=== PATIENT | male | born 1960 | race Caucasian/White ===

== ENCOUNTER 2022-06-29 10:06 | Emergency (ER) | payer MEDICAID, SELFPAY ==
[2022-06-29 10:29] VITALS: BP 132/82; PULSE 92; RESP 16; TEMP 37.2; O2SAT 100; BMI 29.5
--- NOTE | 2022-06-29 11:33 | ED_ITS ---
HPI - General Adult General Chief complaint: Extremity Pain/Injury, Lower Stated complaint: Pain in the right leg and groin Time Seen by Provider: 06/29/22 11:19 History of Present Illness HPI narrative: This 62-year-old male comes in reporting severe low back pain radiating all the way down his right leg. This has been present for the past couple weeks. He did go in to see a provider and had an x-ray and ultrasound done. These were negative for fracture and blood clots. The patient does not describe any injury event. He is ambulatory but has constant pain as described. He states that he has difficulty sleeping at night also to her to the pain. Related Data Home Medications Medication Instructions Recorded Confirmed amlodipine 10 mg tablet 10 mg PO DAILY 06/29/22 06/29/22 budesonide-formoterol HFA 160 1 inh inhalation DAILY 06/29/22 06/29/22 mcg-4.5 mcg/actuation aerosol inhaler (Symbicort) escitalopram oxalate 10 mg tablet 10 mg PO DAILY 06/29/22 06/29/22 ipratropium 0.5 mg-albuterol 3 mg 3 ml inhalation Q6H PRN 06/29/22 06/29/22 (2.5 mg base)/3 mL nebulization soln lorazepam 1 mg tablet 1 mg PO DAILY 06/29/22 06/29/22 meloxicam 15 mg tablet 15 mg PO DAILY 06/29/22 06/29/22 metformin 1,000 mg tablet 1,000 mg PO BID 06/29/22 06/29/22 omeprazole 40 mg capsule,delayed 20 mg PO DAILY 06/29/22 06/29/22 release tiotropium bromide 18 mcg capsule 1 cap inhalation DAILY 06/29/22 06/29/22 with inhalation device (Spiriva with HandiHaler) Previous Rx's Medication Instructions Recorded cyclobenzaprine 10 mg tablet 10 mg PO TID #15 tabs 06/29/22 hydrocodone 5 mg-acetaminophen 325 1 tab PO Q4-6H PRN pain #20 tabs 06/29/22 mg tablet ketorolac 10 mg tablet 10 mg PO Q8H 5 days #15 tabs 06/29/22 methylprednisolone 4 mg tablets in See Rx Instructions PO .COMPLEX 06/29/22 a dose pack (Medrol (Nando)) #21 ea Allergies Allergy/AdvReac Type Severity Reaction Status Date / Time No Known Drug Allergies Allergy Verified 06/29/22 10:24 Review of Systems Status of ROS: Reports: 10 or more systems reviewed and unremarkable except as noted in History and below Narrative: Constitutional: No fevers, no weight gain or loss. Eyes: No discharge. No vision changes. HENT: No congestion, no sore throat, no ear pain. Cardiovascular: No chest pain, no palpitations. Respiratory: No shortness of breath, no wheezes, no cough. Gastrointestinal: No abdominal pain, no vomiting, no diarrhea. No altered bowel function. Genitourinary: No dysuria, no hematuria. He has some pre-existing increased frequency and decreased flow of urine. Musculoskeletal: Normal range of motion. Low back pain radiating down the right leg as described above. Skin: No rashes, no pruritis. Neurological: No dizziness, weakness, speech change. No saddle anesthesia. Endo/Heme/Allergies: No bruising or bleeding. No polydipsia. Pysch: no suicidality, no anxiety, no insomnia. All other systems reviewed and are negative. PFSH PFS Social History Smoking Status: Current every day smoker What tobacco products do you use: cigarettes Smoking packs per day: 1 Smoking cigarettes per day: 20.0 Do you use any of these nicotine containing products: None Second hand tobacco smoke exposure: Yes How often do you have a drink containing alcohol: never How often do you have six or more drinks on one occasion: Never AUDIT-C Alcohol total score: 0 Non-prescribed substance use: denies use service: No Exam Narrative: Exam Narrative: This 62-year-old male comes in with low back pain radiating down his right leg. This is strongly suggestive of a lumbar radiculopathy. He does not have any injury event. He does have some pain when raising his right leg passively. No imaging studies are necessary at this time however he may need a and MRI if not improving. He received a 10 mg morphine intramuscular injection. I provided prescriptions for Medrol Dosepak, Flexeril, Toradol, and [place]. He understands that the narcotics will not be repeated. He also understands that the steroid will cause hyperglycemia. I advised him to follow-up with the spine clinic locally or with a training and documentation specialist in the [facility]. Const: Vital Signs, click to edit/add: Vital Signs - 24 hr 06/29/22 10:29 Temperature 98.9 F Pulse Rate [Pulse Oximeter] 92 Respiratory Rate 16 Blood Pressure [Ri ght Upper Arm] 132/82 Pulse Oximetry 100 Oxygen Delivery Me thod Room Air Course Vital Signs Vital signs: Initial Vital Signs Temperature 98.9 F 06/29/22 10:29 Temperature Source Temporal Artery Scan 06/29/22 10:29 Pulse Rate 92 06/29/22 10:29 Pulse Rhythm 06/29/22 10:29 Pulse Strength 3+ Normal 06/29/22 10:29 Respiratory Rate 16 06/29/22 10:29 Blood Pressure 132/82 06/29/22 10:29 Blood Pressure Mean 98 06/29/22 10:29 Blood Pressure Position Sitting 06/29/22 10:29 Pulse Oximetry 100 06/29/22 10:29 Oxygen Delivery Method 06/29/22 10:29 Vital Signs Temperature 98.9 F 06/29/22 10:29 Pulse Rate 92 06/29/22 10:29 Respiratory Rate 16 06/29/22 10:29 Blood Pressure 132/82 06/29/22 10:29 Pulse Oximetry 100 06/29/22 10:29 Oxygen Delivery Method 06/29/22 10:29 Temperature 98.9 F 06/29/22 10:29 Pulse Rate 92 06/29/22 10:29 Respiratory Rate 16 06/29/22 10:29 Blood Pressure 132/82 06/29/22 10:29 Pulse Oximetry 100 06/29/22 10:29 Oxygen Delivery Method 06/29/22 10:29 Discharge Plan Discharge Clinical Impression: Acute lumbar radiculopathy Patient Disposition: Home, Self-Care Condition: Unchanged Additional Instructions: Take medication as needed and prescribed. Follow up with Spine Clinic locally by calling [phone]. It is also recommended to make an appointment with an orthopedic Spine Clinic in the [facility]. Prescriptions: New cyclobenzaprine 10 mg tablet 10 mg PO TID Qty: 15 0RF hydrocodone-acetaminophen 5-325 mg tablet 1 tab PO Q4-6H PRN (Reason: pain) Qty: 20 0RF ketorolac 10 mg tablet 10 mg PO Q8H 5 Days Qty: 15 0RF methylprednisolone [Medrol (Nando)] 4 mg tablets,dose pack See Rx Instructions .ROUTE .COMPLEX Qty: 21 0RF Rx Instructions: orally per package directions No Action amlodipine 10 mg tablet 10 mg PO DAILY Label Comments: TAKE ONE TABLET BY MOUTH EVERY EVENING escitalopram oxalate 10 mg tablet 10 mg PO DAILY Label Comments: TAKE ONE TABLET BY MOUTH ONCE DAILY meloxicam 15 mg tablet 15 mg PO DAILY Label Comments: TAKE ONE TABLET BY MOUTH EVERY DAY lorazepam 1 mg tablet 1 mg PO DAILY Label Comments: TAKE 1 TABLET BY MOUTH ONCE DAILY IF NEEDED FOR ANXIETY. metformin 1,000 mg tablet 1,000 mg PO BID Label Comments: TAKE 1 TABLET BY MOUTH 2 TIMES DAILY WITH MEALS. omeprazole 40 mg capsule,delayed release(DR/EC) 20 mg PO DAILY Label Comments: TAKE 1 CAPSULE BY MOUTH ONCE DAILY BEFORE A MEAL. Spiriva with HandiHaler 18 mcg capsule, w/inhalation device 1 cap INHALATION DAILY Label Comments: INHALE CONTENTS OF 1 CAPSULE WITH HANDIHALER DEVICE ONCE DAILY ipratropium-albuterol 0.5 mg-3 mg(2.5 mg base)/3 mL solution for nebulization 3 ml INHALATION Q6H PRN Label Comments: INHALE ONE VIAL VIA A NEBULIZER 4 TIMES DAILY NEEDED budesonide-formoterol [Symbicort] 160-4.5 mcg/actuation HFA aerosol inhaler 1 inh INHALATION DAILY Label Comments: INHALE 2 PUFFS BY MOUTH 2 TIMES DAILY. Stand Alone Forms: [employer] Info Instructions
[2022-06-29] MEDS: MORPHINE 10 MG/ML inj IM (11:41)
== END 2022-06-29 12:16 | disposition home or self-care (01) ==
LOC: ED 12:12
PROVIDERS: Emergency Provider Emergency Medicine Emergency Medical Services; PCP Family Medicine
DX: M54.16 Radiculopathy, lumbar region (principal)
CPT/HCPCS: 96372; 99284; J2270

== ENCOUNTER 2022-07-26 08:51 | Emergency (ER) | payer MEDICAID, SELFPAY ==
[2022-07-26 09:18] VITALS: BP 102/70; PULSE 91; RESP 22; TEMP 36.6; O2SAT 98; BMI 28.1
--- NOTE | 2022-07-26 09:48 | ED.NURSE ---
local done on the patient by Dr. Holt.
[2022-07-26] MEDS: LIDOCAINE 1 % PF 30 ML INJECTION (09:49)
--- NOTE | 2022-07-26 10:20 | ED_ITS ---
HPI - Dental/Oral General Date Seen: 07/26/22 Chief complaint: Dental/Oral/Mouth Injury/Pain Stated complaint: Possible infected tooth Time Seen by Provider: 07/26/22 09:16 Source: patient Mode of arrival: ambulatory Limitations: no limitations History of Present Illness HPI Narrative: Patient is a 62 years gentleman who presents here with left upper tooth pain, that he has had for 3-4 days, gradually worsening, he notices some swelling on the left side of his face, he has had no fevers or chills, denies any discharge out of his mouth, but thinks he may have an infected tooth. He is currently on pain medications for a radiculopathy, and has a MRI slated on Wednesday. No problems swallowing, or eating, denies any visual changes, any history of diabetes immunosuppressive diseases. MD Complaint: tooth pain Teeth map: 1. Onset (ago): day(s) (3-4) Duration: constant Severity: moderate Relieving factors: NSAIDs and prescription analgesics Exacerbating factors: chewing and cold Context: history of dental caries and poor dental care Associated symptoms: gum swelling Treatment prior to arrival: oral analgesic Related Data Home Medications Medication Instructions Recorded Confirmed amlodipine 10 mg tablet 10 mg PO DAILY 06/29/22 07/26/22 budesonide-formoterol HFA 160 1 inh inhalation DAILY 06/29/22 07/26/22 mcg-4.5 mcg/actuation aerosol inhaler (Symbicort) escitalopram oxalate 10 mg tablet 10 mg PO DAILY 06/29/22 07/26/22 ipratropium 0.5 mg-albuterol 3 mg 3 ml inhalation Q6H PRN 06/29/22 07/26/22 (2.5 mg base)/3 mL nebulization soln lorazepam 1 mg tablet 1 mg PO DAILY 06/29/22 07/26/22 metformin 1,000 mg tablet 1,000 mg PO BID 06/29/22 07/26/22 omeprazole 40 mg capsule,delayed 20 mg PO DAILY 06/29/22 07/26/22 release tiotropium bromide 18 mcg capsule 1 cap inhalation DAILY 06/29/22 07/26/22 with inhalation device (Spiriva with HandiHaler) atorvastatin 20 mg tablet 20 mg PO HS 07/20/22 07/26/22 Previous Rx's Medication Instructions Recorded cyclobenzaprine 10 mg tablet 10 mg PO TID #15 tabs 06/29/22 hydrocodone 5 mg-acetaminophen 325 1 tab PO Q4-6H PRN pain #20 tabs 06/29/22 mg tablet ketorolac 10 mg tablet 10 mg PO Q8H 5 days #15 tabs 06/29/22 hydrocodone 5 mg-acetaminophen 325 1 tab PO Q8H #30 tabs 07/20/22 mg tablet Allergies Allergy/AdvReac Type Severity Reaction Status Date / Time No Known Drug Allergies Allergy Verified 07/26/22 09:23 Review of Systems 2 Status of ROS: Reports: 10 or more systems reviewed and unremarkable except as noted in History and below [facility] Medical History Adenomatous polyp of colon Alcoholic fatty liver Fay's esophagus with esophagitis Depression with anxiety Diabetic acidosis, type II Erectile dysfunction Essential hypertension GERD (gastroesophageal reflux disease) History of alcohol abuse Internal derangement of right knee Surgical History H/O vasectomy History of appendectomy History of meniscectomy of right knee (~2015) History of partial colectomy (~1999) Hx laparoscopic cholecystectomy (10/15/17) Social History Smoking Status: Current every day smoker What tobacco products do you use: cigarettes Smoking packs per day: 1 Smoking cigarettes per day: 20.0 Years smoked: 1 Smoking pack-years: 1.00 Do you use any of these nicotine containing products: None Second hand tobacco smoke exposure: Yes How often do you have a drink containing alcohol: never How often do you have six or more drinks on one occasion: Never AUDIT-C Alcohol total score: 0 Non-prescribed substance use: denies use service: No Exam Narrative: Exam Narrative: Patient is seen in room 1 in no apparent distress, there is some slight swelling on his left maxillary area in comparison to the right, his mouth opening is normal, there is full swelling notable on the left upper incisor consistent with an abscess, this is rate around a tooth with the post. Very tender to touch, no buccaal swelling is noted , mouth is otherwise normal with normal tonsils normal floor of his mouth, his neck extension flexion is normal, there is no lymphadenopathy anterior posterior chains his TMs are normal. No meningismus I discussed with the patient that I could do it least the incision partial drainage using syringe. 1% lidocaine without epinephrine was used x2 mL in the area, I was then able with a 16 gauge needle make a couple different aspirations, was able to get out approximately 3 mL of purulent pus-like solution. He felt a little bit better after this, rinsing his mouth out with cold water. Estimated blood loss less than 1 mL, there were no complications. Const: Vital Signs, click to edit/add: Vital Signs - 24 hr 07/26/22 09:18 Temperature 97.9 F Pulse Rate [Right Pulse Oximeter] 91 Respiratory Rate 22 Blood Pressure [Ri ght Upper Arm] 102/70 Pulse Oximetry 98 Oxygen Delivery Me thod Room Air Documenting provider has reviewed patient's vital signs: yes Common normals: no apparent distress Course Course Hospital Course: I discussed with him that he has a tooth abscess and he is to follow up with a dentist. He was comfortable this plan, we will put him on some Augmentin, to give him excellent coverage of this kind of organism, he can use a little bit more Vicodin as he is only down to 3 tablets for his radiculopathy as he has been using that for his tooth also. He has concurrent benzodiazepines also, and I warned him about this interaction, he is already on nonsteroidal anti- inflammatory drugs so can not really use any more of these for discomfort. I have requested that he does not use his benzodiazepines they are p.r.n. anyway and explained to him the interaction with this. Review of his CMP shows the use of the narcotics recently, but really not a chronic use pattern. Vital Signs Vital signs: Initial Vital Signs Temperature 97.9 F 07/26/22 09:18 Temperature Source Temporal Artery Scan 07/26/22 09:18 Pulse Rate 91 07/26/22 09:18 Respiratory Rate 22 07/26/22 09:18 Blood Pressure 102/70 07/26/22 09:18 Blood Pressure Mean 80 07/26/22 09:18 Blood Pressure Position Sitting 07/26/22 09:18 Pulse Oximetry 98 07/26/22 09:18 Oxygen Delivery Method 07/26/22 09:18 Vital Signs Temperature 97.9 F 07/26/22 09:18 Pulse Rate 91 07/26/22 09:18 Respiratory Rate 22 07/26/22 09:18 Blood Pressure 102/70 07/26/22 09:18 Pulse Oximetry 98 07/26/22 09:18 Oxygen Delivery Method 07/26/22 09:18 Temperature 97.9 F 07/26/22 09:18 Pulse Rate 91 07/26/22 09:18 Respiratory Rate 22 07/26/22 09:18 Blood Pressure 102/70 07/26/22 09:18 Pulse Oximetry 98 07/26/22 09:18 Oxygen Delivery Method 07/26/22 09:18 Discharge Plan Discharge Clinical Impression: Toothache, Tooth abscess Patient Disposition: Home, Self-Care Condition: Improved Instructions: Dental Abscess (ED), Abscess Incision and Drainage (DC) Additional Instructions: Home rest pain medications as directed, antibiotics, follow-up with dental provider within the next couple days, lots of water swish and spits, we want a promote the drainage of this if we can. Return as needed Prescriptions: No Action atorvastatin 20 mg tablet 20 mg PO HS hydrocodone-acetaminophen 5-325 mg tablet 1 tab PO Q8H Qty: 30 0RF amlodipine 10 mg tablet 10 mg PO DAILY Label Comments: TAKE ONE TABLET BY MOUTH EVERY EVENING escitalopram oxalate 10 mg tablet 10 mg PO DAILY Label Comments: TAKE ONE TABLET BY MOUTH ONCE DAILY lorazepam 1 mg tablet 1 mg PO DAILY Label Comments: TAKE 1 TABLET BY MOUTH ONCE DAILY IF NEEDED FOR ANXIETY. metformin 1,000 mg tablet 1,000 mg PO BID Label Comments: TAKE 1 TABLET BY MOUTH 2 TIMES DAILY WITH MEALS. omeprazole 40 mg capsule,delayed release(DR/EC) 20 mg PO DAILY Label Comments: TAKE 1 CAPSULE BY MOUTH ONCE DAILY BEFORE A MEAL. Spiriva with HandiHaler 18 mcg capsule, w/inhalation device 1 cap INHALATION DAILY Label Comments: INHALE CONTENTS OF 1 CAPSULE WITH HANDIHALER DEVICE ONCE DAILY ipratropium-albuterol 0.5 mg-3 mg(2.5 mg base)/3 mL solution for nebulization 3 ml INHALATION Q6H PRN Label Comments: INHALE ONE VIAL VIA A NEBULIZER 4 TIMES DAILY NEEDED budesonide-formoterol [Symbicort] 160-4.5 mcg/actuation HFA aerosol inhaler 1 inh INHALATION DAILY Label Comments: INHALE 2 PUFFS BY MOUTH 2 TIMES DAILY. cyclobenzaprine 10 mg tablet 10 mg PO TID Qty: 15 0RF hydrocodone-acetaminophen 5-325 mg tablet 1 tab PO Q4-6H PRN (Reason: pain) Qty: 20 0RF ketorolac 10 mg tablet 10 mg PO Q8H 5 Days Qty: 15 0RF Follow Up/Referrals: Italia Pugh MD [Primary Care Provider] - Stand Alone Forms: [employer] Info Instructions
== END 2022-07-26 10:34 | disposition home or self-care (01) ==
PROVIDERS: Emergency Provider Family Medicine; PCP Family Medicine
DX: K04.7 Periapical abscess without sinus (principal)
CPT/HCPCS: 41800; 99283; 99284; J2001

== ENCOUNTER 2022-07-28 09:50 | Outpatient (CLI) | payer MEDICAID, SELFPAY ==
--- NOTE | 2022-07-28 10:15 | MR_ITS ---
[facility] [address] [facility] [address] [address] Phone:?[phone] Fax:?[phone] Referring Physician Information: Jamie Bernard M.D. [address] [facility] [address] Phone:?[phone] Fax:?[phone] Patient:Chhaya Valenzuela D.O.B:?1960 Sex:?Male Phone:?[phone] [facility] MRN:?[id number] Exam Date:?07/28/2022 ? EXAM: MR LUMBAR SPINE WITHOUT CONTRAST CLINICAL INFORMATION: Bilateral low back pain. COMPARISON: None. TECHNICAL INFORMATION: Sagittal T1, T2, STIR, axial T1/T2 weighted imaging through the lumbar spine. Contrast:?None. Sedation:?None. INTERPRETATION: Osseous structures/Alignment: Normal lumbar lordotic alignment. Chronic appearing complete bilateral L5 spondylolysis. No vertebral fracture. Facet/SI joints: No significant facet joint degeneration with no active inflammation. Upper SI joints are unremarkable. No insufficiency fracture. Cord/conus: Normal signal intensity distal cord/conus medullaris. Extra-spinal findings: No abnormalities identified. L5-S1: 1 to 2 mm spondylitic spondylolisthesis with mild disc degeneration, dorsal lateral annular fissure and bulge with no stenosis or neural impingement. L4-5: Moderate disc generation with 4 mm AP by 9 mm SI right posterior lateral and caudally extruded disc herniation with right L5 nerve displacement/impingement. No central stenosis. Mild right foraminal stenosis. L3-4: Mild disc degeneration with asymmetric 4 to 5 mm right dorsolateral and caudal foraminal herniation underlying the L3 ganglion without displacement or compression. No central stenosis. Patent left nerve root canal. L2-3: Normal disc height. No disc herniation, stenosis or focal neural impingement. L1-2: Normal disc height. No disc herniation, stenosis or focal neural impingement. Sections through the lower thoracic spine are unremarkable. CONCLUSION: 1. L4-5 right posterior lateral and caudally extending disc herniation with right L5 nerve displacement/impingement. 2. Right L3-4 dorsal lateral/caudal foraminal herniation underlying the ganglion without compression. 3. Dorsal annular fissure/bulge at L5-S1 with no neural impingement. 4. Chronic L5 spondylolysis with minimal spondylolisthesis on supine imaging. Electronically signed on 07/29/2022 9:03:00 AM by Fred Zepeda M.D.
== END 2022-07-28 09:51 | disposition home or self-care (01) ==
LOC: MRI 09:51
PROVIDERS: PCP Family Medicine; Visit Provider Family Medicine
DX: M54.50 Low back pain, unspecified (principal); M51.26 Other intervertebral disc displacement, lumbar region; M43.06 Spondylolysis, lumbar region
CPT/HCPCS: 72148

== ENCOUNTER 2022-09-01 09:59 | Outpatient (CLI) | payer MEDICAID, SELFPAY | END 2022-09-01 10:00 | disposition home or self-care (01) | PROVIDERS: PCP Family Medicine; Visit Provider Family Medicine | DX: M54.16 Radiculopathy, lumbar region (principal) | CPT/HCPCS: 64483; 64484; J1100; Q9966 ==

== ENCOUNTER 2022-10-03 09:27 | Inpatient (IN) | payer MEDICAID, SELFPAY ==
[2022-10-03] VITALS (33 sets, daily range): BP systolic 111–147; BP diastolic 66–98; PULSE 92–120; RESP 18–36; TEMP 36.4–37; O2SAT 91–97; BMI 29.5; BMI 28.3
--- NOTE | 2022-10-03 10:20 | CRLHL7_ITS ---
For Patients: As a result of the Cures Act, medical imaging exams and procedure reports are released immediately into your electronic medical record. You may view this report before your referring provider. If you have questions, please contact your health care provider. INDICATION: Shortness of breath TECHNIQUE: Chest 1 view. COMPARISON: Chest x-ray 05/06/2020 FINDINGS: The heart is normal in size. The pulmonary vasculature is within normal limits. The lungs are clear. IMPRESSION: No acute process. Dictated by Lizy Smart MD @ 10/03/2022 12:07:13 PM Dictated by: Lizy Smart MD @ 10/03/2022 12:07:21 (Electronically Signed)
--- NOTE | 2022-10-03 10:23 | ED_ITS ---
HPI - General Adult General Time Seen by Provider: : Date Seen: 10/03/22 Chief complaint: Shortness of Breath/Dyspnea Stated complaint: covid Time Seen by Provider: 10/03/22 09:31 Source: patient Mode of arrival: ambulatory Limitations: physical limitation History of Present Illness HPI narrative: Patient is a 62-year-old male with diabetes and COPD, who reports he is disabled. He reports the last several days he has had body aches chills ?burning lungs?. He has felt short of breath. He is on home oxygen for his COPD. He reports he has had a productive cough of a darkening sputum, not his typical white color that is. He has had no significant rigors but he does feel feverish, does not have a temperature today O2 sat is 93% on room air. No leg swelling edema no history of congestive heart failure by chart review he per. He presents to the ED for evaluation Related Data Home Medications Medication Instructions Recorded Confirmed amlodipine 10 mg tablet 10 mg PO DAILY 06/29/22 10/03/22 budesonide-formoterol HFA 160 2 puff inhalation Q12H 06/29/22 10/03/22 mcg-4.5 mcg/actuation aerosol inhaler (Symbicort) escitalopram oxalate 10 mg tablet 10 mg PO DAILY 06/29/22 10/03/22 ipratropium 0.5 mg-albuterol 3 mg 3 ml inhalation Q6H PRN 06/29/22 10/03/22 (2.5 mg base)/3 mL nebulization soln lorazepam 1 mg tablet 1 mg PO DAILY 06/29/22 10/03/22 metformin 1,000 mg tablet 1,000 mg PO BID 06/29/22 10/03/22 omeprazole 40 mg capsule,delayed 40 mg PO DAILY 06/29/22 10/03/22 release tiotropium bromide 18 mcg capsule 1 cap inhalation DAILY 06/29/22 10/03/22 with inhalation device (Spiriva with HandiHaler) atorvastatin 20 mg tablet 20 mg PO HS 07/20/22 10/03/22 albuterol sulfate 90 mcg/actuation 2 puff inhalation Q4H PRN 10/03/22 10/03/22 aerosol inhaler (Ventolin HFA) meloxicam 15 mg tablet 15 mg PO DAILY 10/03/22 10/03/22 Allergies Allergy/AdvReac Type Severity Reaction Status Date / Time No Known Drug Allergies Allergy Verified 10/03/22 15:42 Review of Systems Status of ROS: Reports: 10 or more systems reviewed and unremarkable except as noted in History and below [facility] Medical History Adenomatous polyp of colon Alcoholic fatty liver Fay's esophagus with esophagitis Depression with anxiety Diabetic acidosis, type II Erectile dysfunction Essential hypertension GERD (gastroesophageal reflux disease) History of alcohol abuse Internal derangement of right knee Surgical History H/O vasectomy History of appendectomy History of meniscectomy of right knee (~2015) History of partial colectomy (~1999) Hx laparoscopic cholecystectomy (10/15/17) Social History Highest level of school completed/degree received: GED or equivalent Smoking Status: Current every day smoker What tobacco products do you use: cigarettes Smoking packs per day: 1 Smoking cigarettes per day: 20.0 Years smoked: 1 Smoking pack-years: 1.00 Do you use any of these nicotine containing products: None Second hand tobacco smoke exposure: Yes How often do you have a drink containing alcohol: never How often do you have six or more drinks on one occasion: Never AUDIT-C Alcohol total score: 0 Non-prescribed substance use: denies use Caffeine: Yes (2 cups coffee in the morning) service: No Exam Narrative: Exam Narrative: Objective: In general patient is in mild distress and discomfort frequent cough noted Vital signs largely unremarkable Noncyanotic Neck is supple Chest diminished air exchange bilaterally no obvious rales or wheezing Abdomen benign soft Extremities are no edema Neurologic nonfocal upper extremities Periphery is warm and dry Const: Vital Signs, click to edit/add: Vital Signs - 24 hr 10/03/22 09:44 10/03/22 10:39 10/03/22 10:10 Temperature 98.6 F Pulse Rate Respiratory Rate 36 H 28 H Blood Pressure Blood Pressure [Ri ght Upper Arm] 126/66 Pulse Oximetry 93 95 95 Oxygen Delivery Me thod Room Air Nasal Cannula Oxygen Flow Rate 2 10/03/22 10:10 10/03/22 10:14 10/03/22 10:15 Temperature Pulse Rate 120 H 116 H Respiratory Rate Blood Pressure Blood Pressure [Ri ght Upper Arm] Pulse Oximetry 2 L 96 94 Oxygen Delivery Me thod Nasal Cannula Oxygen Flow Rate 2 10/03/22 10:30 10/03/22 10:31 10/03/22 10:32 Temperature Pulse Rate 112 H 113 H 113 H Respiratory Rate Blood Pressure 121/73 Blood Pressure [Ri ght Upper Arm] Pulse Oximetry 96 95 95 Oxygen Delivery Me thod Oxygen Flow Rate 10/03/22 10:45 10/03/22 11:00 10/03/22 11:01 Temperature Pulse Rate 107 H 109 H 106 H Respiratory Rate Blood Pressure 138/82 Blood Pressure [Ri ght Upper Arm] Pulse Oximetry 95 95 95 Oxygen Delivery Me thod Nasal Cannula Nasal Cannula Nasal Cannula Oxygen Flow Rate 2 2 2 10/03/22 11:15 10/03/22 11:30 10/03/22 11:32 Temperature Pulse Rate 107 H 104 H 102 H Respiratory Rate Blood Pressure 123/77 Blood Pressure [Ri ght Upper Arm] Pulse Oximetry 94 94 95 Oxygen Delivery Me thod Nasal Cannula Nasal Cannula Oxygen Flow Rate 2 2 10/03/22 11:45 10/03/22 12:00 10/03/22 12:02 Temperature Pulse Rate 105 H 104 H 102 H Respiratory Rate Blood Pressure 111/71 Blood Pressure [Ri ght Upper Arm] Pulse Oximetry 94 95 93 Oxygen Delivery Me thod Oxygen Flow Rate 10/03/22 12:03 10/03/22 12:15 10/03/22 12:33 Temperature Pulse Rate 103 H 102 H Respiratory Rate Blood Pressure 140/74 H Blood Pressure [Ri ght Upper Arm] Pulse Oximetry 93 94 Oxygen Delivery Me thod Oxygen Flow Rate 10/03/22 12:38 10/03/22 12:45 10/03/22 13:00 Temperature Pulse Rate 101 H 101 H 95 Respiratory Rate Blood Pressure Blood Pressure [Ri ght Upper Arm] Pulse Oximetry 95 96 96 Oxygen Delivery Me thod Oxygen Flow Rate 10/03/22 13:02 10/03/22 13:15 10/03/22 13:30 Temperature Pulse Rate 96 98 93 Respiratory Rate Blood Pressure 122/74 Blood Pressure [Ri ght Upper Arm] Pulse Oximetry 97 96 97 Oxygen Delivery Me thod Oxygen Flow Rate 10/03/22 13:31 10/03/22 14:02 Temperature Pulse Rate 92 Respiratory Rate Blood Pressure 133/75 134/85 Blood Pressure [Ri ght Upper Arm] Pulse Oximetry 96 Oxygen Delivery Me thod Oxygen Flow Rate Course Vital Signs Vital signs: Initial Vital Signs Temperature 98.6 F 10/03/22 09:44 Temperature Source Temporal Artery Scan 10/03/22 09:44 Respiratory Rate 36 H 10/03/22 09:44 Blood Pressure 126/66 10/03/22 09:44 Blood Pressure Mean 86 10/03/22 09:44 Blood Pressure Position Supine 10/03/22 09:44 Pulse Oximetry 93 10/03/22 09:44 Oxygen Delivery Method 10/03/22 09:44 Vital Signs Temperature 98.6 F 10/03/22 09:44 Respiratory Rate 36 H 10/03/22 09:44 Blood Pressure 126/66 10/03/22 09:44 Pulse Oximetry 93 10/03/22 09:44 Oxygen Delivery Method 10/03/22 09:44 Temperature 97.6 F 10/03/22 14:31 Pulse Rate 96 10/03/22 14:31 Respiratory Rate 28 H 10/03/22 14:31 Blood Pressure 147/98 H 10/03/22 14:31 Pulse Oximetry 95 10/03/22 14:31 Oxygen Delivery Method 10/03/22 14:31 Oxygen Flow Rate 2 10/03/22 14:31 Medical Decision Making MDM Narrative Medical decision making narrative: Patient is a significant history of significant COPD, now with some type of infectious process. Rule out pneumonia rule out COVID/RSV/influenza. Patient will get the above-mentioned studies disposition pending findings above DuoNeb, pain control, IV fluids, lab review Addendum: The patient is positive for COVID, his heart rate is elevated, he is on home oxygen, he feels better after a neb, given his oxygen dependence at home and COPD history I would view him as a high likelihood of deterioration, and I would like to keep in the hospital for the next 24-48 hours to initiate treatment protocol for COVID in a patient with significant COPD. Discussed with Dr. Huizar who recommended I call of [facility] given her degree of work load today. Patient was comfortable with this plan Addendum: [facility] will follow the patient in hospital, discussed Mr. Valenzuela situation with them. They agree with the admission plan. EKG shows sinus rhythm with some nonspecific ST changes, troponin is negative. Addendum: Will start remdesivir, the patient will be admitted, have [facility] accepted, but unfortunately have no bed space available but maybe will later in the day. Lab Data Labs: Lab Results 10/03/22 10/03/22 10/03/22 Range/Units 09:58 10:10 10:10 WBC 5.42 (4.50-11.00) K/uL RBC 5.36 (4.30-5.90) m/uL Hgb 15.3 (13.5-17.5) gm/dL Hct 44.1 (37.0-53.0) % MCV 82 (80-100) fL MCH 29 (26-34) pg MCHC 35 (32-36) gm/dL RDW Coeff of Jeovanny 13.3 (11.5-15.5) % Plt Count 154 (140-440) K/uL Neut % (Auto) 71.3 (42.0-72.0) % Lymph % (Auto) 15.7 L (20-44) % [place] % (Auto) 8.9 (0.0-11.0) % Eos % (Auto) 3.7 (0.0-7.0) % Baso % (Auto) 0.2 (0.0-3.0) % Neut # (Auto) 3.87 (1.7-7.0) K/uL Lymph # (Auto) 0.90 (0.90-2.90) K/uL [place] # (Auto) 0.50 (0.00-0.90) K/UL Eos # (Auto) 0.20 (0.00-0.50) K/uL Baso # (Auto) 0.01 (0.00-0.30) K/uL VBG pH (7.32-7.43) VBG pCO2 (40-50) mmHG VBG pO2 (25-47) mmHG VBG HCO3 (21-28) mmol/L Sodium 135 (135-149) mmol/L Potassium 5.0 (3.6-5.1) mmol/L Chloride 103 (96-114) mmol/L Carbon Dioxide 22 (20-32) mmol/L BUN 10 (7-30) mg/dL Creatinine 0.7 (0.5-1.5) mg/dL Estimated Creat Clear 112.22 Estimated GFR 105 ml/min Glucose 194 H (60-115) mg/dL Calcium 8.7 (8.4-10.6) mg/dL Total Bilirubin (0.1-1.5) mg/dL Direct Bilirubin (0.0-0.5) mg/dL AST (12-35) U/L ALT (4-50) U/L Alkaline Phosphatase (40-150) U/L Troponin I (0.01-0.04) ng/mL C-Reactive Protein 0.9 (0.5-1.0) mg/dL NT-Pro-B Natriuret Pep pg/mL Total Protein (6.0-8.3) g/dL Albumin (3.3-5.0) g/dL SARS-CoV-2 (PCR) POSITIVE SARS-CoV-2 A (Negative) Influenza Type A (PCR) Negative PCR FLU A (Negative) Influenza Type B (PCR) Negative PCR FLU B (Negative) RSV (PCR) Negative PCR RSV (Negative) 10/03/22 10/03/22 Range/Units 10:10 10:10 WBC (4.50-11.00) K/uL RBC (4.30-5.90) m/uL Hgb (13.5-17.5) gm/dL Hct (37.0-53.0) % MCV (80-100) fL MCH (26-34) pg MCHC (32-36) gm/dL RDW Coeff of Jeovanny (11.5-15.5) % Plt Count (140-440) K/uL Neut % (Auto) (42.0-72.0) % Lymph % (Auto) (20-44) % [place] % (Auto) (0.0-11.0) % Eos % (Auto) (0.0-7.0) % Baso % (Auto) (0.0-3.0) % Neut # (Auto) (1.7-7.0) K/uL Lymph # (Auto) (0.90-2.90) K/uL [place] # (Auto) (0.00-0.90) K/UL Eos # (Auto) (0.00-0.50) K/uL Baso # (Auto) (0.00-0.30) K/uL VBG pH 7.398 (7.32-7.43) VBG pCO2 38 L (40-50) mmHG VBG pO2 51.7 H (25-47) mmHG VBG HCO3 23 (21-28) mmol/L Sodium (135-149) mmol/L Potassium (3.6-5.1) mmol/L Chloride (96-114) mmol/L Carbon Dioxide (20-32) mmol/L BUN (7-30) mg/dL Creatinine (0.5-1.5) mg/dL Estimated Creat Clear Estimated GFR ml/min Glucose (60-115) mg/dL Calcium (8.4-10.6) mg/dL Total Bilirubin 0.6 (0.1-1.5) mg/dL Direct Bilirubin 0.4 (0.0-0.5) mg/dL AST 49 H (12-35) U/L ALT 54 H (4-50) U/L Alkaline Phosphatase 72 (40-150) U/L Troponin I < 0.01 L (0.01-0.04) ng/mL C-Reactive Protein (0.5-1.0) mg/dL NT-Pro-B Natriuret Pep 25 pg/mL Total Protein 7.2 (6.0-8.3) g/dL Albumin 4.3 (3.3-5.0) g/dL SARS-CoV-2 (PCR) (Negative) Influenza Type A (PCR) (Negative) Influenza Type B (PCR) (Negative) RSV (PCR) (Negative) Discharge Plan Discharge Clinical Impression: COPD (chronic obstructive pulmonary disease) Prescriptions: No Action atorvastatin 20 mg tablet 20 mg PO HS amlodipine 10 mg tablet 10 mg PO DAILY Label Comments: TAKE ONE TABLET BY MOUTH EVERY EVENING escitalopram oxalate 10 mg tablet 10 mg PO DAILY Label Comments: TAKE ONE TABLET BY MOUTH ONCE DAILY lorazepam 1 mg tablet 1 mg PO DAILY Label Comments: TAKE 1 TABLET BY MOUTH ONCE DAILY IF NEEDED FOR ANXIETY. metformin 1,000 mg tablet 1,000 mg PO BID Label Comments: TAKE 1 TABLET BY MOUTH 2 TIMES DAILY WITH MEALS. omeprazole 40 mg capsule,delayed release(DR/EC) 40 mg PO DAILY Label Comments: TAKE 1 CAPSULE BY MOUTH ONCE DAILY BEFORE A MEAL. Spiriva with HandiHaler 18 mcg capsule, w/inhalation device 1 cap INHALATION DAILY Label Comments: INHALE CONTENTS OF 1 CAPSULE WITH HANDIHALER DEVICE ONCE DAILY ipratropium-albuterol 0.5 mg-3 mg(2.5 mg base)/3 mL solution for nebulization 3 ml INHALATION Q6H PRN Label Comments: INHALE ONE VIAL VIA A NEBULIZER 4 TIMES DAILY NEEDED budesonide-formoterol [Symbicort] 160-4.5 mcg/actuation HFA aerosol inhaler 2 puff INHALATION Q12H Label Comments: INHALE 2 PUFFS BY MOUTH 2 TIMES DAILY. albuterol sulfate [Ventolin HFA] 90 mcg/actuation HFA aerosol inhaler 2 puff INHALATION Q4H PRN meloxicam 15 mg tablet 15 mg PO DAILY Label Comments: TAKE ONE TABLET BY MOUTH EVERY DAY Follow Up/Referrals: Italia Pugh MD [Primary Care Provider] -
[2022-10-03] MEDS: IPRAT-ALBUT 0.5-2.5 MG/3 ML NEB 1 NEB IH (10:28)
[2022-10-03 10:31] LABS: HCO3 VBG 23 mmol/L (21-28); PCO2 VBG 38 mmHG (40-50); PO2 VBG 51.7 mmHG (25-47); pH VBG 7.398 (7.32-7.43)
[2022-10-03 10:32] LABS: Basophils Absolute Auto 0.01 K/uL (0.00-0.30); Basophils Percent Auto 0.2 % (0.0-3.0); Eosinophils Percent Auto 3.7 % (0.0-7.0); Hematocrit 44.1 % (37.0-53.0); Hemoglobin* 15.3 gm/dL (13.5-17.5); Immature Granulocytes Abs Auto 0.01 K/uL (0.00-0.30); Immature Granulocytes Pct Auto 0.2 %; Lymphocytes Percent Auto 15.7 % (20-44); Mean Corpuscular HGB Conc 35 gm/dL (32-36); Mean Corpuscular Hemoglobin 29 pg (26-34); Mean Corpuscular Volume 82 fL (80-100); Monocytes Percent Auto 8.9 % (0.0-11.0); Neutrophils Absolute Auto 3.87 K/uL (1.7-7.0); Neutrophils Percent Auto 71.3 % (42.0-72.0); Platelet Count* 154 K/uL (140-440); RDW Coefficient of Variation % 13.3 % (11.5-15.5); Red Blood Count 5.36 m/uL (4.30-5.90); White Blood Count* 5.42 K/uL (4.50-11.00)
[2022-10-03 10:35] LABS: Slide Review Reflex No
[2022-10-03 10:38] LABS: PCR FLU A Negative PCR FLU A (Negative); PCR FLU B Negative PCR FLU B (Negative); PCR RSV Negative PCR RSV (Negative)
[2022-10-03] MEDS: METHYLPREDNISOLONE SOD SUCC 62.5 MG/ML (125) 125 MG IVP (10:38)
[2022-10-03] MEDS: 0.9 % SODIUM CHLORIDE 500 ML 500 ML IV (10:38)
[2022-10-03] MEDS: MORPHINE 4 MG/ML INJ IVP (10:39)
--- NOTE | 2022-10-03 10:41 | RESP.RT ---
Patient breathing hard using accessory muscles, retracting, rate 28/minute, harsh forceful moist cough, able to clear secretions when present. Patient reports secretions at times, dark creme colored. SaO2 92-95%, patient has home oxygen he uses at night and when active, or SOB. Placed on Nasal Cannula @ 2 Lpm, SaO2 increased to 97%. DuoNeb given with small volume nebulizer, mouth piece, and Oxygen flow meter at 8 Lpm, patient tolerated well, able to take larger breath post treatment. Retractions, and using accessory muscles lessened. Patient states using Oxygen feels better. Patient has home Respiratory medications of DuoNeb, Spiriva, Symbicort.
[2022-10-03 10:52] LABS: SARS PCR* POSITIVE SARS-CoV-2 (Negative)
[2022-10-03 10:52] LABS: Albumin* 4.3 g/dL (3.3-5.0)
[2022-10-03 10:53] LABS: Chloride* 103 mmol/L (96-114); Sodium* 135 mmol/L (135-149)
[2022-10-03 10:55] LABS: Aspartate Amino Transferase* 49 U/L (12-35); Bilirubin Direct* 0.4 mg/dL (0.0-0.5); Bilirubin Total* 0.6 mg/dL (0.1-1.5); Total Protein* 7.2 g/dL (6.0-8.3)
[2022-10-03 10:56] LABS: Alanine Aminotransferase* 54 U/L (4-50); Alkaline Phosphatase* 72 U/L (40-150); Creatinine* 0.7 mg/dL (0.5-1.5); Est. Creatinine Clearance* 112.22; Estimated Glomerular Filt Rate 105 ml/min
[2022-10-03 10:57] LABS: Blood Urea Nitrogen* 10 mg/dL (7-30); Calcium* 8.7 mg/dL (8.4-10.6); Carbon Dioxide* 22 mmol/L (20-32); Glucose* 194 mg/dL (60-115)
[2022-10-03 11:00] LABS: C Reactive Protein* 0.9 mg/dL (0.5-1.0)
[2022-10-03 11:10] LABS: NT Pro B Type NatriureticPept* 25 pg/mL; Troponin I* < 0.01 ng/mL (0.01-0.04)
--- NOTE | 2022-10-03 11:17 | ED.NURSE ---
tamara sheehan rn. aware of possible admission.
[2022-10-03] MEDS: MORPHINE 4 MG/ML INJ 2 MG IVP (11:57)
[2022-10-03] MEDS: MORPHINE 2 MG/ML inj IVP (13:30)
[2022-10-03] MEDS: NICOTINE 14 mg PATCH 1 PATCH TRANSDERMA (14:11)
--- NOTE | 2022-10-03 14:33 | ED.NURSE ---
report was given to timbo hernandez. will go to 276. states that he is feeling better. was given a nicotine patch per his request per order of dr nolan. rr has been 28-40. 02 ay 2 l.
--- NOTE | 2022-10-03 15:17 | CRLHL7_ITS ---
For Patients: As a result of the Century Cures Act, medical imaging exams and procedure reports are released immediately into your electronic medical record. You may view this report before your referring provider. If you have questions, please contact your health care provider. INDICATION: Chest pain and tachycardia TECHNIQUE: CT chest PE was acquired with 95 cc Isovue 370 IV contrast. COMPARISON: 01/22/[address] FINDINGS: Heart and vasculature: Contrast opacification of the pulmonary arterial tree is adequate. No sign of pulmonary embolism. Heart size is normal. Thoracic aorta and pulmonary artery are normal in caliber.Three vessel coronary artery calcifications. Lungs and pleural: Diffuse emphysema. Left lung base atelectasis. Ill-defined opacity in the inferior and posterior right lower lobe was present previously and is stable to slightly progressed. Mild diffuse bronchial wall thickening. No pleural effusions, pleural thickening, or pneumothorax. Lymph nodes/mediastinum: New mild right hilar adenopathy 3 margins lymph node measures 1.2 cm in short axis dimension on image 121 of series 4 thyroid gland is normal. Chest wall: No masses. Upper abdomen: Mild splenomegaly. Spleen measures 15 cm in length, larger than previous. Cholecystectomy. Bones: Unremarkable for age. IMPRESSION: 1. No pulmonary embolus. 2. Persistent ill-defined opacity in the right lower lobe. New mild right hilar adenopathy. Recurrent infection or low-grade malignancy are all possibilities. 3. Emphysema and bronchial wall thickening. 4. Mild splenomegaly. Dictated by Shin Chairez MD @ 10/03/2022 4:32:39 PM Please note that all CT scans at this facility use dose modulation, iterative reconstruction, and/or weight-based dosing when appropriate to reduce radiation dose to as low as reasonably achievable. Dictated by: Shin Chairez MD @ 10/03/2022 16:32:43 (Electronically Signed)
[2022-10-03] MEDS: MORPHINE 4 MG/ML INJ 5 MG IVP (15:33)
--- NOTE | 2022-10-03 17:48 | P.IMHP_ITS ---
Hospitalist- H&P: HPI History of Present Illness Date Seen: 10/03/22 Chief complaint: covid Narrative: Garrett Valenzuela is a 62 year old male who presented to the emergency room today with illness. He notes that earlier this week he had a fever that persisted for 3-4 days. He has also been coughing (more than baseline, history of chronic cough secondary to COPD), no hemoptysis. He has been feeling weak and tachypneic. He is fully vaccinated against COVID. Garrett has been wearing his home oxygen (typically wears at night or with activity) and using home medications without relief. Today he felt worse, and presented to ED. ER Course and Findings: - no acute findings on CXR - +COVID - tachypnea and mild hypoxia, felt better with supplemental oxygen administration - elevated AST/ALT - Given loading dose of Remdesivir and IV Solu-Medrol - given morphine for chest pain (patient notes this is chronic, seems worse than usual given current coughing paroxysms), reassuring EKG and troponin Given patient's comorbidities and tachypnea, he is admitted to the hospital. Upon arrival to the floor, he was tachycardic with persistent chest pain. CT angiogram of obtained with results below. COMPARISON: 01/22/[address] FINDINGS: Heart and vasculature: Contrast opacification of the pulmonary arterial tree is adequate. No sign of pulmonary embolism. Heart size is normal. Thoracic aorta and pulmonary artery are normal in caliber.Three vessel coronary artery calcifications. Lungs and pleural: Diffuse emphysema. Left lung base atelectasis. Ill-defined opacity in the inferior and posterior right lower lobe was present previously and is stable to slightly progressed. Mild diffuse bronchial wall thickening. No pleural effusions, pleural thickening, or pneumothorax. Lymph nodes/mediastinum: New mild right hilar adenopathy 3 margins lymph node measures 1.2 cm in short axis dimension on image 121 of series 4 thyroid gland is normal. Chest wall: No masses. Upper abdomen: Mild splenomegaly. Spleen measures 15 cm in length, larger than previous. Cholecystectomy. Bones: Unremarkable for age. IMPRESSION: 1. No pulmonary embolus. 2. Persistent ill-defined opacity in the right lower lobe. New mild right hilar adenopathy. Recurrent infection or low-grade malignancy are all possibilities. 3. Emphysema and bronchial wall thickening. 4. Mild splenomegaly. Patient is a [id number] diabetic, most recent A1c 7.7 in the outpatient setting. He is also a chronic COPD patient who wears home oxygen with activity and at night. He does not see pulmonology regularly. His PCP is Dr. Pugh at [facility]. The rest of his history is updated expanse tabs below. Patient lives with partner Queenie, she would share medical decision making with daughter Savi if needed. Patient requests full code status, has no desire to be on a ventilator long- term. Review of Systems Status of ROS: Reports: 10 or more systems reviewed and unremarkable except as noted in History and below Narrative: Notes a history of chest pain, chronic. Seems worse with coughing, unaffected by exertion. Believes that weight has been stable. No GI or concerns. No skin concerns. PFSH [facility] Medical History (Updated 10/03/22 @ 18:16 by Valorie Hope MD) Adenomatous polyp of colon Alcoholic fatty liver Fay's esophagus with esophagitis Depression with anxiety Diabetic acidosis, type II Erectile dysfunction Essential hypertension GERD (gastroesophageal reflux disease) History of alcohol abuse Internal derangement of right knee Osteoarthritis of left knee Osteoarthritis of right knee Radiculitis Surgical History H/O vasectomy History of appendectomy History of meniscectomy of right knee (~2015) History of partial colectomy (~1999) Hx laparoscopic cholecystectomy (10/15/17) Family History (Updated 10/03/22 @ 18:03 by Valorie Hope MD) Father Lung cancer Social History (Updated 10/03/22 @ 18:03 by Valorie Hope MD) Narrative: Lives with partner Queenie. Three adult children from previous relationship. Queenie or daughter Savi would be medical decision maker if needed. Patient requests full code status. 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 Smokes 1 pack per day, > 20 pack-year history. No alcohol use. Highest level of school completed/degree received: GED or equivalent Smoking Status: Current every day smoker What tobacco products do you use: cigarettes Smoking packs per day: 1 Smoking cigarettes per day: 20.0 Years smoked: 1 Smoking pack-years: 1.00 Do you use any of these nicotine containing products: None Second hand tobacco smoke exposure: Yes How often do you have a drink containing alcohol: never How often do you have six or more drinks on one occasion: Never AUDIT-C Alcohol total score: 0 Non-prescribed substance use: denies use Caffeine: Yes (2 cups coffee in the morning) service: No Meds Home Medications and Allergies Home Medications Medication Instructions Recorded Confirmed Type amlodipine 10 mg tablet 10 mg PO DAILY 06/29/22 10/03/22 History budesonide-formoterol HFA 160 2 puff inhalation Q12H 06/29/22 10/03/22 History mcg-4.5 mcg/actuation aerosol inhaler (Symbicort) escitalopram oxalate 10 mg tablet 10 mg PO DAILY 06/29/22 10/03/22 History ipratropium 0.5 mg-albuterol 3 mg 3 ml inhalation Q6H PRN 06/29/22 10/03/22 History (2.5 mg base)/3 mL nebulization soln lorazepam 1 mg tablet 1 mg PO DAILY 06/29/22 10/03/22 History metformin 1,000 mg tablet 1,000 mg PO BID 06/29/22 10/03/22 History omeprazole 40 mg capsule,delayed 40 mg PO DAILY 06/29/22 10/03/22 History release tiotropium bromide 18 mcg capsule 1 cap inhalation DAILY 06/29/22 10/03/22 History with inhalation device (Spiriva with HandiHaler) atorvastatin 20 mg tablet 20 mg PO HS 07/20/22 10/03/22 History albuterol sulfate 90 mcg/actuation 2 puff inhalation Q4H PRN 10/03/22 10/03/22 History aerosol inhaler (Ventolin HFA) meloxicam 15 mg tablet 15 mg PO DAILY 10/03/22 10/03/22 History Allergies Allergy/AdvReac Type Severity Reaction Status Date / Time No Known Drug Allergies Allergy Verified 10/03/22 15:42 Exam Narrative: Exam Narrative: GEN: Alert and oriented, answering questions appropriately. Nontoxic in appearance HEENT: Normal external ears, EOMIs bilaterally, no scleral icterus CV: Sinus tachycardia with heart rate in the low 100 range during my exam, No concerning murmurs, rubs, or gallops R: Coughing paroxysms during exam, expiratory wheezing bilateral apices Ext: wwp, no concerning edema Skin: No concerning skin lesions or rashes on exposed skin Neuro: Nonfocal Psych: Appropriate Const: Vital Signs, click to edit/add: Vital Signs - 24 hr 10/03/22 09:44 10/03/22 10:39 10/03/22 10:10 Temperature 98.6 F Pulse Rate Pulse Rate [Right Pulse Oximeter] Respiratory Rate 36 H 28 H Blood Pressure Blood Pressure [Ri ght Arm] Blood Pressure [Ri ght Upper Arm] 126/66 Pulse Oximetry 93 95 95 Oxygen Delivery Me thod Room Air Nasal Cannula Oxygen Flow Rate 2 10/03/22 10:10 10/03/22 10:14 10/03/22 10:15 Temperature Pulse Rate 120 H 116 H Pulse Rate [Right Pulse Oximeter] Respiratory Rate Blood Pressure Blood Pressure [Ri ght Arm] Blood Pressure [Ri ght Upper Arm] Pulse Oximetry 2 L 96 94 Oxygen Delivery Me thod Nasal Cannula Oxygen Flow Rate 2 10/03/22 10:30 10/03/22 10:31 10/03/22 10:32 Temperature Pulse Rate 112 H 113 H 113 H Pulse Rate [Right Pulse Oximeter] Respiratory Rate Blood Pressure 121/73 Blood Pressure [Ri ght Arm] Blood Pressure [Ri ght Upper Arm] Pulse Oximetry 96 95 95 Oxygen Delivery Me thod Oxygen Flow Rate 10/03/22 10:45 10/03/22 11:00 10/03/22 11:01 Temperature Pulse Rate 107 H 109 H 106 H Pulse Rate [Right Pulse Oximeter] Respiratory Rate Blood Pressure 138/82 Blood Pressure [Ri ght Arm] Blood Pressure [Ri ght Upper Arm] Pulse Oximetry 95 95 95 Oxygen Delivery Me thod Nasal Cannula Nasal Cannula Nasal Cannula Oxygen Flow Rate 2 2 2 10/03/22 11:15 10/03/22 11:30 10/03/22 11:32 Temperature Pulse Rate 107 H 104 H 102 H Pulse Rate [Right Pulse Oximeter] Respiratory Rate Blood Pressure 123/77 Blood Pressure [Ri ght Arm] Blood Pressure [Ri ght Upper Arm] Pulse Oximetry 94 94 95 Oxygen Delivery Me thod Nasal Cannula Nasal Cannula Oxygen Flow Rate 2 2 10/03/22 11:45 10/03/22 12:00 10/03/22 12:02 Temperature Pulse Rate 105 H 104 H 102 H Pulse Rate [Right Pulse Oximeter] Respiratory Rate Blood Pressure 111/71 Blood Pressure [Ri ght Arm] Blood Pressure [Ri ght Upper Arm] Pulse Oximetry 94 95 93 Oxygen Delivery Me thod Oxygen Flow Rate 10/03/22 12:03 10/03/22 12:15 10/03/22 12:33 Temperature Pulse Rate 103 H 102 H Pulse Rate [Right Pulse Oximeter] Respiratory Rate Blood Pressure 140/74 H Blood Pressure [Ri ght Arm] Blood Pressure [Ri ght Upper Arm] Pulse Oximetry 93 94 Oxygen Delivery Me thod Oxygen Flow Rate 10/03/22 12:38 10/03/22 12:45 10/03/22 13:00 Temperature Pulse Rate 101 H 101 H 95 Pulse Rate [Right Pulse Oximeter] Respiratory Rate Blood Pressure Blood Pressure [Ri ght Arm] Blood Pressure [Ri ght Upper Arm] Pulse Oximetry 95 96 96 Oxygen Delivery Me thod Oxygen Flow Rate 10/03/22 13:02 10/03/22 13:15 10/03/22 13:30 Temperature Pulse Rate 96 98 93 Pulse Rate [Right Pulse Oximeter] Respiratory Rate Blood Pressure 122/74 Blood Pressure [Ri ght Arm] Blood Pressure [Ri ght Upper Arm] Pulse Oximetry 97 96 97 Oxygen Delivery Me thod Oxygen Flow Rate 10/03/22 13:31 10/03/22 14:02 10/03/22 14:31 Temperature 97.6 F Pulse Rate 92 Pulse Rate [Right Pulse Oximeter] 96 Respiratory Rate 28 H Blood Pressure 133/75 134/85 Blood Pressure [Ri ght Arm] 147/98 H Blood Pressure [Ri ght Upper Arm] Pulse Oximetry 96 95 Oxygen Delivery Me thod Room Air Oxygen Flow Rate 2 10/03/22 14:15 Temperature Pulse Rate Pulse Rate [Right Pulse Oximeter] Respiratory Rate 28 H Blood Pressure Blood Pressure [Ri ght Arm] Blood Pressure [Ri ght Upper Arm] Pulse Oximetry 93 Oxygen Delivery Me thod Nasal Cannula Oxygen Flow Rate 2 Hospitalist - H&P: Result Labs Labs: Short CBC 10/03/22 Range/Units 10:10 WBC 5.42 (4.50-11.00) K/uL Hgb 15.3 (13.5-17.5) gm/dL Hct 44.1 (37.0-53.0) % Plt Count 154 (140-440) K/uL BMP 10/03/22 10:10 Sodium 135 Potassium 5.0 Chloride 103 Carbon Dioxide 22 BUN 10 Creatinine 0.7 Glucose 194 H Calcium 8.7 Cardiac Enzymes 10/03/22 Range/Units 10:10 Troponin I < 0.01 L (0.01-0.04) ng/mL Liver Function 10/03/22 Range/Units 10:10 Total Bilirubin 0.6 (0.1-1.5) mg/dL Direct Bilirubin 0.4 (0.0-0.5) mg/dL AST 49 H (12-35) U/L ALT 54 H (4-50) U/L Alkaline Phosphatase 72 (40-150) U/L Albumin 4.3 (3.3-5.0) g/dL Assessment and Plan Assessment and plan (1) COVID-19: Problem comment: - given comorbidities and chronic lung disease, high risk for complications - amenable to course of Remdesivir, initiated in ED - with weakness as associated symptom, PT and OT assessments requested Status: Acute (2) Type 2 diabetes mellitus: Problem comment: - A1c 7.7 in June 2022 - sliding scale insulin and Accu-Cheks Status: Acute (3) COPD (chronic obstructive pulmonary disease): Problem comment: - uses supplemental oxygen with activity and overnight - appears to have exacerbation during hospital stay. Given steroids in the ER, will continue these + home medications and nebs - RT referral placed Status: Acute (4) Nicotine dependence: Problem comment: - amenable to nicotine patch during hospitalization Status: Acute (5) Acute and chronic respiratory failure with hypoxia: Status: Acute (6) Right lower lobe lung mass: Problem comment: - Noted on 10/03/22 CT, also present on imaging in 2019 - patient aware, knows that this will require continued follow-up with PCP Status: Acute (7) Depression with anxiety: Problem comment: - on Lexapro and prn Ativan as outpatient Status: Acute (8) Alcoholic fatty liver: Problem comment: - noted, elevated AST/ALT on admission Status: Acute (9) Essential hypertension: Problem comment: - continue home meds Status: Acute
[2022-10-03] MEDS: METFORMIN 1,000 MG TABLET 1000 MG PO (20:50)
[2022-10-03] MEDS: ENOXAPARIN 40 MG/0.4 ML INJ SUBCUT (20:50)
[2022-10-03] MEDS: ATORVASTATIN 10 MG TABLET 20 MG PO (20:50)
[2022-10-03] MEDS: SODIUM CHLORIDE 0.9 % (FLUSH) 10 ML SYRINGE 5 ML IVF (20:51)
--- NOTE | 2022-10-03 21:27 | PC.NURSE ---
Admitted to med surg room 276 at 1415. Chest pain noted, 04/05, ongoing from ED. MD updated; orders for morphine and CT scan received. Med administered prior to having scan, w/relief. Pt. on 2L to maintain sats >90%. Uses O2 at night generally. COPD history. Brought rescue inhaler, pharmacy informed. Up independently. BG 278 at dinner time, updated MD and received Novolog order. Unable to provide d/t awaiting pharmacy verification. Pt. understanding. Notes fevers at home, but afebrile here. Nicotine patch to R abdomen (placed in ED).
[2022-10-04] VITALS (11 sets, daily range): BP systolic 132–138; BP diastolic 79–101; PULSE 72–120; RESP 18–24; TEMP 36.4–36.8; O2SAT 90–94
--- NOTE | 2022-10-04 05:51 | PC.NURSE ---
VSS on RA. Patient is alert and oriented x4, able to communicate needs to staff using call light. Patient denies chest pain, SOB and headache this shift. Patient is continent of bowel and bladder, SBA with transfers. Patient tolerated scheduled meds without further concerns. Patient is stable in his room, call light within reach.
[2022-10-04 07:07] LABS: HCO3 VBG 26 mmol/L (21-28); PCO2 VBG 45 mmHG (40-50); PO2 VBG 33.7 mmHG (25-47); pH VBG 7.373 (7.32-7.43)
[2022-10-04 07:29] LABS: Chloride* 103 mmol/L (96-114); Potassium* 4.9 mmol/L (3.6-5.1); Sodium* 136 mmol/L (135-149)
[2022-10-04 07:32] LABS: Blood Urea Nitrogen* 17 mg/dL (7-30); Calcium* 9.1 mg/dL (8.4-10.6); Carbon Dioxide* 24 mmol/L (20-32); Creatinine* 0.7 mg/dL (0.5-1.5); Est. Creatinine Clearance* 112.22; Estimated Glomerular Filt Rate 105 ml/min; Glucose* 191 mg/dL (60-115)
[2022-10-04] MEDS: AMLODIPINE 10 MG TABLET PO (07:45)
[2022-10-04] MEDS: ESCITALOPRAM 10 MG TABLET PO (07:46)
[2022-10-04] MEDS: predniSONE 20 MG TABLET 60 MG PO (07:46)
[2022-10-04] MEDS: OMEPRAZOLE 20 MG CAPSULE DR 40 MG PO (07:46)
[2022-10-04 07:49] LABS: Troponin I* < 0.01 ng/mL (0.01-0.04)
[2022-10-04] MEDS: SODIUM CHLORIDE 0.9 % (FLUSH) 10 ML SYRINGE 5 ML IVF ×3 (08:08→21:11)
[2022-10-04] MEDS: MORPHINE 4 MG/ML INJ 5 MG IVP (08:09)
[2022-10-04] MEDS: METFORMIN 1,000 MG TABLET 1000 MG PO ×2 (08:13→21:10)
--- NOTE | 2022-10-04 09:35 | REH.PT ---
DuoNeb given inline with Aerobika with On Demand small volume nebulizer, with Medical Air flow meter at 8 Lpm. Patient tolerated well, able to take larger breathe post treatment.
--- NOTE | 2022-10-04 09:40 | RESP.RT ---
PEP therapy: Patient has non-productive cough, diminished breath sounds, shallow breathing. PEP with Aerobika, patient made fair expiratory effort, with fair chest shake. Had patient feel chest shake during exhalation to help understand use of Aerobika. Patient feel shake and understands use and verbally states so. Explained to patient lung recruitment with use of Aerobika and secretion mobilization. Encourage patient post hospital stay to continue using Aerobika to help maintain Lung dynamics.
[2022-10-04] MEDS: IPRAT-ALBUT 0.5-2.5 MG/3 ML NEB 1 NEB IH ×3 (11:53→21:10)
[2022-10-04] MEDS: BUDESONIDE 0.5 MG/2ML NEB NEB ×2 (11:53→21:09)
[2022-10-04] MEDS: MORPHINE 4 MG/ML INJ IVP ×2 (12:04→16:15)
--- NOTE | 2022-10-04 15:26 | REH.PT ---
Patient c/o pain and declines PT evaluation, will attempt again tomorrow.
[2022-10-04] MEDS: NICOTINE 14 mg PATCH 1 PATCH TRANSDERMA (16:15)
[2022-10-04] MEDS: OXYCODONE 5 MG TABLET PO ×2 (16:44→21:11)
--- NOTE | 2022-10-04 16:46 | PM.IMPN1 ---
Progress Note: A&P Assessment and plan (1) Acute and chronic respiratory failure with hypoxia: Problem details: secondary to covid and copd exacerbation Status: Acute (2) COVID-19: Problem details: - given comorbidities and chronic lung disease, high risk for complications - amenable to course of Remdesivir, initiated in ED, requiring oxygen, needs are stable, also on steroid daily - with weakness as associated symptom, PT and OT assessments requested - I recommended proning and explained this to patient. Status: Acute (3) COPD (chronic obstructive pulmonary disease): Problem details: - uses supplemental oxygen with activity and overnight at home - appears to have exacerbation during hospital stay. Given steroids in the ER, will continue these + home medications and nebs - RT consult Status: Acute (4) Depression with anxiety: Problem details: - on Lexapro and prn Ativan as outpatient, continue these Status: Acute (5) Essential hypertension: Problem details: - continue home meds Status: Acute (6) Alcoholic fatty liver: Problem details: - noted, elevated AST/ALT on admission, not currently drinking alcohol Status: Acute (7) Right lower lobe lung mass: Problem details: - Noted on 10/03/22 CT, also present on imaging in 2019 - patient aware, knows that this will require continued follow-up with PCP Status: Acute (8) Chronic low back pain with sciatica: Status: Acute (9) Type 2 diabetes mellitus: Problem details: - A1c 7.7 in June 2022 - sliding scale insulin and Accu-Cheks, glucoses less than 200, continue current regimen Status: Acute (10) Nicotine dependence: Problem details: - amenable to nicotine patch during hospitalization Status: Acute (11) Chest pain: Problem details: acute on chronic. Serial EKGs and troponins are unremarkable. Has been getting morphine. Transition to oral oxycodone. Status: Acute Subjective Time Seen by Provider: 09:20 Date Seen: 10/04/22 Interval history: Cresencio complains of chronic constant substernal chest pain that gets worse any time he gets sick. Normally his pain is tolerable at home without any intervention, although I do note that he takes meloxicam daily. He has had this pain for years and it gets worse every time he gets sick and then gets better again. His substernal chest pain remains constant, but now he is rating it at a 7 to 8/10 since coming down with COVID symptoms. He also notes that breathing feels like he is a bubble about to burst and it is getting harder to take big breaths. He normally wears oxygen at home at night or with activity, but has been needing it at rest here as well. He is getting COVID specific medication. He has had several EKGs which are unchanged and serial troponins are also unchanged. Exam Narrative: Exam Narrative: General: No acute distress. Awake, alert, oriented. No pallor. No jaundice. Oropharynx: Clear. Mucous membranes moist. Cardiovascular: Regular rate and rhythm. No murmurs, gallops, or rubs. Respiratory: Coarse bilaterally with no crackles or wheezes.. Abdomen: Bowel sounds present. Soft, nondistended, nontender. Extremities: No pedal edema. Const: Vital Signs, click to edit/add: Vital Signs - 24 hr 10/03/22 19:00 10/03/22 23:00 10/03/22 23:00 Temperature 97.9 F Pulse Rate Pulse Rate [Right Pulse Oximeter] 95 95 Respiratory Rate 18 18 18 Blood Pressure [Ri ght Arm] 119/72 Pulse Oximetry 91 91 Oxygen Delivery Me thod Room Air Room Air Oxygen Flow Rate 2 10/03/22 23:00 10/04/22 03:00 10/04/22 06:18 Temperature 97.7 F 97.7 F Pulse Rate 83 Pulse Rate [Right Pulse Oximeter] 93 72 Respiratory Rate 18 18 Blood Pressure [Ri ght Arm] 144/81 H 132/80 Pulse Oximetry 92 92 Oxygen Delivery Me thod Room Air Oxygen Flow Rate 2 10/04/22 07:53 10/04/22 09:29 10/04/22 09:29 Temperature 97.9 F Pulse Rate Pulse Rate [Right Pulse Oximeter] 110 H Respiratory Rate 24 18 18 Blood Pressure [Ri ght Arm] 132/101 H Pulse Oximetry 90 90 90 Oxygen Delivery Me thod Room Air Nasal Cannula Nasal Cannula Oxygen Flow Rate 2 2 10/04/22 12:05 Temperature 98.2 F Pulse Rate Pulse Rate [Right Pulse Oximeter] 90 Respiratory Rate 20 Blood Pressure [Ri ght Arm] 138/82 Pulse Oximetry 94 Oxygen Delivery Me thod Nasal Cannula Oxygen Flow Rate 2 Documenting provider has reviewed patient's vital signs: yes Labs Labs: Laboratory Results - last 24 hr 10/04/22 10/04/22 06:58 06:58 VBG pH 7.373 VBG pCO2 45 VBG pO2 33.7 VBG HCO3 26 Sodium 136 Potassium 4.9 Chloride 103 Carbon Dioxide 24 BUN 17 Creatinine 0.7 Estimated Creat Clear 112.22 Estimated GFR 105 Glucose 191 H Calcium 9.1 Troponin I < 0.01 L
[2022-10-04 17:09] LABS: Troponin I* < 0.01 ng/mL (0.01-0.04)
--- NOTE | 2022-10-04 20:25 | PC.NURSE ---
shift note: pt c/o 7-05/06 c.p throughout the day. pt received morphine 4-5 mg IV with minimal relief. Dr. Huizar notified. Orders to do Tropi. EKG done with c.p. Dr. Huizar notified pt still having c.pain and expressing frusteration that he has no relief. Pt stated he would like to discharge to home. Orders for PRn oxycodone. Talked with pt about poc and encouraged pt to stay to talk with Dr. Huizar in the a.m. Pt agreed. LS with groans this a.m and wheezes throughout this afternoon. pt on cont sats and 2L pnc O2. Pt becomes sob with ambulating to bathroom. Pt states he's producing small amounts of swain, thick phlegm. Pt has frequent cough. Dr. Dyer notified and deepali euceda ordered.
[2022-10-04] MEDS: ATORVASTATIN 10 MG TABLET 20 MG PO (21:10)
[2022-10-04] MEDS: BENZONATATE 100 MG CAPSULE 200 MG PO (21:10)
[2022-10-04] MEDS: ENOXAPARIN 40 MG/0.4 ML INJ SUBCUT (21:11)
[2022-10-04] MEDS: KETOROLAC 30 MG/ML inj IVP (23:52)
[2022-10-05] VITALS (8 sets, daily range): BP systolic 122–139; BP diastolic 73–94; PULSE 79–96; RESP 18–22; TEMP 36.4–36.6; O2SAT 91–95
[2022-10-05] MEDS: KETOROLAC 30 MG/ML inj IVP ×3 (06:29→18:50)
[2022-10-05] MEDS: OMEPRAZOLE 20 MG CAPSULE DR 40 MG PO (06:31)
--- NOTE | 2022-10-05 06:48 | PC.NURSE ---
VSS on 2L of O2 via NC. Patient is alert and oriented x4, able to communicate needs to staff. Pt c/o of chest pain, PRN Oxycodone 5 mg with scheduled Toradol given with good effect. Tolerated all scheduled meds without swallowing concern. Patient denies SOD, continue to cough. He's independent in room, continent of bowel and bladder. patient is stable, call light within reach.
[2022-10-05] MEDS: predniSONE 20 MG TABLET 60 MG PO (07:52)
[2022-10-05] MEDS: OXYCODONE 5 MG TABLET PO ×3 (07:53→18:50)
[2022-10-05] MEDS: ESCITALOPRAM 10 MG TABLET PO (07:54)
[2022-10-05] MEDS: AMLODIPINE 10 MG TABLET PO (07:54)
[2022-10-05] MEDS: BENZONATATE 100 MG CAPSULE 200 MG PO ×3 (07:54→20:29)
[2022-10-05] MEDS: hydrOXYzine pamoate 25 MG CAPSULE PO ×3 (07:55→18:51)
[2022-10-05] MEDS: BUDESONIDE 0.5 MG/2ML NEB NEB ×2 (09:35→20:29)
[2022-10-05] MEDS: IPRAT-ALBUT 0.5-2.5 MG/3 ML NEB 1 NEB IH ×4 (09:35→20:30)
[2022-10-05] MEDS: METFORMIN 1,000 MG TABLET 1000 MG PO ×2 (09:36→20:30)
--- NOTE | 2022-10-05 11:10 | PM.IMPN1 ---
Progress Note: A&P Assessment and plan (1) Acute and chronic respiratory failure with hypoxia: Problem details: - secondary to covid + COPD exacerbation Status: Acute (2) COVID-19: Problem details: - given comorbidities and chronic lung disease, high risk for complications - Remdesivir initiated in ED, also on Prednisone and nebs - continue supplemental oxygen (wears at home with activity and sleep, currently requiring at rest as well), goal O2 sat 88-90% to prevent hypercarbia - with weakness as associated symptom, PT and OT assessments requested - Proning recommended on 10/04; patient refused at that time, but contemplating today (10/05) Status: Acute (3) COPD (chronic obstructive pulmonary disease): Problem details: - uses supplemental oxygen with activity and overnight at home - appears to have exacerbation during hospital stay, started on Prednisone 60mg 10/03, will continue this and taper on discharge - RT consult Status: Acute (4) Depression with anxiety: Problem details: - on Lexapro and prn Ativan as outpatient, continue these Status: Acute (5) Essential hypertension: Problem details: - continue home meds Status: Acute (6) Alcoholic fatty liver: Problem details: - noted, elevated AST/ALT on admission, not currently drinking alcohol Status: Acute (7) Right lower lobe lung mass: Problem details: - Noted on 10/03/22 CT, also present on imaging in 2019 - patient aware, knows that this will require continued follow-up with PCP Status: Acute (8) Chronic low back pain with sciatica: Status: Acute (9) Type 2 diabetes mellitus: Problem details: - A1c 7.7 in June 2022 - sliding scale insulin and Accu-Cheks Status: Acute (10) Nicotine dependence: Problem details: - tolerating nicotine patch Status: Acute (11) Chest pain: Problem details: - acute on chronic, per pt report. Serial EKGs, troponins unremarkable throughout stay, transitioned from IV morphine to oral Oxycodone (on [place] as an outpt) + Toradol - history of reassuring TTE in 2018 - will repeat TTE 10/05 to evaluate for myocarditis, other potential source of pain Status: Acute Plan - TTE today - continue oxycodone and Toradol for chest pain, wean narcotics as tolerated - Lovenox for prophylaxis - discharge home with partner when medically stable, likely 1-2 more days pending clinical course and symptoms Subjective Date Seen: 10/05/22 Interval history: No acute events overnight. Patient continues to have chest pain, acute on chronic. Oxycodone has been helpful, in addition to Toradol (getting this IV in place of his daily meloxicam). EKGs and troponins unremarkable, reassuring outpatient TTE in 2019. Amenable to repeating TTE today given symptomatic viral illness. Cresencio also notes continued coughing paroxysms, noted with deep breaths and activity. He feels that prednisone has been helpful. Exam Narrative: Exam Narrative: GEN: Alert, nontoxic, sitting comfortably in bed and speaking in full sentences HEENT: Normal external ears, EOMIs bilaterally, no scleral icterus CV: RRR, No concerning murmurs but heart sounds distant during exam today R: + coughing paroxysms with deep breath, mild rhonchi bilateral bases, decreased air movement throughout Ext: wwp, no concerning edema Skin: No concerning skin lesions or rashes on exposed skin Neuro: Nonfocal Psych: Appropriate Const: Vital Signs, click to edit/add: Vital Signs - 24 hr 10/04/22 12:05 10/04/22 17:24 10/04/22 15:00 Temperature 98.2 F 97.8 F Pulse Rate Pulse Rate [Right Pulse Oximeter] 90 120 H 120 H Respiratory Rate 20 22 22 Blood Pressure [Ri t Arm] 138/82 132/101 H Pulse Oximetry 94 92 Oxygen Delivery Me thod Nasal Cannula Nasal Cannula Oxygen Flow Rate 2 2 10/04/22 15:00 10/04/22 16:04 10/04/22 21:00 Temperature 97.6 F Pulse Rate 99 Pulse Rate [Right Pulse Oximeter] 92 Respiratory Rate 22 18 Blood Pressure [Ri t Arm] 135/79 Pulse Oximetry 92 91 Oxygen Delivery Me thod Nasal Cannula Nasal Cannula Oxygen Flow Rate 2 2 10/04/22 23:00 10/04/22 23:00 10/05/22 01:00 Temperature 97.7 F Pulse Rate Pulse Rate [Right Pulse Oximeter] 92 96 Respiratory Rate 18 18 18 Blood Pressure [Ri t Arm] 126/74 Pulse Oximetry 91 92 Oxygen Delivery Me thod Nasal Cannula Nasal Cannula Oxygen Flow Rate 2 2 10/05/22 05:00 10/05/22 06:05 10/05/22 07:00 Temperature 97.5 F L Pulse Rate 79 Pulse Rate [Right Pulse Oximeter] 92 Respiratory Rate 18 18 Blood Pressure [Ri ght Arm] 139/79 Pulse Oximetry 91 94 Oxygen Delivery Me thod Nasal Cannula Nasal Cannula Oxygen Flow Rate 2 2 10/05/22 07:00 10/05/22 07:20 Temperature Pulse Rate 84 Pulse Rate [Right Pulse Oximeter] 89 Respiratory Rate 18 Blood Pressure [Ri ght Arm] 135/91 H Pulse Oximetry 94 Oxygen Delivery Me thod Nasal Cannula Oxygen Flow Rate 2 Labs Labs: Laboratory Results - last 24 hr 10/04/22 16:27 Troponin I < 0.01 L
[2022-10-05] MEDS: SODIUM CHLORIDE 0.9 % (FLUSH) 10 ML SYRINGE 5 ML IVF ×3 (12:15→20:33)
[2022-10-05] MEDS: ACETAMINOPHEN 325 MG TABLET 975 MG PO (12:16)
[2022-10-05] MEDS: NICOTINE 14 mg PATCH 1 PATCH TRANSDERMA (13:23)
[2022-10-05] MEDS: ALBUTEROL INHALER 2 PUFF IH (18:57)
--- NOTE | 2022-10-05 19:51 | PC.NURSE ---
End of shift-- Pt has been pleasant and cooperative, alert and oriented. VSS and pt is afebrile. SPO2 maintained >90% on 1.5L per n.c. He c/o some pain in his ribs today that he rated as high as 6 out of 10 that appears well managed with Oxycodone, Vistaril and scheduled Toradol. Telemetry shows NSR. Expiratory wheezing noted in lung palomo this morning, but CTA this afternoon. Pt continues to have a non-productive cough. He denied nausea and ate 100% of 3 meals today without difficulty. BS 170, 252, and 289 and pt was given insulin per sliding scale. He was up in room independently and tolerated it well. He also proned for a bit this afternoon. This evening pt appeared increasingly SOB and RR was noted to be 30bpm and pt was given Albuterol inhaler with stated relief. Report to REINA Melchor.
[2022-10-05] MEDS: ATORVASTATIN 10 MG TABLET 20 MG PO (20:28)
[2022-10-05] MEDS: ENOXAPARIN 40 MG/0.4 ML INJ SUBCUT (20:29)
[2022-10-06] VITALS (7 sets, daily range): BP systolic 126–143; BP diastolic 77–88; PULSE 80–93; RESP 18–22; TEMP 36.4–36.6; O2SAT 91–93
[2022-10-06] MEDS: KETOROLAC 30 MG/ML inj IVP ×3 (00:09→12:41)
--- NOTE | 2022-10-06 05:21 | PC.NURSE ---
[id number]: patient appears to have slept between cares. denies pain, sats remain above 90% on 1.5L, afebrile, cough present. shift uneventful.
[2022-10-06] MEDS: OMEPRAZOLE 20 MG CAPSULE DR 40 MG PO (06:31)
[2022-10-06] MEDS: OXYCODONE 5 MG TABLET PO ×2 (06:35→12:41)
[2022-10-06 06:41] LABS: Basophils Absolute Auto 0.01 K/uL (0.00-0.30); Basophils Percent Auto 0.1 % (0.0-3.0); Eosinophils Absolute Auto 0.01 K/uL (0.00-0.50); Eosinophils Percent Auto 0.1 % (0.0-7.0); Hematocrit 39.8 % (37.0-53.0); Hemoglobin* 13.3 gm/dL (13.5-17.5); Immature Granulocytes Abs Auto 0.02 K/uL (0.00-0.30); Immature Granulocytes Pct Auto 0.3 %; Lymphocytes Percent Auto 14.5 % (20-44); Mean Corpuscular HGB Conc 33 gm/dL (32-36); Mean Corpuscular Hemoglobin 28 pg (26-34); Mean Corpuscular Volume 84 fL (80-100); Monocytes Percent Auto 7.4 % (0.0-11.0); Neutrophils Percent Auto 77.6 % (42.0-72.0); Platelet Count* 158 K/uL (140-440); RDW Coefficient of Variation % 13.5 % (11.5-15.5); Red Blood Count 4.72 m/uL (4.30-5.90); White Blood Count* 7.29 K/uL (4.50-11.00)
[2022-10-06 06:47] LABS: Slide Review Reflex No
[2022-10-06 06:58] LABS: Chloride* 105 mmol/L (96-114)
[2022-10-06 06:59] LABS: Potassium* 4.2 mmol/L (3.6-5.1); Sodium* 138 mmol/L (135-149)
[2022-10-06 07:01] LABS: Creatinine* 0.8 mg/dL (0.5-1.5); Est. Creatinine Clearance* 98.19; Estimated Glomerular Filt Rate 101 ml/min
[2022-10-06 07:02] LABS: Blood Urea Nitrogen* 25 mg/dL (7-30); Calcium* 9.3 mg/dL (8.4-10.6); Carbon Dioxide* 26 mmol/L (20-32); Glucose* 143 mg/dL (60-115)
[2022-10-06] MEDS: ESCITALOPRAM 10 MG TABLET PO (08:53)
[2022-10-06] MEDS: AMLODIPINE 10 MG TABLET PO (08:53)
[2022-10-06] MEDS: BENZONATATE 100 MG CAPSULE 200 MG PO ×2 (08:53→14:41)
[2022-10-06] MEDS: METFORMIN 1,000 MG TABLET 1000 MG PO (08:53)
[2022-10-06] MEDS: predniSONE 20 MG TABLET 60 MG PO (08:53)
[2022-10-06] MEDS: SODIUM CHLORIDE 0.9 % (FLUSH) 10 ML SYRINGE 5 ML IVF ×2 (08:53→12:42)
[2022-10-06] MEDS: IPRAT-ALBUT 0.5-2.5 MG/3 ML NEB 1 NEB IH ×2 (11:07→14:40)
[2022-10-06] MEDS: BUDESONIDE 0.5 MG/2ML NEB NEB (11:07)
--- NOTE | 2022-10-06 11:50 | PC.SOCIAL ---
Received a phone call from a [facility] [place], Lis, at [phone]. Lis was checking on pt's status. Informed Lis that pt will discharge home today with home oxygen. Lis will make a note and follow up as needed.
--- NOTE | 2022-10-06 12:54 | RESP.RT ---
Patient up and walking around room on room air, SaO2 92%, respiratory rate 18/minute, breathing regular/easy, BBS clear, good air movement. DuoNeb given with mouthpiece, small volume nebulizer, and Medical Air Flow meter at 8 Lpm. Patient used well. Patient demonstrated use of Aerobika x4 with excellent effort and good chest shake.
--- NOTE | 2022-10-06 14:22 | PM.DS1 ---
DS: Providers Provider Time Seen by Provider: 10:45 Date Seen: 10/06/22 Date of admission: 10/03/22 17:40 Primary care physician: Italia Pugh MD Admitting Clinician: Valorie Hope MD Consults: 10/03/22 17:39 Consult to Respiratory Therapy [CONS] Routine Comment: Reason(s) for RT Consult:: Consult 10/03/22 17:45 Consult to Occupational Therapy [CONS] Routine Comment: Reason(s) for OT Consult:: Evaluate and Treat Any Restrictions?:: No Restrictions Comment: weakness Consult to Physical Therapy [CONS] Routine Comment: Reason(s) for PT Consult:: Evaluate and Treat Any Restrictions?:: No Restrictions Comment: weakness Attending Physician on discharge: Jenniffer Huizar MD Date of Discharge: 10/06/22 DS: Diagnosis Discharge Diagnosis (1) Chest pain: Status: Acute Problem details: - acute on chronic, per pt report. Serial EKGs, troponins unremarkable throughout stay, transitioned from IV morphine to oral Oxycodone (on [place] as an outpt) + Toradol - history of reassuring TTE in 2019 - TTE unremarkable 10/06/22 (2) Depression with anxiety: Status: Acute Problem details: - on Lexapro and prn Ativan as outpatient, continue these (3) Essential hypertension: Status: Acute Problem details: - continue home meds (4) Alcoholic fatty liver: Status: Acute Problem details: - noted, elevated AST/ALT on admission, not currently drinking alcohol (5) Right lower lobe lung mass: Status: Acute Problem details: - Noted on 10/03/22 CT, also present on imaging in 2019 - patient aware, knows that this will require continued follow-up with PCP (6) COVID-19: Status: Acute Problem details: - given comorbidities and chronic lung disease, high risk for complications - Remdesivir initiated in ED, also on Prednisone and nebs - continue supplemental oxygen (wears at home with activity and sleep, currently requiring at rest as well), goal O2 sat 88-90% to prevent hypercarbia - with weakness as associated symptom, PT and OT assessments requested - Proning recommended on 10/04; patient refused at that time, but contemplating today (10/05) (7) Acute and chronic respiratory failure with hypoxia: Status: Acute Problem details: - secondary to covid + COPD exacerbation (8) Chronic low back pain with sciatica: Status: Acute (9) Type 2 diabetes mellitus: Status: Acute Problem details: - A1c 7.7 in June 2022 - sliding scale insulin and Accu-Cheks (10) Nicotine dependence: Status: Acute Problem details: - tolerating nicotine patch (11) COPD (chronic obstructive pulmonary disease): Status: Acute Problem details: - uses supplemental oxygen with activity and overnight at home - appears to have exacerbation during hospital stay, started on Prednisone 60mg 10/03, will continue this and taper on discharge - RT consult DS: Summary Hospital Course Hospital Course: This is a 62-year-old male who uses oxygen at home with night or activity and had 3-4 days of fever and coughing. He had also been feeling weak and tachypneic. He is fully vaccinated against COVID, but tested positive for COVID in the emergency department. He was also noted to be hypoxic. He was admitted to the hospital and started on Remdesivir and IV Solu-Medrol. He has chronic constant chest pain at home which he says usually gets worse with upper respiratory illnesses. He did note worse but persistent and constant chest pain for which he had serial EKGs and troponin. These were reassuring. An echocardiogram was also obtained which was unremarkable. He has been getting daily Remdesivir and oral prednisone for treatment of COVID and COPD exacerbation. Initially had been needing oxygen even at rest, but was able to be on room air even with some activity today without any hypoxia. He is therefore discharged home today in stable and improved condition. Note to PCP: Please review CT chest below. There was a persistent right lower lobe opacity. Follow-up imaging could be obtained as an outpatient to show if it has cleared. Also, he has h/o EtOH liver disease and persistently elevated LFTs despite abstaining from EtOH. Please follow. Time Spent with Patient Time attestation: Total time spent providing and/or coordinating discharge services: Exam Const: Vital Signs, click to edit/add: Vital Signs - 24 hr 10/05/22 15:00 10/05/22 15:00 10/05/22 15:00 Temperature 97.9 F Pulse Rate 94 Pulse Rate [Right Pulse Oximeter] 91 Respiratory Rate 20 20 Blood Pressure [Ri ght Arm] 122/73 Pulse Oximetry 92 92 Oxygen Delivery Me thod Nasal Cannula Nasal Cannula Oxygen Flow Rate 1.5 1.5 10/05/22 15:00 10/05/22 20:17 10/06/22 00:13 Temperature 97.8 F 97.7 F Pulse Rate Pulse Rate [Right Pulse Oximeter] 91 91 91 Respiratory Rate 20 22 20 Blood Pressure [Ri ght Arm] 122/74 143/88 H Pulse Oximetry 91 91 Oxygen Delivery Me thod Nasal Cannula Nasal Cannula Oxygen Flow Rate 1.5 1.5 10/06/22 00:17 10/06/22 00:17 10/06/22 03:52 Temperature Pulse Rate Pulse Rate [Right Pulse Oximeter] 91 80 Respiratory Rate 20 20 18 Blood Pressure [Ri ght Arm] Pulse Oximetry 91 93 Oxygen Delivery Me thod Nasal Cannula Nasal Cannula Oxygen Flow Rate 1.5 1.5 10/06/22 08:46 10/06/22 08:46 10/06/22 12:35 Temperature 97.9 F 97.6 F Pulse Rate Pulse Rate [Right Pulse Oximeter] 93 91 Respiratory Rate 22 20 Blood Pressure [Ri ght Arm] 126/77 130/79 Pulse Oximetry 91 91 93 Oxygen Delivery Me thod Nasal Cannula Nasal Cannula Room Air Oxygen Flow Rate 1.5 1.5 10/06/22 09:45 Temperature Pulse Rate Pulse Rate [Right Pulse Oximeter] Respiratory Rate 18 Blood Pressure [Ri ght Arm] Pulse Oximetry 93 Oxygen Delivery Me thod Room Air Oxygen Flow Rate DS: Data Data Completed and Pending Completed studies during hospitalization: Ordering Physician: Jamie Bernard M.D. Date of Service: 10/03/22 Procedure(s): XR chest 1V portable Accession Number(s): [id number] cc: Italia Pugh M.D.; Jamie Bernard M.D.~ For Patients: As a result of the Cures Act, medical imaging exams and procedure reports are released immediately into your electronic medical record. You may view this report before your referring provider. If you have questions, please contact your health care provider. INDICATION: Shortness of breath TECHNIQUE: Chest 1 view. COMPARISON: Chest x-ray 05/06/2020 FINDINGS: The heart is normal in size. The pulmonary vasculature is within normal limits. The lungs are clear. IMPRESSION: No acute process. Dictated by Lizy Smart MD @ 10/03/2022 12:07:13 PM Dictated by: Lizy Smart MD @ 10/03/2022 12:07:21 (Electronically Signed) Ordering Physician: Valorie Hope M.D. Date of Service: 10/03/22 Procedure(s): CT angio chest PE protocol Accession Number(s): [id number] cc: Valorie Hope M.D.; Italia Pugh M.D.~ For Patients: As a result of the Century Cures Act, medical imaging exams and procedure reports are released immediately into your electronic medical record. You may view this report before your referring provider. If you have questions, please contact your health care provider. INDICATION: Chest pain and tachycardia TECHNIQUE: CT chest PE was acquired with 95 cc Isovue 370 IV contrast. COMPARISON: 01/22/[address] FINDINGS: Heart and vasculature: Contrast opacification of the pulmonary arterial tree is adequate. No sign of pulmonary embolism. Heart size is normal. Thoracic aorta and pulmonary artery are normal in caliber.Three vessel coronary artery calcifications. Lungs and pleural: Diffuse emphysema. Left lung base atelectasis. Ill-defined opacity in the inferior and posterior right lower lobe was present previously and is stable to slightly progressed. Mild diffuse bronchial wall thickening. No pleural effusions, pleural thickening, or pneumothorax. Lymph nodes/mediastinum: New mild right hilar adenopathy 3 margins lymph node measures 1.2 cm in short axis dimension on image 121 of series 4 thyroid gland is normal. Chest wall: No masses. Upper abdomen: Mild splenomegaly. Spleen measures 15 cm in length, larger than previous. Cholecystectomy. Bones: Unremarkable for age. IMPRESSION: 1. No pulmonary embolus. 2. Persistent ill-defined opacity in the right lower lobe. New mild right hilar adenopathy. Recurrent infection or low-grade malignancy are all possibilities. 3. Emphysema and bronchial wall thickening. 4. Mild splenomegaly. Dictated by Shin Chairez MD @ 10/03/2022 4:32:39 PM Please note that all CT scans at this facility use dose modulation, iterative reconstruction, and/or weight-based dosing when appropriate to reduce radiation dose to as low as reasonably achievable. Dictated by: Shin Chairez MD @ 10/03/2022 16:32:43 (Electronically Signed) 10/03/2022 EKG: Sinus tachycardia heart rate 114 beats per minute. Nonspecific ST abnormality. 10/04/2022 8:17 a.m. EKG: Normal sinus rhythm heart rate 97 beats per minute. Nonspecific ST abnormality. 10/05/2022 echocardiogram: Technically limited exam. Normal LV size, mildly increased wall thickness, estimated EF of 60-65%. Normal RV size and systolic function. No significant valve disease detected. Labs on day of discharge: Labs from last 24 hours 10/06/22 10/06/22 06:12 06:12 WBC 7.29 RBC 4.72 Hgb 13.3 L Hct 39.8 MCV 84 MCH 28 MCHC 33 RDW Coeff of Jeovanny 13.5 Plt Count 158 Neut % (Auto) 77.6 H Lymph % (Auto) 14.5 L [place] % (Auto) 7.4 Eos % (Auto) 0.1 Baso % (Auto) 0.1 Neut # (Auto) 5.70 Lymph # (Auto) 1.10 [place] # (Auto) 0.50 Eos # (Auto) 0.01 Baso # (Auto) 0.01 Sodium 138 Potassium 4.2 Chloride 105 Carbon Dioxide 26 BUN 25 Creatinine 0.8 Estimated Creat Clear 98.19 Estimated GFR 101 Glucose 143 H Calcium 9.3 Discharge Plan Discharge Disposition: Home, Self-Care Date of Admission: 10/03/22 17:40 Attending Provider on Discharge: Jenniffer Huizar Primary Care Provider: Italia Pugh Condition: Improved Anticipated Discharge Date/Time: 10/06/22 14:33 Discharge Medications: New prednisone 20 mg Tablet 40 mg PO DAILYWM 1 Days Qty: 2 0RF benzonatate 100 mg Capsule 200 mg PO TID Qty: 20 0RF Continued atorvastatin 20 mg tablet 20 mg PO HS amlodipine 10 mg tablet 10 mg PO DAILY Label Comments: TAKE ONE TABLET BY MOUTH EVERY EVENING escitalopram oxalate 10 mg tablet 10 mg PO DAILY Label Comments: TAKE ONE TABLET BY MOUTH ONCE DAILY lorazepam 1 mg tablet 1 mg PO DAILY Label Comments: TAKE 1 TABLET BY MOUTH ONCE DAILY IF NEEDED FOR ANXIETY. metformin 1,000 mg tablet 1,000 mg PO BID Label Comments: TAKE 1 TABLET BY MOUTH 2 TIMES DAILY WITH MEALS. omeprazole 40 mg capsule,delayed release(DR/EC) 40 mg PO DAILY Label Comments: TAKE 1 CAPSULE BY MOUTH ONCE DAILY BEFORE A MEAL. Spiriva with HandiHaler 18 mcg capsule, w/inhalation device 1 cap INHALATION DAILY Label Comments: INHALE CONTENTS OF 1 CAPSULE WITH HANDIHALER DEVICE ONCE DAILY ipratropium-albuterol 0.5 mg-3 mg(2.5 mg base)/3 mL solution for nebulization 3 ml INHALATION Q6H PRN Label Comments: INHALE ONE VIAL VIA A NEBULIZER 4 TIMES DAILY NEEDED budesonide-formoterol [Symbicort] 160-4.5 mcg/actuation HFA aerosol inhaler 2 puff INHALATION Q12H Label Comments: INHALE 2 PUFFS BY MOUTH 2 TIMES DAILY. albuterol sulfate [Ventolin HFA] 90 mcg/actuation HFA aerosol inhaler 2 puff INHALATION Q4H PRN meloxicam 15 mg tablet 15 mg PO DAILY Label Comments: TAKE ONE TABLET BY MOUTH EVERY DAY Discharge Orders: Discharge Order (Routine); Ordered 10/06/22 Ordered By: Jenniffer Huizar Patient Education: COPD (Chronic Obstructive Pulmonary Disease) (DC), COVID-19 (Coronavirus Disease 2019) (DC) Activity Level: Activity as Tolerated Discharge Diet: Diabetic Follow Up Appointments: Italia Pugh MD [Primary Care Provider] - Forms: [employer] Info Instructions
[2022-10-06] MEDS: NICOTINE 14 mg PATCH 1 PATCH TRANSDERMA (14:41)
--- NOTE | 2022-10-06 16:01 | ED.NURSE ---
patient iv removed, tip intact. pt dc info gone over, pt verbalizes understanding. pt dc out with home inhaler and electronic rx sent. pt had ride from family.
== END 2022-10-06 15:51 | disposition home or self-care (01) | DRG 177 ==
LOC: ED 10:16 → MEDSURG 14:27
PROVIDERS: Family Medicine; Admitting Provider Family Medicine; Emergency Provider Family Medicine; PCP Family Medicine; Visit Provider Family Medicine
DX: U07.1 COVID-19 (principal); J96.21 Acute and chronic respiratory failure with hypoxia; J44.1 Chronic obstructive pulmonary disease with (acute) exacerbation; K70.0 Alcoholic fatty liver; R07.9 Chest pain, unspecified; F41.8 Other specified anxiety disorders; I10 Essential (primary) hypertension; R91.8 Other nonspecific abnormal finding of lung field; R53.1 Weakness; M54.40 Lumbago with sciatica, unspecified side; G89.29 Other chronic pain; E11.9 Type 2 diabetes mellitus without complications; F17.200 Nicotine dependence, unspecified, uncomplicated; Z99.81 Dependence on supplemental oxygen; R74.01 Elevation of levels of liver transaminase levels; R00.0 Tachycardia, unspecified; J44.9 Chronic obstructive pulmonary disease, unspecified; R16.1 Splenomegaly, not elsewhere classified; Z79.84 Long term (current) use of oral hypoglycemic drugs; Z79.01 Long term (current) use of anticoagulants; K21.9 Gastro-esophageal reflux disease without esophagitis; R05.8 Other specified cough; Z87.898 Personal history of other specified conditions; Z90.89 Acquired absence of other organs; Z98.52 Vasectomy status; Z98.890 Other specified postprocedural states; Z90.49 Acquired absence of other specified parts of digestive tract
CPT/HCPCS: 36415; 71045; 71260; 80048; 80076; 82803; 82962; 83880; 84484; 85025; 86140; 87502; 87634; 87635; 93005; 93306; 94640; 94664; 94761; 97110; 97161; 97166; 97535; 99284; 99285; A9270; J1650; J1885; J2270; J2930; J7050; J7120; J7512; J7626; Q9967; S4990

== ENCOUNTER 2022-11-02 08:23 | Outpatient (CLI) | payer MEDICAID, SELFPAY ==
--- NOTE | 2022-11-02 08:45 | CRLHL7_ITS ---
For Patients: As a result of the Cures Act, medical imaging exams and procedure reports are released immediately into your electronic medical record. You may view this report before your referring provider. If you have questions, please contact your health care provider. CLINICAL HISTORY: ELEVATED LIVER ENZYMES AND ENLARGED AORTA COMPARISON: CT 01/22/2020 TECHNIQUE: Real time hunter scale imaging and color Doppler analysis was performed of the abdomen. FINDINGS: Sonographic imaging demonstrates normal size and diffusely increased echotexture of the liver. The spleen is of normal size. The pancreas appears normal. Normal IVC. Atherosclerotic disease in the aorta. The distal aorta measures up to 2.9 cm. There is no evidence of ascites. The gallbladder is absent. The common bile duct measures 9 mm in size within the kassandra hepatis. The kidneys appear symmetric. Similar persistent lobation of the left kidney, incidental. The right kidney measures 12.5 cm in length and the left kidney measures 12.2 cm. There is no evidence of a renal calculus or hydronephrosis. IMPRESSION: Fatty liver. Status post cholecystectomy. Atherosclerotic disease in the aorta. Distal aorta is ectatic measuring 2.9 cm. Dictated by Larry Dutton MD @ 11/02/2022 9:39:45 AM (Electronically Signed)
== END 2022-11-02 08:24 | disposition home or self-care (01) ==
LOC: US 08:25
PROVIDERS: PCP Family Medicine; Visit Provider Family Medicine
DX: R16.1 Splenomegaly, not elsewhere classified; R74.8 Abnormal levels of other serum enzymes
CPT/HCPCS: 76700

== ENCOUNTER 2023-04-26 11:38 | Emergency (ER) | payer MEDICAID, SELFPAY ==
[2023-04-26 11:50] VITALS: BP 143/93; PULSE 114; RESP 34; TEMP 36.4; O2SAT 99; BMI 26.6
--- NOTE | 2023-04-26 12:04 | CRLHL7_ITS ---
For Patients: As a result of the Century Cures Act, medical imaging exams and procedure reports are released immediately into your electronic medical record. You may view this report before your referring provider. If you have questions, please contact your health care provider. INDICATION: SOB TECHNIQUE: Chest 2 views. COMPARISON: 10/03/22 FINDINGS: Cardiovascular and mediastinum: Heart size and vasculature are normal in caliber and appearance. Mediastinum is within normal limits. Lungs and pleural spaces: Lungs are clear. No sign of infiltrate or mass. No sign of pleural effusion. No pneumothorax. Bones and soft tissues: No significant findings. IMPRESSION: Unremarkable chest. Dictated by: Larry Rowe MD @ 04/26/2023 12:49:01 (Electronically Signed)
--- NOTE | 2023-04-26 12:04 | CRLHL7_ITS ---
For Patients: As a result of the Century Cures Act, medical imaging exams and procedure reports are released immediately into your electronic medical record. You may view this report before your referring provider. If you have questions, please contact your health care provider. INDICATION: Right-sided abdominal pain TECHNIQUE: Axial images were obtained from the diaphragm to the pubic symphysis. Reformats were obtained in the coronal and sagittal plane. IV Contrast: 89 cc Isovue 370 Oral Contrast: None COMPARISON: Abdomen and pelvis CT 01/22/2020 FINDINGS: Lower chest: Centrilobular emphysema. Mild increased ground-glass density within the lower lungs, greater on the right. Process is also present within the right middle lobe and lingula. Severe coronary atherosclerosis. Liver: Normal in contour with mild decreased density within the liver. Lipoma in versus mild invagination of fat within a cleft near the dome of the liver measuring 5 millimeters. Gallbladder and bile ducts: Status post cholecystectomy. Spleen: Unremarkable. Normal in size without mass. Pancreas: Unremarkable. No mass or inflammation. Adrenal glands: Unremarkable. No nodules. Kidneys: Unremarkable. No masses, stones, or hydronephrosis. Vasculature: Atherosclerosis without abdominal aortic aneurysm. GI tract: The stomach is unremarkable. No dilated loops of large or small intestine. Mild colonic diverticulosis. Pelvis: Unremarkable. Bones: Bilateral spondylolysis L5. IMPRESSION: 1. Colonic diverticulosis without CT evidence of diverticulitis. 2. Underlying centrilobular emphysema with ground-glass density within the lung bases, greater on the right. This is present on the prior exam although appears mildly increased. This most likely represents progressive alveolitis/fibrosis although the differential diagnosis would include a pneumonitis or viral pneumonia. 3. Mild hepatic steatosis. Please note that all CT scans at this facility use dose modulation, iterative reconstruction, and/or weight-based dosing when appropriate to reduce radiation dose to as low as reasonably achievable. Dictated by Darvin Burnham MD @ 04/26/2023 2:48:54 PM (Electronically Signed)
[2023-04-26 12:33] LABS: Lactate* 2.4 mmol/L (0.5-1.9)
[2023-04-26 12:37] LABS: Basophils Absolute Auto 0.02 K/uL (0.00-0.30); Basophils Percent Auto 0.2 % (0.0-3.0); Eosinophils Absolute Auto 0.25 K/uL (0.00-0.50); Eosinophils Percent Auto 2.6 % (0.0-7.0); Hematocrit 45.4 % (37.0-53.0); Hemoglobin* 15.3 gm/dL (13.5-17.5); Immature Granulocytes Abs Auto 0.02 K/uL (0.00-0.30); Immature Granulocytes Pct Auto 0.2 %; Lymphocytes Percent Auto 17.9 % (20-44); Mean Corpuscular HGB Conc 34 gm/dL (32-36); Mean Corpuscular Hemoglobin 27 pg (26-34); Mean Corpuscular Volume 80 fL (80-100); Monocytes Percent Auto 6.2 % (0.0-11.0); Neutrophils Percent Auto 72.9 % (42.0-72.0); Platelet Count* 224 K/uL (140-440); RDW Coefficient of Variation % 14.2 % (11.5-15.5); Red Blood Count 5.67 m/uL (4.30-5.90); White Blood Count* 9.46 K/uL (4.50-11.00)
[2023-04-26 12:40] LABS: Slide Review Reflex No
[2023-04-26] MEDS: 0.9 % SODIUM CHLORIDE 1000 ml 1,000 ML IV (12:41)
[2023-04-26 12:42] LABS: Troponin, Point-of-Care* 0.02 ng/ml (0.01-0.04)
[2023-04-26] MEDS: MORPHINE 2 MG/ML inj IVP (12:42)
[2023-04-26 12:51] VITALS: O2SAT 92
--- NOTE | 2023-04-26 12:53 | ED.GENADULT ---
HPI - General Adult General Chief complaint: Shortness of Breath/Dyspnea Stated complaint: chest pains, hernia R side, short of breath Time Seen by Provider: 04/26/23 11:41 Source: patient Mode of arrival: ambulatory Limitations: no limitations History of Present Illness HPI narrative: 63-year-old male with a very complicated medical history presenting today with abdominal pain. States that the pain is located in the right upper/epigastric region. Pain started this morning when he felt a bulge there and he had to massage it back in and he got that bulge to go back in. He states that he has done this multiple times in the past but it was exceedingly painful today and the pain continues. He denies any nausea or vomiting. No fevers or chills. Last bowel movement was this morning and was normal. He is passing gas without difficulty. He states he has had multiple abdominal surgeries in the past including a cholecystectomy, multiple hernia repairs. The pain takes his breath away. Related Data Home Medications Medication Instructions Recorded Confirmed amlodipine 10 mg tablet 10 mg PO DAILY 06/29/22 10/03/22 budesonide-formoterol HFA 160 2 puff inhalation Q12H 06/29/22 10/03/22 mcg-4.5 mcg/actuation aerosol inhaler (Symbicort) escitalopram oxalate 10 mg tablet 10 mg PO DAILY 06/29/22 10/03/22 ipratropium 0.5 mg-albuterol 3 mg 3 ml inhalation Q6H PRN 06/29/22 10/03/22 (2.5 mg base)/3 mL nebulization soln lorazepam 1 mg tablet 1 mg PO DAILY 06/29/22 10/03/22 metformin 1,000 mg tablet 1,000 mg PO BID 06/29/22 10/03/22 omeprazole 40 mg capsule,delayed 40 mg PO DAILY 06/29/22 10/03/22 release tiotropium bromide 18 mcg capsule 1 cap inhalation DAILY 06/29/22 10/03/22 with inhalation device (Spiriva with HandiHaler) atorvastatin 20 mg tablet 20 mg PO HS 07/20/22 10/03/22 albuterol sulfate 90 mcg/actuation 2 puff inhalation Q4H PRN 10/03/22 10/03/22 aerosol inhaler (Ventolin HFA) meloxicam 15 mg tablet 15 mg PO DAILY 10/03/22 10/03/22 Previous Rx's Medication Instructions Recorded benzonatate 100 mg capsule 200 mg (2 x 100 mg) PO TID #20 caps 10/06/22 prednisone 20 mg tablet 40 mg (2 x 20 mg) PO DAILYWM 1 day 10/06/22 #2 tabs Allergies Allergy/AdvReac Type Severity Reaction Status Date / Time No Known Drug Allergies Allergy Verified 04/26/23 14:30 Review of Systems Status of ROS: Reports: 10 or more systems reviewed and unremarkable except as noted in History and below [facility] Medical History Chest pain ?R07.9 - Chest pain, unspecified (ICD-10) Right lower lobe lung mass ?R91.8 - Other nonspecific abnormal finding of lung field (ICD-10) Chronic low back pain with sciatica ?M54.40 - Lumbago with sciatica, unspecified side (ICD-10) ?G89.29 - Other chronic pain (ICD-10) Diabetic acidosis, type II ?E11.10 - Type 2 diabetes mellitus with ketoacidosis without coma (ICD-10) Radiculitis ?M54.10 - Radiculopathy, site unspecified (ICD-10) Internal derangement of right knee ?M23.91 - Unspecified internal derangement of right knee (ICD-10) Essential hypertension ?I10 - Essential (primary) hypertension (ICD-10) Erectile dysfunction ?N52.9 - Male erectile dysfunction, unspecified (ICD-10) Adenomatous polyp of colon ?D12.6 - Benign neoplasm of colon, unspecified (ICD-10) COPD (chronic obstructive pulmonary disease) ?J44.9 - Chronic obstructive pulmonary disease, unspecified (ICD-10) Fay's esophagus with esophagitis ?K22.70 - Fay's esophagus without dysplasia (ICD-10) ?K20.90 - Esophagitis, unspecified without bleeding (ICD-10) Alcoholic fatty liver ?K70.0 - Alcoholic fatty liver (ICD-10) History of alcohol abuse ?F10.11 - Alcohol abuse, in remission (ICD-10) GERD (gastroesophageal reflux disease) ?K21.9 - Gastro-esophageal reflux disease without esophagitis (ICD-10) Depression with anxiety ?F41.8 - Other specified anxiety disorders (ICD-10) Nicotine dependence ?F17.200 - Nicotine dependence, unspecified, uncomplicated (ICD-10) Type 2 diabetes mellitus ?E11.9 - Type 2 diabetes mellitus without complications (ICD-10) Osteoarthritis of right knee ?M17.11 - Unilateral primary osteoarthritis, right knee (ICD-10) Osteoarthritis of left knee ?M17.12 - Unilateral primary osteoarthritis, left knee (ICD-10) Surgical History History of meniscectomy of right knee (~2015) ?Z98.890 - Other specified postprocedural states (ICD-10) H/O vasectomy ?Z98.52 - Vasectomy status (ICD-10) History of partial colectomy (~1999) ?Z90.49 - Acquired absence of other specified parts of digestive tract (ICD-10) History of appendectomy ?Z90.49 - Acquired absence of other specified parts of digestive tract (ICD-10) Hx laparoscopic cholecystectomy (10/15/17) ?Z90.49 - Acquired absence of other specified parts of digestive tract (ICD-10) Family History Father Lung cancer Social History Narrative: Lives with partner Queenie. Three adult children from previous relationship. Queenie or daughter Savi would be medical decision maker if needed. Patient requests full code status. 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 Smokes 1 pack per day, > 20 pack-year history. No alcohol use. Highest level of school completed/degree received: GED or equivalent Smoking Status: Current every day smoker What tobacco products do you use: cigarettes Smoking packs per day: 0.5 Smoking cigarettes per day: 10.0 Years smoked: 40 Smoking pack-years: 20.00 Do you use any of these nicotine containing products: None Second hand tobacco smoke exposure: Yes How often do you have a drink containing alcohol: never How often do you have six or more drinks on one occasion: Never AUDIT-C Alcohol total score: 0 Non-prescribed substance use: denies use Caffeine: Yes (2 cups coffee in the morning) Exam Narrative: Exam Narrative: Well-nourished well-developed patient in no acute distress. Alert and oriented. Answers questions appropriately. Mood and affect are appropriate. Thoughts are goal oriented and rational. No tangential or magical thinking noted. Patient speaks in full sentences without needing to catch their breath. HEENT: Normocephalic atraumatic. Pupils are equally round reactive to light. Extraocular muscles are intact. Conjunctivae are moist without any icterus noted. Moist mucous membranes. Posterior pharynx is normal. Neck is soft without any lymphadenopathy or thyromegaly. No masses are appreciated. Cardiovascular: Heart is regular rate and rhythm S1 and S2 are present without any murmurs. Lungs: Decreased breath sounds bilaterally right more so than the left. Prolonged expiratory phase. Abdomen: Soft. It is protuberant and slightly firm. He has mild tenderness in the right epigastric/right upper quadrant area. Remainder of abdomen is without discomfort. He has hypoactive bowel sounds. Extremities: Bilateral lower extremities are without edema. Normal DP and PT pulses. Skin: Well perfused without any obvious rashes. Const: Vital Signs, click to edit/add: Vital Signs - 24 hr 04/26/23 11:50 04/26/23 12:51 04/26/23 13:59 Temperature 97.6 F Pulse Rate 86 Pulse Rate [Pulse Oximeter] 114 H Respiratory Rate 34 H Blood Pressure Blood Pressure [Le ft Upper Arm] 143/93 H Pulse Oximetry 99 92 92 Oxygen Delivery Ak thod Room Air 04/26/23 14:00 04/26/23 14:01 04/26/23 14:05 Temperature 98.7 F Pulse Rate 85 83 Pulse Rate [Pulse Oximeter] Respiratory Rate 22 Blood Pressure 142/77 H Blood Pressure [Le ft Upper Arm] Pulse Oximetry 91 91 Oxygen Delivery Ak thod Course Course Hospital Course: IV was established and patient received a L of normal saline and 2 mg of IV morphine for his discomfort. Lab work showed a normal CBC, is slightly low sodium at 1:33 a.m., remainder of electrolytes within normal limits. Lactate slightly elevated at 2.4. Repeated after fluids was back to normal at 1.1. EKG, read by me, showed sinus tachycardia with a pulse of 114. After fluids, patient's pulse came down to 83. Chest x-ray was unremarkable. Abdominal CT scan was unremarkable for any cause of abdominal discomfort. Did show some ground-glass opacities of the bilateral lower lungs which have been present in the past. This likely represents fibrosis at there is no evidence of infection noted on exam or lab work today. Do think that the elevated lactate and pulse will likely due to dehydration as both resolved after fluids. Vital Signs Vital signs: Initial Vital Signs Respiratory Effort Short of Breath, Accessory Muscle Use, Tachypnea 04/26/23 11:47 Respiratory Depth Shallow 04/26/23 11:47 Respiratory Pattern Tachypnea, Short of Breath 04/26/23 11:47 Vital Signs Temperature 97.6 F 04/26/23 11:50 Pulse Rate 114 H 04/26/23 11:50 Respiratory Rate 34 H 04/26/23 11:50 Blood Pressure 143/93 H 04/26/23 11:50 Pulse Oximetry 99 04/26/23 11:50 Oxygen Delivery Method Room Air 04/26/23 11:50 Temperature 98.7 F 04/26/23 14:05 Pulse Rate 83 04/26/23 14:01 Respiratory Rate 22 04/26/23 14:05 Blood Pressure 142/77 H 04/26/23 14:01 Pulse Oximetry 91 04/26/23 14:01 Oxygen Delivery Method Room Air 04/26/23 11:50 Medical Decision Making MDM Narrative Medical decision making narrative: 63-year-old male with right upper quadrant and epigastric discomfort of unclear etiology. We discussed gastritis peptic ulcer disease. Also he is complaining of that there was something that was protruding in the area that he could push back in, certainly could have hernia in the area. I recommend he follow up with General surgery to discuss his symptoms and further management. Also recommend he follow up with primary care physician for next steps as he is already on 40 mg daily of omeprazole. Dehydration-resolved. Recommend increase oral fluid intake. Medical Records Medical records reviewed: Yes I reviewed the patient's medical records Lab Data Lab results reviewed: Yes I reviewed the patient's lab results Labs: Lab Results 04/26/23 04/26/23 04/26/23 Range/Units 12:05 12:25 15:00 WBC 9.46 (4.50-11.00) K/uL RBC 5.67 (4.30-5.90) m/uL Hgb 15.3 (13.5-17.5) gm/dL Hct 45.4 (37.0-53.0) % MCV 80 (80-100) fL MCH 27 (26-34) pg MCHC 34 (32-36) gm/dL RDW Coeff of Jeovanny 14.2 (11.5-15.5) % Plt Count 224 (140-440) K/uL Neut % (Auto) 72.9 H (42.0-72.0) % Lymph % (Auto) 17.9 L (20-44) % Gillespie % (Auto) 6.2 (0.0-11.0) % Eos % (Auto) 2.6 (0.0-7.0) % Baso % (Auto) 0.2 (0.0-3.0) % Neut # (Auto) 6.90 (1.7-7.0) K/uL Lymph # (Auto) 1.70 (0.90-2.90) K/uL Gillespie # (Auto) 0.60 (0.00-0.90) K/UL Eos # (Auto) 0.25 (0.00-0.50) K/uL Baso # (Auto) 0.02 (0.00-0.30) K/uL Abs Immat Gran (auto) 0.02 (0.00-0.30) K/uL Imm/Tot Granulo (auto) 0.2 % Sodium 133 L (135-149) mmol/L Potassium 4.5 (3.6-5.1) mmol/L Chloride 100 (96-114) mmol/L Carbon Dioxide 22 (20-32) mmol/L BUN 14 (7-30) mg/dL Creatinine 0.9 (0.5-1.5) mg/dL Estimated Creat Clear 77.57 Estimated GFR 97 ml/min Glucose 99 (60-115) mg/dL Lactate 2.4 H 1.1 (0.5-1.9) mmol/L Calcium 9.8 (8.4-10.6) mg/dL Total Bilirubin 0.8 (0.1-1.5) mg/dL Direct Bilirubin 0.3 (0.0-0.5) mg/dL AST 29 (12-35) U/L ALT 26 (4-50) U/L Alkaline Phosphatase 74 (40-150) U/L Troponin I < 0.01 L (0.01-0.04) ng/mL C-Reactive Protein < 0.5 L (0.5-1.0) mg/dL Total Protein 8.0 (6.0-8.3) g/dL Albumin 4.6 (3.3-5.0) g/dL Lipase 262 (23-300) U/L POC Troponin I 0.02 (0.01-0.04) ng/ml Imaging Data Chest x-ray: Attestation: I have reviewed the pertinent imaging results. Radiologist's impression: Chest 2 views. COMPARISON: 10/03/22 FINDINGS: Cardiovascular and mediastinum: Heart size and vasculature are normal in caliber and appearance. Mediastinum is within normal limits. Lungs and pleural spaces: Lungs are clear. No sign of infiltrate or mass. No sign of pleural effusion. No pneumothorax. Bones and soft tissues: No significant findings. IMPRESSION: Unremarkable chest. CT scan - abdomen: Attestation: I have reviewed the pertinent imaging results. Radiologist's impression: COMPARISON: Abdomen and pelvis CT 01/22/2020 FINDINGS: Lower chest: Centrilobular emphysema. Mild increased ground-glass density within the lower lungs, greater on the right. Process is also present within the right middle lobe and lingula. Severe coronary atherosclerosis. Liver: Normal in contour with mild decreased density within the liver. Lipoma in versus mild invagination of fat within a cleft near the dome of the liver measuring 5 millimeters. Gallbladder and bile ducts: Status post cholecystectomy. Spleen: Unremarkable. Normal in size without mass. Pancreas: Unremarkable. No mass or inflammation. Adrenal glands: Unremarkable. No nodules. Kidneys: Unremarkable. No masses, stones, or hydronephrosis. Vasculature: Atherosclerosis without abdominal aortic aneurysm. GI tract: The stomach is unremarkable. No dilated loops of large or small intestine. Mild colonic diverticulosis. Pelvis: Unremarkable. Bones: Bilateral spondylolysis L5. IMPRESSION: 1. Colonic diverticulosis without CT evidence of diverticulitis. 2. Underlying centrilobular emphysema with ground-glass density within the lung bases, greater on the right. This is present on the prior exam although appears mildly increased. This most likely represents progressive alveolitis/fibrosis although the differential diagnosis would include a pneumonitis or viral pneumonia. 3. Mild hepatic steatosis. ECG Data Attestation: I personally reviewed and interpreted this ECG as follows: Discharge Plan Discharge Clinical Impression: Abdominal pain, Dehydration Patient Disposition: Home, Self-Care Condition: Stable Additional Instructions: Nothing was found in your workup today that was worrisome for any life-threatening causes of abdominal discomfort. Recommend you follow-up with a general surgeon to discuss the potential of hernia in the area. During your workup today, it was also found that you were quite dehydrated. Recommend you increase your daily water intake. Prescriptions: No Action atorvastatin 20 mg tablet 20 mg PO HS amlodipine 10 mg tablet 10 mg PO DAILY Patient Comments: TAKE ONE TABLET BY MOUTH EVERY EVENING escitalopram oxalate 10 mg tablet 10 mg PO DAILY Patient Comments: TAKE ONE TABLET BY MOUTH ONCE DAILY lorazepam 1 mg tablet 1 mg PO DAILY Patient Comments: TAKE 1 TABLET BY MOUTH ONCE DAILY IF NEEDED FOR ANXIETY. metformin 1,000 mg tablet 1,000 mg PO BID Patient Comments: TAKE 1 TABLET BY MOUTH 2 TIMES DAILY WITH MEALS. omeprazole 40 mg capsule,delayed release(DR/EC) 40 mg PO DAILY Patient Comments: TAKE 1 CAPSULE BY MOUTH ONCE DAILY BEFORE A MEAL. Spiriva with HandiHaler 18 mcg capsule, w/inhalation device 1 cap INHALATION DAILY Patient Comments: INHALE CONTENTS OF 1 CAPSULE WITH HANDIHALER DEVICE ONCE DAILY ipratropium-albuterol 0.5 mg-3 mg(2.5 mg base)/3 mL solution for nebulization 3 ml INHALATION Q6H PRN Patient Comments: INHALE ONE VIAL VIA A NEBULIZER 4 TIMES DAILY NEEDED budesonide-formoterol [Symbicort] 160-4.5 mcg/actuation HFA aerosol inhaler 2 puff INHALATION Q12H Patient Comments: INHALE 2 PUFFS BY MOUTH 2 TIMES DAILY. albuterol sulfate [Ventolin HFA] 90 mcg/actuation HFA aerosol inhaler 2 puff INHALATION Q4H PRN meloxicam 15 mg tablet 15 mg PO DAILY Patient Comments: TAKE ONE TABLET BY MOUTH EVERY DAY prednisone 20 mg Tablet 40 mg PO DAILYWM 1 Days Qty: 2 0RF benzonatate 100 mg Capsule 200 mg PO TID Qty: 20 0RF Follow Up/Referrals: Italia Pugh MD [Primary Care Provider] - Stand Alone Forms: [employer] Info Instructions
[2023-04-26 12:54] LABS: Albumin* 4.6 g/dL (3.3-5.0)
[2023-04-26 12:55] LABS: Chloride* 100 mmol/L (96-114); Sodium* 133 mmol/L (135-149)
[2023-04-26 12:56] LABS: Potassium* 4.5 mmol/L (3.6-5.1)
[2023-04-26 12:57] LABS: Bilirubin Direct* 0.3 mg/dL (0.0-0.5); Bilirubin Total* 0.8 mg/dL (0.1-1.5)
[2023-04-26 12:58] LABS: Alanine Aminotransferase* 26 U/L (4-50); Alkaline Phosphatase* 74 U/L (40-150); Aspartate Amino Transferase* 29 U/L (12-35); Creatinine* 0.9 mg/dL (0.5-1.5); Est. Creatinine Clearance* 77.57; Estimated Glomerular Filt Rate 97 ml/min; Lipase* 262 U/L (23-300)
[2023-04-26 12:59] LABS: Blood Urea Nitrogen* 14 mg/dL (7-30); Calcium* 9.8 mg/dL (8.4-10.6); Carbon Dioxide* 22 mmol/L (20-32); Glucose* 99 mg/dL (60-115)
[2023-04-26 13:02] LABS: C Reactive Protein* < 0.5 mg/dL (0.5-1.0)
[2023-04-26 13:15] LABS: Troponin I* < 0.01 ng/mL (0.01-0.04)
[2023-04-26 13:59] VITALS: PULSE 86; O2SAT 92
[2023-04-26 14:00] VITALS: PULSE 85; O2SAT 91
[2023-04-26 14:01] VITALS: BP 142/77; PULSE 83; O2SAT 91
[2023-04-26 14:05] VITALS: RESP 22; TEMP 37.1
[2023-04-26 15:04] LABS: Lactate* 1.1 mmol/L (0.5-1.9)
== END 2023-04-26 15:28 | disposition home or self-care (01) ==
PROVIDERS: Emergency Provider Family Medicine; PCP Family Medicine
DX: R10.11 Right upper quadrant pain (principal); E86.0 Dehydration
CPT/HCPCS: 36415; 71046; 74177; 80048; 80076; 83605; 83690; 84484; 85025; 86140; 93005; 94761; 96374; 99284; 99285; J2270; J7030; Q9967

== ENCOUNTER 2023-07-06 11:37 | Emergency (ER) | payer MEDICAID, SELFPAY ==
[2023-07-06 11:43] VITALS: BP 130/76; PULSE 72; RESP 14; TEMP 36.8; O2SAT 98; BMI 25.1
--- NOTE | 2023-07-06 15:36 | ED.GENADULT ---
HPI - General Adult General Date Seen: 07/06/23 Chief complaint: Skin/Abscess/Foreign Body Stated complaint: Cyst on back Time Seen by Provider: 07/06/23 12:59 Source: patient Mode of arrival: ambulatory Limitations: no limitations History of Present Illness HPI narrative: Patient is a 63-year-old man who says for a very long time he has had a little dimple on the back near the right scapula. He has never noticed a lump there and has not had swelling redness or pain until the past couple of days. He has not had any fevers or systemic complaints. Denies previous skin infections. He has an abdominal surgery scheduled for July 28 and so he is worried about this providing him from having the surgery. No history of MRSA that he is aware of. Related Data Home Medications Medication Instructions Recorded Confirmed amlodipine 10 mg tablet 10 mg PO DAILY 06/29/22 10/03/22 budesonide-formoterol HFA 160 2 puff inhalation Q12H 06/29/22 10/03/22 mcg-4.5 mcg/actuation aerosol inhaler (Symbicort) escitalopram oxalate 10 mg tablet 10 mg PO DAILY 06/29/22 10/03/22 ipratropium 0.5 mg-albuterol 3 mg 3 ml inhalation Q6H PRN 06/29/22 10/03/22 (2.5 mg base)/3 mL nebulization soln lorazepam 1 mg tablet 1 mg PO DAILY 06/29/22 10/03/22 metformin 1,000 mg tablet 1,000 mg PO BID 06/29/22 10/03/22 omeprazole 40 mg capsule,delayed 40 mg PO DAILY 06/29/22 10/03/22 release tiotropium bromide 18 mcg capsule 1 cap inhalation DAILY 06/29/22 10/03/22 with inhalation device (Spiriva with HandiHaler) atorvastatin 20 mg tablet 20 mg PO HS 07/20/22 10/03/22 albuterol sulfate 90 mcg/actuation 2 puff inhalation Q4H PRN 10/03/22 10/03/22 aerosol inhaler (Ventolin HFA) meloxicam 15 mg tablet 15 mg PO DAILY 10/03/22 10/03/22 Previous Rx's Medication Instructions Recorded benzonatate 100 mg capsule 200 mg (2 x 100 mg) PO TID #20 caps 10/06/22 prednisone 20 mg tablet 40 mg (2 x 20 mg) PO DAILYWM 1 day 10/06/22 #2 tabs Allergies Allergy/AdvReac Type Severity Reaction Status Date / Time No Known Drug Allergies Allergy Verified 04/26/23 14:30 [facility] Medical History Chest pain ?R07.9 - Chest pain, unspecified (ICD-10) Right lower lobe lung mass ?R91.8 - Other nonspecific abnormal finding of lung field (ICD-10) Chronic low back pain with sciatica ?M54.40 - Lumbago with sciatica, unspecified side (ICD-10) ?G89.29 - Other chronic pain (ICD-10) Diabetic acidosis, type II ?E11.10 - Type 2 diabetes mellitus with ketoacidosis without coma (ICD-10) Radiculitis ?M54.10 - Radiculopathy, site unspecified (ICD-10) Internal derangement of right knee ?M23.91 - Unspecified internal derangement of right knee (ICD-10) Essential hypertension ?I10 - Essential (primary) hypertension (ICD-10) Erectile dysfunction ?N52.9 - Male erectile dysfunction, unspecified (ICD-10) Adenomatous polyp of colon ?D12.6 - Benign neoplasm of colon, unspecified (ICD-10) COPD (chronic obstructive pulmonary disease) ?J44.9 - Chronic obstructive pulmonary disease, unspecified (ICD-10) Fay's esophagus with esophagitis ?K22.70 - Fay's esophagus without dysplasia (ICD-10) ?K20.90 - Esophagitis, unspecified without bleeding (ICD-10) Alcoholic fatty liver ?K70.0 - Alcoholic fatty liver (ICD-10) History of alcohol abuse ?F10.11 - Alcohol abuse, in remission (ICD-10) GERD (gastroesophageal reflux disease) ?K21.9 - Gastro-esophageal reflux disease without esophagitis (ICD-10) Depression with anxiety ?F41.8 - Other specified anxiety disorders (ICD-10) Nicotine dependence ?F17.200 - Nicotine dependence, unspecified, uncomplicated (ICD-10) Type 2 diabetes mellitus ?E11.9 - Type 2 diabetes mellitus without complications (ICD-10) Osteoarthritis of right knee ?M17.11 - Unilateral primary osteoarthritis, right knee (ICD-10) Osteoarthritis of left knee ?M17.12 - Unilateral primary osteoarthritis, left knee (ICD-10) Surgical History History of meniscectomy of right knee (~2015) ?Z98.890 - Other specified postprocedural states (ICD-10) H/O vasectomy ?Z98.52 - Vasectomy status (ICD-10) History of partial colectomy (~1999) ?Z90.49 - Acquired absence of other specified parts of digestive tract (ICD-10) History of appendectomy ?Z90.49 - Acquired absence of other specified parts of digestive tract (ICD-10) Hx laparoscopic cholecystectomy (10/15/17) ?Z90.49 - Acquired absence of other specified parts of digestive tract (ICD-10) Family History Father Lung cancer Social History Narrative: Lives with partner Queenie. Three adult children from previous relationship. Queenie or daughter Savi would be medical decision maker if needed. Patient requests full code status. 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 Smokes 1 pack per day, > 20 pack-year history. No alcohol use. Highest level of school completed/degree received: GED or equivalent Smoking Status: Current every day smoker What tobacco products do you use: cigarettes Smoking packs per day: 0.5 Smoking cigarettes per day: 10.0 Years smoked: 40 Smoking pack-years: 20.00 Do you use any of these nicotine containing products: None Second hand tobacco smoke exposure: Yes How often do you have a drink containing alcohol: never How often do you have six or more drinks on one occasion: Never AUDIT-C Alcohol total score: 0 Non-prescribed substance use: denies use Caffeine: Yes (2 cups coffee in the morning) Exam Narrative: Exam Narrative: Vital signs reviewed In general, alert, well-appearing man. Skin: On his right upper back he has an area of induration and fluctuance approximately 2 cm in size. There is no significant surrounding erythema but he does have erythema overlying that area and it is tender to palpation. Const: Vital Signs, click to edit/add: Vital Signs - 24 hr 10/10/23 11:43 Temperature 98.3 F Pulse Rate [Pulse Oximeter] 72 Respiratory Rate 14 Blood Pressure [Ri ght Upper Arm] 130/76 Pulse Oximetry 98 Oxygen Delivery Me thod Room Air Documenting provider has reviewed patient's vital signs: yes Course Course ED Course: I recommended incision and drainage to which he agreed. Procedure note: The skin overlying this area was anesthetized using lidocaine with epinephrine. I then used a 10. Blade to make an incision across this area. A large amount of pus as well as sebum was extruded. Following this, the area is flat without any further mass or induration or fluctuance. A dressing was applied by the nurse, he tolerated this well without immediate complication. This appears to be an abscess without associated cellulitis and I discussed with him that typically antibiotics are not needed. I did send a wound culture and if he grows out MRSA particularly with his upcoming surgery treatment for that may be indicated. I have asked him to do shower or bath couple times a day to wash this area out, change the dressing couple of times a day as well. For worsening redness, pain, swelling or new symptoms such as fever, return to the emergency department. Otherwise, clinic follow-up at the end of the week for recheck. Vital Signs Vital signs: Initial Vital Signs Temperature 98.3 F 07/06/23 11:43 Temperature Source Temporal Artery Scan 07/06/23 11:43 Pulse Rate 72 07/06/23 11:43 Pulse Rhythm Regular 07/06/23 11:43 Respiratory Rate 14 07/06/23 11:43 Blood Pressure 130/76 07/06/23 11:43 Blood Pressure Mean 94 07/06/23 11:43 Blood Pressure Position Sitting 07/06/23 11:43 Pulse Oximetry 98 07/06/23 11:43 Oxygen Delivery Method Room Air 07/06/23 11:43 Vital Signs Temperature 98.3 F 07/06/23 11:43 Pulse Rate 72 07/06/23 11:43 Respiratory Rate 14 07/06/23 11:43 Blood Pressure 130/76 07/06/23 11:43 Pulse Oximetry 98 07/06/23 11:43 Oxygen Delivery Method Room Air 07/06/23 11:43 Temperature 98.3 F 07/06/23 11:43 Pulse Rate 72 07/06/23 11:43 Respiratory Rate 14 07/06/23 11:43 Blood Pressure 130/76 07/06/23 11:43 Pulse Oximetry 98 07/06/23 11:43 Oxygen Delivery Method Room Air 07/06/23 11:43 Discharge Plan Discharge Clinical Impression: Infected sebaceous cyst Patient Disposition: Home, Self-Care Condition: Improved Instructions: Epidermal Inclusion Cysts (ED) Additional Instructions: Draining this area today will most likely take care of the infection. At this time, I do not think he needs antibiotics. If you have worsening redness, pain, new symptoms such as fever, return to the emergency department. Otherwise, change the dressing a couple of times a day. If possible, I would recommend taking a bath or shower couple of times a day and gently washing this area out. Follow-up in clinic later this week for recheck. Wound culture is pending, we will call you if there is anything that needs to be treated. Prescriptions: No Action atorvastatin 20 mg tablet 20 mg PO HS amlodipine 10 mg tablet 10 mg PO DAILY Patient Comments: TAKE ONE TABLET BY MOUTH EVERY EVENING escitalopram oxalate 10 mg tablet 10 mg PO DAILY Patient Comments: TAKE ONE TABLET BY MOUTH ONCE DAILY lorazepam 1 mg tablet 1 mg PO DAILY Patient Comments: TAKE 1 TABLET BY MOUTH ONCE DAILY IF NEEDED FOR ANXIETY. metformin 1,000 mg tablet 1,000 mg PO BID Patient Comments: TAKE 1 TABLET BY MOUTH 2 TIMES DAILY WITH MEALS. omeprazole 40 mg capsule,delayed release(DR/EC) 40 mg PO DAILY Patient Comments: TAKE 1 CAPSULE BY MOUTH ONCE DAILY BEFORE A MEAL. Spiriva with HandiHaler 18 mcg capsule, w/inhalation device 1 cap INHALATION DAILY Patient Comments: INHALE CONTENTS OF 1 CAPSULE WITH HANDIHALER DEVICE ONCE DAILY ipratropium-albuterol 0.5 mg-3 mg(2.5 mg base)/3 mL solution for nebulization 3 ml INHALATION Q6H PRN Patient Comments: INHALE ONE VIAL VIA A NEBULIZER 4 TIMES DAILY NEEDED budesonide-formoterol [Symbicort] 160-4.5 mcg/actuation HFA aerosol inhaler 2 puff INHALATION Q12H Patient Comments: INHALE 2 PUFFS BY MOUTH 2 TIMES DAILY. albuterol sulfate [Ventolin HFA] 90 mcg/actuation HFA aerosol inhaler 2 puff INHALATION Q4H PRN meloxicam 15 mg tablet 15 mg PO DAILY Patient Comments: TAKE ONE TABLET BY MOUTH EVERY DAY prednisone 20 mg Tablet 40 mg PO DAILYWM 1 Days Qty: 2 0RF benzonatate 100 mg Capsule 200 mg PO TID Qty: 20 0RF Follow Up/Referrals: Italia Pugh MD [Primary Care Provider] - Stand Alone Forms: [employer] Info Instructions
== END 2023-07-06 14:33 | disposition home or self-care (01) ==
PROVIDERS: Emergency Provider Emergency Medicine; PCP Family Medicine
DX: L72.3 Sebaceous cyst (principal)
CPT/HCPCS: 10060; 87070; 99283; 99284

== ENCOUNTER 2024-04-04 17:48 | Emergency (ER) | payer MEDICAID, SELFPAY ==
[2024-04-04 18:06] VITALS: BP 148/79; PULSE 79; RESP 28; TEMP 37.1; O2SAT 96; BMI 27.4
[2024-04-04 18:57] LABS: PCR FLU A Negative PCR FLU A (Negative); PCR FLU B Negative PCR FLU B (Negative); PCR RSV Negative PCR RSV (Negative); SARS PCR* Negative SARS-CoV-2 (Negative)
--- NOTE | 2024-04-04 19:07 | ED.SOB ---
HPI - SOB/Dyspnea General Time Seen by Provider: 19:07 Date Seen: 04/04/24 Chief Complaint: Shortness of Breath/Dyspnea Stated Complaint: chest pain, body aches, recent oral surgery, copd Time Seen by Provider: 04/04/24 19:05 Source: patient, RN notes reviewed and old records reviewed Mode of arrival: ambulatory Limitations: no limitations History of Present Illness HPI Narrative: 64-year-old male who comes in with nasal congestion and brown mucus from the right nostril. Reports he had recent dental work and had a fistula from the tooth socket into the sinus, this was subsequently repaired. No fevers, chills, no syncope mood COVID diarrhea. He does have a cough which he says is usual for him. Denies increased shortness of breath. Related Data Home Medications ?Medication ?Instructions ?Recorded ?Confirmed amlodipine 10 mg tablet 10 mg PO DAILY 06/29/22 04/04/24 budesonide-formoterol HFA 160 2 puff inhalation Q12H 06/29/22 04/04/24 mcg-4.5 mcg/actuation aerosol inhaler (Symbicort) escitalopram oxalate 10 mg tablet 10 mg PO DAILY 06/29/22 04/04/24 ipratropium 0.5 mg-albuterol 3 mg 3 ml inhalation Q6H PRN 06/29/22 04/04/24 (2.5 mg base)/3 mL nebulization soln lorazepam 1 mg tablet 1 mg PO DAILY 06/29/22 04/04/24 metformin 1,000 mg tablet 1,000 mg PO BID 06/29/22 04/04/24 omeprazole 40 mg capsule,delayed 40 mg PO DAILY 06/29/22 04/04/24 release tiotropium bromide 18 mcg capsule 1 cap inhalation DAILY 06/29/22 04/04/24 with inhalation device (Spiriva with HandiHaler) atorvastatin 20 mg tablet 20 mg PO HS 07/20/22 04/04/24 albuterol sulfate 90 mcg/actuation 2 puff inhalation Q4H PRN 10/03/22 04/04/24 aerosol inhaler (Ventolin HFA) meloxicam 15 mg tablet 15 mg PO DAILY 10/03/22 04/04/24 Previous Rx's ?Medication ?Instructions ?Recorded benzonatate 100 mg capsule 200 mg (2 x 100 mg) PO TID #20 caps 10/06/22 Allergies Allergy/AdvReac Type Severity Reaction Status Date / Time No Known Drug Allergies Allergy Verified 04/04/24 18:12 [facility] Medical History Chest pain ?R07.9 - Chest pain, unspecified (ICD-10) Right lower lobe lung mass ?R91.8 - Other nonspecific abnormal finding of lung field (ICD-10) Chronic low back pain with sciatica ?M54.40 - Lumbago with sciatica, unspecified side (ICD-10) ?G89.29 - Other chronic pain (ICD-10) Diabetic acidosis, type II ?E11.10 - Type 2 diabetes mellitus with ketoacidosis without coma (ICD-10) Radiculitis ?M54.10 - Radiculopathy, site unspecified (ICD-10) Internal derangement of right knee ?M23.91 - Unspecified internal derangement of right knee (ICD-10) Essential hypertension ?I10 - Essential (primary) hypertension (ICD-10) Erectile dysfunction ?N52.9 - Male erectile dysfunction, unspecified (ICD-10) Adenomatous polyp of colon ?D12.6 - Benign neoplasm of colon, unspecified (ICD-10) COPD (chronic obstructive pulmonary disease) ?J44.9 - Chronic obstructive pulmonary disease, unspecified (ICD-10) Fay's esophagus with esophagitis ?K22.70 - Fay's esophagus without dysplasia (ICD-10) ?K20.90 - Esophagitis, unspecified without bleeding (ICD-10) Alcoholic fatty liver ?K70.0 - Alcoholic fatty liver (ICD-10) History of alcohol abuse ?F10.11 - Alcohol abuse, in remission (ICD-10) GERD (gastroesophageal reflux disease) ?K21.9 - Gastro-esophageal reflux disease without esophagitis (ICD-10) Depression with anxiety ?F41.8 - Other specified anxiety disorders (ICD-10) Nicotine dependence ?F17.200 - Nicotine dependence, unspecified, uncomplicated (ICD-10) Type 2 diabetes mellitus ?E11.9 - Type 2 diabetes mellitus without complications (ICD-10) Osteoarthritis of right knee ?M17.11 - Unilateral primary osteoarthritis, right knee (ICD-10) Osteoarthritis of left knee ?M17.12 - Unilateral primary osteoarthritis, left knee (ICD-10) Surgical History History of meniscectomy of right knee (~2015) ?Z98.890 - Other specified postprocedural states (ICD-10) H/O vasectomy ?Z98.52 - Vasectomy status (ICD-10) History of partial colectomy (~1999) ?Z90.49 - Acquired absence of other specified parts of digestive tract (ICD-10) History of appendectomy ?Z90.49 - Acquired absence of other specified parts of digestive tract (ICD-10) Hx laparoscopic cholecystectomy (10/15/17) ?Z90.49 - Acquired absence of other specified parts of digestive tract (ICD-10) Family History Father Lung cancer Social History Narrative: Lives with partner Queenie. Three adult children from previous relationship. Queenie or daughter Savi would be medical decision maker if needed. Patient requests full code status. 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 Smokes 1 pack per day, > 20 pack-year history. No alcohol use. Highest level of school completed/degree received: GED or equivalent Smoking Status: Current every day smoker What tobacco products do you use: cigarettes Smoking packs per day: 0.5 Smoking cigarettes per day: 10.0 Years smoked: 40 Smoking pack-years: 20.00 Do you use any of these nicotine containing products: None Second hand tobacco smoke exposure: Yes How often do you have a drink containing alcohol: never How often do you have six or more drinks on one occasion: Never AUDIT-C Alcohol total score: 0 Non-prescribed substance use: denies use Caffeine: Yes (2 cups coffee in the morning) Exam Narrative: Exam Narrative: General: Well-developed and well-nourished, no acute distress Head: Atraumatic and normocephalic Eyes: Pupils are equal reactive, extraocular motions intact, conjunctiva clear ENT: External nose and ears are normal, posterior pharynx without erythema or exudate. No blood or trauma to the nares. Patient has dark brown mucus from the right nostril, right maxillary sinus tenderness. Neck: No midline cervical tenderness, full spontaneous range of motion the neck, trachea midline, no adenopathy Heart: Regular rate and rhythm no murmurs or thrills Lungs: Clear to auscultation bilaterally without wheezes or crackles Abdomen: Soft, nontender, nondistended with active bowel sounds Musculoskeletal: No tenderness, deformity, or edema Neurologic: Awake, alert, and oriented x3, no gross focal neurologic deficits, cranial nerves intact as tested Psych: Mood and affect are appropriate Skin: No rashes Const: Vital Signs, click to edit/add: Vital Signs - 24 hr 04/04/24 18:06 Temperature 98.7 F Pulse Rate [Pulse Oximeter] 79 Respiratory Rate 28 H Blood Pressure [Ri ght Upper Arm] 148/79 H Pulse Oximetry 96 Oxygen Delivery Me thod Room Air Course Course ED Course: Patient seen and examined, presents with nasal congestion, right-sided facial pain, and dark brown nasal discharge. On exam here, vital is stable, lungs with poor air movement bilaterally but no wheezes or crackles. Frequent sniffling and when he blows his nose, dark brown mucus. We discussed that this represents dried blood, however with his recent sinus surgery as well as facial pain and production of mucus only from the right side, started on steroids as well as antibiotic. Patient smokes cigarettes, history of COPD. Poor access to affordable medical care Vital Signs Vital signs: Initial Vital Signs Temperature 98.7 F 04/04/24 18:06 Temperature Source Temporal Artery Scan 04/04/24 18:06 Pulse Rate 79 04/04/24 18:06 Pulse Rhythm Regular 04/04/24 18:06 Pulse Strength 3+ Normal 04/04/24 18:06 Respiratory Rate 28 H 04/04/24 18:06 Blood Pressure 148/79 H 04/04/24 18:06 Blood Pressure Mean 102 04/04/24 18:06 Pulse Oximetry 96 04/04/24 18:06 Oxygen Delivery Method Room Air 04/04/24 18:06 Vital Signs Temperature 98.7 F 04/04/24 18:06 Pulse Rate 79 04/04/24 18:06 Respiratory Rate 28 H 04/04/24 18:06 Blood Pressure 148/79 H 04/04/24 18:06 Pulse Oximetry 96 04/04/24 18:06 Oxygen Delivery Method Room Air 04/04/24 18:06 Temperature 98.7 F 04/04/24 18:06 Pulse Rate 79 04/04/24 18:06 Respiratory Rate 28 H 04/04/24 18:06 Blood Pressure 148/79 H 04/04/24 18:06 Pulse Oximetry 96 04/04/24 18:06 Oxygen Delivery Method Room Air 04/04/24 18:06 MDM - SOB/Dyspnea Lab Data Labs: Lab Results 04/04/24 Range/Units 18:15 SARS-CoV-2 (PCR) Negative SARS-CoV-2 (Negative) Influenza Type A (PCR) Negative PCR FLU A (Negative) Influenza Type B (PCR) Negative PCR FLU B (Negative) RSV (PCR) Negative PCR RSV (Negative) Discharge Plan Discharge Clinical Impression: Sinusitis Prescriptions: No Action atorvastatin 20 mg tablet 20 mg PO HS amlodipine 10 mg tablet 10 mg PO DAILY Patient Comments: TAKE ONE TABLET BY MOUTH EVERY EVENING escitalopram oxalate 10 mg tablet 10 mg PO DAILY Patient Comments: TAKE ONE TABLET BY MOUTH ONCE DAILY lorazepam 1 mg tablet 1 mg PO DAILY Patient Comments: TAKE 1 TABLET BY MOUTH ONCE DAILY IF NEEDED FOR ANXIETY. metformin 1,000 mg tablet 1,000 mg PO BID Patient Comments: TAKE 1 TABLET BY MOUTH 2 TIMES DAILY WITH MEALS. omeprazole 40 mg capsule,delayed release(DR/EC) 40 mg PO DAILY Patient Comments: TAKE 1 CAPSULE BY MOUTH ONCE DAILY BEFORE A MEAL. tiotropium bromide [Spiriva with HandiHaler] 18 mcg capsule, w/inhalation device 1 cap INHALATION DAILY Patient Comments: INHALE CONTENTS OF 1 CAPSULE WITH HANDIHALER DEVICE ONCE DAILY ipratropium-albuterol 0.5 mg-3 mg(2.5 mg base)/3 mL solution for nebulization 3 ml INHALATION Q6H PRN Patient Comments: INHALE ONE VIAL VIA A NEBULIZER 4 TIMES DAILY NEEDED budesonide-formoterol [Symbicort] 160-4.5 mcg/actuation HFA aerosol inhaler 2 puff INHALATION Q12H Patient Comments: INHALE 2 PUFFS BY MOUTH 2 TIMES DAILY. albuterol sulfate [Ventolin HFA] 90 mcg/actuation HFA aerosol inhaler 2 puff INHALATION Q4H PRN meloxicam 15 mg tablet 15 mg PO DAILY Patient Comments: TAKE ONE TABLET BY MOUTH EVERY DAY benzonatate 100 mg Capsule 200 mg PO TID Qty: 20 0RF Follow Up/Referrals: Italia Pugh MD [Primary Care Provider] -
[2024-04-04] MEDS: IPRAT-ALBUT 0.5-2.5 MG/3 ML NEB 1 NEB IH (19:26)
--- OUTSIDE RECORDS SUMMARY | 2024-04-04 19:35 | XMS_ITS | Clinical Summary ---
Author Organization [facility] Address [address] [place] [address]. [place] [address] Care Team Providers Care Revenue Manager Name Role Phone Italia Pugh MD Primary Care Provider + Allergies Active Allergy Reactions Criticality Noted Date Comments Metoprolol Headache Low 10/04/2017 Medications Medication Sig Dispensed Refills Start Date End Date Status omeprazole (PRILOSEC) [address] capsule Take 40 mg by mouth daily Active metFORMIN (GLUCOPHAGE) 1000 MG tablet Take 1,000 mg by mouth 2 times daily (with meals) Active budesonide-formoter ol (SYMBICORT) 160-4.5 MCG/ACT Inhaler Inhale 2 puffs into the lungs 2 times daily Active meloxicam (MOBIC) 15 MG tablet Take 15 mg by mouth daily Active LORazepam (ATIVAN) 1 MG tablet Take 1 mg by mouth 2 times daily as needed for anxiety Active albuterol (PROVENTIL HFA) 108 (90 Base) MCG/ACT inhaler Inhale 1-2 puffs into the lungs every 4 hours as needed 10/01/2017 Active amLODIPine (NORVASC) 10 MG tabletIndications:H ypertension Take 10 mg by mouth every evening Active lisinopril (PRINIVIL/ZESTRIL) 20 MG tablet Take 20 mg by mouth daily Active loperamide (IMODIUM A-D) 2 MG tablet Take 4 mg by mouth 4 times daily as needed for diarrhea Active atorvastatin (LIPITOR) 20 MG tablet Take 20 mg by mouth daily Active escitalopram (LEXAPRO) 10 MG tablet Take 10 mg by mouth daily Active tiotropium (SPIRIVA) 18 MCG inhaled capsule Inhale 18 mcg into the lungs daily Active benzonatate (TESSALON) 100 MG capsuleIndications: COPD exacerbation (H) Take 1 capsule (100 mg) by mouth 3 times daily as needed for cough 20 capsule 04/07/2021 Active guaiFENesin (MUCINEX) 600 MG 12 hr tabletIndications:C OPD exacerbation (H) Take 1 tablet (600 mg) by mouth 2 times daily 10/01/2021 Active ipratropium - albuterol 0.5 mg/2.5 mg/3 mL (DUONEB) 0.5-2.5 (3) MG/3ML neb solution Take 1 vial (3 mLs) by nebulization 4 times daily 90 mL 10/01/2021 Active predniSONE (DELTASONE) 20 MG tablet 3 tabs daily for 3 days, then 2 tabs daily for 3 days, then 1 tabs daily for 3 days, then stop 10/01/2021 Active predniSONE (DELTASONE) 20 MG tablet Take two tablets (= 40mg) each day for 5 (five) days 10 tablet 04/11/2022 Active Active Problems Problem Noted Date Diagnosed Date Community acquired pneumonia 04/05/2021 Chest pain 03/26/2019 COPD exacerbation 10/23/2018 Cholelithiasis 09/27/2017 Cervicalgia 10/29/2004 Lipoma of other skin and subcutaneous tissue 10/2004 Social History Tobacco Use Types Packs/Day Years Used Date Smoking Tobacco: Every Day Cigarettes Smokeless Tobacco: Never Alcohol Use Standard Drinks/Week Comments No 0 (1 standard drink = 0.6 oz pur e alcohol) Adolescent Education Answer Date Record ed Getting School Help Needed Not on file 06/22 Sex and Gender Information Value Date Recorded Sex Assigned at Not on file Gender Identity Not on file Sexual Orientation Not on file Last Filed Vital Signs Vital Sign Reading Time Taken Comments Blood Pressure 151/89 06/16/2022 4:15 PM CDT Pulse 100 06/16/2022 4:15 PM CDT Temperature 36.8 ??C (98.2 ??F) 06/16/2022 2:13 PM CD T Respiratory Rate 19 06/16/2022 2:13 PM CDT Oxygen Saturation 95% 06/16/2022 4:15 PM CDT Inhaled Oxygen Concentration - - Weight 88.8 kg (195 lb 12.3 oz) 04/11/2022 2:10 PM CDT Height 175.3 cm (5' 9) 09/30/2021 8:31 AM FIRE INSPECTOR Body Mass Index 28.91 09/30/2021 8:31 AM FIRE INSPECTOR Plan of Treatment Health Maintenance Due Date Last Done Comments ADVANCE CARE PLANNING 1962 ANNUAL REVIEW OF HM ORDERS 1962 COPD ACTION PLAN 1962 CT COLONOGRAPHY 1962 FIT 1962 FLEX SIG 1962 LIPID 1962 SPIROMETRY 1962 sDNA (Cologuard) 1962 COLONOSCOPY 02/13/1972 COLORECTAL CANCER SCREENING 02/13/1972 HIV SCREENING 1977 HEPATITIS C SCREENING 02/13/1980 LUNG CANCER SCREENING 02/13/2012 ZOSTER IMMUNIZATION (1 of 2) 02/13/2012 YEARLY PREVENTIVE VISIT 07/31/2021 07/31/2020 RSV VACCINE ( & 60+) (1 - 1-dose 60+ series) 2022 Pneumococcal Vaccine: Pediatrics (0 to 5 Years) and At-Risk Patients (6 to 64 Years) (2 of 2 - PCV) 07/17/2022 07/17/2021 DTAP/TDAP/TD IMMUNIZATION (2 - Td or Tdap) 09/26/2022 09/26/2012 COVID-19 Vaccine ( - 2022- season) 2023 07/17/2021, 01/14/2021, 12/17/2020 PHQ-2 (once per calendar year) 2023 INFLUENZA VACCINE (#1) 2024 , 07/31/2020, 09/26/2012 GLUCOSE 06/16/2025 06/16/2022, 03/27, 04/11/2022, Additional history exists HPV IMMUNIZATION Aged Out No longer e ligible based on patient's age to complete this topic IPV IMMUNIZATION Aged Out No longer e ligible based on patient's age to complete this topic MENINGITIS IMMUNIZATION Aged Out No l onger eligible based on patient's age to complete this topic RSV MONOCLONAL ANTIBODY Aged Out No l onger eligible based on patient's age to complete this topic Procedures Procedure Name Priority Date/Time Associated Diagnosis Comments BASIC METABOLIC PANEL STAT 06/16/2022 4:34 PM CDT from Last 3 Months or Most Recently Relevant to Health Maintenance Results * (ABNORMAL) Basic metabolic panel (06/16/2022 4:34 PM CDT) Sodium 131(L) 136 - 145 mmol/L 06/16/2022 5:10 PM CDT LABORATORY Potassium 4.3 3.4 - 5.3 mmol/L 06/16/2022 5:10 PM CDT LABORATORY Chloride 96(L) 98 - 107 mmol/L 06/16/2022 5:10 PM CDT LABORATORY Carbon Dioxide (CO2) 25 22 - 29 mmol/L 06/16/2022 5:10 PM CDT LABORATORY Anion Gap 10 7 - 15 mmol/L 06/16/2022 5:10 PM CDT LABORATORY Urea Nitrogen 9.4 8.0 - 23.0 mg/dL 06/16/2022 5:10 PM CDT LABORATORY Creatinine 0.90 0.67 - 1.17 mg/dL 06/16/2022 5:10 PM CDT LABORATORY Calcium 9.6 8.8 - 10.2 mg/dL 06/16/2022 5:10 PM CDT LABORATORY Glucose 134(H) 70 - 99 mg/dL 06/16/2022 5:10 PM CDT LABORATORY GFR Estimate >90 >60 mL/min/1.7 3m2 06/16/2022 5:10 PM CDT LABORATORY Comment:Effective August 282020 eGFRcr in adults is calculated using the 2020 CKD-EPI creatinine equation which includes age and gender (Antony et al., NEJM, DOI: 10.1056/BYUUnx8865467) Blood STRUCTURE OF LEFT UPPER LIMB / Unknown Venipuncture / Unknown 06/16/2022 4:34 PM CDT 06/16/2022 4:37 PM CDT Joe Jade MD LAB - BLOOD NADER Walker Organization Address City/State/ZIP Co de Phone Number LABORATORY [facility] [address] [facility] (1st floor, no room number) [place] [address]RUST [phone] from Last 3 Months or Most Recently Relevant to Health Maintenance Advance Directives For more information, please contact: [phone] * Full Code (Latest Code Status on File) Date Activated Date Inactivated Comments 09/29/2021 11:26 PM 10/01/2021 1:13 PM All basic and advanced life-sustaining interventions are performed as appropriate Question Answer Comments Code status determined by: Discussion with patie nt/ legal decision maker * Full Code Date Activated Date Inactivated Comments 04/05/2021 4:42 PM 04/07/2021 2:11 PM All basic an d advanced life-sustaining interventions are performed as appropriate Question Answer Comments Code status determined by: Discussion with patie nt/ legal decision maker * Full Code Date Activated Date Inactivated Comments 03/27/2019 1:13 PM 05/12/2019 1:21 PM Question Answer Comments Code status determined by: Discussion with patie nt/legal decision maker * Full Code Date Activated Date Inactivated Comments 03/26/2019 3:55 PM 03/27/2019 1:13 PM Question Answer Comments Code status determined by: Discussion with patie nt/legal decision maker * Full Code Date Activated Date Inactivated Comments 10/26/2018 11:47 AM 03/26/2019 11:28 AM Question Answer Comments Code status determined by: Discussion with patie nt/legal decision maker Care Teams Revenue Manager Relationship Specialty Start Date End Date Italia Pugh MD [facility] [address] [place] [address] PCP - General Family Practice 03/26/19
--- OUTSIDE RECORDS SUMMARY | 2024-04-04 19:35 | XMS_ITS | Encounter Summary ---
Author Organization [facility] Address [facility] [place] [address] Care Team Providers Care Skidder Runner Name Role Phone Jono Espinal MD Primary Care Provider [phone] [facility] Primary Care Provide r Italia Pugh MD Primary Care Provider + Josue Ventura MD Primary Care Provider Italia Pugh MD Primary Care Provider + Encounter Details Date Type Department Care Team (Late st Contact Info) Description 02/25/[address] [address] Haroldo Nielsen MD [address] [place] [id number] [facility] Social History Tobacco Use Types Packs/Day Years Used Date Smoking Tobacco: Every Day Cigarettes Smokeless Tobacco: Never Alcohol Use Standard Drinks/Week Comments No 0 (1 standard drink = 0.6 oz pur e alcohol) Sex and Gender Information Value Date Recorded Sex Assigned at Not on file Gender Identity Not on file Sexual Orientation Not on file documented as of this encounter Plan of Treatment Not on file documented as of this encounter Visit Diagnoses Not on filedocumented in this encounter Additional Health Concerns Infection Onset Date Last Indicated Resolved Time Rule Out COVID-19 10/06/2020 10/06/2020 10/06/2020 1:58 PM INSTANT POTATO PROCESSING 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 Rule Out COVID-19 09/29/2021 09/29/2021 09/29/2021 5:59 PM INSTANT POTATO PROCESSING SUPERVISOR documented as of this encounter Care Teams Skidder Runner Relationship Specialty Start Date End Date Jono Espinal MD [address] [place] [address] PCP - General 10/29/04 07/25/11 [facility] [address] [place] [address] PCP - General 07/26/11 05/21/13 Italia Pugh MD [address] [address] PCP - General Family Practice 05/22/13 10/21/18 Josue Ventura MD [facility] [address] [place] [address] PCP - General Emergency Medicine 10/22/18 03/25/19 Italia Pugh MD [facility] [address] [place] [id number] PCP - General Family Practice 03/26/19 documented as of this encounter
--- OUTSIDE RECORDS SUMMARY | 2024-04-04 19:35 | XMS_ITS | Continuity of Care Document ---
Author Organization [facility] Address [address] [address] [place] [address] Phone Care Team Providers Care Guide Winder Name Role Phone Kaushik Bustamante MD Unavailable Unavailable Procedures Procedure Date Init Inpt Cons New/est Mod-hi 8 Ugi Endo; W/bx 1/mx Advance Directives Directive Yes / No Effective Date File Name No Information Encounters Encounter Description Practice Location Reason(s) For Visit Diagnoses Date Provider Providers Copied on Encounter [facility], [address] [address], [place], [place], [id number], [place] tel:[phone] [facility] No Information 8 Robby Faulkner. [address] [facility] [address], [place], [place], [id number], [place]. tel:[phone] Init Inpt Cons New/est Mod-hi [facility], [address] [address], [place], [place], [id number], [place] tel:[phone] [facility] No Information 8 No Information Referring Provider: Italia Pugh MD R, [address] [place], [address]. tel:[phone] Family History Family Member Type Diagnosis Age At Onset No Information Payers Payer name Insurance type Covered green party ID Authoriza tion(s) No Information Social History [...]
--- OUTSIDE RECORDS SUMMARY | 2024-04-04 19:35 | XMS_ITS | Referral Summary ---
Author Organization [facility] Address [address] [place] [address]. [place] [address] Care Team Providers Care Professor Of Political Science Name Role Phone Italia Pugh MD Primary [...] 175.3 cm (5' 9) 09/30/2021 8:31 AM PROGRAMMING MANAGER Body Mass Index 28.91 09/30/2021 8:31 AM PROGRAMMING MANAGER Plan of Treatment Not on file Procedures Procedure Name Priority Date/Time Associated Diagnosis [...] - 15 mmol/L 06/16/2022 5:10 PM CDT [facility] Urea Nitrogen 9.4 8.0 - 23.0 [...] and gender (Antony et al., NEJM, DOI: 10.1056/[id number]) Blood STRUCTURE OF LEFT UPPER LIMB / Unknown Venipuncture / Unknown 06/16/2022 4:34 PM CDT 06/16/2022 4:37 PM CDT Joe Jade MD LAB - BLOOD NADER MCCABE [facility] [address] (1st floor, no room number) [place] [address], [facility] [phone] from Last 3 Months or Most Recently Relevant to Health Maintenance Advance Directives For more information, please contact: [phone] * Full Code (Latest Code Status on [...] with patie nt/legal decision maker Care Teams Professor Of Political Science Relationship Specialty Start Date End Date Italia Pugh MD [facility] [address] [place] [address] PCP - General Family Practice 03/26/19
--- OUTSIDE RECORDS SUMMARY | 2024-04-04 19:35 | XMS_ITS | Clinical Summary ---
Author Organization [facility] Address [place], [place] [address] Care Team Providers Care Trommel Tender Name Role Phone Italia Pugh MD Primary Care Provider + Allergies Active Allergy Reactions Criticality Noted Date Comments Metoprolol Headache Low 10/04/2017 Quetiapine Other - Describe In Comment Field twitching Terazosin Dizziness Low 10/30/2022 Medications Medication Sig Dispensed Refills Start Date End Date Status TRUE METRIX GLUCOSE TEST STRIP strip 3 times daily. 0 09/14/20 17 Active TRUEPLUS LANCETS 33 gauge misc 3 times daily. 0 09/14/20 17 Active TRUE METRIX GLUCOSE METER 3 times daily. 0 09/14/20 17 Active albuterol (PROVENTIL) 0.083 % neb solutionIndication s:COPD mixed type (HC) Inhale 3 mL via a nebulizer every 4 hours if needed. 1 box 3 04/13/20 19 Active oxygen-air delivery systems (HOME OXYGEN)Indications :COPD mixed type (HC),Nocturnal hypoxia Oxygen for home use. Liters per minute: 1 per nasal cannula. Frequency of use: Nocturnal;. Length of need: 99 Months. 1 Device 05/31/20 19 Active polyethylene glycoL (MIRALAX) 17 gram/scoop powderIndications: Abdominal pain, epigastric Mix 1 scoop (17 g) in liquid then take by mouth once daily if needed for Constipation. 116 g 1 04/30/20 23 Active Symbicort 160-4.5 mcg/actuation (160-4.5 mcg each actuation) inhalerIndications :SOB (shortness of breath) INHALE 2 PUFFS BY MOUTH 2 TIMES DAILY. 10.2 g 11 06/11/20 23 Active tamsulosin (FLOMAX) 0.4 mg capsuleIndications :BPH without urinary obstruction TAKE TWO CAPSULES(0.8MG) BY MOUTH ONCE DAILY AFTER A MEAL 180 Capsule 2 07/10/20 23 Active atorvastatin (LIPITOR) 20 mg tabletIndications: Hypertriglyceridem ia,Hyperlipidemia, unspecified hyperlipidemia type TAKE 1 TABLET (20 MG) BY MOUTH AT BEDTIME. 90 Tablet 2 07/10/20 23 Active omeprazole (PRILOSEC) 40 mg Delayed-Release capsuleIndications :Gastroesophageal reflux disease without esophagitis 1 capsule twice a day 180 Capsule 3 07/15/20 23 Active amLODIPine (NORVASC) 10 mg tabletIndications: HTN (hypertension) TAKE ONE TABLET BY MOUTH EVERY EVENING 90 Tablet 2 08/11/20 23 Active albuterol-ipratrop ium (DUONEB) (2.5-0.5 mg) in 3 mL NEBULIZATION solutionIndication s:COPD mixed type (HC) Inhale 3 mL via a nebulizer every 6 hours if needed for Shortness Of Breath. 180 mL 5 09/28/19 24 Active meloxicam 15 mg tabletIndications: Chronic pain of both knees TAKE ONE TABLET BY MOUTH EVERY DAY 90 Tablet 1 11/09/19 24 Active nicotine 21 mg/24 hr (NICODERM; HABITROL) 21 mg/24 hr patchIndications:T obacco use disorder Apply 1 Patch on dry, clean, hairless skin once daily. 14 Patch 3 12/24/19 24 Active metFORMIN (GLUCOPHAGE) 1,000 mg tabletIndications: Type 2 diabetes mellitus without complication, without long-term current use of insulin (HC) TAKE 1 TABLET BY MOUTH 2 TIMES DAILY WITH MEALS. 180 Tablet 02/06/20 24 Active spiriva 18 mcg inhalation capsuleIndications :COPD mixed type (HC) INHALE CONTENTS OF 1 CAPSULE WITH HANDIHALER DEVICE ONCE DAILY 90 Capsule 02/06/20 24 Active LORazepam (ATIVAN) 1 mg tabletIndications: Anxiety state Take 1 Tablet (1 mg) by mouth 2 times daily if needed for Anxiety. 60 Tablet 2 02/23/20 24 Active escitalopram oxalate (LEXAPRO) 10 mg tabletIndications: Anxiety and depression TAKE ONE TABLET BY MOUTH ONCE DAILY 90 Tablet 03/08/20 24 Active chlorhexidine (PERIDEX) 0.12 % solutionIndication s:Chronic maxillary sinusitis,Oroantra l fistula Swish and spit 15 mL by mouth two times daily. 420 mL 03/08/20 24 Active oxyCODONE (ROXICODONE) 5 mg immediate release tabletIndications: Nasal trauma, subsequent encounter,OAF (michelle-antral fistula) Take 1 Tablet (5 mg) by mouth every 8 hours if needed for Pain. 30 Tablet 03/10/20 24 Active ibuprofen (ADVIL; MOTRIN) 600 mg tabletIndications: OAF (michelle-antral fistula) Take 1 Tablet (600 mg) by mouth three times daily with meals. Maximum of 3200 mg in 24 hours. 60 Tablet 1 03/10/20 24 Active Ventolin HFA 90 mcg/actuation inhalerIndications :COPD mixed type (HC),SOB (shortness of breath) INHALE 1 TO 2 PUFFS BY MOUTH INTO THE LUNGS EVERY 4 HOURS NEEDED 18 g 11 03/29/20 24 Active escitalopram oxalate (LEXAPRO) 10 mg tabletIndications: Anxiety and depression TAKE ONE TABLET BY MOUTH ONCE DAILY 90 Tablet 1 09/11/20 23 024 Discontinued Ventolin HFA 90 mcg/actuation inhalerIndications :COPD mixed type (HC),SOB (shortness of breath) INHALE 1 TO 2 PUFFS BY MOUTH INTO THE LUNGS EVERY 4 HOURS NEEDED 18 g 11 10/25/19 24 024 Discontinued oxyCODONE (ROXICODONE) 5 mg immediate release tabletIndications: Nasal trauma, subsequent encounter Take 1 Tablet (5 mg) by mouth every 4 hours if needed for Pain. 42 Tablet 02/23/20 24 024 Discontinued(Du plicate therapy (E-cancel not sent)) oxyCODONE (ROXICODONE) 5 mg immediate release tabletIndications: Nasal trauma, subsequent encounter,OAF (michelle-antral fistula) Take 1 Tablet (5 mg) by mouth every 4 hours if needed for Pain. 60 Tablet 03/02/20 24 024 Discontinued(Re order (E-cancel not sent)) amoxicillin-clavul anate 875-125 mg tablet (AUGMENTIN)Indicat ions:Chronic maxillary sinusitis Take 1 Tablet by mouth two times daily with meals for 10 days. Please take with food. Please take an zmtb-yzo-lvhlars probiotic while on the antibiotic to help avoid upset stomach or other complications related to antibiotic use. 20 Tablet 02/25/20 24 024 chlorhexidine (PERIDEX) 0.12 % solutionIndication s:Chronic maxillary sinusitis,Oroantra l fistula Swish and spit 15 mL by mouth two times daily for 14 days. 420 mL 02/25/20 24 024 Discontinued(Re order (E-cancel not sent)) Active Problems Patient Care Coordination No te Formatting of this note migh t be different from the original. HF/Structural Research Eligibility Review Date: 07/19/19 Upcoming Visit Location: [facility] Age: 59 y.o. Insurance: [employer] Etiology: ? NYHA: ? Last HF Admit: Last RHC: BNP: EF: 60 01/18/19 LVID: Valve/Imaging: no mod-sev disease Cardiac Devices: Comments: HF: FID: No dt EF, recent hosp/BNP Guide-HF: no recent hosp/BNP Reduce LAP: no recent hosp/BNP Accucinch 5017: No LVID measurement Vivio: No recent/upcoming echo Structural: no dt insurance Prevention: Prominent: No PCI/cardiac event KPL/Rhapsody: No recurrent pericarditis Problem Noted Date Diagnosed Date Abdominal pain 07/28/2023 Fay's esophagus without dysplasia 07/17/2023 Epigastric pain 06/22/2023 Primary osteoarthritis of right knee 2023 Acute and chronic respiratory failure with hypox ia 10/31/2022 Supraventricular tachycardia 01/29/2021 Hypertriglyceridemia 07/30/2020 COPD mixed type 04/13/2019 Hypertension 11/23/2018 Type 2 diabetes mellitus wit hout complication, without long-term current use of insulin 09/14/2017 Overview: nuc med stress test 04/2020 negative for inducible ischemia Chronic constipation 09/14/2017 Overview: Severe diverticulosis on colonoscopy Alcohol abuse, in remission 09/26/2012 Overview: Completed treatment. Last drink 2007 GERD (gastroesophageal reflux disease) 9 Anxiety state, unspecified 06/07/2008 Overview: zoloft--to flat. prozac 10 mg not strong enough; 20 mg flat. ADD meds seem to really help. He has been on abilify. Tobacco use disorder 05/16/2008 Borderline intellectual functioning 05/16/2008 Major Depressive Disorder, Recurrent Episode, Un specified 02/09/2007 Overview: Multiple hospitalizations. Has had 2 sets at ECT treatment. Last one in 1999 at [facility] Fatty liver, alcoholic Overview: No alcohol since treatment in 2007 Polyp of colon, repeat in 05/2028 Overview: 05/2023 Two 4 to 5 mm polyps in the cecum 2017 4 mm polyp in the ascending colon - sessile serrated adenoma 4 mm polyp in the rectum - tubular adenoma Resolved Problems Problem Noted Date Diagnosed Date Resolved Date Bilateral inguinal hernia wi thout obstruction or gangrene 12/06/2018 12/31/2018 Ventral hernia without obstr uction or gangrene 12/06/2018 12/31/2018 HTN (hypertension) 09/14/2017 8 Gallstones 09/14/2017 11/19/2018 Overview: Noted on CT in August 2017 Cough 04/04/2009 11/17/2013 HTN (hypertension) 04/04/2009 2 Overview: Updated by system to replace inactive record Alcohol withdrawal 05/16/2008 8 Opioid type dependence, continuous 05/16/2008 11/17/2013 Overview: For neck pain and was in conjunction with his drinking. He completed treatment. Inhalant Nondependent Drug A buse, in Remission 05/16/2008 11/17/2013 Overview: Patient states he never used inhalant drugs and does not know why this is in his problem list Nondependent amphetamine or related acting sympathomimetic abuse, in remission 05/16/200810/29 Overview: The patient states he never used any type of stimulant while his drinking in 2007 he does not know why this is in his problem list. History of meth use per prior notes Adjustment disorder with anxiety 11/15/2007 05/16/2008 Other and Unspecified Alcoho l Dependence, Continuous Drinking Behavior 11/15/2007 11/17/2013 Overview: During his divorce and prior bouts of alcohol abuse with treatments Migraine, unspecified, witho ut mention of intractable migraine without mention of status migrainosus 09/28/2007 05/16/2008 FOREIGN BODY, CORNEA-L 01/06/200505/16 Encounters Date Type Department Care Team Description 03/27/[address] [id number] Italia Pugh MD Refill Request (Ventolin Hfa) 03/17/[address] [address] Italia Pugh MD Refill Request (Oxycodone) 03/10/[address] [phone] Italia Pugh MD Refill Request (oxyCODONE (ROXICODONE) ) 03/08/2024 1:00 PM CDT Office Visit [facility] [place] [place] [address] [facility] [place] [address] Robin Lew MD Consult (Hyperkeratotic oral lesion ) 03/08/2024 Travel 03/07/[address] [address] Italia Pugh MD Refill Request (Escitalopram Oxalate) 03/06/[address] [address] Italia Pugh MD Blood Pressure 02/29/2024 Telephone [facility] [address] [facility] [address] [place] [address] Robin Lew MD Questions (Surgery) 02/25/2024 Telephone [facility] [address] [facility] [address] [place] [address] Robin Lew MD New Med Request (SUSPECT INFECTION IN MOUTH FROM SINUSES ) 02/24/2024 Telephone [facility] [id number] [place] [id number] Italia Pugh MD Appointment (regarding future appointment ) 02/24/2024 Telephone [facility] [place] [place] [address] [facility] [place] [address] Robin Lew MD Appointment 02/23/2024 10:00 AM CDT Office Visit [facility] [address] [facility] [address] [facility] [address] [place] [address] Lori Waddell MD Consult (Oral lesions) 02/23/[address] [phone] Italia Pugh MD Refill Request (Lorazepam 1mg and Oxycodone 5mg ) 02/22/2024 2:30 PM CDT Ancillary Procedure [facility] [address] [place] [address] 02/22/2024 Travel 02/18/2024 12:45 PM CDT Office Visit [address] [address] Italia Pugh MD Sinus Infection (Hole in sinus from dental procedure) 02/18/[address] [address] Italia Pugh MD Refill Request (Oxycodone) 02/18/2024 Telephone [facility] [address] [facility] [address] [place] [address] Robin Lew MD Appointment 02/18/2024 Travel 02/10/[address] [address] Italia Pugh MD Diabetes (Diabetic eye exam) 02/08/[address] [address] Italia Pugh MD Appointment (ECHO 02/10/24) 02/04/[address] [address] Italia Pugh MD Refill Request (Metformin, Spiriva) 01/25/[address] [address] Italia Pugh MD Refill Request (oxyCODONE (ROXICODONE) 5 mg immediate release tablet) 01/19/[address] [address] Italia Pugh MD Refill Request (oxyCODONE ) 01/12/[address] [address] Italia Pugh MD Refill Request (Oxycodone) 01/07/[address] [address] Italia Pugh MD Refill Request ( Oxycodone) from Last 3 Months Immunizations Name Administration Dates Next Due COVID-19 Vaccine Spikevax (M oderna 50mcg/0.5mL) 12YO+ [id number] Formula PF 07/14/2023 COVID-19 vaccine (Moderna 10 0mcg/0.5mL) PF, MDV 07/17/2021,01/14/2021,12/17/2020 Hepatitis B (Adult) 03/01/2009 Influenza, IIV3 (Age >=3 years) 09/26/2012 Influenza, IIV4 07/14/2023,07/17/2021,07/31/2020 Pneumococcal Poly,23-Valent (Pneumovax) 07/17/20 21 Td (Age >=7 Years) 07/14/2023 Tdap 09/26/2012 Family History Medical History Relation Name Comments Good Health Brother Cancer Father Good Health Mother Cancer Paternal Grandfather Cancer Paternal Grandmother Anxiety disorder Sister Good Health Sister Relation Name Status Comments Brother Alive Father Mother Alive Paternal Grandfather Paternal Grandmother Sister Alive Son Andrez Alive Social History Tobacco Use Types Packs/Day Years Used Date Smoking Tobacco: Every Day Cigarettes 1 47.5 Started: 1974 Smokeless Tobacco: Never Comments:Noted today 05/01/19- Pt is smoking about 10 cigs a day Alcohol Use Standard Drinks/Week Comments No 0 (1 standard drink = 0.6 oz pur e alcohol) last drink was in 2008 PHQ-2 Answer Date Recorded PHQ-2 TOTAL SCORE 0 08/11/2023 Social Connections Answer Date Recorded Frequency of Communication with Friends and Fami ly Not on file 01/25/2024 Financial Resource Strain Answer Date R ecorded Difficulty of Paying Living Expenses 3 01/21/2023 Difficulty of Paying Living Expenses Not on file 01/21/2023 Food Insecurity Answer Date Recorded Worried About Running Out of Food in the Last Ye ar 1 01/21/2023 Transportation Needs Answer Date Record ed Lack of Transportation (Medical) 1 01/21/2023 Housing Stability Answer Date Recorded Unable to Pay for Housing in the Last Year 1 01/21/2023 Sex and Gender Information Value Date Recorded Sex Assigned at Not on file Gender Identity Not on file Sexual Orientation Not on file Obstetrics History Last Filed Vital Signs Vital Sign Reading Time Taken Comments Blood Pressure 138/80 02/18/2024 12:54 PM CDT Pulse 100 02/18/2024 12:54 PM CDT Temperature 36.6 ??C (97.8 ??F) 02/18/2024 12:54 PM C DT Respiratory Rate 20 11/22/2023 1:40 PM PAINT SPRAYER SANDBLASTER Oxygen Saturation 91% 11/22/2023 4:30 PM PAINT SPRAYER SANDBLASTER Inhaled Oxygen Concentration - - Weight 84.5 kg (186 lb 3.2 oz) 02/18/2024 12:54 PM CDT Height 172.1 cm (5' 7.75) 02/18/2024 12:54 PM C DT Body Mass Index 28.52 02/18/2024 12:54 PM CDT Plan of Treatment Health Maintenance Due Date Last Done Comments HIV for age 15-65 1977 Zoster (shingles) series for age 50+ (1 of 2) 02/13/2012 Pneumococcal series for age 6-64 (2 of 2 - PCV) 07/17/2022 07/17/[address] (for lung CA) ag e 50-80 12/15/2023 12/14/2022, 08/05/2020 Influenza for age 50-64 05/28/2024 07/14/20 23, 07/17/2021, 07/31/2020, Additional history exists Depression screening for age 12+ 08/11/2024 08/11/2023, 07/08/2022, 07/06/2022, Additional history exists BMI (ht and wt on same day) for age 18+ 02/17/2025 02/18/2024, 12/24/2023, 06/03/2023, Additional history exists Colonoscopy through age 75 06/22/202806/22, 10/04/2017, 11/26/1999 Lipids for age 45-75 07/14/2028 07/14/2023, 07/06/2022, 01/21/2021, Additional history exists Tetanus booster 07/14/2033 07/14/2023, 09/26/2012 Tdap Completed 09/26/2012 Hepatitis C screening for ag e 18-79 Completed 11/17/2013 Fecal testing non-DNA (FIT,FOBT,iFOBT) for age 45-75 Discontinued 12/06/2018, 10/20/2012 COVID-19 vaccine series Completed 07/14/20, 03/09/2023, 07/17/2021, Additional history exists Medical Devices Implanted Type Area Toy Painter Device Identifier Shelf Expiration Date Model / Serial / Lot Mesh Ventral [id number] Progrip Lapsc Slf Fixating - [id number] Implanted:Qty: 1 on 12/07/2018 by Cindy Munoz DO at [facility] Left: Inguinal [employer] 01/25/2020 [id number] / / [id number] Mesh Ventral 6x8in Ventralightst W/Echo Ps - [id number] Implanted:Qty: 1 on 12/07/2018 by Cindy Munoz DO at [facility] N/A: Abdomen [employer] 07/24/2019 [id number] / / [id number] Explanted Type Area Toy Painter Device Identifier Shelf Expiration Date Model / Serial / Lot Mesh Inguinal Lt 3x5in 3-D Max - [id number] Implanted:Qty: 1 Explanted:Qty: 1 on 12/07/2018 at [facility] Left: Inguinal [employer] 01/22/2023 [id number] / / [id number] Procedures Procedure Name Priority Date/Time Associated Diagnosis Comments CT HEAD SINUS LANDMARX WO Routine 02/22/2024 2:23 PM CDT Nasal trauma, subsequent encounter LIPID PANEL W REFLEX MEASURED LDL Routine 07/14/2023 11:55 AM CDT Type 2 diabetes mellitus without complication, without long-term current use of insulin (HC) COLONOSCOPY 06/22/2023 12:[address] CHEST W Routine 12/14/2022 11:59 AM CDT COPD mixed type (HC) Tobacco use disorder Abnormal chest CT Abnormality of abdominal aorta OCCULT BLOOD IFOBT STOOL Routine 12/06/2018 10:58 AM CDT Screening for colon cancer ANTI HCV Routine 11/17/2013 12:29 PM PAINT SPRAYER SANDBLASTER Screening for viral disease from Last 3 Months or Most Recently Relevant to Health Maintenance Results * CT HEAD SINUS LANDMARX WO (02/22/2024 2:23 PM CDT) Anatomical Region Laterality Modality SINUS Computed Tomogra phy 02/23/2024 9:13 AM CDT Impressions 02/23/2024 9:13 AM CDT 1. A large osseous defect within the right maxillary alveolus, which could be posttraumatic given the history although dehiscence from tooth extractions is also a consideration. There is high-grade mucosal thickening and frothy secretions within the right maxillary sinus antrum. 2. No posttraumatic findings elsewhere within the visualized facial/sinus regions. 3. Paranasal sinuses elsewhere are well aerated. 4. Advanced leftward nasal septal deviation and large septal spur. Please note that all CT scans at this facility use dose modulation, iterative reconstruction, and/or weight-based dosing when appropriate to reduce radiation dose to as low as reasonably achievable. Dictated by Godfrey Albrecht MD @ 02/23/2024 9:13:41 AM (Electronically Signed) Narrative 02/23/2024 9:13 AM CDT For Patients: ??As a result of the Century Cures Act, medical imaging exams and procedure reports are released immediately into your electronic medical record. ??You may view this report before your referring provider. ??If you have questions, please contact your health care provider. CLINICAL HISTORY: Facial trauma. Sinus perforation through right upper gum. TECHNIQUE: CT of the paranasal sinuses without contrast. COMPARISON: None. FINDINGS: Anterior sinus group (frontal sinuses and anterior ethmoid air cells/frontoethmoidal recesses: The frontal sinuses and anterior ethmoid air cells are well aerated. The frontoethmoidal drainage pathways are not obstructed. Posterior sinus group (posterior ethmoid air cells and sphenoid sinuses)/sphenoethmoidal recesses: The posterior ethmoid air cells and sphenoid sinuses are well aerated. The sphenoethmoidal recesses are not obstructed. Maxillary sinuses and ostiomeatal complexes: Near complete opacification of the right maxillary sinus with mucosal thickening and central frothy secretions. There is a defect within the right maxillary sinus alveolar cortex which measures 22 millimeters in AP dimension and 14 millimeters in TR dimension. Turbinates: Within normal limits. Nasal septum: Advanced leftward nasal septal deviation and large 6 millimeter septal spur. Nasal cavity: No other obstructive lesions. Skullbase, maxilla, TMJ: Keros type 2 on the left. Keros type 2 on the right. No lytic or blastic osseous lesions. No periapical tooth lucencies. Mastoid air cells are clear. Orbital contents: Within normal limits. Imaged intracranial contents: Within normal limits. Imaged soft tissues structures: Within normal limits. Procedure Note Godfrey Albrecht MD - 02/23/2024 For Patients: As a result of the Century Cures Act, medical imagingexams and procedure reports are released immediately into your electronicmedical record. You may view this report before your referring provider.If you have questions, please contact your health care provider. CLINICAL HISTORY: Facial trauma. Sinus perforation through right upper gum. TECHNIQUE: CT of the paranasal sinuses without contrast. COMPARISON: None. FINDINGS: Anterior sinus group (frontal sinuses and anterior ethmoid aircells/frontoethmoidal recesses: The frontal sinuses and anterior ethmoidair cells are well aerated. The frontoethmoidal drainage pathways are notobstructed. Posterior sinus group (posterior ethmoid air cells and sphenoidsinuses)/sphenoethmoidal recesses: The posterior ethmoid air cells andsphenoid sinuses are well aerated. The sphenoethmoidal recesses are notobstructed. Maxillary sinuses and ostiomeatal complexes: Near complete opacificationof the right maxillary sinus with mucosal thickening and central frothysecretions. There is a defect within the right maxillary sinus alveolarcortex which measures 22 millimeters in AP dimension and 14 millimeters inTR dimension. Turbinates: Within normal limits. Nasal septum: Advanced leftward nasal septal deviation and large 6millimeter septal spur. Nasal cavity: No other obstructive lesions. Skullbase, maxilla, TMJ: Keros type 2 on the left. Keros type 2 on theright. No lytic or blastic osseous lesions. No periapical tooth lucencies.Mastoid air cells are clear. Orbital contents: Within normal limits. Imaged intracranial contents: Within normal limits. Imaged soft tissues structures: Within normal limits. IMPRESSION: 1. A large osseous defect within the right maxillary alveolus, which couldbe posttraumatic given the history although dehiscence from toothextractions is also a consideration. There is high-grade mucosalthickening and frothy secretions within the right maxillary sinus antrum. 2. No posttraumatic findings elsewhere within the visualized facial/sinusregions. 3. Paranasal sinuses elsewhere are well aerated. 4. Advanced leftward nasal septal deviation and large septal spur. Please note that all CT scans at this facility use dose modulation,iterative reconstruction, and/or weight-based dosing when appropriate toreduce radiation dose to as low as reasonably achievable. Dictated by Godfrey Albrecht MD @ 02/23/2024 9:13:41 AM (Electronically Signed) Italia Pugh MD CT * (ABNORMAL) LIPID PANEL W REFLEX MEASURED LDL (07/14/2023 11:55 AM CDT) CHOLESTEROL,TOTAL 101 100 - 199 mg/dL 07/14/2023 9:23 PM CDT [facility] Comment: Cholesterol, Total Reference Ranges Desirable <200 mg/dL Borderline 200-239 mg/dL High >=240 mg/dL TRIGLYCERIDES 62 <150 mg/dL 07/14/2023 9:23 PM CDT [facility] HDL CHOLESTEROL 36(L) >40 mg/dL 9:23 PM CDT [facility] NON-HDL CHOLESTEROL 65 <145 mg/dl 07/14/2023 9:23 PM CDT [facility] CHOL/HDL RATIO 2.81 <4.50 07/14/2023 9:23 PM CDT [facility] LDL CHOLESTEROL 53 <=130 mg/dL 07/14/2023 9:23 PM CDT [facility] VLDL CHOLESTEROL 12 <=30 mg/dL 07/14/2023 9:23 PM CDT [facility] PROVIDER ORDERED STATUS RANDOM 07/14/2023 9:23 PM CDT [facility] Blood BLOOD SPECIMEN / Unknown Venipuncture / Unknown 07/14/2023 11:55 AM CDT 07/14/2023 12:06 PM CDT Italia Pugh MD [facility] [address] [place] [address], * COLONOSCOPY (06/22/2023 12:20 PM CDT) 06/22/2023 12:2 0 PM CDT Narrative Transcriptions Adams Byrd MD - 06/22/2023 12:42 PM CDT Endoscopy Patient Name: Garrett Valenzuela Procedure Date: 06/22/2023 Gender: Male Date of : 1960 Admit Type: Outpatient Procedure: Colonoscopy Proceduralist: Adams Byrd MD Indications/Pre-Op Diagnosis: Personal history of colonic polyps,Screening for malignant neoplasm in the colon Medications: Monitored Anesthesia Care Procedure Description: The patient had risks, benefits and alternatives explained to andgave informed consent. The patient had a stable cardiopulmonary status and judged an adequate candidate for conscious sedation. The endoscope [id number] was passed through the and advancedto. The colonoscopy was performed without difficulty. The patienttolerated the procedure well. The quality of the bowel preparation was good.The ileocecal valve, appendiceal orifice, and rectum were photographed. Complications: No immediate complications. Estimated Blood Loss & Specimen: Estimated blood loss was minimal. Specimen collected: Yes and sent to Laboratory Findings: Multiple diverticula were found in the sigmoid colon. The perianal and digital rectal examinations were normal. Two sessile polyps were found in the cecum. The polyps were 4 to 5 mmin size. These polyps were removed with a hot snare. Resection and retrieval were complete. Impressions/Post-Op Diagnosis: - Diverticulosis in the sigmoid colon. - Two 4 to 5 mm polyps in the cecum, removed with a hot snare.Resected and retrieved. Recommendation: - Follow up colonoscopy recommendations will depend on the pathologyof the polyps. - A letter will be sent to the patient with pathology results andfuture screening colonoscopy recommendations. - High fiber diet. - Use citrus or orange sugared Metamucil one tablespoon PO daily indefinitely. Adams Byrd MD 06/22/2023 12:41:55 PM This report has been signed electronically. Note Initiated On: 06/22/2023 12:20 PM Total Procedure Duration Time 0 hours 14 minutes 34 seconds Scope Withdrawal Time 0 hours 11 minutes 37 seconds Adams Byrd MD PROCEDURE ORD * CT CHEST W (12/14/2022 11:59 AM CDT) Anatomical Region Laterality Modality CHEST, THORAX, HEART Computed To mography 12/14/2022 12:5 7 PM CDT Narrative 12/14/2022 12:57 PM CDT For Patients: ??As a result of the Century Cures Act, medical imaging exams and procedure reports are released immediately into your electronic medical record. ??You may view this report before your referring provider. ??If you have questions, please contact your health care provider. Indication: Follow-up density Technique: Post contrast CT chest. 100 cc Omnipaque 350 intravenous contrast. Please note that all CT scans at this facility use dose modulation, iterative reconstruction, and/or weight-based dosing when appropriate to reduce radiation dose to as low as reasonably achievable. Comparison: [facility] CT chest 10/03/2022. Findings: Fibrotic changes within the right lower lobe are present superimposed upon chronic COPD/emphysema. Less prominent fibrotic changes are present elsewhere including the left lower lobe at the periphery and the right upper lobe at the posterior aspect adjacent to the fissure. Mildly prominent mediastinal and hilar lymph nodes are similar to prior study dated August 05, 2020. The visualized thyroid is normal. Bilateral gynecomastia. Normal axillary lymph nodes. Gallbladder absent. Spleen mildly prominent. Hepatic steatosis. Upper limits of normal retroperitoneal lymph nodes. No fracture. Impression: Chronic COPD/emphysema along with pulmonary fibrosis, most prominent within the right lower lobe. Overall, the appearance is similar to a prior exam dated August 05, 2020. Stable mildly prominent mediastinal, hilar and upper retroperitoneal lymph nodes. Please note that all CT scans at this facility use dose modulation, iterative reconstruction, and/or weight-based dosing when appropriate to reduce radiation dose to as low as reasonably achievable. Dictated by Larry Dutton MD @ Dec 14 2022 12:57PM (Electronically Signed) ?? Procedure Note Larry Dutton MD - 12/14/2022 For Patients: As a result of the Cures Act, medical imagingexams and procedure reports are released immediately into your electronicmedical record. You may view this report before your referring provider.If you have questions, please contact your health care provider. Indication: Follow-up density Technique: Post contrast CT chest. 100 cc Omnipaque 350 intravenous contrast. Please note that all CT scans at this facility use dose modulation,iterative reconstruction, and/or weight-based dosing when appropriate toreduce radiation dose to as low as reasonably achievable. Comparison: [facility] CT chest 10/03/2022. Findings: Fibrotic changes within the right lower lobe are present superimposed uponchronic COPD/emphysema. Less prominent fibrotic changes are presentelsewhere including the left lower lobe at the periphery and the rightupper lobe at the posterior aspect adjacent to the fissure. Mildlyprominent mediastinal and hilar lymph nodes are similar to prior studydated August 05, 2020. The visualized thyroid is normal. Bilateralgynecomastia. Normal axillary lymph nodes. Gallbladder absent. Spleenmildly prominent. Hepatic steatosis. Upper limits of normalretroperitoneal lymph nodes. No fracture. Impression: Chronic COPD/emphysema along with pulmonary fibrosis, most prominentwithin the right lower lobe. Overall, the appearance is similar to a priorexam dated August 05, 2020. Stable mildly prominent mediastinal, hilar and upper retroperitoneal lymphnodes. Please note that all CT scans at this facility use dose modulation,iterative reconstruction, and/or weight-based dosing when appropriate toreduce radiation dose to as low as reasonably achievable. Dictated by Larry Dutton MD @ Dec 14 2022 12:57PM (Electronically Signed) Italia Pugh MD CT * OCCULT BLOOD IFOBT STOOL (12/06/2018 10:58 AM CDT) STOOL BLOOD ,IFOBT Negative Negative 12/06/2018 2:40 PM CDT [facility] Stool STOOL SPECIMEN / Unknown Non-Blood / Unknown 12/06/2018 10:58 AM CDT 12/06/2018 2:15 PM CDT Italia Pugh MD LABORATORY [facility] [address] [place] [address], * ANTI HCV (11/17/2013 12:29 PM PAINT SPRAYER SANDBLASTER) Pathologist [facility] [place] ANTI HCV Non-reacti ve [facility] Blood specimen (specimen) BLOOD SPECIMEN / Unknown 11/17/2013 12:29 PM PAINT SPRAYER SANDBLASTER 11/17/2013 12:24 PM PAINT SPRAYER SANDBLASTER Italia Pugh MD SEND OUTS [facility] LABORATORY INTERNAL ZIP [address] [address] [place] [address] from Last 3 Months or Most Recently Relevant to Health Maintenance Advance Directives * Full Code (Latest Code Status on File) Date Activated Date Inactivated Comments 07/28/2023 9:00 AM 07/28/2023 5:00 PM Question Answer Comments Code Status Discussion: Reviewed Preferences * Full Code Date Activated Date Inactivated Comments 06/22/2023 10:25 AM 06/22/2023 3:21 PM Question Answer Comments Code Status Discussion: Reviewed Preferences * Full Code Date Activated Date Inactivated Comments 12/07/2018 7:28 AM 12/08/2018 3:02 AM Question Answer Comments Code Status Discussion: Discussed * Full Code Date Activated Date Inactivated Comments 10/04/2017 10:09 AM 10/04/2017 2:53 PM * Full Code Date Activated Date Inactivated Comments 04/03/2009 10:25 PM 04/10/2009 1:55 PM Care Teams Trommel Tender Relationship Specialty [place] [address] [place] [address] PCP - General Family Practice 09/23/17 [facility] [address] [place] [address] Ophthalmology Restaurant Manager 06/16/21
--- OUTSIDE RECORDS SUMMARY | 2024-04-04 19:35 | XMS_ITS | Data Portability ---
Author Organization [place] [facility] [place] [facility], [facility] Address [address] [place] [address] Care Team Providers Care Stereo Map Plotter Operator Name Role Phone RASHIDA BERRY Primary Care Provider Assessment No assessment recorded. Plan of Treatment Reminders Order Date Submit Date Provider Last Modified By Organization Details Last Modified Time Details Appointments None recorded. Lab urinalysis, dipstick 2022 023 [email or web address] 9 [facility], [facility] [facility], [address] [facility], [place], [address], 3 11:08:34 urinalysis, dipstick 2022 023 [facility], [facility]5 [facility], [address], [place], [address], 3 11:25:35 Referral None recorded. Procedures bladder scan (PROC) 2022 023 [facility], [address] [facility], [address], [place], [address], 3 09:42:33 bladder scan (PROC) 2022 023 [facility], [facility]5 [facility], [address], [place], [address], 3 11:25:35 Surgeries None recorded. Imaging None recorded. Medication Orders oxybutynin chloride ER 10 mg tablet,exte nded release 24 hr [address], [address], 15:33:41 Patient TargetsNo targets recorded. Patient Instructions Encounter Date Encounter Id Patient Instructions Last Modified By Organization Details Last Modified Time 12/17/2022 [id number] will check PSA and try starting oxybutynin ER 10mg call with PSA result and follow up timing. [email or web address] Not available 12/17/2022 11:10:02 01/28/2023 [id number] continue on oxybutynin until refills gone and rtc mid-April for recheck off med for a few weeks. [email or web address] Not available 01/28/2023 11:34:43 Reason for Referral None Reported. Results Created Date Observation Date Name Description Value Unit Range Abnormal Flag LastModifiedBy Organization Detail LastModifiedTime 12/18/1912/17/2022 urina lysis , dipst ick Glucose-Stat us 250 Not Available [address] [place], [place], [address], 12/17/2022 10:54:46 12/18/19 23 12/17/2022 urina lysis , dipst ick pH-Status 6.5 Not Available [address] [place], [place], [address], 12/17/2022 10:54:46 12/18/1912/17/2022 bladd er scan (PROC ) Volume (in mL) 24ml Not Available [address], [place], [address], 12/17/2022 11:08:30 01/29/2001/28/2023 urina lysis , dipst ick Bilirubin-St atus Small Not Available [place] [address] [facility] [address], [place], [address], 01/26/2023 16:56:57 01/29/2001/28/2023 urina lysis , dipst ick pH-Status 6.0 Not Available [address], [place], [address], 01/26/2023 16:56:57 01/29/2001/28/2023 bladd er scan (PROC ) Volume (in mL) 41ml Not Available [place] [address] [facility] [address], [place], [address], 01/26/2023 16:57:05 Result Notes None recorded. Procedures Surgical History Date Name Laterality Status Provider Name and Address Organization Details Recorded Time 01/29/20 Bladder Scan completed Shannon Blunt [facility] 01/28/2023 11:25:39 12/18/19 Bladder Scan completed Srinivasa Morales MD [address] [place] [address],[address] [place] [address], [address], [facility] 12/17/2022 10:49:17 Cataract Surgery completed Srinivasa Morales MD [address] [place] [address],[address], [address], [facility] 12/17/2022 10:52:41 Colonoscopy completed Srinivasa Morales MD [address] [place] [address],[address], [address], [facility] 12/17/2022 10:52:49 Hernia Repair completed Srinivasa Morales MD [address] [place] [address],[address], [address], [facility] 12/17/2022 10:52:56 Vasectomy completed Srinivasa Morales MD [address] [place] [address],[address], [address], [facility] 12/17/2022 10:53:03 cholecystectomy completed Srinivasa Morales MD [address] [place] [address],[address] [place] [address], [address], [facility] 12/17/2022 10:53:08 arthroplasty of knee completed Srinivasa Morales MD [address] [place] [address],[address], [address], [facility] 12/17/2022 10:53:27 excision of colon completed Srinivasa Morales MD [address] [place] [address],[address], [address], [facility] 12/17/2022 10:53:42 Imaging Results None recorded. Procedure Notes None recorded. Medical Equipment None Reported. Allergies No known drug allergies Medications Name Sig Start Date Stop Date Status Note LastModified by Organization Details LastModified Time celecoxib 200 mg capsule TAKE 1 CAPSULE (200 MG) BY MOUTH TWO TIMES DAILY WITH MEALS. 12/17 completed Not Available Not Available Not Available cyclobenzap rine 10 mg tablet TAKE 1 TABLET (10 MG) BY MOUTH THREE TIMES DAILY. 12/17 completed Not Available Not Available Not Available terazosin 5 mg capsule TAKE 1 CAPSULE (5 MG) BY MOUTH EVERY MORNING. 12/17 completed Not Available Not Available Not Available doxycycline hyclate 100 mg capsule 12/17 completed Not Available Not Available Not Available atorvastati n 20 mg tablet TAKE 1 TABLET (20 MG) BY MOUTH AT BEDTIME. active Not Available Not Available No t Available nicotine 14 mg/24 hr daily transdermal patch APPLY 1 PATCH ON DRY, CLEAN, HAIRLESS SKIN ONCE DAILY. 12/17 completed Not Available Not Available Not Available ipratropium 0.5 mg-albutero l 3 mg (2.5 mg base)/3 mL nebulizatio n soln NEBULIZE CONTENTS OF 1 VIAL FOUR TIMES A DAY NEEDED active Not Available Not Available No t Available oxybutynin chloride ER 10 mg tablet,exte nded release 24 hr TAKE 1 TABLET EVERY DAY BY MOUTH IN THE EVENING 2022 active Not Available Not Available Not Avai lable hydrocodone 5 mg-acetamin ophen 325 mg tablet TAKE ONE TABLET BY MOUTH EVERY 8 HOURS NEEDED FOR PAIN 12/17 completed Not Available Not Available Not Available meloxicam 15 mg tablet TAKE ONE TABLET BY MOUTH EVERY DAY active Not Available Not Available No t Available prednisone 20 mg tablet TAKE TWO TABLETS (40MG) BY MOUTH WITH FOOD 12/17 completed Not Available Not Available Not Available omeprazole 40 mg capsule,del ayed release TAKE 1 CAPSULE BY MOUTH ONCE DAILY BEFORE A MEAL. active Not Available Not Available No t Available tramadol 50 mg tablet TAKE 1 TO 2 TABLETS BY MOUTH EVERY SIX HOURS NEEDED FOR PAIN 12/17 completed Not Available Not Available Not Available ketorolac 10 mg tablet TAKE ONE TABLET BY MOUTH EVERY EIGHT HOURS FOR 5 DAYS 12/17 completed Not Available Not Available Not Available oxycodone-a cetaminophe n 5 mg-325 mg tablet TAKE 1 TABLET BY MOUTH EVERY 8 HOURS NEEDED FOR PAIN . DO NOT EXCEED 4000 MG OF ACETAMINO PHEN PER 24 HOURS 12/17 completed Not Available Not Available Not Available methocarbam ol 750 mg tablet TAKE 1 TABLET BY MOUTH 4 TIMES DAILY 12/17 completed Not Available Not Available Not Available tamsulosin 0.4 mg capsule TAKE TWO CAPSULES( 0.8MG) BY MOUTH ONCE DAILY AFTER A MEAL active Not Available Not Available No t Available amlodipine 10 mg tablet TAKE ONE TABLET BY MOUTH EVERY EVENING active Not Available Not Available No t Available benzonatate 100 mg capsule TAKE 2 CAPSULES (200MG) BY MOUTH THREE TIMES DAILY 12/17 completed Not Available Not Available Not Available metformin 1,000 mg tablet TAKE 1 TABLET BY MOUTH 2 TIMES DAILY WITH MEALS. active Not Available Not Available No t Available lorazepam 1 mg tablet TAKE ONE TABLET BY MOUTH ONCE DAILY IF NEEDED FOR ANXIETY. active Not Available Not Available No t Available methylpredn isolone 4 mg tablets in a dose pack TAKE DIRECTED ON PACKAGE 12/17 completed Not Available Not Available Not Available amoxicillin 875 mg-potassiu m clavulanate 125 mg tablet 12/17 completed Not Available Not Available Not Available Ventolin HFA 90 mcg/actuati on aerosol inhaler INHALE 1 TO 2 PUFFS BY MOUTH INTO THE LUNGS EVERY 4 HOURS NEEDED active Not Available Not Available No t Available oxycodone 5 mg tablet TAKE 1 TABLET (5 MG) BY MOUTH EVERY 6 HOURS IF NEEDED FOR PAIN. active Not Available Not Available No t Available escitalopra m 10 mg tablet TAKE ONE TABLET BY MOUTH ONCE DAILY active Not Available Not Available No t Available Spiriva with HandiHaler 18 mcg and inhalation capsules INHALE CONTENTS OF 1 CAPSULE WITH HANDIHALE R DEVICE ONCE DAILY active Not Available Not Available No t Available Symbicort 160 mcg-4.5 mcg/actuati on HFA aerosol inhaler INHALE 2 PUFFS BY MOUTH 2 TIMES DAILY. active Not Available Not Available No t Available Vitals Date Recorded Body height Body mass index (BMI) Body weight Provider Name and Address Organization Details Last Updated DateTime 12/17/2022 175.26 cm 26.6 kg/m2 49156.63 g Srinivasa Morales MD [address] [place] [address],[address] [address] 12/17/2022 10:48:41 Date Recorded Body height Body mass index (BMI) Body weight Provider Name and Address Organization Details Last Updated DateTime 01/28/2023 175.26 cm 26.6 kg/m2 00808.63 g Ivanna Magy [facility] 01/28/2023 11:14:04 Social History Question Answer Notes LastModified by Organizat ion Details LastModified Time Tobacco Smoking Status Current Every Day Smoker Srinivasa Morales MD [address] [place] [address], [address] 12/17/2022 10:52:07 What Is Your Level Of Alcohol Consumption? Moderate [email or web address] Information not available 12/17/2022 How Many Times Per Week Do You Consume Alcohol? 3-4 Times Per Week [email or web address] Information not available 01/28/2023 What Is Your Level Of Caffeine Consumption? Moderate [email or web address] Information not available 12/17/2022 What Was The Date Of Your Most Recent Tobacco Screening? 01/28/2023 [email or web address] Information not available 01/28/2023 How Much Tobacco Do You Smoke? 1 PPD [email or web address] Information not available 12/17/2022 Do You Use Any Illicit Or Recreational Drugs? No [email or web address] Information not available 01/28/2023 Has Tobacco Cessation Counseling Been Provided? No [email or web address] Information not available 01/28/2023 Do You Or Have You Ever Used Any Other Forms Of Tobacco Or Nicotine? No [email or web address] Information not available 01/28/2023 Sex: Unknown Functional Status None recorded. Mental Status None recorded. Family History Nothing Reported. Medical History Condition Response Other N High Blood Pressure Y Kidney Stones N Lung Disease Y Depression N GERD/Acid Reflux Y Sexually Transmitted Infection N Cancer N High Cholesterol Y Diabetes Y Bleeding Disorder N Heart Disease N Immunizations Vaccine Type Date Status Provider Name and Address Organization Details Recorded Time pneumococcal polysaccharide PPV23 07/17/2021 completed Ivanna dsouza [facility] 01/28/2023 11:13:57 Past Encounters Encounter ID Performer Location Encounter Start Date Encounter Closed Date Diagnosis/Indication Diagnosis SNOMED-CT Code [id number] Srinivasa Morales MD [facility] [address] [facility],[address] [place] [address] 12/17/2022 10:26:14 12/22/2022 12:03:08 Lower urinary tract symptoms due to benign prostatic hypertrophy [id number] Increased frequency of urination 230046942 Nocturia [id number] [facility] [address] [facility] [address] [place] [address] 01/28/2023 11:07:32 02/03/2023 11:24:01 Nocturia [id number] Health Concerns Section Related Observation LastModified by Organization Detai ls LastModified Time None Recorded Concern Status LastModified by Organization Details LastModified Time None Recorded Advance Directives Directive None Recorded Payers Encounter Date Sequence Insurance Name Policy Number Policy Starr Covered Member ID Starr Member ID Guarantor Name 12/17/2022 1 [employer] - DOS PRIOR TO 2023 (MEDICAID REPLACEMENT - HMO) [id number] Garrett Valenzuela [id number] Garrett Valenzuela 01/28/2023 1 [employer] - DOS PRIOR TO 2023 (MEDICAID REPLACEMENT - HMO) [id number] Garrett Valenzuela [id number] Garrett Valenzuela Notes Date Note Type Note Provider Name and Address Organization Details Recorded Time 12/17/2022 text/html HPI Notes: amberly huber for BPH with frequency and nocturia x4, tried tamsulosin one and then two caps/day and has not had any improvement. UA clear and PVR 24ml today. last PSA 8 years ago 0.32. Srinivasa Morales MD [address] [facility],[address], [place], [address], [facility] 12/17/2022 11:11:15 01/28/2023 text/html HPI Notes: oxybutynin 10mg ER given last visit helping with nocturia, was hourly now only 2x. UA clear and PVR 41ml today. no dry mouth from med. PSA after last visit was 0.4 Srinivasa Morales MD [address] [facility],[address], [place], [address], [facility] 01/28/2023 11:35:06
[2024-04-04 19:44] VITALS: BP 135/74; PULSE 78; RESP 24; TEMP 37.1; O2SAT 96
[2024-04-04 19:45] VITALS: BP 135/74; PULSE 78; RESP 24; TEMP 37.1
== END 2024-04-04 19:45 | disposition home or self-care (01) ==
LOC: ED 19:32
PROVIDERS: Emergency Provider Family Medicine; PCP Family Medicine
DX: J32.0 Chronic maxillary sinusitis (principal)
CPT/HCPCS: 87631; 94640; 99283

== ENCOUNTER 2024-05-08 09:42 | Emergency (ER) | payer MEDICAID, SELFPAY ==
[2024-05-08 09:47] VITALS: BP 122/77; PULSE 95; RESP 20; TEMP 36.7; O2SAT 96; BMI 29.1
--- NOTE | 2024-05-08 10:50 | ED.BACK ---
HPI - Back Pain/Injury General Date Seen: 05/08/24 Chief Complaint: Back Injury/Pain Stated Complaint: lower back pain Time Seen by Provider: 05/08/24 10:02 Source: patient Mode of arrival: ambulatory Limitations: no limitations History of Present Illness HPI Narrative: Patient is a 64-year-old male presenting to the emergency department for low back pain. He has a history of herniated disc in 2 years ago had a cortisone injection in his back they states helped quite a bit. Starting a week ago he started having the pain come back and slowly getting worse. He has an appointment his primary care provider this upcoming Wednesday but considering the pain today he called the triage line an asked what to do. He initially want to urgent care but was told to come to the emergency department instead by the triage line. Denies any injuries to the back in the past week. Denies saddle anesthesia, urinary retention, incontinence, fevers, chills. She states previously the pain radiate down his right leg but currently just sits in his low back around L4 region. No other concerns noted has been taking Tylenol and ibuprofen without improvement. Related Data Home Medications ?Medication ?Instructions ?Recorded ?Confirmed amlodipine 10 mg tablet 10 mg PO DAILY 06/29/22 05/08/24 budesonide-formoterol HFA 160 2 puff inhalation Q12H 06/29/22 05/08/24 mcg-4.5 mcg/actuation aerosol inhaler (Symbicort) escitalopram oxalate 10 mg tablet 10 mg PO DAILY 06/29/22 05/08/24 ipratropium 0.5 mg-albuterol 3 mg 3 ml inhalation Q6H PRN 06/29/22 05/08/24 (2.5 mg base)/3 mL nebulization soln lorazepam 1 mg tablet 1 mg PO DAILY 06/29/22 05/08/24 metformin 1,000 mg tablet 1,000 mg PO BID 06/29/22 05/08/24 omeprazole 40 mg capsule,delayed 40 mg PO DAILY 06/29/22 05/08/24 release tiotropium bromide 18 mcg capsule 1 cap inhalation DAILY 06/29/22 05/08/24 with inhalation device (Spiriva with HandiHaler) atorvastatin 20 mg tablet 20 mg PO HS 07/20/22 05/08/24 albuterol sulfate 90 mcg/actuation 2 puff inhalation Q4H PRN 10/03/22 05/08/24 aerosol inhaler (Ventolin HFA) meloxicam 15 mg tablet 15 mg PO DAILY 10/03/22 05/08/24 Previous Rx's ?Medication ?Instructions ?Recorded benzonatate 100 mg capsule 200 mg (2 x 100 mg) PO TID #20 caps 10/06/22 cyclobenzaprine 10 mg tablet 10 mg PO TID PRN muscle spasm #15 05/08/24 tabs ketorolac 10 mg tablet 10 mg PO Q6H PRN pain #20 tabs 05/08/24 Allergies Allergy/AdvReac Type Severity Reaction Status Date / Time No Known Drug Allergies Allergy Verified 05/08/24 09:53 Review of Systems Narrative: Pertinent systems reviewed and were negative unless stated in HPI [facility] Medical History Chest pain ?R07.9 - Chest pain, unspecified (ICD-10) Right lower lobe lung mass ?R91.8 - Other nonspecific abnormal finding of lung field (ICD-10) Chronic low back pain with sciatica ?M54.40 - Lumbago with sciatica, unspecified side (ICD-10) ?G89.29 - Other chronic pain (ICD-10) Diabetic acidosis, type II ?E11.10 - Type 2 diabetes mellitus with ketoacidosis without coma (ICD-10) Radiculitis ?M54.10 - Radiculopathy, site unspecified (ICD-10) Internal derangement of right knee ?M23.91 - Unspecified internal derangement of right knee (ICD-10) Essential hypertension ?I10 - Essential (primary) hypertension (ICD-10) Erectile dysfunction ?N52.9 - Male erectile dysfunction, unspecified (ICD-10) Adenomatous polyp of colon ?D12.6 - Benign neoplasm of colon, unspecified (ICD-10) COPD (chronic obstructive pulmonary disease) ?J44.9 - Chronic obstructive pulmonary disease, unspecified (ICD-10) Fay's esophagus with esophagitis ?K22.70 - Fay's esophagus without dysplasia (ICD-10) ?K20.90 - Esophagitis, unspecified without bleeding (ICD-10) Alcoholic fatty liver ?K70.0 - Alcoholic fatty liver (ICD-10) History of alcohol abuse ?F10.11 - Alcohol abuse, in remission (ICD-10) GERD (gastroesophageal reflux disease) ?K21.9 - Gastro-esophageal reflux disease without esophagitis (ICD-10) Depression with anxiety ?F41.8 - Other specified anxiety disorders (ICD-10) Nicotine dependence ?F17.200 - Nicotine dependence, unspecified, uncomplicated (ICD-10) Type 2 diabetes mellitus ?E11.9 - Type 2 diabetes mellitus without complications (ICD-10) Osteoarthritis of right knee ?M17.11 - Unilateral primary osteoarthritis, right knee (ICD-10) Osteoarthritis of left knee ?M17.12 - Unilateral primary osteoarthritis, left knee (ICD-10) Surgical History History of meniscectomy of right knee (~2015) ?Z98.890 - Other specified postprocedural states (ICD-10) H/O vasectomy ?Z98.52 - Vasectomy status (ICD-10) History of partial colectomy (~1999) ?Z90.49 - Acquired absence of other specified parts of digestive tract (ICD-10) History of appendectomy ?Z90.49 - Acquired absence of other specified parts of digestive tract (ICD-10) Hx laparoscopic cholecystectomy (10/15/17) ?Z90.49 - Acquired absence of other specified parts of digestive tract (ICD-10) Family History Father Lung cancer Social History Narrative: Lives with partner Queenie. Three adult children from previous relationship. Queenie or daughter Savi would be medical decision maker if needed. Patient requests full code status. 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 Smokes 1 pack per day, > 20 pack-year history. No alcohol use. Highest level of school completed/degree received: GED or equivalent Smoking Status: Current every day smoker What tobacco products do you use: cigarettes Smoking packs per day: 0.5 Smoking cigarettes per day: 10.0 Years smoked: 40 Smoking pack-years: 20.00 Do you use any of these nicotine containing products: None Second hand tobacco smoke exposure: Yes How often do you have a drink containing alcohol: never How often do you have six or more drinks on one occasion: Never AUDIT-C Alcohol total score: 0 Non-prescribed substance use: denies use Caffeine: Yes (2 cups coffee in the morning) Exam Narrative: Exam Narrative: Const: Well-nourished, Well-developed, in mild distress Eyes: PERRL, no conjunctival injection, and symmetrical lids HENT: Atraumatic external nose and ears. Moist mucous membranes. MSK:Extremities w/o deformity, Normal Active ROM no tenderness noted to back Skin: Warm, Dry. No rashes or lesions. Neuro: Normal Muscle tone, No focal neurological deficits. Psych: Awake, Alert, & Oriented x3. Appropriate mood and affect. Const: Vital Signs, click to edit/add: Vital Signs - 24 hr 05/08/24 09:47 Temperature 98.1 F Pulse Rate [Pulse Oximeter] 95 Respiratory Rate 20 Blood Pressure [Ri ght Upper Arm] 122/77 Pulse Oximetry 96 Oxygen Delivery Me thod Room Air Course Vital Signs Vital signs: Initial Vital Signs Temperature 98.1 F 05/08/24 09:47 Temperature Source Temporal Artery Scan 05/08/24 09:47 Pulse Rate 95 05/08/24 09:47 Respiratory Rate 20 05/08/24 09:47 Blood Pressure 122/77 05/08/24 09:47 Blood Pressure Mean 92 05/08/24 09:47 Blood Pressure Position Sitting 05/08/24 09:47 Pulse Oximetry 96 05/08/24 09:47 Oxygen Delivery Method Room Air 05/08/24 09:47 Vital Signs Temperature 98.1 F 05/08/24 09:47 Pulse Rate 95 05/08/24 09:47 Respiratory Rate 20 05/08/24 09:47 Blood Pressure 122/77 05/08/24 09:47 Pulse Oximetry 96 05/08/24 09:47 Oxygen Delivery Method Room Air 05/08/24 09:47 Temperature 98.1 F 05/08/24 09:47 Pulse Rate 95 05/08/24 09:47 Respiratory Rate 20 05/08/24 09:47 Blood Pressure 122/77 05/08/24 09:47 Pulse Oximetry 96 05/08/24 09:47 Oxygen Delivery Method Room Air 05/08/24 09:47 MDM - Back Pain/Injury MDM Narrative Medical decision making narrative: Patient is a 64-year-old male presenting to emergency department for low back pain. Pain is around the L4-L5 region. No midline tenderness noted. He is having no red flag symptoms for cauda equina. Considering there was no acute injury I do not believe imaging will help us at this time. He states he was told to come the emergency department his we can give him medications he will be able to get in the urgent care such as a muscle relaxer. I am comfortable discharging him home with a muscle relaxer and Toradol. He is agreeable to this plan. Discharge Plan Discharge Clinical Impression: Herniated disc Patient Disposition: Home, Self-Care Condition: Stable Instructions: Back Pain (ED) Additional Instructions: Tried to do exercise stress so she low back when possible. Take the Flexeril and Toradol as needed for pain. Considering how long even having this pain it might be reasonable to just schedule the meds instead of waiting for the pain to get worse. When your taking Toradol do not take other NSAIDs such as ibuprofen or naproxen. Follow-up with the primary care provider. Prescriptions: New cyclobenzaprine 10 mg tablet 10 mg PO TID PRN (Reason: muscle spasm) Qty: 15 0RF ketorolac 10 mg tablet 10 mg PO Q6H PRN (Reason: pain) Qty: 20 0RF Rx Instructions: maximum total duration of 5 days from all oral, intranasal, or parenteral formulations No Action atorvastatin 20 mg tablet 20 mg PO HS amlodipine 10 mg tablet 10 mg PO DAILY Patient Comments: TAKE ONE TABLET BY MOUTH EVERY EVENING escitalopram oxalate 10 mg tablet 10 mg PO DAILY Patient Comments: TAKE ONE TABLET BY MOUTH ONCE DAILY lorazepam 1 mg tablet 1 mg PO DAILY Patient Comments: TAKE 1 TABLET BY MOUTH ONCE DAILY IF NEEDED FOR ANXIETY. metformin 1,000 mg tablet 1,000 mg PO BID Patient Comments: TAKE 1 TABLET BY MOUTH 2 TIMES DAILY WITH MEALS. omeprazole 40 mg capsule,delayed release(DR/EC) 40 mg PO DAILY Patient Comments: TAKE 1 CAPSULE BY MOUTH ONCE DAILY BEFORE A MEAL. tiotropium bromide [Spiriva with HandiHaler] 18 mcg capsule, w/inhalation device 1 cap INHALATION DAILY Patient Comments: INHALE CONTENTS OF 1 CAPSULE WITH HANDIHALER DEVICE ONCE DAILY ipratropium-albuterol 0.5 mg-3 mg(2.5 mg base)/3 mL solution for nebulization 3 ml INHALATION Q6H PRN Patient Comments: INHALE ONE VIAL VIA A NEBULIZER 4 TIMES DAILY NEEDED budesonide-formoterol [Symbicort] 160-4.5 mcg/actuation HFA aerosol inhaler 2 puff INHALATION Q12H Patient Comments: INHALE 2 PUFFS BY MOUTH 2 TIMES DAILY. albuterol sulfate [Ventolin HFA] 90 mcg/actuation HFA aerosol inhaler 2 puff INHALATION Q4H PRN meloxicam 15 mg tablet 15 mg PO DAILY Patient Comments: TAKE ONE TABLET BY MOUTH EVERY DAY benzonatate 100 mg Capsule 200 mg PO TID Qty: 20 0RF Follow Up/Referrals: Italia Pugh MD [Primary Care Provider] - Stand Alone Forms: [employer] Info Instructions
== END 2024-05-08 11:05 | disposition home or self-care (01) ==
LOC: ED 10:59
PROVIDERS: Emergency Provider Student in an Organized Health Care Education/Training Program; PCP Family Medicine
DX: M51.26 Other intervertebral disc displacement, lumbar region (principal)
CPT/HCPCS: 99282; 99283

== ENCOUNTER 2024-06-06 09:47 | Outpatient (CLI) | payer MEDICAID, SELFPAY | END 2024-06-06 09:48 | disposition home or self-care (01) | LOC: INJ CL 09:48 | PROVIDERS: PCP Family Medicine; Visit Provider Family Medicine | DX: M54.16 Radiculopathy, lumbar region (principal); M51.36 Other intervertebral disc degeneration, lumbar region | CPT/HCPCS: 62323; J0702; Q9966 ==

== ENCOUNTER 2024-08-23 09:03 | Emergency (ER) | payer MEDICAID, SELFPAY ==
[2024-08-23 09:09] VITALS: BP 147/87; PULSE 100; RESP 24; TEMP 36.8; O2SAT 93; BMI 27.3
--- NOTE | 2024-08-23 09:36 | ED.ABDPAIN ---
HPI - Abdominal Pain General Time Seen by Provider: 09:36 Date Seen: 08/23/24 Chief Complaint: Abdominal Pain Stated Complaint: Possible ruptured hernia Time Seen by Provider: 08/23/24 09:07 Source: patient and RN notes reviewed Mode of arrival: ambulatory Limitations: no limitations History of Present Illness HPI narrative: This 64-year-old male is coming in with concern of an abdominal wall hernia in his right mid to lateral abdominal wall. He notes with coughing or sneezing he will get a painful bulge in that area, has to lay down and put pressure on it before it will resolve back in. He has had multiple abdominal surgeries. He states his gallbladder is gone, appendix is gone. He states he had 8 abdominal hernia repairs in bilateral inguinal hernia repairs done before, believes there is mesh, had this done in [place] it at some point. He has also had a part of his colon removed for what sounds to be recurrent diverticulitis. He has had no nausea vomiting, can not eat, no fevers or chills. He is passing flatus, having normal bowels. No urinary changes. With the abdomen in that area has baseline soreness, is not feeling the bald right now. What concerned him is that he usually was able to reduce his other hernias easily, he feels this takes a while to push back down. Patient also remembers that he had a surgery to remove scar tissue in his abdomen, he remembers the surgeon telling him that he did not have time to remove all of it, he states there is reportedly a lot more scar tissue in his abdomen. Related Data Home Medications ?Medication ?Instructions ?Recorded ?Confirmed amlodipine 10 mg tablet 10 mg PO DAILY 06/29/22 05/08/24 budesonide-formoterol HFA 160 2 puff inhalation Q12H 06/29/22 05/08/24 mcg-4.5 mcg/actuation aerosol inhaler (Symbicort) escitalopram oxalate 10 mg tablet 10 mg PO DAILY 06/29/22 05/08/24 ipratropium 0.5 mg-albuterol 3 mg 3 ml inhalation Q6H PRN 06/29/22 05/08/24 (2.5 mg base)/3 mL nebulization soln lorazepam 1 mg tablet 1 mg PO DAILY 06/29/22 05/08/24 metformin 1,000 mg tablet 1,000 mg PO BID 10/03/22 08/12/24 omeprazole 40 mg capsule,delayed 40 mg PO DAILY 06/29/22 05/08/24 release tiotropium bromide 18 mcg capsule 1 cap inhalation DAILY 06/29/22 05/08/24 with inhalation device (Spiriva with HandiHaler) atorvastatin 20 mg tablet 20 mg PO HS 07/20/22 05/08/24 albuterol sulfate 90 mcg/actuation 2 puff inhalation Q4H PRN 10/03/22 05/08/24 aerosol inhaler (Ventolin HFA) meloxicam 15 mg tablet 15 mg PO DAILY 10/03/22 05/08/24 Previous Rx's ?Medication ?Instructions ?Recorded benzonatate 100 mg capsule 200 mg (2 x 100 mg) PO TID #20 caps 10/06/22 cyclobenzaprine 10 mg tablet 10 mg PO TID PRN muscle spasm #15 05/08/24 tabs ketorolac 10 mg tablet 10 mg PO Q6H PRN pain #20 tabs 05/08/24 Allergies Allergy/AdvReac Type Severity Reaction Status Date / Time No Known Drug Allergies Allergy Verified 08/23/24 10:39 Review of Systems Status of ROS Reports: 6 or more systems reviewed and unremarkable except as noted in History and below [facility] Medical History Chest pain ?R07.9 - Chest pain, unspecified (ICD-10) Right lower lobe lung mass ?R91.8 - Other nonspecific abnormal finding of lung field (ICD-10) Chronic low back pain with sciatica ?M54.40 - Lumbago with sciatica, unspecified side (ICD-10) ?G89.29 - Other chronic pain (ICD-10) Diabetic acidosis, type II ?E11.10 - Type 2 diabetes mellitus with ketoacidosis without coma (ICD-10) Radiculitis ?M54.10 - Radiculopathy, site unspecified (ICD-10) Internal derangement of right knee ?M23.91 - Unspecified internal derangement of right knee (ICD-10) Essential hypertension ?I10 - Essential (primary) hypertension (ICD-10) Erectile dysfunction ?N52.9 - Male erectile dysfunction, unspecified (ICD-10) Adenomatous polyp of colon ?D12.6 - Benign neoplasm of colon, unspecified (ICD-10) COPD (chronic obstructive pulmonary disease) ?J44.9 - Chronic obstructive pulmonary disease, unspecified (ICD-10) Fay's esophagus with esophagitis ?K22.70 - Fay's esophagus without dysplasia (ICD-10) ?K20.90 - Esophagitis, unspecified without bleeding (ICD-10) Alcoholic fatty liver ?K70.0 - Alcoholic fatty liver (ICD-10) History of alcohol abuse ?F10.11 - Alcohol abuse, in remission (ICD-10) GERD (gastroesophageal reflux disease) ?K21.9 - Gastro-esophageal reflux disease without esophagitis (ICD-10) Depression with anxiety ?F41.8 - Other specified anxiety disorders (ICD-10) Nicotine dependence ?F17.200 - Nicotine dependence, unspecified, uncomplicated (ICD-10) Type 2 diabetes mellitus ?E11.9 - Type 2 diabetes mellitus without complications (ICD-10) Osteoarthritis of right knee ?M17.11 - Unilateral primary osteoarthritis, right knee (ICD-10) Osteoarthritis of left knee ?M17.12 - Unilateral primary osteoarthritis, left knee (ICD-10) Surgical History History of meniscectomy of right knee (~2015) ?Z98.890 - Other specified postprocedural states (ICD-10) H/O vasectomy ?Z98.52 - Vasectomy status (ICD-10) History of partial colectomy (~1999) ?Z90.49 - Acquired absence of other specified parts of digestive tract (ICD-10) History of appendectomy ?Z90.49 - Acquired absence of other specified parts of digestive tract (ICD-10) Hx laparoscopic cholecystectomy (10/15/17) ?Z90.49 - Acquired absence of other specified parts of digestive tract (ICD-10) Family History Father Lung cancer Social History Narrative: Lives with partner Queenie. Three adult children from previous relationship. Queenie or daughter Savi would be medical decision maker if needed. Patient requests full code status. 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 Smokes 1 pack per day, > 20 pack-year history. No alcohol use. Highest level of school completed/degree received: GED or equivalent Smoking Status: Current every day smoker What tobacco products do you use: cigarettes Smoking packs per day: 0.5 Smoking cigarettes per day: 10.0 Years smoked: 40 Smoking pack-years: 20.00 Do you use any of these nicotine containing products: None Second hand tobacco smoke exposure: Yes How often do you have a drink containing alcohol: never How often do you have six or more drinks on one occasion: Never AUDIT-C Alcohol total score: 0 Non-prescribed substance use: denies use Caffeine: Yes (2 cups coffee in the morning) service: Yes Exam Const: Vital Signs, click to edit/add: Vital Signs - 24 hr 08/23/24 09:09 Temperature 98.2 F Pulse Rate [Pulse Oximeter] 100 Respiratory Rate 24 Blood Pressure [Le ft Upper Arm] 147/87 H Pulse Oximetry 93 Oxygen Delivery Me thod Room Air This 64-year-old male is alert, interactive, no apparent distress. Sclera clear, face atraumatic, able speak in complete sentences. Lungs clear, no wheeze or crackles or tachypnea. CV regular rate and rhythm, no murmur, normal S1-S2. Abdomen is nondistended, appears normal, note no bulging. He has multiple scars over his abdominal wall, all well healed. Bowel sounds are present, sound normal. No rebound or guarding, no organomegaly noted, do not feel any abdominal wall masses. The area of pain is in his right upper quadrant, bit lower than the gallbladder area, do not feel an abdominal wall hernia or a defect in the abdominal wall but he is tender in this area. Documenting provider has reviewed patient's vital signs: yes Course Course ED Course: I do not feel any hernia at this time but patient is given a history that certainly does sound convincing for an abdominal wall hernia. He is noting protrusion and bulging in this area that he has to clinically reduce. Will proceed with basic labs and obtain CT imaging of his abdomen and pelvis with IV contrast. Does not seem to have a surgical abdomen at this time but will ensure this with imaging, may need to follow up with surgery. Patient is tender in his abdominal wall, would like something for pain, he does tolerate morphine. I do not feel there is evidence for strangulated hernia at this time but if there is an abdominal wall defect, he certainly could be tender and having pain. Will give him small dose IV morphine at this time. Reevaluation(s) Time of Reevaluation #1: 12:07 Reevaluation #1: Have reviewed that the CT shows diastasis rectus and explained this to the patient. There is not a true hernia. Awaiting to talk to the general surgeon and get input into this, follow up recommendations. Time of Reevaluation #2: 12:28 Reevaluation #2: Reviewed my discussion with surgeon Dr. Putnam with the patient. It is recommended he attend PT for abdominal wall strengthening. There is no evidence for hernia at this time. Patient did ask for more pain medication but I did kindly decline stating that we were not seeing anything that required the level of narcotic pain management. Provided a copy of his CT to bring to his primary provider. Did review that his potassium was mildly up but he has no kidney issues (creatinine is excellent), reviewed his medications as well and see nothing that should be causing this. Vital Signs Vital signs: Initial Vital Signs Temperature 98.2 F 08/23/24 09:09 Temperature Source Temporal Artery Scan 08/23/24 09:09 Pulse Rate 100 08/23/24 09:09 Pulse Rhythm Regular 08/23/24 09:09 Respiratory Rate 24 08/23/24 09:09 Blood Pressure 147/87 H 08/23/24 09:09 Blood Pressure Mean 107 H 08/23/24 09:09 Blood Pressure Position Supine 08/23/24 09:09 Pulse Oximetry 93 08/23/24 09:09 Oxygen Delivery Method Room Air 08/23/24 09:09 Vital Signs Temperature 98.2 F 08/23/24 09:09 Pulse Rate 100 08/23/24 09:09 Respiratory Rate 24 08/23/24 09:09 Blood Pressure 147/87 H 08/23/24 09:09 Pulse Oximetry 93 08/23/24 09:09 Oxygen Delivery Method Room Air 08/23/24 09:09 Temperature 98.2 F 08/23/24 09:09 Pulse Rate 100 08/23/24 09:09 Respiratory Rate 24 08/23/24 09:09 Blood Pressure 147/87 H 08/23/24 09:09 Pulse Oximetry 93 08/23/24 09:09 Oxygen Delivery Method Room Air 08/23/24 09:09 Medications Administered Medications: Discontinued Medications Generic Name Dose Route Start Last Admin Trade Name Yessi PRN Reason Stop Dose Admin Morphine Sulfate 4 mg 08/23/24 09:54 08/23/24 10:01 Morphine 4 Mg/Ml Inj IVP 08/23/24 09:55 4 mg ONCE ONE Administration Ondansetron HCl 4 mg 08/23/24 09:54 08/23/24 10:01 Ondansetron 2 Mg/Ml Inj IVP 08/23/24 09:55 4 mg ONCE ONE Administration MDM - Abdominal Pain Lab Data Attestation: I reviewed the patient's lab results. Labs: Lab Results 08/23/24 Range/Units 09:50 WBC 7.39 (4.50-11.00) K/uL RBC 5.47 (4.30-5.90) m/uL Hgb 14.9 (13.5-17.5) gm/dL Hct 45.0 (37.0-53.0) % MCV 82 (80-100) fL MCH 27 (26-34) pg MCHC 33 (32-36) gm/dL RDW Coeff of Jeovanny 13.3 (11.5-15.5) % Plt Count 183 (140-440) K/uL Neut % (Auto) 80.1 H (42.0-72.0) % Lymph % (Auto) 12.3 L (20-44) % [place] % (Auto) 6.0 (0.0-11.0) % Eos % (Auto) 1.2 (0.0-7.0) % Baso % (Auto) 0.3 (0.0-3.0) % Neut # (Auto) 5.90 (1.7-7.0) K/uL Lymph # (Auto) 0.90 (0.90-2.90) K/uL [place] # (Auto) 0.40 (0.00-0.90) K/UL Eos # (Auto) 0.09 (0.00-0.50) K/uL Baso # (Auto) 0.02 (0.00-0.30) K/uL Abs Immat Gran (auto) 0.01 (0.00-0.30) K/uL Imm/Tot Granulo (auto) 0.1 % Sodium 132 L (135-149) mmol/L Potassium 5.6 H (3.6-5.1) mmol/L Chloride 99 (96-114) mmol/L Carbon Dioxide 23 (20-32) mmol/L Anion Gap 10 (7-15) mEq/L BUN 13 (7-30) mg/dL Creatinine 0.8 (0.5-1.5) mg/dL Estimated Creat Clear 76.59 Estimated GFR 100 ml/min Glucose 122 H (60-115) mg/dL Lactate 2.5 H (0.5-1.9) mmol/L Calcium 9.8 (8.4-10.6) mg/dL Total Bilirubin 0.6 (0.1-1.5) mg/dL AST 23 (12-35) U/L ALT 21 (4-50) U/L Alkaline Phosphatase 82 (40-150) U/L C-Reactive Protein < 0.5 L (0.5-1.0) mg/dL Total Protein 7.8 (6.0-8.3) g/dL Albumin 4.6 (3.3-5.0) g/dL Imaging Data CT scan - abdomen: Attestation: I have reviewed the pertinent imaging results. Radiologist's impression: Patient: SUBHASH MONTENEGRO Facility:?[facility] Patient ID:?[id number] Site Patient ID:?[id number]. Site :?[id number] Study:?CT-Abdomen/Pelvis 91CC ISOVUE 370-08/23/2024 10:37:24 AM Ordering Physician:David Evans Final Report: INDICATION: Right upper quadrant abdominal pain, possible hernia TECHNIQUE: CT abdomen and pelvis acquired with 91 cc Isovue 370 IV contrast. COMPARISON: None. FINDINGS: Lower chest: Centrilobular emphysema. Bibasilar atelectasis. Trivessel coronary artery calcification. Liver: Subcentimeter hypodense lesion in segment 8 at the hepatic dome, likely cyst. Gallbladder and bile ducts: Cholecystectomy. Mild prominence of the common bile duct measuring 1 centimeter, likely related to reservoir effect. Pancreas: Unremarkable. Spleen: Unremarkable. Adrenal glands: Unremarkable. Kidneys: Subcentimeter hypodense lesion in the left kidney, likely cyst. GI tract: No obstruction. Diverticulosis without diverticulitis. Fecalization of distal small bowel loop contents, which can be seen with slow transit. Appendectomy. Vasculature: Abdominal aorta is normal in caliber. Moderate aortoiliac atherosclerosis. Mesenteric arteries are patent. Lymph nodes: No lymphadenopathy. Peritoneum/Abdominal Wall: Rectus diastasis measuring 4.2 centimeters with resulting bulging of intra-abdominal fat and small bowel loops, but no definite herniation. Left inguinal hernia repair. No free air or significant free fluid. Pelvis: Unremarkable. Bones: No acute or suspicious osseous lesions. Minimal degenerative disease of the spine. IMPRESSION: No acute intra-abdominal or pelvic pathology to explain symptoms. Please note that all CT scans at this facility use dose modulation, iterative reconstruction, and/or weight-based dosing when appropriate to reduce radiation dose to as low as reasonably achievable. Dictated by Neha Draper MD @ 08/23/2024 10:48:48 AM (Electronic Signature) Discharge Plan Discharge Clinical Impression: Diastasis of rectus abdominis Additional Instructions: The general surgeon recommends that you schedule a follow up with your primary provider and get a referral to physical therapy. Physical therapy can help with abdominal wall strengthening exercises that can be beneficial in improving this condition. There is no hernia seen. You can use the abdominal binder if you feel it helps you but it does not do anything to improve this situation like physical therapy can. Have potassium rechecked in clinic when you follow-up, was mildly elevated here but you have normal kidney function. This could be a side effect of drawing blood but just should be rechecked in the near future. Activity Level: Activity as Tolerated Prescriptions: No Action atorvastatin 20 mg tablet 20 mg PO HS amlodipine 10 mg tablet 10 mg PO DAILY Patient Comments: TAKE ONE TABLET BY MOUTH EVERY EVENING escitalopram oxalate 10 mg tablet 10 mg PO DAILY Patient Comments: TAKE ONE TABLET BY MOUTH ONCE DAILY lorazepam 1 mg tablet 1 mg PO DAILY Patient Comments: TAKE 1 TABLET BY MOUTH ONCE DAILY IF NEEDED FOR ANXIETY. metformin 1,000 mg tablet 1,000 mg PO BID Patient Comments: TAKE 1 TABLET BY MOUTH 2 TIMES DAILY WITH MEALS. omeprazole 40 mg capsule,delayed release(DR/EC) 40 mg PO DAILY Patient Comments: TAKE 1 CAPSULE BY MOUTH ONCE DAILY BEFORE A MEAL. tiotropium bromide [Spiriva with HandiHaler] 18 mcg capsule, w/inhalation device 1 cap INHALATION DAILY Patient Comments: INHALE CONTENTS OF 1 CAPSULE WITH HANDIHALER DEVICE ONCE DAILY ipratropium-albuterol 0.5 mg-3 mg(2.5 mg base)/3 mL solution for nebulization 3 ml INHALATION Q6H PRN Patient Comments: INHALE ONE VIAL VIA A NEBULIZER 4 TIMES DAILY NEEDED budesonide-formoterol [Symbicort] 160-4.5 mcg/actuation HFA aerosol inhaler 2 puff INHALATION Q12H Patient Comments: INHALE 2 PUFFS BY MOUTH 2 TIMES DAILY. albuterol sulfate [Ventolin HFA] 90 mcg/actuation HFA aerosol inhaler 2 puff INHALATION Q4H PRN meloxicam 15 mg tablet 15 mg PO DAILY Patient Comments: TAKE ONE TABLET BY MOUTH EVERY DAY benzonatate 100 mg Capsule 200 mg PO TID Qty: 20 0RF cyclobenzaprine 10 mg tablet 10 mg PO TID PRN (Reason: muscle spasm) Qty: 15 0RF ketorolac 10 mg tablet 10 mg PO Q6H PRN (Reason: pain) Qty: 20 0RF Rx Instructions: maximum total duration of 5 days from all oral, intranasal, or parenteral formulations Follow Up/Referrals: Italia Pugh MD [Primary Care Provider] - Stand Alone Forms: Code Blue Info Instructions
--- NOTE | 2024-08-23 09:40 | CRLHL7_ITS ---
For Patients: As a result of the Century Cures Act, medical imaging exams and procedure reports are released immediately into your electronic medical record. You may view this report before your referring provider. If you have questions, please contact your health care provider. INDICATION: Right upper quadrant abdominal pain, possible hernia TECHNIQUE: CT abdomen and pelvis acquired with 91 cc Isovue 370 IV contrast. COMPARISON: None. FINDINGS: Lower chest: Centrilobular emphysema. Bibasilar atelectasis. Trivessel coronary artery calcification. Liver: Subcentimeter hypodense lesion in segment 8 at the hepatic dome, likely cyst. Gallbladder and bile ducts: Cholecystectomy. Mild prominence of the common bile duct measuring 1 centimeter, likely related to reservoir effect. Pancreas: Unremarkable. Spleen: Unremarkable. Adrenal glands: Unremarkable. Kidneys: Subcentimeter hypodense lesion in the left kidney, likely cyst. GI tract: No obstruction. Diverticulosis without diverticulitis. Fecalization of distal small bowel loop contents, which can be seen with slow transit. Appendectomy. Vasculature: Abdominal aorta is normal in caliber. Moderate aortoiliac atherosclerosis. Mesenteric arteries are patent. Lymph nodes: No lymphadenopathy. Peritoneum/Abdominal Wall: Rectus diastasis measuring 4.2 centimeters with resulting bulging of intra-abdominal fat and small bowel loops, but no definite herniation. Left inguinal hernia repair. No free air or significant free fluid. Pelvis: Unremarkable. Bones: No acute or suspicious osseous lesions. Minimal degenerative disease of the spine. IMPRESSION: No acute intra-abdominal or pelvic pathology to explain symptoms. Please note that all CT scans at this facility use dose modulation, iterative reconstruction, and/or weight-based dosing when appropriate to reduce radiation dose to as low as reasonably achievable. Dictated by Neha Draper MD @ 08/23/2024 10:48:48 AM (Electronically Signed)
[2024-08-23 09:56] LABS: Lactate* 2.5 mmol/L (0.5-1.9)
[2024-08-23 09:58] LABS: Basophils Absolute Auto 0.02 K/uL (0.00-0.30); Basophils Percent Auto 0.3 % (0.0-3.0); Eosinophils Absolute Auto 0.09 K/uL (0.00-0.50); Eosinophils Percent Auto 1.2 % (0.0-7.0); Hemoglobin* 14.9 gm/dL (13.5-17.5); Immature Granulocytes Abs Auto 0.01 K/uL (0.00-0.30); Immature Granulocytes Pct Auto 0.1 %; Lymphocytes Percent Auto 12.3 % (20-44); Mean Corpuscular HGB Conc 33 gm/dL (32-36); Mean Corpuscular Hemoglobin 27 pg (26-34); Mean Corpuscular Volume 82 fL (80-100); Neutrophils Percent Auto 80.1 % (42.0-72.0); Platelet Count* 183 K/uL (140-440); RDW Coefficient of Variation % 13.3 % (11.5-15.5); Red Blood Count 5.47 m/uL (4.30-5.90); White Blood Count* 7.39 K/uL (4.50-11.00)
[2024-08-23] MEDS: MORPHINE 4 MG/ML INJ IVP (10:01)
[2024-08-23] MEDS: ONDANSETRON 2 MG/ML inj 4 MG IVP (10:01)
[2024-08-23 10:03] LABS: Slide Review Reflex No
[2024-08-23 10:13] LABS: Albumin* 4.6 g/dL (3.3-5.0); Chloride* 99 mmol/L (96-114); Sodium* 132 mmol/L (135-149)
[2024-08-23 10:14] LABS: Potassium* 5.6 mmol/L (3.6-5.1)
[2024-08-23 10:17] LABS: Alanine Aminotransferase* 21 U/L (4-50); Alkaline Phosphatase* 82 U/L (40-150); Anion Gap 10 mEq/L (7-15); Aspartate Amino Transferase* 23 U/L (12-35); Bilirubin Total* 0.6 mg/dL (0.1-1.5); Blood Urea Nitrogen* 13 mg/dL (7-30); Calcium* 9.8 mg/dL (8.4-10.6); Carbon Dioxide* 23 mmol/L (20-32); Creatinine* 0.8 mg/dL (0.5-1.5); Est. Creatinine Clearance* 76.59; Estimated Glomerular Filt Rate 100 ml/min; Glucose* 122 mg/dL (60-115); Total Protein* 7.8 g/dL (6.0-8.3)
[2024-08-23 10:33] LABS: C Reactive Protein* < 0.5 mg/dL (0.5-1.0)
== END 2024-08-23 12:45 | disposition home or self-care (01) ==
PROVIDERS: Emergency Provider Family Medicine; PCP Family Medicine
DX: M62.08 Separation of muscle (nontraumatic), other site (principal)
CPT/HCPCS: 36415; 74177; 80053; 83605; 85025; 86140; 94761; 96374; 96375; 99284; 99285; J2270; J2405; Q9967

== ENCOUNTER 2024-12-18 10:25 | Emergency (ER) | payer MEDICAID, SELFPAY ==
--- OUTSIDE RECORDS SUMMARY | 2024-12-18 10:27 | XMS_ITS | Clinical Summary ---
Author Organization [facility] Address [address] [place] [id number] Care Team Providers Care Hospice Consultant Name Role Phone Italia Pugh MD Primary Care Provider + Allergies Active Allergy Reactions Criticality Noted Date Comments Metoprolol Headache Low 10/04/2017 Quetiapine Other - Describe In Comment Field twitching Terazosin Dizziness Low 10/30/2022 Medications * This document contains information received from the source organization and may not represent a complete record from that organization. TRUE METRIX GLUCOSE TEST STRIP strip 3 times daily. 0 017 Active TRUEPLUS LANCETS 33 gauge misc 3 times daily. 0 017 Active TRUE METRIX GLUCOSE METER 3 times daily. 0 017 Active albuterol (PROVENTIL) 0.083 % neb solutionIndicatio ns:COPD mixed type (HC) Inhale 3 mL via a nebulizer every 4 hours if needed. 1 box 3 019 Active oxygen-air delivery systems (HOME OXYGEN)Indication s:COPD mixed type (HC),Nocturnal hypoxia Oxygen for home use. Liters per minute: 1 per nasal cannula. Frequency of use: Nocturnal;. Length of need: 99 Months. 1 Device 019 Active Ventolin HFA 90 mcg/actuation inhalerIndication s:COPD mixed type (HC),SOB (shortness of breath) INHALE 1 TO 2 PUFFS BY MOUTH INTO THE LUNGS EVERY 4 HOURS NEEDED 18 g 11 024 Active escitalopram oxalate (LEXAPRO) 20 mg tabletIndications :Anxiety state,Mild episode of recurrent major depressive disorder Take 1 Tablet (20 mg) by mouth once daily. 90 Tablet 3 024 Active Symbicort 160-4.5 mcg/actuation (160-4.5 mcg each actuation) inhalerIndication s:SOB (shortness of breath) INHALE 2 PUFFS BY MOUTH 2 TIMES DAILY. 10.2 g 11 024 Active omeprazole (PRILOSEC) 40 mg Delayed-Release capsuleIndication s:Gastroesophagea l reflux disease without esophagitis TAKE ONE CAPSULE BY MOUTH TWICE A DAY 180 Capsule 2 024 Active meloxicam 15 mg tabletIndications :Chronic pain of both knees Take 1 Tablet (15 mg) by mouth once daily. 90 Tablet 1 025 Active albuterol-ipratro pium (DUONEB) (2.5-0.5 mg) in 3 mL NEBULIZATION solutionIndicatio ns:COPD mixed type (HC) INHALE 3 ML(1 VIAL) VIA NEBULIZER EVERY 6 HOURS IF NEEDED FOR SHORTNESS OF BREATH. 180 mL 2 025 Active NebulizerIndicati ons:COPD mixed type (HC) Nebulizer, disposable neb kit x 4, reuseable neb kit x 1, mask x 1, filters x 1. Frequency of use: daily; Medication: duoneb Length of need: 99 months 1 Each 025 Active LORazepam 1 mg tabletIndications :Anxiety state Take 1 Tablet (1 mg) by mouth three times daily. 90 Tablet 5 025 Active atorvastatin (LIPITOR) 20 mg tabletIndications :Hypertriglycerid emia,Hyperlipidem ia, unspecified hyperlipidemia type Take 1 Tablet (20 mg) by mouth at bedtime. 90 Tablet 3 025 Active tamsulosin 0.4 mg capsuleIndication s:BPH without urinary obstruction Take 2 Capsules (0.8 mg) by mouth once daily after a meal. 180 Capsule 3 025 Active amLODIPine (NORVASC) 10 mg tabletIndications :HTN (hypertension) TAKE ONE TABLET BY MOUTH EVERY EVENING 90 Tablet 3 025 Active metFORMIN (GLUCOPHAGE) 1,000 mg tabletIndications :Type 2 diabetes mellitus without complication, without long-term current use of insulin (HC) TAKE 1 TABLET BY MOUTH 2 TIMES DAILY WITH MEALS. 180 Tablet 1 025 Active spiriva 18 mcg inhalation capsuleIndication s:COPD mixed type (HC) INHALE CONTENTS OF 1 CAPSULE WITH HANDIHALER DEVICE ONCE DAILY 90 Capsule 1 025 Active ibuprofen (ADVIL; MOTRIN) 600 mg tabletIndications :OAF (michelle-antral fistula) Take 1 Tablet (600 mg) by mouth three times daily with meals. Maximum of 3200 mg in 24 hours. 60 Tablet 1 024 2024 Discontinued(* Patient states no longer taking) tamsulosin (FLOMAX) 0.4 mg capsuleIndication s:BPH without urinary obstruction TAKE TWO CAPSULES(0.8MG) BY MOUTH ONCE DAILY AFTER A MEAL 180 Capsule 2 024 2024 Discontinued(R eorder (E-cancel not sent)) atorvastatin (LIPITOR) 20 mg tabletIndications :Hypertriglycerid emia,Hyperlipidem ia, unspecified hyperlipidemia type TAKE 1 TABLET (20 MG) BY MOUTH AT BEDTIME. 90 Tablet 2 024 2024 Discontinued(R eorder (E-cancel not sent)) methocarbamoL (ROBAXIN) 750 mg tabletIndications :Lumbar back pain Take 1 Tablet (750 mg) by mouth four times daily. 60 Tablet 1 024 2024 Discontinued(* Patient states no longer taking) cyclobenzaprine (FLEXERIL) 10 mg tablet TAKE ONE TABLET (10MG) BY MOUTH THREE TIMES A DAY NEEDED FOR MUSCLE SPASM 024 2024 Discontinued(* Patient states no longer taking) ketorolac (TORADOL) 10 mg tablet TAKE ONE TABLET (10MG) BY MOUTH EVERY 6 HOURS NEEDED FOR PAIN; MAXIMUM TOTAL DURATION OF 5 DAYS 024 2024 Discontinued(* Patient states no longer taking) oxyCODONE-acetami nophen (Percocet) 5-325 mg per tabletIndications :Lumbar radiculopathy,Lum bar disc herniation Take 1 Tablet by mouth 3 times daily if needed for Pain. Max acetaminophen dose: 4000mg in 24 hrs. 24 Tablet 024 2024 Discontinued(* Patient states no longer taking) spiriva 18 mcg inhalation capsuleIndication s:COPD mixed type (HC) NHALE CONTENTS OF 1 CAPSULE WITH HANDIHALER DEVICE ONCE DAILY 30 Capsule 1 025 2024 Discontinued LORazepam 1 mg tabletIndications :Anxiety state Take 1 Tablet (1 mg) by mouth three times daily. OK to fill early 90 Tablet 025 2024 Discontinued(R eorder (E-cancel not sent)) metFORMIN (GLUCOPHAGE) 1,000 mg tabletIndications :Type 2 diabetes mellitus without complication, without long-term current use of insulin (HC) TAKE 1 TABLET BY MOUTH 2 TIMES DAILY WITH MEALS. 60 Tablet 025 2024 Discontinued amLODIPine (NORVASC) 10 mg tabletIndications :HTN (hypertension) TAKE ONE TABLET BY MOUTH EVERY EVENING 30 Tablet 025 2024 Discontinued Active Problems Patient Care Coordination No te Formatting of this note migh t be different from the original. HF/Structural Research Eligibility Review Date: 07/19/19 Upcoming Visit Location: [facility] Age: 59 y.o. Insurance: [employer] Etiology: ? NYHA: ? Last HF Admit: [...] recurrent pericarditis Problem Noted Date Diagnosed Date Lung nodule 12/07/2024 Overview (12/08/2024): 12/07/24- Lung CT- 8mm nodule in the RUL. Patient was referred to [facility] lung nodule clinic. Abdominal pain 07/28/2023 Fay's esophagus without dysplasia 07/17/2023 Epigastric pain 06/22/2023 Primary osteoarthritis of right knee 2023 Acute and chronic respiratory failure with hypox ia 10/31/2022 Supraventricular tachycardia 01/29/2021 Hypertriglyceridemia 07/30/2020 COPD mixed type 04/13/2019 Overview (11/13/2024): Noted to be moderate on spirometry 2008. No change with bronchodilator. Hypertension 11/23/2018 Type 2 diabetes mellitus wit hout complication, without long-term current use of insulin 09/14/2017 Overview (05/21/2020): nuc med stress test 04/2020 negative for inducible ischemia Chronic constipation 09/14/2017 Overview (12/31/2018): Severe diverticulosis on colonoscopy Alcohol abuse, in remission 09/26/2012 Overview (11/17/2013): Completed treatment. Last drink 2007 GERD (gastroesophageal reflux disease) 9 Anxiety state, unspecified 06/07/2008 Overview (04/13/2019): zoloft--to flat. prozac 10 mg not strong enough; 20 mg flat. ADD meds seem to really help. He has been on abilify. Tobacco use disorder 05/16/2008 Borderline intellectual functioning 05/16/2008 Major Depressive Disorder, Recurrent Episode, Un specified 02/09/2007 Overview (05/13/2012): Multiple hospitalizations. Has had 2 sets at ECT treatment. Last one in 1999 at [facility] Fatty liver, alcoholic Overview (09/14/2017): No alcohol since treatment in 2007 Polyp of colon, repeat in 05/2028 Overview (06/22/2023): 05/2023 Two 4 to 5 mm polyps [...] HTN (hypertension) 09/14/2017 8 Gallstones 09/14/2017 11/19/2018 Overview (09/14/2017): Noted on CT in August 2017 Cough 04/04/2009 11/17/2013 HTN (hypertension) 04/04/2009 2 Overview (12/10/2009): Updated by system to replace inactive record Alcohol withdrawal 05/16/2008 8 Opioid type dependence, continuous 05/16/2008 11/17/2013 Overview (05/13/2012): For neck pain and was in conjunction with his drinking. He completed treatment. Inhalant Nondependent Drug A buse, in Remission 05/16/2008 11/17/2013 Overview (05/13/2012): Patient states he never used inhalant drugs and does not know why this is in his problem list Nondependent amphetamine or related acting sympathomimetic abuse, in remission 05/16/200810/29 Overview (09/26/2012): The patient states he never used any type of stimulant while his drinking in 2007 he does not know why this is in his problem list. History of meth use per prior notes Adjustment disorder with anxiety 11/15/2007 05/16/2008 Other and Unspecified Alcoho l Dependence, Continuous Drinking Behavior 11/15/2007 11/17/2013 Overview (05/13/2012): During his divorce and prior bouts of alcohol abuse with treatments Migraine, unspecified, witho ut mention of intractable migraine without mention of status migrainosus 09/28/2007 05/16/2008 FOREIGN BODY, CORNEA-L 01/06/200505/16 Encounters Date Type Department Care Team Description 12/12/[address] [address] Karma Werner, RT Appointment 12/12/[address] [address] Karma Werner, RT Appointment 12/08/2024 Telephone [facility] [address] [place] [phone] Italia Pugh MD Lung Screening CT Result 12/08/[address] [address] Italia Pugh MD Results (Ct scan ) 12/08/2024 Telephone [facility] [address] [place] [phone] None Referral (Incoming Referral ) 12/08/[address] [address] Italia Pugh MD Referral (Lung nodule clinic) 12/07/2024 10:30 AM CDT Ancillary Procedure [facility] [address] [place] [address] 12/07/2024 Travel 12/05/[address] [address] Italia Pugh MD Refill Request (Amlodipine, Metformin, Spiriva) 11/30/2024 10:30 AM [employer] Office Visit [facility] [address] [address] Adams Byrd MD Consult (RUQ abdominal pain) 11/30/2024 Travel 11/28/[address] [address] Italia Pugh MD Results 11/28/[address] [address] Italia Pugh MD Medication Management (Up to date list./) 11/27/2024 9:45 AM [employer]ENCH PIPE [employer]ER Office Visit [address] [place] [address] Italia Pugh MD Arm Pain/problem (Right bicept); Leg Pain/problem (Cramping at night); Eye Problem (bumps); Form (Handicap parking); Follow Up (lab); Medication Management (Need new neb machine Rx) 11/27/2024 Travel 11/03/[address] [address] Italia Pugh MD Refill Request (Metformin, Amlodipine) 10/23/[address] [address] Italia Pugh MD Referral (Lorazepam) 10/19/[address] [address] Italia Pugh MD 10/16/[address] [address] Italia Pugh MD Refill Request (Albuterol-ipratrop ium) 10/03/[address] [address] Italia Pugh MD Refill Request (Meloxicam, Spiriva) 10/02/[address] [address] Italia Pugh MD Refill Request (Albuterol-ipratrop ium) from Last 3 Months Immunizations Immunization Administration Dates Next Due COVID-19 VACCINE SPIKEVAX (M ODERNA 50MCG/0.5ML) 12YO+ PFS 07/14/2023 COVID-19 vaccine (Moderna 10 0mcg/0.5mL) PF, MDV 07/17/2021,01/14/2021,12/17/2020 Hepatitis B (Adult) 03/01/2009 Influenza, IIV3 (Age >=3 years) 06/14/2024,09/26 Influenza, IIV4 07/14/2023,07/17/2021,07/31/2020 Pneumococcal Conj 20-valent (Prevnar 20) 024 Pneumococcal Poly,23-Valent (Pneumovax) 07/17/20 21 RSV, Recombinant ADJ Reconst ituted (Arexvy 120MCG/0.5mL) 08/11/2024 Td (Age >=7 Years) 07/14/2023 Tdap 09/26/2012 Zoster (Shingrix-RZV, recombinant) 08/07/2024, Family History Medical History Relation Name Comments Good Health Brother Cancer Father Good Health Mother Cancer Paternal Grandfather Cancer Paternal Grandmother Anxiety disorder Sister Good Health Sister Relation Name Status Comments Brother Alive Father Mother Alive Paternal Grandfather Paternal Grandmother Sister Alive Son Andrez Alive Social History Tobacco Use Types Packs/Day Years Used Date Smoking Tobacco: Every Day Cigarettes 1 48.2 Started: 1976 Smokeless Tobacco: Never Tobacco Cessation:Ready to Q uit: Not Asked; Counseling Given: Not Answered Comments:Noted today 05/01/19-Pt is smoking about 10 cigs a day Alcohol Use Standard Drinks/Week Comments Not Currently 0 (1 standard drink = 0.6 oz pur e alcohol) last drink was in 2008 PHQ-2 Answer Date Recorded PHQ-2 TOTAL SCORE 0 11/27/2024 Social Connections Answer Date Recorded Frequency of Communication with Friends and Fami ly 0 01/21/2023 Financial Resource Strain Answer Date R ecorded [...] Housing in the Last Year 1 01/21/2023 Interpersonal Safety Answer Date Record ed Are you being hit, kicked, p ushed or yelled at (see row info)? No 11/22/2023 Interpersonal Safety Abuse 12 - 18 Not on file 11/22/2023 Interpersonal Safety Ambulatory Vulnerability No t on file 11/22/2023 Sex and Gender Information Value Date Recorded Sex Assigned at Not on file Legal Sex Male 5:43 AM [employer] Gender Identity Not on file Sexual Orientation Not on file Obstetrics History Last Filed Vital Signs Vital Sign Reading Time Taken Comments Blood Pressure 126/74 11/30/2024 10:25 AM [employer] Pulse 84 11/30/2024 10:25 AM [employer] Temperature 36.7 C (98 F) 05/17/2024 10:43 AM CDT Respiratory Rate 20 11/22/2023 1:40 PM [employer]CH PIPE [employer]ER Oxygen Saturation 97% 05/17/2024 10:43 AM CDT Inhaled Oxygen Concentration - - Weight 85.3 kg (188 lb) 11/30/2024 10:25 AM [employer]IPE [employer] Height 172.1 cm (5' 7.75) 11/30/2024 10:[address] Body Mass Index 28.8 11/30/2024 10:25 AM TRENCH PIPE L[employer]ER Plan of Treatment Upcoming Encounters Date Type Department Care Team (Late st Contact Info) Description 12/29/2024 11:00 AM CDT Office Visit [facility] [address] [facility] [address] [place] [address] Jb Rodriguez MD [address] [facility] [place] [address] 02/27/2025 11:30 AM CDT Office Visit [facility] [address] [place] [address] Bryant Bender MD [address] [place] [address] Health Maintenance Due Date Last Done Comments HIV for age 15-65 1977 BMI (ht and wt on same day) for age 18+ 11/30/2025 11/30/2024, 05/10/2024, 02/18/2024, Additional history exists Depression screening for age 12+ 11/30/2025 11/30/2024, 11/28/2024, 11/28/2024, Additional history exists Low Dose CT (for lung CA) ag e 50-80 12/07/2025 12/07/2024, 12/14/2022, 08/05/2020 Colonoscopy through age 75 06/22/202806/22, 10/04/2017, 11/26/1999 Lipids for age 45-75 11/27/2029 11/27/2024, 07/14/2023, 07/06/2022, Additional history exists Tetanus booster 07/14/2033 07/14/2023, 09/26/2012 Tdap Completed 09/26/2012 Hepatitis C screening for ag e 18-79 Completed 11/17/2013 Pneumococcal series for age 50+ Completed 4, 07/17/2021 COVID-19 vaccine series Completed 06/14/20 24, 07/14/2023, 03/09/2023, Additional history exists Influenza Vaccine Completed 06/14/2024, , 07/17/2021, Additional history exists Zoster (shingles) series for age 50+ Completed 08/07/2024, 05/18/2024 RSV vaccine for adults or Completed 08/11/2024 Medical Devices Implanted Type Area Senior Sales Director Device Identifier Shelf Expiration Date Model / Serial / Lot Mesh Ventral [id number] Progrip Lapsc Slf Fixating - [id number] Implanted:Qty: 1 on 12/07/2018 by Cindy Munoz DO at [facility] Left: Inguinal [employer] 01/25/2020 [id number] / / [id number] Mesh Ventral 6x8in Ventralightst W/Echo Ps - [id number] Implanted:Qty: 1 on 12/07/2018 by Cindy Munoz DO at [facility] N/A: Abdomen [employer] 07/24/2019 [id number] / / [id number] Explanted Type Area Senior Sales Director Device Identifier Shelf Expiration Date Model / Serial / Lot Mesh Inguinal Lt 3x5in 3-D Max - [id number] Implanted:Qty: 1 Explanted:Qty: 1 on 12/07/2018 at [facility] Left: Inguinal [employer] 01/22/2023 [id number] / / [id number] Procedures Procedure Name Priority Date/Time Associated Diagnosis Comments CT CHEST SCREENING LOW DOSE WO CONTRAST Routine 12/07/2024 10:27 AM CDT Cigarette smoker Encounter for screening for lung cancer Personal history of nicotine dependence BASIC METABOLIC PANEL Routine 11/27/2024 9:40 AM [employer]ER Hypertension Type 2 diabetes mellitus without complication, without long-term current use of insulin (HC) LIPID PANEL W REFLEX MEASURED LDL Routine 11/27/2024 9:40 AM [employer]IPE [employer]ER Hypertriglyceridemi a HEMOGLOBIN A1C MONITORING (POCT) Routine 11/27/2024 9:39 AM TR[employer]CH [employer]IPE [employer]ER Type 2 diabetes mellitus without complication, without long-term current use of insulin (HC) COLONOSCOPY 06/22/2023 12:20 PM CDT ANTI HCV Routine 11/17/2013 12:29 PM [employer]ER Screening for viral disease from Last 3 Months or Most Recently Relevant to Health Maintenance Results * CT CHEST SCREENING LOW DOSE WO CONTRAST [[id number]] -- Criteria: must meet ALL: Age 50-80, current smoker or quit within the last 15 years, AND 20+ pack-year history (12/07/2024 10:27 AM CDT) Anatomical Region Laterality Modality Computed Tomogra phy Impressions 12/08/2024 8:08 AM CDT Solid 8 mm RIGHT upper lobe pulmonary nodule is new compared to the prior CT. Lung rads category 4A, suspicious. Follow-up low-dose chest CT is recommended in 3 months. Please note that all CT scans at this facility use dose modulation, iterative reconstruction and/or weight-based dosing when appropriate to reduce radiation dose to as low as reasonably achievable. Dictated by: Diego Dobbins MD @12/07/2024 6:12:28 PM Neuroradiologist Narrative 12/08/2024 8:08 AM CDT For Patients: As a result of the Cures Act, medical imaging exams and procedure reports are released immediately into your electronic medical record. You may view this report before your referring provider. If you have questions, please contact your health care provider. CT CHEST SCREENING LOW-DOSE WITHOUT CONTRAST 12/07/2024 INDICATION: Lung cancer screening. TECHNIQUE: Low-dose noncontrast CT images of the chest. Dose reduction techniques used. COMPARISON: CT chest 12/14/2022. FINDINGS: Plbj-op-darcjiis subpleural reticulation and ground-glass opacities in the dependent RIGHT lower lobe, not significantly changed and compatible with fibrosis. Moderate upper lobe predominant centrilobular emphysema. No focal consolidation, pleural effusion, or pneumothorax. Calcified granulomas. New solid 8 mm nodule RIGHT upper lobe (series 5, image 48). Heart size is normal. No pericardial effusion. Coronary artery atherosclerotic calcifications. No mediastinal or hilar lymphadenopathy. Cholecystectomy. Borderline diffuse hepatic steatosis. Mild thoracic spondylosis. No aggressive osseous lesions. us Italia Pugh MD CT Final Re sult * (ABNORMAL) LIPID PANEL W REFLEX MEASURED LDL (11/27/2024 9:40 AM TRENCH PIPE LAYER) CHOLESTEROL, TOTAL 100 <200 mg/dL [facility] HDL CHOLESTEROL 34(L) > OR = 40 mg/dL [facility] TRIGLYCERIDES 111 <150 mg/dL [facility] LDL-CHOLESTEROL 47 mg/dL (calc) [facility] Comment: Reference range: <100 Desirable range <100 mg/dL for primary prevention; <70 mg/dL for patients with CHD or diabetic patients with > or = 2 CHD risk factors. LDL-C is now calculated using the Braulio-Breaux calculation, which is a validated novel method providing better accuracy than the Friedewald equation in the estimation of LDL-C. Braulio MONTOYA et al. NATE. 2013;310(19): 2222-6188 (http://education.[employer]/faq/HCQ644) CHOL/HDLC RATIO 2.9 <5.0 (calc) [facility] NON HDL CHOLESTEROL 66 <130 mg/dL (calc) [facility] Comment: For patients with diabetes plus 1 major ASCVD risk factor, treating to a non-HDL-C goal of <100 mg/dL (LDL-C of <70 mg/dL) is considered a therapeutic option. Blood BLOOD SPECIMEN / Unknown 11/27/2024 9:40 AM [employer]CH PIPE L[employer]ER 11/27/2024 9:42 AM TRENCH PIPE L[employer]ER Narrative [facility] - 11/28/2024 3:51 AM [employer]EN[employer]ER FASTING:NO FASTING: NO Italia Pugh MD CHEMISTRY Final Re sult [employer] [facility] [address] [place] [address], [facility] [address] [place] [address] * (ABNORMAL) BASIC METABOLIC PANEL (11/27/2024 9:40 AM TRENCH PIPE LAYER) GLUCOSE 116 65 - 139 mg/dL [facility] Comment: Non-fasting reference interval UREA NITROGEN (BUN) 12 7 - 25 mg/dL [facility] CREATININE 0.82 0.70 - 1.35 mg/dL [facility] EGFR 99 > OR = 60 mL/min/1. 73m2 [facility] BUN/CREATININE RATIO SEE NOTE: 6 - 22 (calc) [facility] Comment: Not Reported: BUN and Creatinine are within reference range. SODIUM 133(L) 135 - 146 mmol/L [facility] POTASSIUM 4.9 3.5 - 5.3 mmol/L [facility] CHLORIDE 99 98 - 110 mmol/L [facility] CARBON DIOXIDE 26 20 - 32 mmol/L [facility] ELECTROLYTE BALANCE 8 7 - 17 mmol/L (calc) [facility] CALCIUM 9.6 8.6 - 10.3 mg/dL [facility] Blood BLOOD SPECIMEN / Unknown 11/27/2024 9:40 AM [employer]CH PIPE L[employer]ER 11/27/2024 9:42 AM TRENCH PIPE LAYER Narrative [facility] - 11/28/2024 3:51 AM TR[employer]ER FASTING:NO FASTING: NO Italia Pugh MD CHEMISTRY Final Re sult Performing Organization Address [facility]/ZIP Co de Phone Number [facility] [address] [place] [address], [facility] [address] [place] [address] * (ABNORMAL) POCT Hemoglobin A1C Monitoring (11/27/2024 9:39 AM TRENCH PIPE L[employer]ER) POC HEMOGLOBIN A1C 6.5(H) <6.0 % OF TOTAL HGB [facility] Comment: Any point of care results exhibiting inconsistency with the patient's clinical status should be repeated using a different testing method. Blood BLOOD SPECIMEN / Unknown 11/27/2024 9:39 AM [employer]IPE [employer]ER 11/27/2024 9:40 AM [employer]EN[employer] PIPE L[employer]ER Italia Pugh MD CHEMISTRY Final Re sult Performing Organization Address [facility]/ZIP Co de Phone Number [address] [address] * COLONOSCOPY (06/22/2023 12:20 PM CDT) 06/22/2023 [...] adequate candidate for conscious sedation. The endoscope [id number] was passed through the and advancedto. The [...] Time 0 hours 11 minutes 37 seconds us Adams Byrd MD PROCEDURE ORD Final Result * ANTI HCV (11/17/2013 12:29 PM TRENCH PIPE LAYER) ANTI HCV Non-reacti ve [facility] Blood specimen (specimen) BLOOD SPECIMEN / Unknown 11/17/2013 12:29 PM [employer]ER 11/17/2013 12:24 PM [employer]CH PIPE LAYER us Italia Pugh MD SEND OUTS Final Re sult [facility] INTERNAL ZIP [phone] [place] [address] from Last 3 Months or Most Recently Relevant to Health Maintenance Insurance [facility] Advance Directives * Full Code (Latest Code [...] 10:25 PM 04/10/2009 1:55 PM Care Teams Hospice Consultant Relationship Specialty [place] [address] [place] [address] PCP - General Family Practice 09/23/17 [facility] [address] [place] [address] Ophthalmology Manager Study 06/16/21
--- OUTSIDE RECORDS SUMMARY | 2024-12-18 10:27 | XMS_ITS | Data Portability ---
Author Organization [place] [facility] [place] [facility] Address [address] [facility] [place] [address] Care Team Providers Care Pound Keeper Name Role Phone RASHIDA BERRY Primary Care Provider [phone] Assessment No assessment recorded. Plan of Treatment Reminders Order Date Submit Date Provider Last Modified By Organization Details Last Modified Time Details Appointments None recorded. Lab urinalysis, dipstick 2022 023 [facility], [facility]5 [facility], [address] [facility] [place], [place], [address], 3 11:25:35 urinalysis, dipstick 2022 023 [email or web address] 9 [facility], [facility]5 [facility], [address], [place], [address], 3 11:08:34 Referral None recorded. Procedures bladder scan (PROC) 2022 023 [facility], [address] [facility], [address], [place], [address], 3 11:25:35 bladder [facility] (PROC) 2022 [facility]23 [facility], [address], [place], [address], 3 09:42:33 Surgeries None recorded. Imaging None recorded. Medication Orders oxybutynin chloride ER 10 mg tablet,exte nded release 24 hr [address], [address], 15:33:41 Patient TargetsNo targets recorded. Patient Instructions Encounter Date Encounter Id Patient Instructions Last Modified By Organization Details Last Modified Time 12/17/2022 [id number] will check PSA and try starting oxybutynin ER 10mg call with PSA result and follow up timing. [email or web address] Not available 12/17/2022 11:10:02 01/28/2023 [id number] continue on oxybutynin until refills gone and rtc mid-April for recheck off med for a few weeks. [email or web address] Not available 01/28/2023 11:34:43 Reason for Referral None Reported. Results Created Date Observation Date Name Description Value Unit Range Abnormal Flag Note LastModifiedBy Organization Detail LastModifiedTime 12/18/1912/17/2022 urina lysis , dipst ick Glucose-Stat us 250 Not Available [address] [place], [place], [address], 12/17/2022 10:54:46 12/18/19 23 12/17/2022 urina lysis , dipst ick pH-Status 6.5 Not Available [address], [place], [address], 12/17/2022 10:54:46 12/18/1912/17/2022 bladd er scan (PROC ) Volume (in mL) 24ml Not Available [address], [place], [address], 12/17/2022 11:08:30 01/29/2001/28/2023 urina lysis , dipst ick Bilirubin-St atus Small Not Available [place] [address] [facility] [address], [place], [address], 01/26/2023 16:56:57 01/29/2001/28/2023 urina lysis , dipst ick pH-Status 6.0 Not Available [address], [place], [address], 01/26/2023 16:56:57 01/29/2001/28/2023 bladd er scan (PROC ) Volume (in mL) 41ml Not Available [address], [place], [address], 01/26/2023 16:57:05 Result Notes None recorded. Procedures Surgical History Date Name Laterality Status Provider Name and Address Organization Details Recorded Time 01/29/20 Bladder Scan completed Shannon Blunt [facility] 01/28/2023 11:25:39 12/18/19 Bladder Scan completed Srinivasa Morales MD [address] [place] [address],[address] [place] [address], [address], [facility] 12/17/2022 10:49:17 Cataract Surgery completed Srinivasa Morales MD [address] [place] [address],[address], [place], [address], [facility] 12/17/2022 10:52:41 Colonoscopy completed Srinivasa Morales MD [address] [place] [address],[address], [place], [address], [facility] 12/17/2022 10:52:49 Hernia Repair completed Srinivasa Morales MD [address] [place] [address],[address], [place], [address], [facility] 12/17/2022 10:52:56 Vasectomy completed Srinivasa Morales MD [address] [place] [address],[address], [place], [address], [facility] 12/17/2022 10:53:03 cholecystectomy completed Srinivasa Morales MD [address] [place] [address],[address], [place], [address], [facility] 12/17/2022 10:53:08 arthroplasty of knee completed Srinivasa Morales MD [address] [place] [address],[address], [address], [facility] 12/17/2022 10:53:27 excision of colon completed Srinivasa Morales MD [address] [place] [address],[address], [address], [facility] 12/17/2022 10:53:42 Imaging Results None [...] Updated DateTime 12/17/2022 175.26 cm 26.6 kg/m2 37353.63 g Srinivasa Morales MD [address] [place] [address],[address], [address] 12/17/2022 10:48:41 Date Recorded Body height Body mass index (BMI) Body weight Provider Name and Address Organization Details Last Updated DateTime 01/28/2023 175.26 cm 26.6 kg/m2 80047.63 g Ivanna Magy [facility] 01/28/2023 11:14:04 Social History Question Answer Notes LastModified by Organizat ion Details LastModified Time Tobacco Smoking Status Current Every Day Smoker Srinivasa Morales MD [address] [place] [address], [address] 12/17/2022 10:52:07 What Is Your Level Of Alcohol Consumption? Moderate [email or web address] Information not available 12/17/2022 How Many Times Per Week Do You Consume Alcohol? 3-4 Times Per Week [email or web address] Information not available 01/28/2023 What Is Your Level Of Caffeine Consumption? Moderate Information not available 12/17/2022 What Was The Date Of Your Most Recent Tobacco Screening? 01/28/2023 [email or web address] Information not available 01/28/2023 How Much Tobacco Do You Smoke? 1 PPD [email or web address] Information not available 12/17/2022 Do You Use Any Illicit Or Recreational Drugs? No [email or web address] Information not available 01/28/2023 Has Tobacco Cessation Counseling Been Provided? No [email or web address] Information not available 01/28/2023 Do You Or Have You Ever Used Any Other Forms Of Tobacco Or Nicotine? No [email or web address] Information not available 01/28/2023 Sex: Unknown Functional Status None recorded. Mental Status None recorded. Family History Nothing Reported. Medical History Condition Response Other N High Blood Pressure Y Kidney Stones N Lung Disease Y Depression N GERD/Acid Reflux Y Sexually Transmitted Infection N Cancer N High Cholesterol Y Diabetes Y Bleeding Disorder N Heart Disease N Immunizations Vaccine Type Date Status Note Provider Nam e and Address Organization Details Recorded Time pneumococcal polysaccharide PPV23 completed DENISE aGrcias [facility] 01/28/2023 11:13:57 Past Encounters Encounter ID Performer Location Encounter Start Date Encounter Closed Date Diagnosis/Indication Diagnosis SNOMED-CT Code Diagnosis ICD10 Code Diagnosis Note [id number] [facility] [address] [address] 12/17/2022 10:26:14 12/22/2022 12:03:08 Lower urinary tract symptoms due to benign prostatic hypertrophy 1443632163 9101 N40.1 Increased frequency of urination 240902390 R35.0 Nocturia 956864010 R35.1 [id number] Srinivasa Morales MD [facility] [address] [address] 01/28/2023 11:07:32 02/03/2023 11:24:01 Nocturia 424494313 R35.1 Health Concerns Section Related Observation LastModified by Organization Detai ls LastModified Time None Recorded Concern Status LastModified by Organization Details LastModified Time None Recorded Advance Directives Directive None Recorded Payers Encounter Date Sequence Insurance Name Policy Number Policy Starr Covered Member ID Starr Member ID Guarantor Name 12/17/2022 1 [employer] - DOS PRIOR TO 2023 (MEDICAID REPLACEMENT - O) [id number] Garrett Valenzuela [id number] Garrett Valenzuela 01/28/2023 1 [employer] - DOS PRIOR TO 2023 (MEDICAID REPLACEMENT - O) [id number] Garrett Valenzuela [id number] Garrett Valenzuela Notes Date Note Type Note Provider Name and Address Organization Details Recorded Time 12/17/2022 text/html seeing for BPH with frequency and nocturia x4, tried tamsulosin one and then two caps/day and has not had any improvement. UA clear and PVR 24ml today. last PSA 8 years ago 0.32. Srinivasa Morales MD [address] [facility],[address], [place], [address], [facility] 12/17/2022 11:11:15 01/28/2023 text/html oxybutynin 10mg ER given last visit helping with nocturia, was hourly now only 2x. UA clear and PVR 41ml today. no dry mouth from med. PSA after last visit was 0.4 Srinivasa Morales MD [address] [place] [address],[address], [place], [address], [facility] 01/28/2023 11:35:06
--- OUTSIDE RECORDS SUMMARY | 2024-12-18 10:27 | XMS_ITS | Encounter Summary ---
Author Organization [facility] Address [address] [place] [address]. [place] [address] Care Team Providers Care Refrigeration Person Name Role Phone Jono Espinal MD Primary Care Provider [phone] [facility] Radha [place] Primary Care Provide r Italia Pugh MD Primary Care Provider + Josue Ventura MD Primary Care Provider Italia Pugh MD Primary Care Provider + Encounter Details Date Type Department Care Team (Late st Contact Info) Description 02/25/[address] [address] Haroldo Nielsen MD [address] [place] [address] [id number] [facility] Social History Tobacco Use Types Packs/Day Years Used Date Smoking Tobacco: Every Day Cigarettes Smokeless Tobacco: Never Alcohol Use Standard Drinks/Week Comments No 0 (1 standard drink = 0.6 oz pur e alcohol) Sex and Gender Information Value Date Recorded Sex Assigned at Not on file Legal Sex Male 3:04 AM IMPROVEMENT RN Gender Identity Not on file Sexual Orientation Not on file documented as of this encounter Plan of Treatment Not on file documented as of this encounter Visit Diagnoses Not on filedocumented in this encounter Additional Health Concerns Infection Onset Date Last Indicated Resolved Time Rule Out COVID-19 10/06/2020 10/06/2020 10/06/2020 1:58 PM IMPROVEMENT RN Rule Out COVID-19 09/29/2021 09/29/2021 09/29/2021 5:59 PM IMPROVEMENT RN documented as of this encounter Care Teams Refrigeration Person Relationship Specialty Start Date End Date Jono Espinal MD [address] [place] [address] PCP - General 10/29/04 07/25/11 [facility] [address] [place] [address] PCP - General 07/26/11 05/21/13 Italia Pugh MD [facility] [id number] [place] [address] PCP - General Family Practice 05/22/13 10/21/18 Josue Ventura MD [facility] [address] [place] [address] PCP - General Emergency Medicine 10/22/18 03/25/19 Italia Pugh MD [facility] [id number] [place] [address] PCP - General Family Practice 03/26/19 documented as of this encounter
--- OUTSIDE RECORDS SUMMARY | 2024-12-18 10:28 | XMS_ITS | CCD ---
Author Organization Unknown Care Team Providers Care Mapper Name Role Phone Lead Retail Sales Associate, [place] Primary Care Provider Unava ilable Unavailable Chronic Care Management Unavaila ble Summary Purpose DataExchange Insurance Providers Payer name Policy type / Coverage type Covered libertarian ID Effective Begin Date Effective End Date [facility] Commercial Insurance [id number] Unknown Unkn own Family History Family History data not found Medication Administered No Medication Administered data Reason For Visit No Reason For Visit data
--- OUTSIDE RECORDS SUMMARY | 2024-12-18 10:28 | XMS_ITS | Clinical Summary ---
Author Organization [place] Address [address] [place] [address]. [place] [address] Care Team Providers Care Publishing Systems Analyst Name Role Phone Italia Pugh MD Primary Care Provider + Allergies Active Allergy Reactions Criticality Noted Date Comments Metoprolol Headache Low 10/04/2017 Medications omeprazole (PRILOSEC) [address] capsule Take 40 mg by mouth daily Active metFORMIN (GLUCOPHAGE) 1000 MG tablet Take 1,000 mg by mouth 2 times daily (with meals) Active budesonide-formo terol (SYMBICORT) 160-4.5 MCG/ACT Inhaler Inhale 2 puffs into the lungs 2 times daily Active meloxicam (MOBIC) 15 MG tablet Take 15 mg by mouth daily Active LORazepam (ATIVAN) 1 MG tablet Take 1 mg by mouth 2 times daily as needed for anxiety Active albuterol (PROVENTIL HFA) 108 (90 Base) MCG/ACT inhaler Inhale 1-2 puffs into the lungs every 4 hours as needed 8 Active amLODIPine (NORVASC) 10 MG tabletIndication s:Hypertension Take 10 mg by mouth every evening Active lisinopril (PRINIVIL/ZESTRI L) 20 MG tablet Take 20 mg by [...] lungs daily Active benzonatate (TESSALON) 100 MG capsuleIndicatio ns:COPD exacerbation (H) Take 1 capsule (100 mg) by mouth 3 times daily as needed for cough 20 capsule 1 Active guaiFENesin (MUCINEX) 600 MG 12 hr tabletIndication s:COPD exacerbation (H) Take 1 tablet (600 mg) by mouth 2 times daily 2 Active ipratropium - albuterol 0.5 mg/2.5 mg/3 mL (DUONEB) 0.5-2.5 (3) MG/3ML neb solution Take 1 vial (3 mLs) by nebulization 4 times daily 90 mL 2 Active predniSONE (DELTASONE) 20 MG tablet 3 tabs daily for 3 days, then 2 tabs daily for 3 days, then 1 tabs daily for 3 days, then stop 2 Active predniSONE (DELTASONE) 20 MG tablet Take two tablets (= 40mg) each day for 5 (five) days 10 tablet 2 Active Active Problems Problem Noted Date Diagnosed [...] on file Legal Sex Male 3:04 AM INTERVENTIONAL TECHNOLOGIST Gender Identity Not on file Sexual Orientation Not on file Last Filed Vital Signs Vital Sign Reading Time Taken Comments Blood Pressure 151/89 06/16/2022 4:15 PM CDT Pulse 100 06/16/2022 4:15 PM CDT Temperature 36.8 C (98.2 F) 06/16/2022 2:13 PM CDT Respiratory Rate 19 06/16/2022 2:13 PM CDT Oxygen Saturation 95% 06/16/2022 4:15 PM CDT Inhaled Oxygen Concentration - - Weight 88.8 kg (195 lb 12.3 oz) 04/11/2022 2:10 PM CDT Height 175.3 cm (5' 9) 09/30/2021 8:31 AM INTERVENTIONAL TECHNOLOGIST Body Mass Index 28.91 09/30/2021 8:31 AM INTERVENTIONAL TECHNOLOGIST Plan of Treatment Health Maintenance Due Date Last Done Comments ADVANCE CARE PLANNING 1962 ANNUAL REVIEW OF HM ORDERS 1962 COPD ACTION PLAN [address] CT COLONOGRAPHY 1962 FIT 1962 FLEX SIG 1962 LIPID 1962 sDNA (Cologuard) 1962 COLONOSCOPY 02/13/1972 COLORECTAL CANCER SCREENING 02/13/1972 HIV SCREENING 1977 HEPATITIS C SCREENING 02/13/1980 LUNG CANCER SCREENING 02/13/2012 ZOSTER IMMUNIZATION (1 of 2) 02/13/2012 YEARLY PREVENTIVE VISIT 07/31/2021 07/31/2020 RSV VACCINE (1 - Risk 60-74 years 1-dose series) 2022 Pneumococcal Vaccine: 50+ Years (2 of 2 - PCV) 07/17/2022 07/17/2021 DTAP/TDAP/TD IMMUNIZATION (2 - Td or Tdap) 09/26/2022 09/26/2012 COVID-19 Vaccine ( - season) 2024 07/17/2021, 01/14/2021, 12/17/2020 INFLUENZA VACCINE (#1) 2024 , 07/31/2020, 09/26/2012 PHQ-2 (once per calendar year) 2024 DIABETES SCREENING 06/16/2025 06/16/2022, 0 04/11/2022, 04/11/2022, Additional history exists SPIROMETRY Completed 02/25/2022, 04/13/2019 HPV IMMUNIZATION Aged Out No longer e [...] and gender (Antony et al., NEJM, DOI: 10.1056/YBQHee1550342) Blood STRUCTURE OF LEFT UPPER LIMB / Unknown Venipuncture / Unknown 06/16/2022 4:34 PM CDT 06/16/2022 4:37 PM CDT us Joe Jade MD LAB - BLOOD ORDERABLES F inal Result LABORATORY [facility] [address] Lab (1st floor, no room number) [place] [address], [facility] [phone] from Last 3 Months or Most Recently Relevant to Health Maintenance Insurance [facility] Advance Directives For more information, please contact: [phone] * Full Code (Latest Code Status on [...] with patie nt/legal decision maker Care Teams Publishing Systems Analyst Relationship Specialty Start Date End Date Italia Pugh MD [facility] [id number] [place] [address] PCP - General Family Practice 03/26/19
[2024-12-18 10:31] VITALS: BP 120/66; PULSE 110; RESP 22; TEMP 37; O2SAT 96; BMI 30.4
--- NOTE | 2024-12-18 10:40 | ED.GENADULT ---
HPI - General Adult General Time Seen by Provider: 10:40 Date Seen: 12/18/24 Chief complaint: Shortness of Breath/Dyspnea Stated complaint: COPD flare up Time Seen by Provider: 12/18/24 10:40 Source: patient and RN notes reviewed Mode of arrival: ambulatory Limitations: no limitations History of Present Illness HPI narrative: This 64-year-old male is ambulatory into the ED with underlying COPD and complaint of being short of breath. He is not sure if he could potentially have pneumonia or COPD flare. He did his DuoNeb at 6:00 a.m. this morning and just prior to coming in. He is coughing, it is productive of yellow colored sputum. He has some rhinorrhea, no sore throat. He has not noted any fevers or chills. 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 He is having constant pain in his chest as well as pain with breathing. He has noted no swelling, has no abdominal or GI symptoms with this. He states he has not been on any recent prednisone for his COPD. Patient is not aware of any definite ill contacts. Related Data Home Medications ?Medication ?Instructions ?Recorded ?Confirmed amlodipine 10 mg tablet 10 mg PO DAILY 06/29/22 12/18/24 budesonide-formoterol HFA 160 2 puff inhalation Q12H 06/29/22 12/18/24 mcg-4.5 mcg/actuation aerosol inhaler (Symbicort) ipratropium 0.5 mg-albuterol 3 mg 3 ml inhalation Q6H PRN 06/29/22 12/18/24 (2.5 mg base)/3 mL nebulization soln lorazepam 1 mg tablet 1 mg PO DAILY 06/29/22 12/18/24 metformin 1,000 mg tablet 1,000 mg PO BID 06/29/22 12/18/24 omeprazole 40 mg capsule,delayed 40 mg PO DAILY 06/29/22 12/18/24 release tiotropium bromide 18 mcg capsule 1 cap inhalation DAILY 06/29/22 12/18/24 with inhalation device (Spiriva with HandiHaler) atorvastatin 20 mg tablet 20 mg PO HS 07/20/22 12/18/24 albuterol sulfate 90 mcg/actuation 2 puff inhalation Q4H PRN 10/03/22 12/18/24 aerosol inhaler (Ventolin HFA) meloxicam 15 mg tablet 15 mg PO DAILY 10/03/22 12/18/24 Previous Rx's ?Medication ?Instructions ?Recorded benzonatate 100 mg capsule 200 mg (2 x 100 mg) PO TID #20 caps 10/06/22 doxycycline hyclate 100 mg tablet 100 mg PO BID #14 tabs 12/18/24 prednisone 20 mg tablet 20 mg PO BID #10 tabs 12/18/24 Allergies Allergy/AdvReac Type Severity Reaction Status Date / Time No Known Drug Allergies Allergy Verified 12/18/24 10:39 Review of Systems Status of ROS: Reports: 6 or more systems reviewed and unremarkable except as noted in History and below [facility] Medical History Chest pain ?R07.9 - Chest pain, unspecified (ICD-10) Right lower lobe lung mass ?R91.8 - Other nonspecific abnormal finding of lung field (ICD-10) Chronic low back pain with sciatica ?M54.40 - Lumbago with sciatica, unspecified side (ICD-10) ?G89.29 - Other chronic pain (ICD-10) Diabetic acidosis, type II ?E11.10 - Type 2 diabetes mellitus with ketoacidosis without coma (ICD-10) Radiculitis ?M54.10 - Radiculopathy, site unspecified (ICD-10) Internal derangement of right knee ?M23.91 - Unspecified internal derangement of right knee (ICD-10) Essential hypertension ?I10 - Essential (primary) hypertension (ICD-10) Erectile dysfunction ?N52.9 - Male erectile dysfunction, unspecified (ICD-10) Adenomatous polyp of colon ?D12.6 - Benign neoplasm of colon, unspecified (ICD-10) COPD (chronic obstructive pulmonary disease) ?J44.9 - Chronic obstructive pulmonary disease, unspecified (ICD-10) Fay's esophagus with esophagitis ?K22.70 - Fay's esophagus without dysplasia (ICD-10) ?K20.90 - Esophagitis, unspecified without bleeding (ICD-10) Alcoholic fatty liver ?K70.0 - Alcoholic fatty liver (ICD-10) History of alcohol abuse ?F10.11 - Alcohol abuse, in remission (ICD-10) GERD (gastroesophageal reflux disease) ?K21.9 - Gastro-esophageal reflux disease without esophagitis (ICD-10) Depression with anxiety ?F41.8 - Other specified anxiety disorders (ICD-10) Nicotine dependence ?F17.200 - Nicotine dependence, unspecified, uncomplicated (ICD-10) Type 2 diabetes mellitus ?E11.9 - Type 2 diabetes mellitus without complications (ICD-10) Osteoarthritis of right knee ?M17.11 - Unilateral primary osteoarthritis, right knee (ICD-10) Osteoarthritis of left knee ?M17.12 - Unilateral primary osteoarthritis, left knee (ICD-10) Surgical History History of meniscectomy of right knee (~2015) ?Z98.890 - Other specified postprocedural states (ICD-10) H/O vasectomy ?Z98.52 - Vasectomy status (ICD-10) History of partial colectomy (~1999) ?Z90.49 - Acquired absence of other specified parts of digestive tract (ICD-10) History of appendectomy ?Z90.49 - Acquired absence of other specified parts of digestive tract (ICD-10) Hx laparoscopic cholecystectomy (10/15/17) ?Z90.49 - Acquired absence of other specified parts of digestive tract (ICD-10) Family History Father Lung cancer Social History Narrative: Lives with partner Queenie. Three adult children from previous relationship. Queenie or daughter Savi would be medical decision maker if needed. Patient requests full code status. 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 Smokes 1 pack per day, > 20 pack-year history. No alcohol use. Highest level of school completed/degree received: GED or equivalent Smoking Status: Current every day smoker What tobacco products do you use: cigarettes Smoking packs per day: 0.5 Smoking cigarettes per day: 10.0 Years smoked: 40 Smoking pack-years: 20.00 Do you use any of these nicotine containing products: None Second hand tobacco smoke exposure: Yes How often do you have a drink containing alcohol: never How often do you have six or more drinks on one occasion: Never AUDIT-C Alcohol total score: 0 Non-prescribed substance use: denies use Caffeine: Yes (2 cups coffee in the morning) service: Yes Exam Const: Vital Signs, click to edit/add: Vital Signs - 24 hr 12/18/24 10:31 Temperature 98.6 F Pulse Rate [Right Pulse Oximeter] 110 H Respiratory Rate 22 Blood Pressure [Ri ght Upper Arm] 120/66 Pulse Oximetry 96 Oxygen Delivery Me thod Room Air This 64-year-old male is up in the room placing his gown on when I come in, has harsh sounding cough. After that he is able to speak, can speak in complete sentences. No hoarseness or stridor noted. Sclera clear come conjugate gaze, symmetric facial function. Neck supple, no jugular venous distension or any cervical adenopathy. Lungs with prolonged expiratory phase, distant breath sounds but do not hear any wheezing or crackles right now. He currently is not hypoxic but heart rate is elevated, difficult to hear but his radial pulse seems somewhat irregular, heart sounds are quite distant but do not appreciate any significant murmur. Abdomen is soft, nontender, nondistended. He has no pretibial edema. Documenting provider has reviewed patient's vital signs: yes Course Course ED Course: This is a 64-year-old male with underlying COPD that is complaining of shortness of breath and some chest pain. He does have a history of chronic chest pain and is known to have COPD. I suspect that he likely has a COPD exacerbation. Need to rule out underlying infectious etiology, viral versus bacterial. He right now is not hypoxic, was tachycardic on arrival. Need to consider other possible etiologies like thromboembolic disease or pulmonary emboli, possible cardiac causes. Will start with a portable chest x-ray, he is aware he may need chest CT imaging, will be doing a D-dimer. Will have him on pulse oximetry and cardiac monitoring while here looking for any subsequent hypoxia, arrhythmia. Reevaluation(s) Time of Reevaluation #1: 11:57 Reevaluation #1: Have reviewed with patient that his chest x-ray showing some changes consistent with probable infectious etiology. Will treat with prednisone as well as antibiotics for COPD exacerbation with underlying infection. His D-dimer, troponin and EKG are all reassuring. He is requesting some pain management, can receive some Toradol here and can continue with Tylenol/ibuprofen per bottle directions outpatient. He seems to have some component of pleuritic type chest pain today. He is not requiring any hospitalization, seems to be hemodynamically stable, oxygenating well. We he is appropriate for trial of outpatient management. His pulmonology appointment is December 29 which would be excellent time for recheck. He understands the meantime if he has worsening to return for further evaluation. Vital Signs Vital signs: Initial Vital Signs Temperature 98.6 F 12/18/24 10:31 Temperature Source Temporal Artery Scan 12/18/24 10:31 Pulse Rate 110 H 12/18/24 10:31 Pulse Rhythm Regular 12/18/24 10:31 Pulse Strength 3+ Normal 12/18/24 10:31 Respiratory Rate 22 12/18/24 10:31 Blood Pressure 120/66 12/18/24 10:31 Blood Pressure Mean 84 12/18/24 10:31 Blood Pressure Position Sitting 12/18/24 10:31 Pulse Oximetry 96 12/18/24 10:31 Oxygen Delivery Method Room Air 12/18/24 10:31 Vital Signs Temperature 98.6 F 12/18/24 10:31 Pulse Rate 110 H 12/18/24 10:31 Respiratory Rate 22 12/18/24 10:31 Blood Pressure 120/66 12/18/24 10:31 Pulse Oximetry 96 12/18/24 10:31 Oxygen Delivery Method Room Air 12/18/24 10:31 Temperature 98.6 F 12/18/24 10:31 Pulse Rate 110 H 12/18/24 10:31 Respiratory Rate 22 12/18/24 10:31 Blood Pressure 120/66 12/18/24 10:31 Pulse Oximetry 96 12/18/24 10:31 Oxygen Delivery Method Room Air 12/18/24 10:31 Medical Decision Making Lab Data Lab results reviewed: Yes I reviewed the patient's lab results Labs: Lab Results 12/18/24 12/18/24 Range/Units 10:50 11:04 WBC 7.38 (4.50-11.00) K/uL RBC 5.63 (4.30-5.90) m/uL Hgb 15.3 (13.5-17.5) gm/dL Hct 46.4 (37.0-53.0) % MCV 82 (80-100) fL MCH 27 (26-34) pg MCHC 33 (32-36) gm/dL RDW Coeff of Jeovanny 13.6 (11.5-15.5) % Plt Count 189 (140-440) K/uL Neut % (Auto) 75.0 H (42.0-72.0) % Lymph % (Auto) 15.7 L (20-44) % [place] % (Auto) 5.8 (0.0-11.0) % Eos % (Auto) 2.8 (0.0-7.0) % Baso % (Auto) 0.4 (0.0-3.0) % Neut # (Auto) 5.50 (1.7-7.0) K/uL Lymph # (Auto) 1.20 (0.90-2.90) K/uL [place] # (Auto) 0.40 (0.00-0.90) K/UL Eos # (Auto) 0.21 (0.00-0.50) K/uL Baso # (Auto) 0.03 (0.00-0.30) K/uL Abs Immat Gran (auto) 0.02 (0.00-0.30) K/uL Imm/Tot Granulo (auto) 0.3 % D-Dimer Quant (PE/DVT) 0.29 (0.00-0.50) ug/ml VBG pH 7.403 (7.32-7.43) VBG pCO2 42 (40-50) mmHG VBG pO2 < 30.1 (25-47) mmHG VBG HCO3 26 (21-28) mmol/L Sodium 134 L (135-149) mmol/L Potassium 5.0 (3.6-5.1) mmol/L Chloride 99 (96-114) mmol/L Carbon Dioxide 24 (20-32) mmol/L Anion Gap 11 (7-15) mEq/L BUN 13 (7-30) mg/dL Creatinine 0.9 (0.5-1.5) mg/dL Estimated Creat Clear 74.10 Estimated GFR 97 ml/min Glucose 113 (60-115) mg/dL Lactate 1.8 (0.5-1.9) mmol/L Calcium 9.6 (8.4-10.6) mg/dL Magnesium 1.8 (1.5-2.6) mg/dL Troponin I < 0.01 (0.01-0.04) ng/mL C-Reactive Protein < 0.5 L (0.5-1.0) mg/dL NT-Pro-B Natriuret Pep 38 pg/mL SARS-CoV-2 (PCR) Negative SARS-CoV-2 (Negative) Influenza Type A (PCR) Negative PCR FLU A (Negative) Influenza Type B (PCR) Negative PCR FLU B (Negative) RSV (PCR) Negative PCR RSV (Negative) Lab Acknowledgement Test Added Imaging Data Chest x-ray: Attestation: I have reviewed the pertinent imaging results. My impression: I do appreciate some bibasilar changes, wonder if they may be more vascular in nature, wait radiology over read. Radiologist's impression: Patient: SUBHASH MONTENEGRO Facility:?[facility] Patient ID:?[id number] Site Patient ID:?[id number]. Site :?[id number] Study:?XRay-Chest PORTABLE-12/18/2024 11:04:14 AM Ordering Physician:David Evans Final Report: INDICATION: Cough. Shortness of breath. Chest pain. COPD. TECHNIQUE: Chest 1 portable view. COMPARISON: 04/26/2023. FINDINGS: No pneumothorax. No definite pleural effusion. Mild basilar opacities, left greater than right. Lungs otherwise clear. Cardiac and mediastinal contours are within normal limits. Upper abdomen and osseous structures as imaged show no acute abnormality. IMPRESSION: Mild basilar atelectasis or developing airspace disease, [id number]. Dictated by Jayjay Huber MD @ 12/18/2024 11:13:15 AM (Electronic Signature) ECG Data Attestation: I personally reviewed and interpreted this ECG as follows: (Normal sinus rhythm, no definitive ischemia noted. Rate is 87 beats per minute.) Prior ECG tracings: available for review Discharge Plan Discharge Clinical Impression: Acute infective exacerbation of chronic obstructive airway disease Patient Disposition: Home, Self-Care Condition: Stable Instructions: COPD (Chronic Obstructive Pulmonary Disease) (ED) Additional Instructions: Start antibiotics and prednisone today as soon as possible, take as prescribed. Do recommend taking prednisone with food to help protect from stomach irritation. If you are not improving over the next week, feel you are worsening at any point, have concerns with worsening shortness of breath or difficulty breathing, do need to seek re-evaluation. Please keep your pulmonology appointment that is scheduled in December. Can use [id number] Tylenol and ibuprofen if needed for any discomfort. Activity Level: Activity as Tolerated Prescriptions: New prednisone 20 mg tablet 20 mg PO BID Qty: 10 0RF doxycycline hyclate 100 mg tablet 100 mg PO BID Qty: 14 0RF No Action atorvastatin 20 mg tablet 20 mg PO HS amlodipine 10 mg tablet 10 mg PO DAILY Patient Comments: TAKE ONE TABLET BY MOUTH EVERY EVENING lorazepam 1 mg tablet 1 mg PO DAILY Patient Comments: TAKE 1 TABLET BY MOUTH ONCE DAILY IF NEEDED FOR ANXIETY. metformin 1,000 mg tablet 1,000 mg PO BID Patient Comments: TAKE 1 TABLET BY MOUTH 2 TIMES DAILY WITH MEALS. omeprazole 40 mg capsule,delayed release(DR/EC) 40 mg PO DAILY Patient Comments: TAKE 1 CAPSULE BY MOUTH ONCE DAILY BEFORE A MEAL. tiotropium bromide [Spiriva with HandiHaler] 18 mcg capsule, w/inhalation device 1 cap INHALATION DAILY Patient Comments: INHALE CONTENTS OF 1 CAPSULE WITH HANDIHALER DEVICE ONCE DAILY ipratropium-albuterol 0.5 mg-3 mg(2.5 mg base)/3 mL solution for nebulization 3 ml INHALATION Q6H PRN Patient Comments: INHALE ONE VIAL VIA A NEBULIZER 4 TIMES DAILY NEEDED budesonide-formoterol [Symbicort] 160-4.5 mcg/actuation HFA aerosol inhaler 2 puff INHALATION Q12H Patient Comments: INHALE 2 PUFFS BY MOUTH 2 TIMES DAILY. albuterol sulfate [Ventolin HFA] 90 mcg/actuation HFA aerosol inhaler 2 puff INHALATION Q4H PRN meloxicam 15 mg tablet 15 mg PO DAILY Patient Comments: TAKE ONE TABLET BY MOUTH EVERY DAY benzonatate 100 mg Capsule 200 mg PO TID Qty: 20 0RF Follow Up/Referrals: Italia Pugh MD [Primary Care Provider] - Stand Alone Forms: [employer] Info Instructions
[2024-12-18 10:45] VITALS: O2SAT 94
--- NOTE | 2024-12-18 10:45 | CRLHL7_ITS ---
For Patients: As a result of the Century Cures Act, medical imaging exams and procedure reports are released immediately into your electronic medical record. You may view this report before your referring provider. If you have questions, please contact your health care provider. INDICATION: Cough. Shortness of breath. Chest pain. COPD. TECHNIQUE: Chest 1 portable view. COMPARISON: 04/26/2023. FINDINGS: No pneumothorax. No definite pleural effusion. Mild basilar opacities, left greater than right. Lungs otherwise clear. Cardiac and mediastinal contours are within normal limits. Upper abdomen and osseous structures as imaged show no acute abnormality. IMPRESSION: Mild basilar atelectasis or developing airspace disease, [id number]-right. Dictated by Jayjay Huber MD @ 12/18/2024 11:13:15 AM (Electronically Signed)
--- OUTSIDE RECORDS SUMMARY | 2024-12-18 10:57 | XMS_ITS | Encounter Summary ---
Author Organization [facility] Address [address] [place] [address]. [place] [address] Care Team Providers Care Flue Gas Analyst Name Role Phone Jono Espinal MD Primary Care Provider [phone] [facility] Radha [place] Primary Care Provide r Italia Pugh MD Primary Care Provider + Josue Ventura MD Primary Care Provider Italia Pugh MD Primary Care Provider + Encounter Details Date Type Department Care Team (Late st Contact Info) Description 02/25/[address] [id number] Haroldo Nielsen MD [address] [place] [id number] [facility] Social History Tobacco Use Types Packs/Day Years Used Date Smoking Tobacco: Every Day Cigarettes Smokeless Tobacco: Never Alcohol Use Standard Drinks/Week Comments No 0 (1 standard drink = 0.6 oz pur e alcohol) Sex and Gender Information Value Date Recorded Sex Assigned at Not on file Legal 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 Gender Identity Not on file Sexual Orientation Not on file documented as of this encounter Plan of Treatment Not on file documented as of this encounter Visit Diagnoses Not on filedocumented in this encounter Additional Health Concerns Infection Onset Date Last Indicated Resolved Time Rule Out COVID-19 10/06/2020 10/06/2020 10/06/2020 1:58 PM MANAGER WE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 Rule Out COVID-19 09/29/2021 09/29/2021 09/29/2021 5:59 PM 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 [employer]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 documented as of this encounter Care Teams Flue Gas Analyst Relationship Specialty Start Date End Date Jono Espinal MD [address] [place] [address] PCP - General 10/29/04 07/25/11 [facility] [id number] [place] [id number] PCP - General 07/26/11 05/21/13 Italia Pugh MD [facility] [id number] [place] [id number] PCP - General Family Practice 05/22/13 10/21/18 Josue Ventura MD [facility] [address] [place] [address] PCP - General Emergency Medicine 10/22/18 03/25/19 Italia Pugh MD [facility] [id number] [place] [id number] PCP - General Family Practice 03/26/19 documented as of this encounter
--- OUTSIDE RECORDS SUMMARY | 2024-12-18 10:58 | XMS_ITS | Clinical Summary ---
Author Organization [employer] [facility] Address [address] [place] [address] Care Team Providers Care Speeder Tender Name Role Phone Italia Pugh MD [...] Eligibility Review Date: 07/19/19 Upcoming Visit Location: [facility] Age: 59 y.o. Insurance: [employer] Etiology: ? NYHA: ? Last HF Admit: [...] in the RUL. Patient was referred to [facility] lung nodule clinic. Abdominal pain [...] ECT treatment. Last one in 1999 at [facility] Fatty liver, alcoholic Overview (09/14/2017): No alcohol [...] Type Department Care Team Description 12/12/[address] [address] Karma Werner, RT Appointment 12/12/[address] [address] Karma Werner, RT Appointment 12/08/2024 Telephone [facility] [address] [place] [address] Italia Pugh MD Lung Screening CT Result 12/08/[address] [address] Italia Pugh MD Results (Ct scan ) 12/08/2024 Telephone [facility] [address] [place] [address] None Referral (Incoming Referral ) 12/08/[address] [address] Italia Pugh MD Referral (Lung nodule clinic) 12/07/2024 10:30 AM CDT Ancillary Procedure [facility] [address] [place] [address] 12/07/2024 Travel 12/05/[address] [address] Italia Pugh MD Refill Request (Amlodipine, Metformin, Spiriva) 11/30/2024 10:30 AM FRANCHISE BUSINESS CONSULTANT Office Visit [facility] [address] [address] Adams Byrd MD Consult (RUQ abdominal pain) 11/30/2024 Travel 11/28/[address] [address] Italia Pugh MD Results 11/28/[address] [address] Italia Pugh MD Medication Management (Up to date list./) 11/27/2024 9:45 AM FRANCHISE BUSINESS CONSULTANT Office Visit [address] [place] [address] Italia Pugh MD Arm Pain/problem (Right bicept); Leg Pain/problem (Cramping at night); Eye Problem (bumps); Form (Handicap parking); Follow Up (lab); Medication Management (Need new neb machine Rx) 11/27/2024 Travel 11/03/[address] [address] Italia Pugh MD Refill Request (Metformin, Amlodipine) 10/23/[address] [address] Italia Pugh MD Referral (Lorazepam) 10/19/[address] [address] Italia Pugh MD 10/16/[address] [address] Italia Pugh MD Refill Request (Albuterol-ipratrop ium) 10/03/[address] [address] Italia Pugh MD Refill Request (Meloxicam, Spiriva) 10/02/[address] [address] Italia Pugh MD Refill Request (Albuterol-ipratrop ium) [...] on file Legal Sex Male 5:43 AM FRANCHISE BUSINESS CONSULTANT Gender Identity Not on file Sexual Orientation Not on file Obstetrics History Last Filed Vital Signs Vital Sign Reading Time Taken Comments Blood Pressure 126/74 11/30/2024 10:25 AM FRANCHISE BUSINESS CONSULTANT Pulse 84 11/30/2024 10:25 AM FRANCHISE BUSINESS CONSULTANT Temperature 36.7 C (98 F) 05/17/2024 10:43 AM CDT Respiratory Rate 20 11/22/2023 1:40 PM FRANCHISE BUSINESS CONSULTANT Oxygen Saturation 97% 05/17/2024 10:43 AM CDT Inhaled Oxygen Concentration - - Weight 85.3 kg (188 lb) 11/30/2024 10:25 AM FRANCHISE BUSINESS CONSULTANT Height 172.1 cm (5' 7.75) 11/30/2024 10:[address] Body Mass Index 28.8 11/30/2024 10:25 AM FRANCHISE BUSINESS CONSULTANT Plan of Treatment Upcoming Encounters Date Type Department Care Team (Late st Contact Info) Description 12/29/2024 11:00 AM CDT Office Visit [facility] [address] [facility] [address] [place] [address] Jb Rodriguez MD [address] [place] [address] 02/27/2025 11:30 AM CDT Office Visit [facility] [address] [place] [address] Bryatn Bender MD [address] [place] [address] Health Maintenance Due Date Last Done Comments [...] Completed 08/11/2024 Medical Devices Implanted Type Area Photogrammetric Engineer Device Identifier Shelf Expiration Date Model / Serial / Lot Mesh Ventral 01b45os Progrip Lapsc Slf Fixating - [id number] Implanted:Qty: 1 on 12/07/2018 by Cindy Munoz DO at [facility] Left: Inguinal [employer] 01/25/2020 [id number] / / [id number] Mesh Ventral 6x8in Ventralightst W/Echo Ps - [id number] Implanted:Qty: 1 on 12/07/2018 by Cindy Munoz DO at [facility] N/A: Abdomen [employer] 07/24/2019 [id number] / / [id number] Explanted Type Area Photogrammetric Engineer Device Identifier Shelf Expiration Date Model / Serial / Lot Mesh Inguinal Lt 3x5in 3-D Max - [id number] Implanted:Qty: 1 Explanted:Qty: 1 on 12/07/2018 at [facility] Left: Inguinal [employer] 01/22/2023 [id number] / / [id number] Procedures Procedure Name Priority Date/Time Associated Diagnosis Comments CT CHEST SCREENING LOW DOSE WO CONTRAST Routine 12/07/2024 10:27 AM CDT Cigarette smoker Encounter for screening for lung cancer Personal history of nicotine dependence BASIC METABOLIC PANEL Routine 11/27/2024 9:40 AM FRANCHISE BUSINESS CONSULTANT Hypertension Type 2 diabetes mellitus without complication, without long-term current use of insulin (HC) LIPID PANEL W REFLEX MEASURED LDL Routine 11/27/2024 9:40 AM FRANCHISE BUSINESS CONSULTANT Hypertriglyceridemi a HEMOGLOBIN A1C MONITORING (POCT) Routine 11/27/2024 9:39 AM FRANCHISE BUSINESS CONSULTANT Type 2 diabetes mellitus without complication, without long-term current use of insulin (HC) COLONOSCOPY 06/22/2023 12:20 PM CDT ANTI HCV Routine 11/17/2013 12:29 PM FRANCHISE BUSINESS CONSULTANT Screening for viral disease from Last 3 Months or Most Recently Relevant to Health Maintenance Results * CT CHEST SCREENING LOW DOSE WO CONTRAST [[id number]] -- Criteria: must meet ALL: Age 50-80, [...] techniques used. COMPARISON: CT chest 12/14/2022. FINDINGS: [id number] subpleural reticulation and ground-glass opacities in the [...] W REFLEX MEASURED LDL (11/27/2024 9:40 AM FRANCHISE BUSINESS CONSULTANT) CHOLESTEROL, TOTAL 100 <200 mg/dL [facility] [...] LDL-C. Braulio MONTOYA et al. NATE. 2013;310(19): 3336-6464 (http://education.Adcrowd retargeting/faq/LGW834) CHOL/HDLC RATIO 2.9 <5.0 (calc) [facility] NON HDL CHOLESTEROL 66 <130 mg/dL (calc) [facility] Comment: For patients with diabetes plus 1 major ASCVD risk factor, treating to a non-HDL-C goal of <100 mg/dL (LDL-C of <70 mg/dL) is considered a therapeutic option. Blood BLOOD SPECIMEN / Unknown 11/27/2024 9:40 AM FRANCHISE BUSINESS CONSULTANT 11/27/2024 9:42 AM FRANCHISE BUSINESS CONSULTANT Narrative [facility] - 11/28/2024 3:51 AM FRANCHISE BUSINESS CONSULTANT FASTING:NO FASTING: NO Italia Pugh MD CHEMISTRY Final Re sult [facility] [address] [place] [address], [facility] [address] [place] [address] * (ABNORMAL) BASIC METABOLIC PANEL (11/27/2024 9:40 AM FRANCHISE BUSINESS CONSULTANT) GLUCOSE 116 65 - 139 mg/dL [facility] Comment: Non-fasting reference interval UREA [...] BLOOD SPECIMEN / Unknown 11/27/2024 9:40 AM FRANCHISE BUSINESS CONSULTANT 11/27/2024 9:42 AM FRANCHISE BUSINESS CONSULTANT Narrative [facility] - 11/28/2024 3:51 AM FRANCHISE BUSINESS CONSULTANT FASTING:NO FASTING: NO Italia Pugh MD CHEMISTRY Final Re sult Performing Organization Address [facility]/ZIP Co de Phone Number [facility] [address] [place] [address], [facility] [address] [place] [address] * (ABNORMAL) POCT Hemoglobin A1C Monitoring (11/27/2024 9:39 AM FRANCHISE BUSINESS CONSULTANT) POC HEMOGLOBIN A1C 6.5(H) <6.0 % OF TOTAL HGB [facility] Comment: Any point of care results exhibiting inconsistency with the patient's clinical status should be repeated using a different testing method. Blood BLOOD SPECIMEN / Unknown 11/27/2024 9:39 AM FRANCHISE BUSINESS CONSULTANT 11/27/2024 9:40 AM FRANCHISE BUSINESS CONSULTANT Italia Pugh MD CHEMISTRY Final Re sult Performing Organization Address [facility]/ZIP Co de Phone Number [address] [address] * COLONOSCOPY (06/22/2023 12:20 PM CDT) 06/22/2023 [...] adequate candidate for conscious sedation. The endoscope [id number] was passed through the and advancedto. The [...] Result * ANTI HCV (11/17/2013 12:29 PM FRANCHISE BUSINESS CONSULTANT) ANTI HCV Non-reacti ve [facility] Blood specimen (specimen) BLOOD SPECIMEN / Unknown 11/17/2013 12:29 PM FRANCHISE BUSINESS CONSULTANT 11/17/2013 12:24 PM FRANCHISE BUSINESS CONSULTANT us Italia Pugh MD SEND OUTS Final Re sult [facility] INTERNAL ZIP [address] [address] [place] [address] from Last 3 Months or Most Recently Relevant to Health Maintenance Insurance [facility] Advance Directives * Full Code [...] 10:25 PM 04/10/2009 1:55 PM Care Teams Speeder Tender Relationship Specialty [place] [address] [place] [address] PCP - General Family Practice 09/23/17 [facility] [address] [place] [address] Ophthalmology Flight Radio Operator 06/16/21
--- OUTSIDE RECORDS SUMMARY | 2024-12-18 10:58 | XMS_ITS | CCD ---
Author Organization Unknown Care Team Providers Care Project Consultant Name Role Phone Lift Team Technician, [place] Primary Care Provider Unava ilable Unavailable Chronic Care Management Unavaila ble Summary Purpose DataExchange Insurance Providers Payer name Policy type / Coverage type Covered republican ID Effective Begin Date Effective End Date [facility] Commercial Insurance [id number] Unknown Unkn own Family History Family History data not found Medication Administered No Medication Administered data Reason For Visit No Reason For Visit data
--- OUTSIDE RECORDS SUMMARY | 2024-12-18 10:58 | XMS_ITS | Clinical Summary ---
Author Organization [place] Address [address] [place] [address]. [place] [address] Care Team Providers Care Director Of Corporate Strategy Name Role Phone Italia Pugh MD Primary [...] on file Legal Sex Male 3:04 AM BUS ATTENDANT Gender Identity Not on file Sexual Orientation [...] 175.3 cm (5' 9) 09/30/2021 8:31 AM BUS ATTENDANT Body Mass Index 28.91 09/30/2021 8:31 AM BUS ATTENDANT Plan of Treatment Health Maintenance Due Date [...] and gender (Antony et al., NEJM, DOI: 10.1056/[id number]) Blood STRUCTURE OF LEFT UPPER LIMB / Unknown Venipuncture / Unknown 06/16/2022 4:34 PM CDT 06/16/2022 4:37 PM CDT us Joe Jade MD LAB - BLOOD ORDERABLES F inal Result LABORATORY [facility] [address] Lab (1st floor, no room number) [place] [address], [facility] [phone] from Last 3 Months or Most Recently Relevant to Health Maintenance Insurance [facility] Advance Directives For more information, please contact: [phone] * Full Code (Latest Code Status on [...] with patie nt/legal decision maker Care Teams Director Of Corporate Strategy Relationship Specialty Start Date End Date Italia Pugh MD [facility] [id number] [place] [address] PCP - General Family Practice 03/26/19
[2024-12-18 11:13] LABS: HCO3 VBG 26 mmol/L (21-28); Lactate* 1.8 mmol/L (0.5-1.9); PCO2 VBG 42 mmHG (40-50); PO2 VBG < 30.1 mmHG (25-47); pH VBG 7.403 (7.32-7.43)
[2024-12-18 11:18] LABS: Basophils Absolute Auto 0.03 K/uL (0.00-0.30); Basophils Percent Auto 0.4 % (0.0-3.0); Eosinophils Absolute Auto 0.21 K/uL (0.00-0.50); Eosinophils Percent Auto 2.8 % (0.0-7.0); Hematocrit 46.4 % (37.0-53.0); Hemoglobin* 15.3 gm/dL (13.5-17.5); Immature Granulocytes Abs Auto 0.02 K/uL (0.00-0.30); Immature Granulocytes Pct Auto 0.3 %; Lymphocytes Percent Auto 15.7 % (20-44); Mean Corpuscular HGB Conc 33 gm/dL (32-36); Mean Corpuscular Hemoglobin 27 pg (26-34); Mean Corpuscular Volume 82 fL (80-100); Monocytes Percent Auto 5.8 % (0.0-11.0); Platelet Count* 189 K/uL (140-440); RDW Coefficient of Variation % 13.6 % (11.5-15.5); Red Blood Count 5.63 m/uL (4.30-5.90); White Blood Count* 7.38 K/uL (4.50-11.00)
[2024-12-18 11:20] LABS: Slide Review Reflex No
[2024-12-18 11:36] LABS: Chloride* 99 mmol/L (96-114); Sodium* 134 mmol/L (135-149)
[2024-12-18 11:39] LABS: Anion Gap 11 mEq/L (7-15); Blood Urea Nitrogen* 13 mg/dL (7-30); Calcium* 9.6 mg/dL (8.4-10.6); Carbon Dioxide* 24 mmol/L (20-32); Creatinine* 0.9 mg/dL (0.5-1.5); Estimated Glomerular Filt Rate 97 ml/min; Glucose* 113 mg/dL (60-115)
[2024-12-18 11:40] LABS: Magnesium* 1.8 mg/dL (1.5-2.6)
[2024-12-18 11:42] LABS: D Dimer Quantitative* 0.29 ug/ml (0.00-0.50)
[2024-12-18 11:51] LABS: C Reactive Protein* < 0.5 mg/dL (0.5-1.0); NT Pro B Type NatriureticPept* 38 pg/mL; Troponin I* < 0.01 ng/mL (0.01-0.04)
[2024-12-18 11:52] LABS: PCR FLU A Negative PCR FLU A (Negative); PCR FLU B Negative PCR FLU B (Negative); PCR RSV Negative PCR RSV (Negative); SARS PCR* Negative SARS-CoV-2 (Negative)
[2024-12-18] MEDS: KETOROLAC 15 MG/ML inj IVP (12:06)
== END 2024-12-18 12:15 | disposition home or self-care (01) ==
PROVIDERS: Emergency Provider Family Medicine; PCP Family Medicine
DX: J44.1 Chronic obstructive pulmonary disease with (acute) exacerbation (principal)
CPT/HCPCS: 36415; 71045; 80048; 82803; 83605; 83735; 83880; 84484; 85025; 85379; 86140; 87631; 93005; 94761; 96374; 99284; 99285; J1885

== ENCOUNTER 2025-02-15 08:25 | Emergency (ER) | payer MEDICAID, SELFPAY ==
[2025-02-15] VITALS (23 sets, daily range): BP systolic 130–184; BP diastolic 77–109; PULSE 77–97; RESP 6–38; TEMP 36.6; O2SAT 91–97; BMI 26.6
--- OUTSIDE RECORDS SUMMARY | 2025-02-15 08:27 | XMS_ITS | Data Portability ---
Author Organization [place] [facility] [place] [facility], [facility] Address [address] [facility] [place] [address] Care Team Providers Care Ship Rigger Name Role Phone RASHIDA BERRY Primary Care Provider Assessment No assessment recorded. Plan of Treatment Reminders Order Date Submit Date Provider Last Modified By Organization Details Last Modified Time Details Appointments None recorded. Lab urinalysis, dipstick 2022 023 [facility], [facility] [facility], [address] [place] [address], [address], 3 11:25:35 urinalysis, dipstick 2022 023 [email or web address] 9 [facility], [facility] [facility], [address], [place], [address], 3 11:08:34 Referral None recorded. Procedures bladder scan (PROC) 2022 023 [facility], [address] [facility], [address], [place], [address], 3 11:25:35 bladder scan (PROC) 2022 023 [facility] [facility], [address], [place], [address], 3 09:42:33 Surgeries None recorded. Imaging None recorded. Medication Orders oxybutynin chloride ER 10 mg tablet,exte nded release 24 hr [address], [address], 15:33:41 Patient TargetsNo targets recorded. Patient Instructions Encounter Date Encounter Id Patient Instructions Last Modified By Organization Details Last Modified Time 12/17/2022 [id number] will check PSA and try starting oxybutynin ER 10mg call with PSA result and follow up timing. [email or web address] Not available 12/17/2022 11:10:02 01/28/2023 [id number] continue on oxybutynin until refills gone and rtc mid-April for recheck off med for a few weeks. [email or web address] Not available 01/28/2023 11:34:43 Reason for Referral None Reported. Results Created Date Observation Date Name Description Value Unit Range Abnormal Flag Note LastModifiedBy Organization Detail LastModifiedTime 12/18/1912/17/2022 urina lysis , dipst ick Glucose-Stat us 250 Not Available [address] [place], [place], [address], 12/17/2022 10:54:46 12/18/19 23 12/17/2022 urina lysis , dipst ick pH-Status 6.5 Not Available [address], [place], [address], 12/17/2022 10:54:46 12/18/1912/17/2022 bladd er scan (PROC ) Volume (in mL) 24ml Not Available [address], [place], [address], 12/17/2022 11:08:30 01/29/2001/28/2023 urina lysis , dipst ick Bilirubin-St atus Small Not Available [place] [address] [facility] [address], [place], [address], 01/26/2023 16:56:57 01/29/2001/28/2023 urina lysis , dipst ick pH-Status 6.0 Not Available [address], [place], [address], 01/26/2023 16:56:57 01/29/2001/28/2023 bladd er scan (PROC ) Volume (in mL) 41ml Not Available [address], [place], [address], 01/26/2023 16:57:05 Result Notes None recorded. Procedures Surgical History Date Name Laterality Status Provider Name and Address Organization Details Recorded Time 01/29/20 Bladder Scan completed Shannon Blunt [facility] 01/28/2023 11:25:39 12/18/19 Bladder Scan completed Srinivasa Morales MD [address] [place] [address],[address] [place] [address], [address], [facility] 12/17/2022 10:49:17 Cataract Surgery completed Srinivasa Morales MD [address] [place] [address],[address], [address], [facility] 12/17/2022 10:52:41 Colonoscopy completed Srinivasa Morales MD [address] [place] [address],[address], [address], [facility] 12/17/2022 10:52:49 Hernia Repair completed Srinivasa Morales MD [address] [place] [address],[address], [address], [facility] 12/17/2022 10:52:56 Vasectomy completed Srinivasa Morales MD [address] [place] [address],[address], [address], [facility] 12/17/2022 10:53:03 cholecystectomy completed Srinivasa Morales MD [address] [place] [address],[address], [address], [facility] 12/17/2022 10:53:08 arthroplasty of knee completed Srinivasa Morales MD [address] [place] [address],[address], [address], [facility] 12/17/2022 10:53:27 excision of colon completed Srinivasa Morales MD [address] [place] [address],[address], [address], [facility] 12/17/2022 10:53:42 Imaging Results None recorded. [...] Updated DateTime 12/17/2022 175.26 cm 26.6 kg/m2 64012.63 g Srinivasa Morales MD [address] [place] [address] [place] [address] Urology 12/17/2022 10:48:41 Date Recorded Body height Body mass index (BMI) Body weight Provider Name and Address Organization Details Last Updated DateTime 01/28/2023 175.26 cm 26.6 kg/m2 31237.63 g Ivanna Bhatti [facility] 01/28/2023 11:14:04 Social History Question Answer Notes LastModified by General Compression Details LastModified Time Tobacco Smoking Status Current Every Day Smoker Srinivasa Morales MD [address] [place] [address] 12/17/2022 10:52:07 What Is Your Level Of Caffeine Consumption? Moderate Information not available 12/17/2022 What Was The Date Of Your Most Recent Tobacco Screening? 01/28/2023 [email or web address] Information not available 01/28/2023 How Much Tobacco Do You Smoke? 1 PPD [email or web address] Information not available 12/17/2022 Has Tobacco Cessation Counseling Been Provided? No [email or web address] Information not available 01/28/2023 Sex: Unknown Functional Status Question Answer Note LastModified by [employer] ion Details LastModified Time How many times per week do you consume alcohol? 3-4 times per week [email or web address] Information not available 01/28/2023 Do you use any illicit or recreational drugs? No [email or web address] Information not available 01/28/2023 Do you or have you ever used any other forms of tobacco or nicotine? No [email or web address] Information not available 01/28/2023 What is your level of alcohol consumption? Moderate [email or web address] Information not available 12/17/2022 Mental Status None recorded. Family History Nothing Reported. Medical History Condition Response Other N High Blood Pressure Y Kidney Stones N Lung Disease Y Depression N GERD/Acid Reflux Y Diabetes Y Sexually Transmitted Infection N Bleeding Disorder N Cancer N High Cholesterol Y Heart Disease N Immunizations Vaccine Type Date Status Note Provider Nam e and Address Organization Details Recorded Time pneumococcal polysaccharide PPV23 1 completed Ivanna Magy dsouza [facility] 01/28/2023 11:13:57 Past Encounters Encounter ID Performer Location Encounter Start Date Encounter Closed Date Diagnosis/Indication Diagnosis SNOMED-CT Code Diagnosis ICD10 Code Diagnosis Note [id number] Srinivasa Morales MD _[place] [address] [facility],[address] [place] [address] 12/17/2022 10:26:14 12/22/2022 12:03:08 Lower urinary tract symptoms due to benign prostatic hypertrophy 5227022119 9101 N40.1 Increased frequency of urination 385561707 R35.0 Nocturia 376403717 R35.1 [id number] [facility]asa [facility] [address] [facility],[address] [place] [address] 01/28/2023 11:07:32 02/03/2023 11:24:01 Nocturia 951163854 R35.1 Health Concerns Section Related Observation LastModified by Organization Detai ls LastModified Time None Recorded Concern Status LastModified by Organization Details LastModified Time None Recorded Advance Directives Directive None Recorded Payers Insurance Date Sequence Insurance Name Policy Number Policy Starr Covered Member ID Starr Member ID Guarantor Name 02/03/[address] [facility] - DOS PRIOR TO 2023 (MEDICAID REPLACEMENT - HMO) [id number] Garrett Valenzuela [id number] Garrett Valenzuela Notes Date Note Type Note Provider Name and Address Organization Details Recorded Time 12/17/2022 text/html seeing for BPH with frequency and nocturia x4, tried tamsulosin one and then two caps/day and has not had any improvement. UA clear and PVR 24ml today. last PSA 8 years ago 0.32. Srinivasa Morales MD [address] [facility],[address], [place], [address], [facility] 12/17/2022 11:11:15 01/28/2023 text/html oxybutynin 10mg ER given last visit helping with nocturia, was hourly now only 2x. UA clear and PVR 41ml today. no dry mouth from med. PSA after last visit was 0.4 Srinivasa Morales MD [address] [facility],[address], [place], [address], [facility] 01/28/2023 11:35:06
--- OUTSIDE RECORDS SUMMARY | 2025-02-15 08:27 | XMS_ITS | Clinical Summary ---
Author Organization [facility] Address [address] [place] [address] Care Team Providers Care Executive Consultant Name Role Phone Italia Pugh MD [...] TEST STRIP strip 3 times daily. 0 7 Active TRUEPLUS LANCETS 33 gauge misc 3 times daily. 0 7 Active TRUE METRIX GLUCOSE METER 3 times daily. 0 7 Active albuterol (PROVENTIL) 0.083 % neb solutionIndication s:COPD mixed type (HC) Inhale 3 mL via a nebulizer every 4 hours if needed. 1 box 3 9 Active oxygen-air delivery systems (HOME OXYGEN)Indications :COPD mixed type (HC),Nocturnal hypoxia Oxygen for home use. Liters per minute: 1 per nasal cannula. Frequency of use: Nocturnal;. Length of need: 99 Months. 1 Device 9 Active escitalopram oxalate (LEXAPRO) 20 mg tabletIndications: Anxiety state,Mild episode of recurrent major depressive disorder Take 1 Tablet (20 mg) by mouth once daily. 90 Tablet 3 4 Active Symbicort 160-4.5 mcg/actuation (160-4.5 mcg each actuation) inhalerIndications :SOB (shortness of breath) INHALE 2 PUFFS BY MOUTH 2 TIMES DAILY. 10.2 g 11 4 Active omeprazole (PRILOSEC) 40 mg Delayed-Release capsuleIndications :Gastroesophageal reflux disease without esophagitis TAKE ONE CAPSULE BY MOUTH TWICE A DAY 180 Capsule 2 4 Active meloxicam 15 mg tabletIndications: Chronic pain of both knees Take 1 Tablet (15 mg) by mouth once daily. 90 Tablet 1 5 Active albuterol-ipratrop ium (DUONEB) (2.5-0.5 mg) in 3 mL NEBULIZATION solutionIndication s:COPD mixed type (HC) INHALE 3 ML(1 VIAL) VIA NEBULIZER EVERY 6 HOURS IF NEEDED FOR SHORTNESS OF BREATH. 180 mL 2 5 Active NebulizerIndicatio ns:COPD mixed type (HC) Nebulizer, disposable neb kit x 4, reuseable neb kit x 1, mask x 1, filters x 1. Frequency of use: daily; Medication: duoneb Length of need: 99 months 1 Each 5 Active LORazepam 1 mg tabletIndications: Anxiety state Take 1 Tablet (1 mg) by mouth three times daily. 90 Tablet 5 5 Active atorvastatin (LIPITOR) 20 mg tabletIndications: Hypertriglyceridem ia,Hyperlipidemia, unspecified hyperlipidemia type Take 1 Tablet (20 mg) by mouth at bedtime. 90 Tablet 3 5 Active tamsulosin 0.4 mg capsuleIndications :BPH without urinary obstruction Take 2 Capsules (0.8 mg) by mouth once daily after a meal. 180 Capsule 3 5 Active amLODIPine (NORVASC) 10 mg tabletIndications: HTN (hypertension) TAKE ONE TABLET BY MOUTH EVERY EVENING 90 Tablet 3 5 Active metFORMIN (GLUCOPHAGE) 1,000 mg tabletIndications: Type 2 diabetes mellitus without complication, without long-term current use of insulin (HC) TAKE 1 TABLET BY MOUTH 2 TIMES DAILY WITH MEALS. 180 Tablet 1 5 Active spiriva 18 mcg inhalation capsuleIndications :COPD mixed type (HC) INHALE CONTENTS OF 1 CAPSULE WITH HANDIHALER DEVICE ONCE DAILY 90 Capsule 1 5 Active HYDROcodone-acetam inophen (5-325 mg/tablet)Indicati ons:Right leg pain Take 1 Tablet by mouth every 6 hours if needed for Pain. 24 Tablet 5 Active Ventolin HFA 90 mcg/actuation inhalerIndications :COPD mixed type (HC),SOB (shortness of breath) INHALE 1 TO 2 PUFFS BY MOUTH INTO THE LUNGS EVERY 4 HOURS NEEDED 18 g 3 5 Active Active Problems Patient Care Coordination No te Formatting of this note migh t be different from the original. HF/Structural Research Eligibility Review Date: 07/19/19 Upcoming Visit Location: [facility] Age: 59 y.o. Insurance: [employer] Etiology: ? NYHA: ? Last HF Admit: [...] in the RUL. Patient was referred to [facility] lung nodule clinic. Abdominal pain 07/28/2023 Fay's [...] ECT treatment. Last one in 1999 at [facility] Fatty liver, alcoholic Overview (09/14/2017): No alcohol [...] Encounters Date Type Department Care Team Description 02/15/2025 Nurse Triage [facility] [address] [place] [address] Italia Pugh MD Chest Pain/problem 01/11/2025 Refill [facility] [address] [place] [address] Italia Pugh MD Refill Request (Ventolin Hfa) 12/29/2024 11:00 AM CDT Office Visit [facility] [place] [address] [place] [phone] Jb Rodriguez MD Consult 12/29/2024 Travel 12/26/[address] [address] Karma Werner, RT Appointment 12/25/[address] [address] Italia Pugh MD Refill Request (HYDROcodone-acetamin ophen ) 12/22/[address] [address] Italia Pugh MD Referral 12/20/[address] [address] Italai Pugh MD Error-please disregard 12/18/2024 Orders Only [facility] Scanner 1 scan: (1-Ord) [facility], XR CHEST 1V PORTABLE, 12/18/2024 12/18/[address] [address] Italia Pugh MD requesting pain meds until see pulmanologist 12/12/[address] [address] Karma Werner, RT Appointment 12/12/[address] [address] Karma Werner, RT Appointment 12/08/2024 Telephone [place] [address] [place] [phone] Italia Pugh MD Lung Screening CT Result 12/08/[address] [address] Italia Pugh MD Results (Ct scan ) 12/08/2024 Telephone [facility] [address] [place] [phone] None Referral (Incoming Referral ) 12/08/[address] [address] Italia Pugh MD Referral (Lung nodule clinic) 12/07/2024 10:30 AM CDT Ancillary Procedure [facility] [address] [place] [address] 12/07/2024 Travel 12/05/[address] [address] Italia Pugh MD Refill Request (Amlodipine, Metformin, Spiriva) 11/30/2024 10:30 AM FIELD CARE ADVOCATE Office Visit [facility] [address] [address] Adams Byrd MD Consult (RUQ abdominal pain) 11/30/2024 Travel 11/28/[address] [address] Italia Pugh MD Results 11/28/[address] [address] Italia Pugh MD Medication Management (Up to date list./) 11/27/2024 9:45 AM FIELD CARE ADVOCATE Office Visit [address] [address] Italia Pugh MD Arm Pain/problem (Right bicept); Leg Pain/problem (Cramping at night); Eye Problem (bumps); Form (Handicap parking); Follow Up (lab); Medication Management (Need new neb machine Rx) 11/27/2024 Travel from Last 3 Months Immunizations Immunization Administration [...] Name Comments Good Health Brother Cancer Father Lung cancer Father Good Health Mother Cancer Paternal Grandfather Lung cancer Paternal Grandfather Cancer Paternal Grandmother Anxiety disorder Sister Good Health Sister Good Health Son Andrez Relation Name Status Comments Brother Alive Father Mother Alive Paternal Grandfather Paternal Grandmother Sister Alive Son Andrez Alive Social History Tobacco Use Types Packs/Day Years Used Date Smoking Tobacco: Every Day Cigarettes 1 48.4 Started: 1974 Smokeless Tobacco: Never Tobacco Cessation:Ready to Q uit: Yes; Counseling Given: Not Answered Comments:Noted today 05/01/19-Pt [...] on file Legal Sex Male 5:43 AM FIELD CARE ADVOCATE Gender Identity Not on file Sexual Orientation Not on file Obstetrics History Last Filed Vital Signs Vital Sign Reading Time Taken Comments Blood Pressure 133/76 12/29/2024 10:48 AM CDT Pulse 90 12/29/2024 10:48 AM CDT Temperature 36.7 C (98 F) 12/29/2024 10:48 AM CDT Respiratory Rate 18 12/29/2024 10:4 8 AM CDT Oxygen Saturation 94% 12/29/2024 10: 48 AM CDT Inhaled Oxygen Concentration - - Weight 82.9 kg (182 lb 11.2 oz) 025 10:48 AM CDT Height 172.1 cm (5' 7.75) 11/30/2024 1 0:25 AM FIELD CARE ADVOCATE Body Mass Index 27.98 11/30/2024 10:25 AM FIELD CARE ADVOCATE Plan of Treatment Upcoming Encounters Date Type Department Care Team (Late st Contact Info) Description 02/27/2025 11:30 AM CDT Office Visit [facility] [address] [place] [address] Bryant Bender MD [address] [place] [address] Health Maintenance Due Date Last Done Comments HIV for age 15-65 1977 Hepatitis B series for 19+ ( 2 of 3 - 19+ 3-dose series) 03/29/2009 03/01/2009 Depression screening for age 12+ 11/27/2025 11/28/19 25 BMI (ht and wt on same day) for age 18+ 11/30/2025 11/30/2024, 05/10/2024, 02/18/2024, Additional history exists Low Dose CT (for [...] Completed 08/11/2024 Medical Devices Implanted Type Area Nuclear Instructor Device Identifier Shelf Expiration Date Model / Serial / Lot Mesh Ventral [id number] Progrip Lapsc Slf Fixating - [id number] Implanted:Qty: 1 on 12/07/2018 by Cindy Munoz DO at [facility] Left: Inguinal [employer] 01/25/2020 [id number] / / [id number] Mesh Ventral 6x8in Ventralightst W/Echo Ps - [id number] Implanted:Qty: 1 on 12/07/2018 by Cindy Munoz DO at [facility] N/A: Abdomen [employer] 07/24/2019 [id number] / / [id number] Explanted Type Area Nuclear Instructor Device Identifier Shelf Expiration Date Model / Serial / Lot Mesh Inguinal Lt 3x5in 3-D Max - [id number] Implanted:Qty: 1 Explanted:Qty: 1 on 12/07/2018 at [facility] Left: Inguinal [employer] 01/22/2023 [id number] / / [id number] Procedures Procedure Name Priority Date/Time Associated Diagnosis Comments SCAN-RADIOLOGY REPORT 12/18/2024 12:[address] CHEST SCREENING LOW DOSE WO CONTRAST Routine 12/07/2024 10:27 AM CDT Cigarette smoker Encounter for screening for lung cancer Personal history of nicotine dependence BASIC METABOLIC PANEL Routine 11/27/2024 9:40 AM FIELD CARE ADVOCATE Hypertension Type 2 diabetes mellitus without complication, without long-term current use of insulin (HC) LIPID PANEL W REFLEX MEASURED LDL Routine 11/27/2024 9:40 AM FIELD CARE ADVOCATE Hypertriglyceridemi a HEMOGLOBIN A1C MONITORING (POCT) Routine 11/27/2024 9:39 AM FIELD CARE ADVOCATE Type 2 diabetes mellitus without complication, without long-term current use of insulin (HC) COLONOSCOPY 06/22/2023 12:20 PM CDT ANTI HCV Routine 11/17/2013 12:29 PM FIELD CARE ADVOCATE Screening for viral disease from Last 3 Months or Most Recently Relevant to Health Maintenance Results * SCAN-RADIOLOGY REPORT (12/18/2024 12:00 AM CDT) Anatomical Region Laterality Modality Other us Scanner OTHER Final Result * CT CHEST SCREENING LOW DOSE WO CONTRAST [[id number]] -- Criteria: must meet ALL: Age 50-80, [...] techniques used. COMPARISON: CT chest 12/14/2022. FINDINGS: [id number] subpleural reticulation and ground-glass opacities in the [...] W REFLEX MEASURED LDL (11/27/2024 9:40 AM FIELD CARE ADVOCATE) [facility] CHOLESTEROL, TOTAL 100 <200 mg/dL [facility] HDL CHOLESTEROL 34(L) > OR = 40 mg/dL [facility] TRIGLYCERIDES 111 <150 mg/dL [facility] LDL-CHOLESTEROL 47 mg/dL (calc) [facility] Comment: Reference range: <100 Desirable range <100 mg/dL for primary prevention; <70 mg/dL for patients with CHD or diabetic patients with > or = 2 CHD risk factors. LDL-C is now calculated using the Braulio-Saeid calculation, which is a validated novel method providing better accuracy than the Friedewald equation in the estimation of LDL-C. Braulio SS et al. NATE. 2013;310(19): 6335-1370 (http://education.Aruspex/faq/QGQ523) CHOL/HDLC RATIO 2.9 <5.0 (calc) [facility] NON HDL CHOLESTEROL 66 <130 mg/dL (calc) [facility] Comment: For patients with diabetes plus 1 major ASCVD risk factor, treating to a non-HDL-C goal of <100 mg/dL (LDL-C of <70 mg/dL) is considered a therapeutic option. Blood BLOOD SPECIMEN / Unknown 11/27/2024 9:40 AM FIELD CARE ADVOCATE 11/27/2024 9:42 AM FIELD CARE ADVOCATE Narrative [facility] - 11/28/2024 3:51 AM FIELD CARE ADVOCATE FASTING:NO FASTING: NO Italia Pugh MD CHEMISTRY Final Re sult [facility] [address] [place] [address], [facility] [address] [place] [address] * (ABNORMAL) BASIC METABOLIC PANEL (11/27/2024 9:40 AM FIELD CARE ADVOCATE) [facility] GLUCOSE 116 65 - 139 mg/dL [facility] Comment: Non-fasting reference interval UREA [...] BLOOD SPECIMEN / Unknown 11/27/2024 9:40 AM FIELD CARE ADVOCATE 11/27/2024 9:42 AM FIELD CARE ADVOCATE Narrative [facility] - 11/28/2024 3:51 AM FIELD CARE ADVOCATE FASTING:NO FASTING: NO Italia Pugh MD CHEMISTRY Final Re sult Performing Organization Address [facility]/ZIP Co de Phone Number [facility] [address] [place] [address], [place] [phone] [facility] [address] [place] [address] * (ABNORMAL) POCT Hemoglobin A1C Monitoring (11/27/2024 9:39 AM FIELD CARE ADVOCATE) POC HEMOGLOBIN A1C 6.5(H) <6.0 % OF TOTAL HGB [facility] Comment: Any point of care results exhibiting inconsistency with the patient's clinical status should be repeated using a different testing method. Blood BLOOD SPECIMEN / Unknown 11/27/2024 9:39 AM FIELD CARE ADVOCATE 11/27/2024 9:40 AM FIELD CARE ADVOCATE Italia Pugh MD CHEMISTRY Final Re sult Performing Organization Address [facility]/ZIP Co de Phone Number [address] [address] * COLONOSCOPY (06/22/2023 12:20 PM CDT) 06/22/2023 [...] adequate candidate for conscious sedation. The endoscope [id number] was passed through the and advancedto. The [...] Result * ANTI HCV (11/17/2013 12:29 PM FIELD CARE ADVOCATE) ANTI HCV Non-reacti ve [facility] Blood specimen (specimen) BLOOD SPECIMEN / Unknown 11/17/2013 12:29 PM FIELD CARE ADVOCATE 11/17/2013 12:24 PM FIELD CARE ADVOCATE us Italia Pugh MD SEND OUTS Final Re sult [facility] [place]NAL ZIP [address] [place] [address] from Last 3 Months or Most Recently Relevant to Health Maintenance Insurance [facility] Advance Directives * Full Code (Latest Code [...] 10:25 PM 04/10/2009 1:55 PM Care Teams Executive Consultant Relationship Specialty [place] [address] [place] [address] PCP - General Family Practice 09/23/17 [facility] [address] [place] [address] [facility] 06/16/21
--- OUTSIDE RECORDS SUMMARY | 2025-02-15 08:27 | XMS_ITS | Data Portability ---
Author Organization [place] [facility] [place] [facility], [facility] Address [address] [facility] [address] [place] [address] Care Team Providers Care Adult Neurologist Name Role Phone RASHIDA BERRY Primary Care Provider Assessment No assessment recorded. Plan of Treatment Reminders Order Date Submit Date Provider Last Modified By Organization Details Last Modified Time Details Appointments None recorded. Lab urinalysis, dipstick 2022 023 [facility], [facility]5 [facility], [address] [place] [address], [phone], 3 11:25:35 urinalysis, dipstick 2022 023 [email or web address] 9 [facility], [facility]5 [facility], [address], [place], [address], 3 11:08:34 Referral None recorded. Procedures bladder scan (PROC) 2022 023 [facility], [address] [facility], [address], [place], [address], 3 11:25:35 [facility] (PROC) 2022 [facility], [address], [place], [address], 3 09:42:33 Surgeries None recorded. Imaging None recorded. Medication Orders oxybutynin chloride ER 10 mg tablet,exte nded release 24 hr [address], [address], 15:33:41 Patient TargetsNo targets recorded. Patient Instructions Encounter Date Encounter Id Patient Instructions Last Modified By Organization Details Last Modified Time 12/17/2022 [id number] will check PSA and try starting oxybutynin ER 10mg call with PSA result and follow up timing. [email or web address] Not available 12/17/2022 11:10:02 01/28/2023 [id number] continue on oxybutynin until refills gone and rtc mid-April for recheck off med for a few weeks. [email or web address] Not available 01/28/2023 11:34:43 Reason for Referral None Reported. Results Created Date Observation Date Name Description Value Unit Range Abnormal Flag Note LastModifiedBy Organization Detail LastModifiedTime 12/18/1912/17/2022 urina lysis , dipst ick Glucose-Stat us 250 Not Available [address], [place], [address], 12/17/2022 10:54:46 12/18/19 23 12/17/2022 urina lysis , dipst ick pH-Status 6.5 Not Available [address], [place], [address], 12/17/2022 10:54:46 12/18/1912/17/2022 bladd er scan (PROC ) Volume (in mL) 24ml Not Available [address], [place], [address], 12/17/2022 11:08:30 01/29/2001/28/2023 urina lysis , dipst ick Bilirubin-St atus Small Not Available [place] [address] [facility] [address], [place], [address], 01/26/2023 16:56:57 01/29/2001/28/2023 urina lysis , dipst ick pH-Status 6.0 Not Available [address], [place], [address], 01/26/2023 16:56:57 01/29/2001/28/2023 bladd er scan (PROC ) Volume (in mL) 41ml Not Available [address], [place], [address], 01/26/2023 16:57:05 Result Notes None recorded. Procedures Surgical History Date Name Laterality Status Provider Name and Address Organization Details Recorded Time 01/29/20 Bladder Scan completed Shannon Blunt [facility] 01/28/2023 11:25:39 12/18/19 Bladder Scan completed Srinivasa Morales MD [address] [place] [address],[address] [place] [address], [address], [facility] 12/17/2022 10:49:17 Cataract Surgery completed Srinivasa Morales MD [address] [place] [address],[address], [place], [address], [facility] 12/17/2022 10:52:41 Colonoscopy completed Srinivasa Morales MD [address] [place] [address],[address], [place], [address], [facility] 12/17/2022 10:52:49 Hernia Repair completed Srinivasa Morales MD [address] [place] [address],[address], [place], [address], [facility] 12/17/2022 10:52:56 Vasectomy completed Srinivasa Morales MD [address] [place] [address],[address], [place], [address], [facility] 12/17/2022 10:53:03 cholecystectomy completed Srinivasa Morales MD [address] [place] [address],[address], [place], [address], [facility] 12/17/2022 10:53:08 arthroplasty of knee completed Srinivasa Morales MD [address] [place] [address],[address], [address], [facility] 12/17/2022 10:53:27 excision of colon completed Srinivasa Morales MD [address] [place] [address],[address], [address], [facility] 12/17/2022 10:53:42 Imaging Results None recorded. [...] Updated DateTime 12/17/2022 175.26 cm 26.6 kg/m2 15759.63 g Srinivasa Morales MD [address] [place] [phone] [place] [address] Urology 12/17/2022 10:48:41 Date Recorded Body height Body mass index (BMI) Body weight Provider Name and Address Organization Details Last Updated DateTime 01/28/2023 175.26 cm 26.6 kg/m2 63224.63 g Ivanna Bhatti [facility] 01/28/2023 11:14:04 Social History Question Answer Notes LastModified by [employer] Details LastModified Time Tobacco Smoking Status Current Every Day Smoker Srinivasa Morales MD [address] [place] [address] 12/17/2022 10:52:07 What Is Your Level Of Caffeine Consumption? Moderate [email or web address] Information not available 12/17/2022 What Was The Date Of Your Most Recent Tobacco Screening? 01/28/2023 [email or web address] Information not available 01/28/2023 How Much Tobacco Do You Smoke? 1 PPD [email or web address] Information not available 12/17/2022 Has Tobacco Cessation Counseling Been Provided? No [email or web address] Information not available 01/28/2023 Sex: Unknown Functional Status Question Answer Note LastModified by [employer]) ion Details LastModified Time How many times per week do you consume alcohol? 3-4 times per week [email or web address] Information not available 01/28/2023 Do you use any illicit or recreational drugs? No [email or web address] Information not available 01/28/2023 Do you or have you ever used any other forms of tobacco or nicotine? No [email or web address] Information not available 01/28/2023 What is your level of alcohol consumption? Moderate Information not available 12/17/2022 Mental Status None [...] polysaccharide PPV23 [address] [facility] 01/28/2023 11:13:57 Past Encounters Encounter ID Performer Location Encounter Start Date Encounter Closed Date Diagnosis/Indication Diagnosis SNOMED-CT Code Diagnosis ICD10 Code Diagnosis Note [id number] Srinivasa Morales MD [address] [address] [facility],[address] [place] [address] 12/17/2022 10:26:14 12/22/2022 12:03:08 Lower urinary tract symptoms due to benign prostatic hypertrophy 3749036312 9101 N40.1 Increased frequency of urination 233998470 R35.0 Nocturia 555734786 R35.1 [id number] Srinivasa Mor[facility] MD [facility] [place] [address] [facility],[address] [place] [address] 01/28/2023 11:07:32 02/03/2023 11:24:01 Nocturia 239985448 R35.1 Health Concerns Section Related Observation LastModified by Organization Detai ls LastModified Time None Recorded Concern Status LastModified by Organization Details LastModified Time None Recorded Advance Directives Directive None Recorded Payers Insurance Date Sequence Insurance Name Policy Number Policy Starr Covered Member ID Starr Member ID Guarantor Name 02/03/2023 1 [facility] - DOS PRIOR TO 2023 (MEDICAID REPLACEMENT - HMO) [id number] Garrett Valenzuela [id number] Garrett Valenzuela Notes Date Note Type Note Provider Name and Address Organization Details Recorded Time 12/17/2022 text/html seeing for BPH with frequency and nocturia x4, tried tamsulosin one and then two caps/day and has not had any improvement. UA clear and PVR 24ml today. last PSA 8 years ago 0.32. Srinivasa Morales MD [address] [facility],[address], [place], [address], [facility] 12/17/2022 11:11:15 01/28/2023 text/html oxybutynin 10mg ER given last visit helping with nocturia, was hourly now only 2x. UA clear and PVR 41ml today. no dry mouth from med. PSA after last visit was 0.4 Srinivasa Morales MD [address] [facility],[address], [place], [address], [facility] 01/28/2023 11:35:06
--- OUTSIDE RECORDS SUMMARY | 2025-02-15 08:27 | XMS_ITS | Encounter Summary ---
Author Organization [facility] Address [address] [place] [address]. [place] [address] Care Team Providers Care Car Ferry Captain Name Role Phone Jono Espinal MD Primary Care Provider [phone] [facility] Primary Care Provide r Italia Pugh MD Primary Care Provider + Josue Ventura MD Primary Care Provider Italia Pugh MD Primary Care Provider + Encounter Details Date Type Department Care Team (Late st Contact Info) Description 02/25/[address] [id number] Haroldo Nielsen MD [address] [place] [id number] [facility] Social History Tobacco Use Types Packs/Day Years Used Date Smoking Tobacco: Every Day Cigarettes Smokeless Tobacco: Never Alcohol Use Standard Drinks/Week Comments No 0 (1 standard drink = 0.6 oz pur e alcohol) Sex and Gender Information Value Date Recorded Sex Assigned at Not on file Legal Sex Male 3:04 AM PLUGGER MAN Gender Identity Not on file Sexual Orientation Not on file documented as of this encounter Plan of Treatment Not on file documented as of this encounter Visit Diagnoses Not on filedocumented in this encounter Additional Health Concerns Infection Onset Date Last Indicated Resolved Time Rule Out COVID-19 10/06/2020 10/06/2020 10/06/2020 1:58 PM PLUGGER MAN Rule Out COVID-19 09/29/2021 09/29/2021 09/29/2021 5:59 PM PLUGGER MAN documented as of this encounter Care Teams Car Ferry Captain Relationship Specialty Start Date End Date Jono Espinal MD [address] [place] [address] PCP - General 10/29/04 07/25/11 [facility] [id number] [place] [id number] PCP - General 07/26/11 05/21/13 Italia Pugh MD [facility] [id number] [place] [id number] PCP - General Family Practice 05/22/13 10/21/18 Josue Ventura MD [facility] [address] [place] [address] PCP - General Emergency Medicine 10/22/18 03/25/19 Italia Pugh MD [facility] [id number] [place] [id number] PCP - General Family Practice 03/26/19 documented as of this encounter
--- OUTSIDE RECORDS SUMMARY | 2025-02-15 08:27 | XMS_ITS | Clinical Summary ---
Author Organization [facility] Address [address] [place] [address]. [place] [address] Care Team Providers Care Perishable Fruit Inspector Name Role Phone Itaila Pugh MD Primary Care Provider + Allergies [...] on file Legal Sex Male 3:04 AM BLAST SETTER Gender Identity Not on file Sexual Orientation [...] 175.3 cm (5' 9) 09/30/2021 8:31 AM BLAST SETTER Body Mass Index 28.91 09/30/2021 8:31 AM BLAST SETTER Plan of Treatment Health Maintenance Due Date [...] ( - season) 2024 07/17/2021, 01/14/2021, 12/17/2020 PHQ-2 (once per calendar year) 2024 INFLUENZA VACCINE (Season Ended) 2025 07/17/2021, 07/31/2020, 09/26/2012 DIABETES SCREENING 06/16/2025 06/16/2022, 0 04/11/2022, 04/11/2022, [...] and gender (Antony et al., NEJM, DOI: 10.1056/[id number]) Blood STRUCTURE OF LEFT UPPER LIMB / Unknown Venipuncture / Unknown 06/16/2022 4:34 PM CDT 06/16/2022 4:37 PM CDT us Joe Jade MD LAB - BLOOD ORDERABLES F inal Result LABORATORY [facility] [address] Lab (1st floor, no room number) [place] [address], [facility] [phone] from Last 3 Months or Most Recently Relevant to Health Maintenance Insurance [facility] Advance Directives For more information, please contact: [phone] * Full Code (Latest Code Status on [...] with patie nt/legal decision maker Care Teams Perishable Fruit Inspector Relationship Specialty Start Date End Date Italia Pugh MD [facility] [id number] [place] [id number] PCP - General Family Practice 03/26/19
--- NOTE | 2025-02-15 08:46 | ED.GENADULT ---
HPI - General Adult General Date Seen: 02/15/25 Chief complaint: Chest Pain Stated complaint: chest pain Time Seen by Provider: 02/15/25 08:46 History of Present Illness HPI narrative: 65 yo M presenting to the emergency department this morning with chest pain. True from triage nurse says that this happens to fairly often. He has a history of COPD and tripped his pain to his lungs. Current episode started 2 days ago. Past medical history includes COPD, right lower lobe lung mass noted since 2019 or 2022, type 2 diabetes, hypertension, Fay's esophagus, history of alcohol abuse, history of alcoholic fatty liver disease, GERD, nicotine dependence, osteoarthritis, chronic low back pain with radiculopathy In review of previous medical records I see that he was evaluated here at the ER on 12/18/2024. At that point he was complaining of shortness of breath. Workup revealed white blood cell count of 7.3, hemoglobin 15.3, platelet count 189. 75% neutrophils, 15% lymphocytes. D-dimer was normal at 0.29. VBG showed pH is 7.4, pCO2 42. Sodium 134, potassium 5.0, chloride 99, bicarb 24, BUN 13, creatinine 0.9, glucose 113, venous lactic 1.8, calcium 9.6, magnesium 1.8, troponin I less than 0.01. CRP less than 0.5. And terminal proBNP level was normal at 38. COVID/influenza/RSV PCR was negative. Chest x-ray showed mild basilar atelectasis or developing airspace disease left greater than right. He was put on doxycycline 100 mg p.o. b.i.d. for 7 days and prednisone 20 mg b.i.d. for 5 days. Patient notes that he does have advanced COPD and he continues to smoke. He blames himself for the COPD because he will quit smoking. He has a lung doctor through the [facility] system. In addition to COPD he also has an 8 mm pulmonary nodule. His doctors concerned that might be cancer and so he is getting [address] scans[address] Most recent CT scan was in November. He has lots of episodes of chest pain and shortness of breath because of his COPD. He has a Ventolin inhaler, DuoNeb nebulizer, ipratropium nebs, Spiriva, Singulair, and controller meds at home. He does go on frequent bursts of oral prednisone but is not on long-term prednisone. He is not on home oxygen. He has a lot of trouble with shortness of breath and chest pain. He is having a flare that started 2 or 3 days ago with increased pain in his lungs (both sides). Pain is burning. Along with this he is coughing more, and is more short of breath. He is not having any swelling in his legs. No fever. No production of sputum. No known sick exposures. He tried to call his [facility] this morning to get a checkup with his lung doctor because he feels he needs some steroids and some more nebs. He was told to come emergently to the ER because he was having chest pain by the nurse triage line. Therefore, he reluctantly came here. The patient says he does not think he is having a heart problem and he knows what his lungs feel like when they get inflamed. He also notes that he has lot of trouble with chest pain from his lungs. He says often times when he gets a flare the pain gets worse and it is currently 07/06. He wants some pain meds for it. He expresses frustration that his lung doctor will not give him pain meds for at-home. Related Data Home Medications ?Medication ?Instructions ?Recorded ?Confirmed amlodipine 10 mg tablet 10 mg PO DAILY 06/29/22 02/15/25 budesonide-formoterol HFA 160 2 puff inhalation Q12H 06/29/22 02/15/25 mcg-4.5 mcg/actuation aerosol inhaler (Symbicort) ipratropium 0.5 mg-albuterol 3 mg 3 ml inhalation Q6H PRN 06/29/22 02/15/25 (2.5 mg base)/3 mL nebulization soln lorazepam 1 mg tablet 1 mg PO DAILY 06/29/22 02/15/25 metformin 1,000 mg tablet 1,000 mg PO BID 06/29/22 02/15/25 omeprazole 40 mg capsule,delayed 40 mg PO DAILY 06/29/22 02/15/25 release tiotropium bromide 18 mcg capsule 1 cap inhalation DAILY 06/29/22 02/15/25 with inhalation device (Spiriva with HandiHaler) atorvastatin 20 mg tablet 20 mg PO HS 07/20/22 02/15/25 albuterol sulfate 90 mcg/actuation 2 puff inhalation Q4H PRN 10/03/22 02/15/25 aerosol inhaler (Ventolin HFA) meloxicam 15 mg tablet 15 mg PO DAILY 10/03/22 02/15/25 Previous Rx's ?Medication ?Instructions ?Recorded benzonatate 100 mg capsule 200 mg (2 x 100 mg) PO TID #20 caps 10/06/22 doxycycline hyclate 100 mg tablet 100 mg PO BID #14 tabs 12/18/24 prednisone 20 mg tablet 20 mg PO BID #10 tabs 12/18/24 azithromycin 250 mg tablet See Rx Instructions PO .COMPLEX #6 02/15/25 tabs oxycodone 5 mg capsule 5 mg PO Q8H PRN pain #10 caps 02/15/25 prednisone 20 mg tablet 40 mg (2 x 20 mg) PO DAILY #10 tabs 02/15/25 Allergies Allergy/AdvReac Type Severity Reaction Status Date / Time No Known Drug Allergies Allergy Verified 02/15/25 08:45 [facility] Medical History Chest pain ?R07.9 - Chest pain, unspecified (ICD-10) Right lower lobe lung mass ?R91.8 - Other nonspecific abnormal finding of lung field (ICD-10) Chronic low back pain with sciatica ?M54.40 - Lumbago with sciatica, unspecified side (ICD-10) ?G89.29 - Other chronic pain (ICD-10) Diabetic acidosis, type II ?E11.10 - Type 2 diabetes mellitus with ketoacidosis without coma (ICD-10) Radiculitis ?M54.10 - Radiculopathy, site unspecified (ICD-10) Internal derangement of right knee ?M23.91 - Unspecified internal derangement of right knee (ICD-10) Essential hypertension ?I10 - Essential (primary) hypertension (ICD-10) Erectile dysfunction ?N52.9 - Male erectile dysfunction, unspecified (ICD-10) Adenomatous polyp of colon ?D12.6 - Benign neoplasm of colon, unspecified (ICD-10) COPD (chronic obstructive pulmonary disease) ?J44.9 - Chronic obstructive pulmonary disease, unspecified (ICD-10) Fay's esophagus with esophagitis ?K22.70 - Fay's esophagus without dysplasia (ICD-10) ?K20.90 - Esophagitis, unspecified without bleeding (ICD-10) Alcoholic fatty liver ?K70.0 - Alcoholic fatty liver (ICD-10) History of alcohol abuse ?F10.11 - Alcohol abuse, in remission (ICD-10) GERD (gastroesophageal reflux disease) ?K21.9 - Gastro-esophageal reflux disease without esophagitis (ICD-10) Depression with anxiety ?F41.8 - Other specified anxiety disorders (ICD-10) Nicotine dependence ?F17.200 - Nicotine dependence, unspecified, uncomplicated (ICD-10) Type 2 diabetes mellitus ?E11.9 - Type 2 diabetes mellitus without complications (ICD-10) Osteoarthritis of right knee ?M17.11 - Unilateral primary osteoarthritis, right knee (ICD-10) Osteoarthritis of left knee ?M17.12 - Unilateral primary osteoarthritis, left knee (ICD-10) Surgical History History of meniscectomy of right knee (~2015) ?Z98.890 - Other specified postprocedural states (ICD-10) H/O vasectomy ?Z98.52 - Vasectomy status (ICD-10) History of partial colectomy (~1999) ?Z90.49 - Acquired absence of other specified parts of digestive tract (ICD-10) History of appendectomy ?Z90.49 - Acquired absence of other specified parts of digestive tract (ICD-10) Hx laparoscopic cholecystectomy (10/15/17) ?Z90.49 - Acquired absence of other specified parts of digestive tract (ICD-10) Family History Father Lung cancer Social History Narrative: Lives with partner Queenie. Three adult children from previous relationship. Queenie or daughter Savi would be medical decision maker if needed. Patient requests full code status. 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 Smokes 1 pack per day, > 20 pack-year history. No alcohol use. Highest level of school completed/degree received: GED or equivalent Smoking Status: Current every day smoker What tobacco products do you use: cigarettes Smoking packs per day: 0.5 Smoking cigarettes per day: 10.0 Years smoked: 40 Smoking pack-years: 20.00 Do you use any of these nicotine containing products: None Second hand tobacco smoke exposure: Yes How often do you have a drink containing alcohol: never How often do you have six or more drinks on one occasion: Never AUDIT-C Alcohol total score: 0 Non-prescribed substance use: denies use Caffeine: Yes (2 cups coffee in the morning) service: Yes Exam Narrative: Exam Narrative: Constitutional: Appears well-developed and well-nourished. Alert. Conversant. Non toxic. HENT: Head: Atraumatic. Nose: Nose normal. Mouth/Throat: Oral mucosa is clear and moist. no trismus. Pharynx normal. Eyes: Conjunctivae normal. EOM normal. Pupils equal, round, and reactive to light. No scleral icterus. Neck: Normal range of motion. Neck supple. No tracheal deviation present. No JVD Cardiovascular: Normal rate, regular rhythm. No gallop. No friction rub. No murmur heard. Symmetric radial and PT artery pulses Pulmonary/Chest: Effort normal. No stridor. No respiratory distress. Bilateral expiratory wheezes and rales in all lung palomo. Significant coughing with lung exam. No rhonchi . No tenderness. Abdominal: Soft. No distension. No mass. No tenderness. No rebound. No guarding. Musculoskeletal: RUE: Normal range of motion. No tenderness. No deformity LUE: Normal range of motion. No tenderness. No deformity RLE: Normal range of motion. No edema. No tenderness. No deformity LLE: Normal range of motion. No edema. No tenderness. No deformity Neurological: Alert and oriented to person, place, and time. Normal strength. CN II-VII intact. No sensory deficit. GCS eye subscore is 4. GCS verbal subscore is 5. GCS motor subscore is 6. Normal coordination Skin: Skin is warm and dry. No rash noted. No pallor. Normal capillary refill. Psychiatric: Normal mood. Normal affect. Const: Vital Signs, click to edit/add: Vital Signs - 24 hr 02/15/25 08:42 02/15/25 09:30 02/15/25 09:45 Temperature 98 F Pulse Rate [Right Pulse Oximeter] 84 88 83 Respiratory Rate 18 20 22 Blood Pressure [Ri ght Upper Arm] 135/86 184/95 H 159/109 H Pulse Oximetry 94 95 95 Oxygen Delivery Me thod Room Air Room Air Room Air Course Course ED Course: Recheck-after DuoNeb patient says he is feeling quite a bit better. Repeat lung exam reveals almost complete resolution of his initial wheezing. He is able to breathe without coughing. Oxygen sat still normal. Chest x-ray clear. Vital Signs Vital signs: Initial Vital Signs Temperature 98 F 02/15/25 08:42 Temperature Source Temporal Artery Scan 02/15/25 08:42 Pulse Rate 84 02/15/25 08:42 Pulse Rhythm Regular 02/15/25 08:42 Pulse Strength 3+ Normal 02/15/25 08:42 Respiratory Rate 18 02/15/25 08:42 Blood Pressure 135/86 02/15/25 08:42 Blood Pressure Mean 102 02/15/25 08:42 Blood Pressure Position Sitting 02/15/25 08:42 Pulse Oximetry 94 02/15/25 08:42 Oxygen Delivery Method Room Air 02/15/25 08:42 Vital Signs Temperature 98 F 02/15/25 08:42 Pulse Rate 84 02/15/25 08:42 Respiratory Rate 18 02/15/25 08:42 Blood Pressure 135/86 02/15/25 08:42 Pulse Oximetry 94 02/15/25 08:42 Oxygen Delivery Method Room Air 02/15/25 08:42 Temperature 98 F 02/15/25 08:42 Pulse Rate 83 02/15/25 09:45 Respiratory Rate 22 02/15/25 09:45 Blood Pressure 159/109 H 02/15/25 09:45 Pulse Oximetry 95 02/15/25 09:45 Oxygen Delivery Method Room Air 02/15/25 09:45 Medications Administered Medications: Discontinued Medications Generic Name Dose Route Start Last Admin Trade Name Freq PRN Reason Stop Dose Admin Albuterol/Ipratropium 1 neb 02/15/25 09:07 02/15/25 09:43 Iprat-Albut 0.5-2.5 Mg/3 Ml Neb IH 02/15/25 09:08 1 neb ONCE ONE Administration Aspirin 162 mg 02/15/25 09:15 02/15/25 09:44 Aspirin 81 Mg Tab.Chew PO 02/15/25 09:16 162 mg ONCE ONE Administration Methylprednisolone Sodium Succinate 125 mg 02/15/25 09:07 02/15/25 09:30 Methylprednisolone Sod Succ 62.5 Mg/Ml (125) IVP 02/15/25 09:08 125 mg ONCE ONE Administration Oxycodone HCl 5 mg 02/15/25 09:07 02/15/25 09:44 Oxycodone 5 Mg Tablet PO 02/15/25 09:08 5 mg ONCE ONE Administration Medical Decision Making MDM Narrative Medical decision making narrative: This patient presents to the ER today for evaluation of chest pain and shortness of breath that have been ongoing for the past 2 or 3 days. He has a history of COPD and this feels similar to his previous COPD exacerbations. He also notes that he is still smoking and he is working on that.. Differential was broad. No evidence of palpitations, syncope or other cardiac dysrhythmia. We considered possible ACS, however workup with EKG and troponin is negative. Given time since onset of symptoms, I do not think the patient needs to be admitted for further sets of enzymes. EKG shows no evidence for pericarditis. Clinical presentation not suggestive of myocarditis. Chest x-ray shows no evidence for pneumothorax, pulmonary edema, pleural effusion, rib fracture, cardiomegaly. Mediastinum is normal on the x-ray. The patient has no ripping or tearing pain through to the back and has symmetric pulses on exam, no other acute neuro findings so I doubt aortic dissection. Risk of radiation and contrast exposure would outweigh the benefit of CT angiogram. We considered PE for this patient. D-dimer is normal. No signs of chest wall cellulitis, shingles, injury. The patient is confident that he is having a COPD exacerbation. Treated with nebs and steroids upon arrival. I agree that based on clinical grounds, after all of the above conditions are ruled out, this is consistent with COPD exacerbation. At this point I think he is safe for outpatient management given the resolution of wheezing, good oxygen sats. Will send him home with a 5 day course of prednisone. He already has other controller meds and albuterol inhaler and DuoNeb nebulizer at home. Given potential for left lower lobe infiltrate on his chest x-ray, will also put him on Zithromax for community-acquired pneumonia. He had been on doxycycline a few weeks ago so will try different course of antibiotics this time. At this point I do not think he is showing signs of worsening COPD, respiratory fatigue that are likely indicate he is going to require oxygen or positive-pressure ventilation during this illness. He does have ongoing trouble with outpatient COPD and is working with a patient companion through the on a system for that. He also has known pulmonary nodules and is due for a follow-up surveillance CT scan of his lungs next month. With reasonable clinical confidence, I think the patient is safe for outpatient follow up. Discussed return precautions. Questions answered. Patient voices comfort with the plan. Lab Data Labs: Lab Results 02/15/25 02/15/25 Range/Units 09:07 09:15 WBC 7.98 (4.50-11.00) K/uL RBC 5.52 (4.30-5.90) m/uL Hgb 15.2 (13.5-17.5) gm/dL Hct 45.6 (37.0-53.0) % MCV 83 (80-100) fL MCH 28 (26-34) pg MCHC 33 (32-36) gm/dL RDW Coeff of Jeovanny 13.8 (11.5-15.5) % Plt Count 199 (140-440) K/uL Neut % (Auto) 78.1 H (42.0-72.0) % Lymph % (Auto) 13.2 L (20-44) % Bacon % (Auto) 6.1 (0.0-11.0) % Eos % (Auto) 2.1 (0.0-7.0) % Baso % (Auto) 0.4 (0.0-3.0) % Neut # (Auto) 6.20 (1.7-7.0) K/uL Lymph # (Auto) 1.10 (0.90-2.90) K/uL Bacon # (Auto) 0.50 (0.00-0.90) K/UL Eos # (Auto) 0.17 (0.00-0.50) K/uL Baso # (Auto) 0.03 (0.00-0.30) K/uL Abs Immat Gran (auto) 0.01 (0.00-0.30) K/uL Imm/Tot Granulo (auto) 0.1 % D-Dimer Quant (PE/DVT) 0.38 (0.00-0.50) ug/ml Sodium 135 (135-149) mmol/L Potassium 4.6 (3.6-5.1) mmol/L Chloride 101 (96-114) mmol/L Carbon Dioxide 25 (20-32) mmol/L Anion Gap 9 (7-15) mEq/L BUN 9 (7-30) mg/dL Creatinine 0.8 (0.5-1.5) mg/dL Estimated Creat Clear 75.61 Estimated GFR 99 ml/min Glucose 134 H (60-115) mg/dL Calcium 9.5 (8.4-10.6) mg/dL POC Troponin I 0.00 L (0.01-0.04) ng/ml Imaging Data Chest x-ray: Attestation: I have reviewed the pertinent imaging results. Radiologist's impression: FINDINGS/ IMPRESSION: Patchy airspace opacity at the left lung base, concerning for infectious-inflammatory infiltrates. No effusion or pneumothorax. Cardiac size is stable. No pulmonary edema. ECG Data Attestation: I personally reviewed and interpreted this ECG as follows: Interpretation: Normal sinus rhythm Rate: 84 DE: 140 QRS axis: Low voltage QRS. Normal axis. ST segment/T wave: No ST segment elevation or depression QTc: 437 Discharge Plan Discharge Clinical Impression: COPD exacerbation, Chest pain Patient Disposition: Home, Self-Care Condition: Stable Instructions: Chest Pain (DC), COPD (Chronic Obstructive Pulmonary Disease) (DC) Additional Instructions: As we discussed, please follow-up with your regular doctor for recheck within the next few days. Make sure your regular doctor ranges your CT scan. If you have worsening symptoms such as worsening pain, trouble breathing, worsening cough, weakness, or any problems, please come back to the ER right away to be rechecked. Prescriptions: New oxycodone 5 mg capsule 5 mg PO Q8H PRN (Reason: pain) Qty: 10 0RF azithromycin 250 mg tablet See Rx Instructions .ROUTE .COMPLEX Qty: 6 0RF Rx Instructions: For 250 mg dose pack: take 500 mg today (day 1), then 250 mg for 4 days (days 2-5) prednisone 20 mg tablet 40 mg PO DAILY Qty: 10 0RF No Action atorvastatin 20 mg tablet 20 mg PO HS amlodipine 10 mg tablet 10 mg PO DAILY Patient Comments: TAKE ONE TABLET BY MOUTH EVERY EVENING lorazepam 1 mg tablet 1 mg PO DAILY Patient Comments: TAKE 1 TABLET BY MOUTH ONCE DAILY IF NEEDED FOR ANXIETY. metformin 1,000 mg tablet 1,000 mg PO BID Patient Comments: TAKE 1 TABLET BY MOUTH 2 TIMES DAILY WITH MEALS. omeprazole 40 mg capsule,delayed release(DR/EC) 40 mg PO DAILY Patient Comments: TAKE 1 CAPSULE BY MOUTH ONCE DAILY BEFORE A MEAL. tiotropium bromide [Spiriva with HandiHaler] 18 mcg capsule, w/inhalation device 1 cap INHALATION DAILY Patient Comments: INHALE CONTENTS OF 1 CAPSULE WITH HANDIHALER DEVICE ONCE DAILY ipratropium-albuterol 0.5 mg-3 mg(2.5 mg base)/3 mL solution for nebulization 3 ml INHALATION Q6H PRN Patient Comments: INHALE ONE VIAL VIA A NEBULIZER 4 TIMES DAILY NEEDED budesonide-formoterol [Symbicort] 160-4.5 mcg/actuation HFA aerosol inhaler 2 puff INHALATION Q12H Patient Comments: INHALE 2 PUFFS BY MOUTH 2 TIMES DAILY. albuterol sulfate [Ventolin HFA] 90 mcg/actuation HFA aerosol inhaler 2 puff INHALATION Q4H PRN meloxicam 15 mg tablet 15 mg PO DAILY Patient Comments: TAKE ONE TABLET BY MOUTH EVERY DAY benzonatate 100 mg Capsule 200 mg PO TID Qty: 20 0RF prednisone 20 mg tablet 20 mg PO BID Qty: 10 0RF doxycycline hyclate 100 mg tablet 100 mg PO BID Qty: 14 0RF Follow Up/Referrals: Italia Pugh MD [Primary Care Provider, Family Practice] Stand Alone Forms: [facility] Info Instructions
--- NOTE | 2025-02-15 09:07 | CRLHL7_ITS ---
For Patients: As a result of the Century Cures Act, medical imaging exams and procedure reports are released immediately into your electronic medical record. You may view this report before your referring provider. If you have questions, please contact your health care provider. INDICATION: Chest pain, dyspnea and wheezing. TECHNIQUE: Chest 2 views. COMPARISON: X-ray chest November 2024 FINDINGS/ IMPRESSION: Patchy airspace opacity at the left lung base, concerning for infectious-inflammatory infiltrates. No effusion or pneumothorax. Cardiac size is stable. No pulmonary edema. Dictated by Babita Xiong MD @ 02/15/2025 9:42:27 AM (Electronically Signed)
--- OUTSIDE RECORDS SUMMARY | 2025-02-15 09:26 | XMS_ITS | CCD ---
Author Organization Unknown Care Team Providers Care Record Keeper Name Role Phone Code Enforcement Inspector, [place] Primary Care Provider Unava ilable Unavailable Chronic Care Management Unavaila ble Summary Purpose DataExchange Insurance Providers Payer name Policy type / Coverage type Covered democrat ID Effective Begin Date Effective End Date [facility] Commercial Insurance [id number] Unknown Unkn own Family History Family History data not found Medication Administered No Medication Administered data Reason For Visit No Reason For Visit data
[2025-02-15 09:30] LABS: Basophils Absolute Auto 0.03 K/uL (0.00-0.30); Basophils Percent Auto 0.4 % (0.0-3.0); Eosinophils Absolute Auto 0.17 K/uL (0.00-0.50); Eosinophils Percent Auto 2.1 % (0.0-7.0); Hematocrit 45.6 % (37.0-53.0); Hemoglobin* 15.2 gm/dL (13.5-17.5); Immature Granulocytes Abs Auto 0.01 K/uL (0.00-0.30); Immature Granulocytes Pct Auto 0.1 %; Lymphocytes Percent Auto 13.2 % (20-44); Mean Corpuscular HGB Conc 33 gm/dL (32-36); Mean Corpuscular Hemoglobin 28 pg (26-34); Mean Corpuscular Volume 83 fL (80-100); Monocytes Percent Auto 6.1 % (0.0-11.0); Neutrophils Percent Auto 78.1 % (42.0-72.0); Platelet Count* 199 K/uL (140-440); RDW Coefficient of Variation % 13.8 % (11.5-15.5); Red Blood Count 5.52 m/uL (4.30-5.90); White Blood Count* 7.98 K/uL (4.50-11.00)
[2025-02-15] MEDS: METHYLPREDNISOLONE SOD SUCC 62.5 MG/ML (125) 125 MG IVP (09:30)
[2025-02-15 09:40] LABS: Chloride* 101 mmol/L (96-114); Potassium* 4.6 mmol/L (3.6-5.1); Sodium* 135 mmol/L (135-149)
[2025-02-15 09:43] LABS: Anion Gap 9 mEq/L (7-15); Blood Urea Nitrogen* 9 mg/dL (7-30); Calcium* 9.5 mg/dL (8.4-10.6); Carbon Dioxide* 25 mmol/L (20-32); Creatinine* 0.8 mg/dL (0.5-1.5); Est. Creatinine Clearance* 75.61; Estimated Glomerular Filt Rate 99 ml/min; Glucose* 134 mg/dL (60-115); Slide Review Reflex No
[2025-02-15] MEDS: IPRAT-ALBUT 0.5-2.5 MG/3 ML NEB 1 NEB IH (09:43)
[2025-02-15] MEDS: ASPIRIN 81 MG TAB.CHEW 162 MG PO (09:44)
[2025-02-15] MEDS: OXYCODONE 5 MG TABLET PO (09:44)
[2025-02-15 09:48] LABS: D Dimer Quantitative* 0.38 ug/ml (0.00-0.50)
--- OUTSIDE RECORDS SUMMARY | 2025-02-15 10:32 | XMS_ITS | CCD ---
Author Organization Unknown Care Team Providers Care Mannequin Mold Maker Name Role Phone Adjunct Professor Of [place], [place] Primary Care Provider Unava ilable Unavailable Chronic Care Management Unavaila ble Summary Purpose DataExchange Insurance Providers Payer name Policy type / Coverage type Covered democrat ID Effective Begin Date Effective End Date [facility] Commercial Insurance [id number] Unknown Unkn own Family History Family History data not found Medication Administered No Medication Administered data Reason For Visit No Reason For Visit data
--- OUTSIDE RECORDS SUMMARY | 2025-02-15 10:32 | XMS_ITS | CCD ---
Author Organization Unknown Care Team Providers Care Mold Yard Crane Operator Name Role Phone Psychiatric Technician, [place] Primary Care Provider Unava ilable Unavailable Chronic Care Management Unavaila ble Summary Purpose DataExchange Insurance Providers Payer name Policy type / Coverage type Covered libertarian ID Effective Begin Date Effective End Date [facility] Commercial Insurance [id number] Unknown Unkn own Family History Family History data not found Medication Administered No Medication Administered data Reason For Visit No Reason For Visit data
== END 2025-02-15 11:56 | disposition home or self-care (01) ==
PROVIDERS: Emergency Provider Emergency Medicine; PCP Family Medicine
DX: J44.1 Chronic obstructive pulmonary disease with (acute) exacerbation (principal); R05.9 Cough, unspecified; F17.210 Nicotine dependence, cigarettes, uncomplicated; Z79.52 Long term (current) use of systemic steroids
CPT/HCPCS: 36415; 71046; 80048; 84484; 85025; 85379; 93005; 99283; 99284; 99285; A9270; J2919

== ENCOUNTER 2025-05-05 10:09 | Emergency (ER) | payer MEDICAID, SELFPAY ==
--- OUTSIDE RECORDS SUMMARY | 2025-05-05 10:11 | XMS_ITS | Clinical Summary ---
Author Organization [facility] Address [address] [place] [address] Care Team Providers Care Verification Lead Name Role Phone Italia Pugh MD Primary [...] need: 99 Months. 1 Device 019 Active escitalopram oxalate (LEXAPRO) 20 mg tabletIndications :Anxiety state,Mild episode of recurrent major depressive disorder Take 1 Tablet (20 mg) by mouth once daily. 90 Tablet 3 024 Active Symbicort 160-4.5 mcg/actuation (160-4.5 mcg each actuation) inhalerIndication s:SOB (shortness of breath) INHALE 2 PUFFS BY MOUTH 2 TIMES DAILY. 10.2 g 11 024 Active albuterol-ipratro pium (DUONEB) (2.5-0.5 mg) in [...] ONCE DAILY 90 Capsule 1 025 Active meloxicam 15 mg tabletIndications :Chronic pain of both knees TAKE 1 TABLET (15 MG) BY MOUTH ONCE DAILY. 90 Tablet 1 025 Active omeprazole (PRILOSEC) 40 mg Delayed-Release capsuleIndication s:Gastroesophagea l reflux disease without esophagitis TAKE ONE CAPSULE BY MOUTH TWICE A DAY 180 Capsule 1 025 Active predniSONE (DELTASONE) 20 mg tabletIndications :Acute and chronic respiratory failure with hypoxia (HC),COPD mixed type (HC) Take 1 Tablet (20 mg) by mouth two times daily with meals. 10 Tablet 5 025 Active Ventolin HFA 90 mcg/actuation inhalerIndication s:COPD mixed type (HC),SOB (shortness of breath) INHALE 1 TO 2 PUFFS BY MOUTH INTO THE LUNGS EVERY 4 HOURS NEEDED 18 g 11 025 Active omeprazole (PRILOSEC) 40 mg Delayed-Release capsuleIndication s:Gastroesophagea l reflux disease without esophagitis TAKE ONE CAPSULE BY MOUTH TWICE A DAY 180 Capsule 2 024 2024 Discontinued meloxicam 15 mg tabletIndications :Chronic pain of both knees Take 1 Tablet (15 mg) by mouth once daily. 90 Tablet 1 025 2024 Discontinued HYDROcodone-aceta minophen (5-325 mg/tablet)Indicat ions:Right leg pain Take 1 Tablet by mouth every 6 hours if needed for Pain. 24 Tablet 025 2024 Discontinued(* Med complete/Regim en complete/Level of care change) Ventolin HFA 90 mcg/actuation inhalerIndication s:COPD mixed type (HC),SOB (shortness of breath) INHALE 1 TO 2 PUFFS BY MOUTH INTO THE LUNGS EVERY 4 HOURS NEEDED 18 g 3 025 2024 Discontinued codeine-guaiFENes in 10-100 mg/5 mL liquidIndications :Acute cough Take 5 mL by mouth every 6 hours if needed for Cough. 150 mL 025 2024 Discontinued(* Med complete/Regim en complete/Level of care change) Active Problems Patient Care Coordination No te Formatting of this note migh t be different from the original. HF/Structural Research Eligibility Review Date: 07/19/19 Upcoming Visit Location: [facility] Age: 59 y.o. Insurance: BCBS Etiology: ? NYHA: ? Last HF Admit: [...] in the RUL. Patient was referred to [facility] lung nodule clinic. Fay's esophagus without dysplasia 07/17/2023 Epigastric pain [...] been on abilify. Tobacco use disorder 05/16/2008 Major Depressive Disorder, Recurrent Episode, Un specified 02/09/2007 Overview (05/13/2012): Multiple hospitalizations. Has had 2 sets at ECT treatment. Last one in 1999 at [facility] Fatty liver, alcoholic Overview (09/14/2017): No alcohol since treatment in 2007 Polyp of colon, repeat in 05/2028 Overview (06/22/2023): 05/2023 Two 4 to 5 mm polyps in the cecum 2017 4 mm polyp in the ascending colon - sessile serrated adenoma 4 mm polyp in the rectum - tubular adenoma Resolved Problems Problem Noted Date Diagnosed Date Resolved Date Abdominal pain 07/28/2023 04/20/2025 Bilateral inguinal hernia wi thout obstruction or [...] or related acting sympathomimetic abuse, in remission 05/16/2008/09/2013 Overview (09/26/2012): The patient states he never used any type of stimulant while his drinking in 2007 he does not know why this is in his problem list. 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 04/20/2025 Adjustment disorder with anxiety 11/15/2007 05/16/2008 Other and Unspecified Alcoho l Dependence, Continuous Drinking Behavior 11/15/2007 11/17/2013 Overview (05/13/2012): During his divorce and prior bouts of alcohol abuse with treatments Migraine, unspecified, witho ut mention of intractable migraine without mention of status migrainosus 09/28/2007 05/16/2008 FOREIGN BODY, CORNEA-L 01/06/200505/16 Encounters Date Type Department Care Team Description 05/03/[address] [address] Italia Pugh MD Questions (diabetes pill ) 04/26/2025 Telephone [facility] [address] [place] [address] Braulio Sanchez MD Screening 04/24/[address] [address] Italia Pugh MD Refill Request (Ventolin Hfa) 04/20/2025 9:15 AM CDT Office Visit [address] [address] Italia Pugh MD Diabetes (Not fasting) 04/20/[address] [address] Italia Pugh MD Results 04/20/2025 Travel 04/04/[address] [address] Italia Pugh MD Refill Request (Meloxicam, Omeprazole) 03/05/[address] [address] Italia Pugh MD Results (CT of chest) 03/02/2025 10:30 AM CDT Ancillary Procedure [facility] [address] [place] [address] 03/02/2025 Travel 02/28/2025 Telephone [place] [address] [place] [address] Italia Pugh MD Order (Annual CT scan) 02/15/2025 Orders Only [facility] Scanner 1 scan: (1-Ord) [facility], CHEST 2V, 02/15/2025 02/15/2025 Nurse Triage [place] [address] [place] [address] Italia Pugh MD Chest Pain/problem from Last 3 Months Immunizations Immunization Administration [...] Date Smoking Tobacco: Every Day Cigarettes 1 48.6 Started: 1974 Smokeless Tobacco: Never Tobacco Cessation:Ready to Q uit: Yes; Counseling Given: Not Answered Comments:Noted today 05/01/19-Pt is smoking about 10 cigs a day Alcohol Use Standard Drinks/Week Comments Not Currently 0 (1 standard drink = 0.6 oz pur e alcohol) last drink was in 2008 PHQ-2 Answer Date Recorded PHQ-2 TOTAL SCORE 0 11/27/2024 Social Connections Answer Date Recorded Do you often feel lonely or isolated from those around you? 0 04/20/2025 Financial Resource Strain Answer Date R ecorded Difficulty of Paying Living Expenses 3 04/20/2025 Difficulty of Paying Living Expenses Not on file 04/20/2025 Food Insecurity Answer Date Recorded Do you worry your food will run out before you are able to buy more? 1 04/20/2025 Transportation Needs Answer Date Record ed Does lack of transportation keep you from medica l appointments? 1 04/20/2025 Does lack of transportation keep you from work, meetings or getting things that you need? 1 04/20/2025 Housing Stability Answer Date Recorded What is your housing situation today? 1 04/20/2025 Interpersonal Safety Answer Date Record ed Are you being hit, kicked, p ushed or yelled at (see row info)? No 11/22/2023 Interpersonal Safety Abuse 12 - 18 Not on file 11/22/2023 Interpersonal Safety Ambulatory Vulnerability No t on file 11/22/2023 Utilities Answer Date Recorded Do you have trouble paying f or utilities (for example, heat, electricity, water, phone)? 1 04/20/2025 Sex and Gender Information Value Date Recorded Sex Assigned at Not on file Legal Sex Male 5:43 AM ROLL OPERATOR Gender Identity Not on file Sexual Orientation Not on file Obstetrics History Last Filed Vital Signs Vital Sign Reading Time Taken Comments Blood Pressure 134/80 04/20/2025 9:35 AM CDT Pulse 96 04/20/2025 9:33 AM CDT Temperature 36.7 C (98 F) 12/29/2024 10:48 AM CDT Respiratory Rate 18 12/29/2024 10:48 AM CDT Oxygen Saturation 95% 04/20/2025 9:33 AM CDT Inhaled Oxygen Concentration - - Weight 83.9 kg (185 lb) 04/20/2025 9:33 AM CDT w ith shoes Height 172.1 cm (5' 7.75) 11/30/2024 10:25 AM Triston GAMINO Body Mass Index 28.34 11/30/2024 10:25 AM ROLL OPERATOR Plan of Treatment Upcoming Encounters Date Type Department Care Team (Late st Contact Info) Description 05/11/2025 12:15 PM CDT Office Visit [facility] [address] [place] [address] Braulio Sanchez MD [address] [place] [address] Health Maintenance Due Date Last Done Comments HIV for age 15-65 1977 Hepatitis B series for 19+ ( 2 of 3 - 19+ 3-dose series) 03/29/2009 03/01/2009 Influenza Vaccine (#1) 2025 , 07/14/2023, 07/17/2021, Additional history exists BMI (ht and wt on same day) for age 18+ 11/30/2025 11/30/2024, 05/10/2024, 02/18/2024, Additional history exists Depression screening for age 12+ 11/30/2025 11/30/2024, 11/28/2024, 11/28/2024, Additional history exists Low Dose CT (for lung CA) ag e 50-80 03/02/2026 03/02/2025, 12/07/2024, 12/14/2022, Additional history exists Colonoscopy through age 75 06/22/202806/22, 10/04/2017, 11/26/1999 Lipids for age 45-75 11/27/2029 11/27/2024, 07/14/2023, 07/06/2022, Additional history exists Tetanus booster 07/14/2033 07/14/2023, 09/26/2012 Hepatitis C screening for ag e 18-79 Completed 11/17/2013 Pneumococcal series for age 50+ Completed 4, 07/17/2021 COVID-19 vaccine series Completed 06/14/20, 07/14/2023, 03/09/2023, Additional history exists Zoster (shingles) series for age 50+ Completed 08/07/2024, 05/18/2024 RSV vaccine for adults or Completed 08/11/2024 Medical Devices Implanted Type Area Lens Examiner Device Identifier Shelf Expiration Date Model / Serial / Lot Mesh Ventral [id number] Progrip Lapsc Slf Fixating - [id number] Implanted:Qty: 1 on 12/07/2018 by Cindy Munoz, at [facility] Left: Inguinal [employer] 01/25/2020 [id number] / / [id number] Mesh Ventral 6x8in Ventralightst W/Echo Ps - [id number] Implanted:Qty: 1 on 12/07/2018 by Cindy Munoz, at [facility] N/A: Abdomen [employer] 07/24/2019 [id number] / / [id number] Explanted Type Area Lens Examiner Device Identifier Shelf Expiration Date Model / Serial / Lot Mesh Inguinal Lt 3x5in 3-D Max - [id number] Implanted:Qty: 1 Explanted:Qty: 1 on 12/07/2018 at [facility] Left: Inguinal [employer] 01/22/2023 [id number] / / [id number] Procedures Procedure Name Priority Date/Time Associated Diagnosis Comments URINE ALBUMIN TO CREATININE RATIO, RANDOM Routine 04/20/2025 10:57 AM CDT Type 2 diabetes mellitus without complication, without long-term current use of insulin (HC) HEMOGLOBIN A1C MONITORING (POCT) Routine 04/20/2025 9:18 AM CDT Type 2 diabetes mellitus without complication, without long-term current use of insulin (HC) BASIC METABOLIC PANEL Routine 04/20/2025 9:18 AM CDT Type 2 diabetes mellitus without complication, without long-term current use of insulin (HC) CT CHEST WO Routine 03/02/2025 10:24 AM CDT Right upper lobe pulmonary nodule SCAN-RADIOLOGY REPORT 02/15/2025 12:00 AM CDT LIPID PANEL W REFLEX MEASURED LDL Routine 11/27/2024 9:40 AM ROLL OPERATOR Hypertriglyceridemi a COLONOSCOPY 06/22/2023 12:20 PM CDT ANTI HCV Routine 11/17/2013 12:29 PM ROLL OPERATOR Screening for viral disease from Last 3 Months or Most Recently Relevant to Health Maintenance Results * URINE ALBUMIN TO CREATININE RATIO, RANDOM (04/20/2025 10:57 AM CDT) ALB RAND URINE <12.0 mg/L 04/20/2025 2:11 PM CDT [facility] CREATININE,URINE 1.42 g/L 04/20/20 2:11 PM CDT [facility] ALBUMIN TO CREATININE RATIO,RAND UR 04/20/2025 2:11 PM CDT [facility] Comment:Urine Albumin below measurement range, unable to calculate. Urine URINE SPECIMEN / Unknown [facility] / Unknown 04/20/2025 10:57 AM CDT 04/20/2025 10:57 AM CDT Narrative [facility] - 04/20/2025 2:11 PM CDT If Albumin to Creatinine Ratio is elevated, consider the following: Elevations seen with incipient nephropathy associated with diabetes mellitus or hypertension. Stress, exercise,hematuria, and urinary tract infection may also produce elevated results. If clinically indicated, confirm with 24 Hour Albumin to Creatinine Ratio. us Italia Pugh MD URINE Final Re sult [facility] [address] [place] [address], [place] * (ABNORMAL) POCT Hemoglobin A1C Monitoring (04/20/2025 9:18 AM CDT) POC HEMOGLOBIN A1C 6.9(H) <6.0 % OF TOTAL HGB 04/20/2025 10:27 AM CDT [facility] Comment: Any point of care results exhibiting inconsistency with the patient's clinical status should be repeated using a different testing method. Blood BLOOD SPECIMEN / Unknown [facility] / Unknown 04/20/2025 9:18 AM CDT 04/20/2025 9:18 AM CDT us Italia Pugh MD CHEMISTRY Final Re sult [facility] [address] [place] [address], [place] [phone] [facility] [address] [place] [address] * (ABNORMAL) BASIC METABOLIC PANEL [98753.0] (04/20/2025 9:18 AM CDT) SODIUM 131(L) 135 - 146 mmol/L 04/21/2025 4:10 AM CDT [facility] POTASSIUM 5.3 3.5 - 5.3 mmol/L 04/21/2025 4:10 AM CDT [facility] CARBON DIOXIDE 26 20 - 32 mmol/L 04/21/2025 4:10 AM CDT [facility] GLUCOSE 171(H) 65 - 99 mg/dL 04/21/2025 4:10 AM CDT [facility] Comment: Fasting reference interval For someone without known diabetes, a glucose value >125 mg/dL indicates that they may have diabetes and this should be confirmed with a follow-up test. CALCIUM 9.3 8.6 - 10.3 mg/dL 04/21/2025 4:10 AM CDT [facility] CREATININE 0.90 0.70 - 1.35 mg/dL 04/21/2025 4:10 AM CDT [facility] BUN/CREATININE RATIO SEE NOTE: 6 - 22 (calc) 04/21/2025 4:10 AM CDT [facility] Comment: Not Reported: BUN and Creatinine are within reference range. EGFR 96 > OR = 60 mL/min/1. 73m2 04/21/2025 4:10 AM CDT [facility] UREA NITROGEN (BUN) 12 7 - 25 mg/dL 04/21/2025 4:10 AM CDT [facility] ELECTROLYTE BALANCE 7 7 - 17 mmol/L (calc) 04/21/2025 4:10 AM CDT [facility] CHLORIDE 98 98 - 110 mmol/L 04/21/2025 4:10 AM CDT [facility] Blood BLOOD SPECIMEN / Unknown [facility] / Unknown 04/20/2025 9:18 AM CDT 04/20/2025 9:18 AM CDT Italia Pugh MD CHEMISTRY Final Re sult [facility] [address] [place] [address], * CT CHEST WO (03/02/2025 10:24 AM CDT) Anatomical Region Laterality Modality CHEST, THORAX, HEART Computed To mography 03/02/2025 7:06 PM CDT Narrative 03/02/2025 7:06 PM CDT For Patients: As a result of the Century Cures Act, medical imaging exams and procedure reports are released immediately into your electronic medical record. You may view this report before your referring provider. If you have questions, please contact your health care provider. Indication: Right upper lobe pulmonary nodule. Technique: Noncontrast CT images of the chest Comparison: CT chest 12/07/2024. Findings: Stable 8 mm solid nodule right upper lobe (series 9, image 61). Few additional punctate solid nodules in the right lung. No focal consolidation, pleural effusion, or pneumothorax. Mild to moderate subpleural reticulation and ground-glass opacities in the dependent right lower lobe, not significantly changed and compatible with fibrosis. Moderately severe upper lobe predominant centrilobular emphysema. Calcified granulomas right lung. Heart size is normal. No pericardial effusion. Coronary artery atherosclerotic calcifications. No mediastinal or hilar lymphadenopathy. Diffuse hepatic steatosis. Cholecystectomy. Mild thoracic spondylosis. No aggressive osseous lesions. Impression: Stable 8 mm right upper lobe pulmonary nodule. Follow-up chest CT is recommended in 6 months. Please note that all CT scans at this facility use dose modulation, iterative reconstruction, and/or weight-based dosing when appropriate to reduce radiation dose to as low as reasonably achievable. Dictated by Diego Dobbins MD @ 03/02/2025 7:06:57 PM (Electronically Signed) Procedure Note Diego Dobbins MD - 03/02/2025 For Patients: As a result of the Cures Act, medical imagingexams and procedure reports are released immediately into your electronicmedical record. You may view this report before your referring provider.If you have questions, please contact your health care provider. Indication: Right upper lobe pulmonary nodule. Technique: Noncontrast CT images of the chest Comparison: CT chest 12/07/2024. Findings: Stable 8 mm solid nodule right upper lobe (series 9, image 61). Fewadditional punctate solid nodules in the right lung. No focalconsolidation, pleural effusion, or pneumothorax. Mild to moderatesubpleural reticulation and ground-glass opacities in the dependent rightlower lobe, not significantly changed and compatible with fibrosis.Moderately severe upper lobe predominant centrilobular emphysema.Calcified granulomas right lung. Heart size is normal. No pericardial effusion. Coronary arteryatherosclerotic calcifications. No mediastinal or hilar lymphadenopathy. Diffuse hepatic steatosis. Cholecystectomy. Mild thoracic spondylosis. No aggressive osseous lesions. Impression: Stable 8 mm right upper lobe pulmonary nodule. Follow-up chest CT isrecommended in 6 months. Please note that all CT scans at this facility use dose modulation,iterative reconstruction, and/or weight-based dosing when appropriate toreduce radiation dose to as low as reasonably achievable. Dictated by Diego Dobbins MD @ 03/02/2025 7:06:57 PM (Electronically Signed) Italia Pugh MD CT Final Re sult * SCAN-RADIOLOGY REPORT (02/15/2025 12:00 AM CDT) Anatomical Region Laterality Modality Other us Scanner OTHER Final Result * (ABNORMAL) LIPID PANEL W REFLEX MEASURED LDL (11/27/2024 9:40 AM ROLL OPERATOR) CHOLESTEROL, TOTAL 100 <200 mg/dL [facility] LDL-C. Braulio SS et al. NATE. 2013;310(19): 9540-8737 (http://education.Criptext/faq/PWW237) CHOL/HDLC RATIO 2.9 <5.0 (calc) [facility] NON HDL CHOLESTEROL 66 <130 mg/dL (calc) [facility] Comment: For patients with diabetes plus 1 major ASCVD risk factor, treating to a non-HDL-C goal of <100 mg/dL (LDL-C of <70 mg/dL) is considered a therapeutic option. Blood BLOOD SPECIMEN / Unknown 11/27/2024 9:40 AM ROLL OPERATOR 11/27/2024 9:42 AM ROLL OPERATOR Narrative [facility] - 11/28/2024 3:51 AM ROLL OPERATOR FASTING:NO FASTING: NO us Italia Pugh MD CHEMISTRY Final Re sult [facility] [address] [place] [address], [facility] [address] [place] [address] * COLONOSCOPY (06/22/2023 12:20 PM CDT) 06/22/2023 [...] adequate candidate for conscious sedation. The endoscope [id number] was passed through the and advancedto. The [...] Result * ANTI HCV (11/17/2013 12:29 PM ROLL OPERATOR) ANTI HCV Non-reacti ve [facility] Blood specimen (specimen) BLOOD SPECIMEN / Unknown 11/17/2013 12:29 PM ROLL OPERATOR 11/17/2013 12:24 PM ROLL OPERATOR us Italia Pugh MD SEND OUTS Final Re sult [facility] INTERNAL ZIP [id number] [place] [address] from Last 3 Months or Most Recently Relevant to Health Maintenance Insurance [facility] Advance Directives * Full Code (Latest Code [...] 10:25 PM 04/10/2009 1:55 PM Care Teams Verification Lead Relationship Specialty [place] [address] [place] [address] PCP - General Family Practice 09/23/17 [facility] [address] [place] [id number] Ophthalmology Leader Writer 06/16/21
--- OUTSIDE RECORDS SUMMARY | 2025-05-05 10:11 | XMS_ITS | Encounter Summary ---
Author Organization [facility] Address [address] [place] [address]. [place] [address] Care Team Providers Care Lamination Operator Name Role Phone Jono Espinal MD Primary Care Provider [phone] [facility] Radha [place] Primary Care Provide r Italia Pugh MD Primary Care Provider + Josue Ventura MD Primary Care Provider Italia Pugh MD Primary Care Provider + Encounter Details Date Type Department Care Team (Late st Contact Info) Description 02/25/[address] [address] Haroldo Nielsen MD [address] [place] [phone] [id number] [facility] Social History Tobacco Use Types Packs/Day Years Used Date Smoking Tobacco: Every Day Cigarettes Smokeless Tobacco: Never Alcohol Use Standard Drinks/Week Comments No 0 (1 standard drink = 0.6 oz pur e alcohol) Sex and Gender Information Value Date Recorded Sex Assigned at Not on file Legal Sex Male 3:04 AM EDUCATIONAL PROGRAM ASSISTANT Gender Identity Not on file Sexual Orientation Not on file documented as of this encounter Plan of Treatment Not on file documented as of this encounter Visit Diagnoses Not on filedocumented in this encounter Additional Health Concerns Infection Onset Date Last Indicated Resolved Time Rule Out COVID-19 10/06/2020 10/06/2020 10/06/2020 1:58 PM EDUCATIONAL PROGRAM ASSISTANT Rule Out COVID-19 09/29/2021 09/29/2021 09/29/2021 5:59 PM EDUCATIONAL PROGRAM ASSISTANT documented as of this encounter Care Teams Lamination Operator Relationship Specialty Start Date End Date Jono Espinal MD [address] [place] [address] PCP - General 10/29/04 07/25/11 [facility] [address] [place] [address] PCP - General 07/26/11 05/21/13 Italia Pugh MD [facility] [id number] [place] [address] PCP - General Family Practice 05/22/13 10/21/18 Josue Ventura MD [facility] [address] [place] [address] PCP - General Emergency Medicine 10/22/18 03/25/19 Italia Pugh MD [facility] [id number] [place] [address] PCP - General Family Practice 03/26/19 documented as of this encounter
--- OUTSIDE RECORDS SUMMARY | 2025-05-05 10:12 | XMS_ITS | Clinical Summary ---
Author Organization [facility] Address [address] [place] [address]. [place] [address] Care Team Providers Care Press Tender Long Goods Name Role Phone Italia Pugh MD Primary [...] on file Legal Sex Male 3:04 AM GLASS CLEANER Gender Identity Not on file Sexual Orientation [...] 175.3 cm (5' 9) 09/30/2021 8:31 AM GLASS CLEANER Body Mass Index 28.91 09/30/2021 8:31 AM GLASS CLEANER Plan of Treatment Health Maintenance Due Date Last Done Comments ADVANCE CARE PLANNING 1962 ANNUAL REVIEW OF HM ORDERS 1962 COPD ACTION PLAN 1962 CT COLONOGRAPHY 1962 FIT 1962 FLEX SIG 1962 LIPID 1962 sDNA (Cologuard) 1962 COLONOSCOPY 02/13/1972 COLORECTAL CANCER SCREENING 02/13/1972 HIV SCREENING 1977 HEPATITIS C SCREENING 02/13/1980 LUNG CANCER SCREENING 02/13/2012 ZOSTER VACCINE (1 of 2) 02/13/2012 YEARLY PREVENTIVE VISIT 07/31/2021 07/31/2020 RSV VACCINE (1 - Risk 60-74 years 1-dose series) 2022 PNEUMOCOCCAL VACCINE 50+ YEARS (2 of 2 - PCV) 07/17/2022 07/17/2021 DTAP/TDAP/TD VACCINE (2 - Td or Tdap) 09/26/2022 09/26/2012 COVID-19 VACCINE (4 - season) 2024 07/17/2021, 01/14/2021, 12/17/2020 PHQ-2 (once per calendar year) 2024 INFLUENZA VACCINE (#1) 2025 , 07/31/2020, 09/26/2012 DIABETES SCREENING 06/16/2025 06/16/2022, 0 04/11/2022, 04/11/2022, Additional history exists SPIROMETRY Completed 02/25/2022, 04/13/2019 HPV VACCINE (No Doses Required) Completed MENINGITIS VACCINE Aged Out No longer eligible based on patient's age to complete [...] and gender (Antony et al., NEJM, DOI: 10.1056/[id number]) Blood STRUCTURE OF LEFT UPPER LIMB / Unknown Venipuncture / Unknown 06/16/2022 4:34 PM CDT 06/16/2022 4:37 PM CDT us Joe Jade MD LAB - BLOOD ORDERABLES F inal Result LABORATORY [facility] [address] Lab (1st floor, no room number) [place] [address], [place] [phone] from Last 3 Months or Most Recently Relevant to Health Maintenance Insurance [facility] Advance Directives For more information, please contact: [phone] * Full Code (Latest Code Status on [...] with patie nt/legal decision maker Care Teams Press Tender Long Goods Relationship Specialty Start Date End Date Italia Pugh MD [facility] [id number] [place] [id number] PCP - General Family Practice 03/26/19
[2025-05-05 10:13] VITALS: BP 134/68; PULSE 104; RESP 22; TEMP 36.4; O2SAT 96; BMI 26.6
--- NOTE | 2025-05-05 10:29 | CRLHL7_ITS ---
For Patients: As a result of the Century Cures Act, medical imaging exams and procedure reports are released immediately into your electronic medical record. You may view this report before your referring provider. If you have questions, please contact your health care provider. INDICATION: Syncope. TECHNIQUE: CT head without contrast. COMPARISON: None. FINDINGS: No acute infarct or intracranial hemorrhage. No abnormal extra-axial fluid collection. No midline shift. Mild parenchymal atrophy, deep and subcortical. Confluent periventricular white matter hypodensities are nonspecific and are likely related to chronic microvascular ischemic changes. Skull base and calvarium: The visualized paranasal sinuses and mastoid air cells demonstrate no acute or significant findings. The visualized orbits show no acute findings. Bilateral intra-ocular lens implantation.. No skull fractures. IMPRESSION: Chronic changes without acute intracranial abnormality. Please note that all CT scans at this facility use dose modulation, iterative reconstruction, and/or weight-based dosing when appropriate to reduce radiation dose to as low as reasonably achievable. Dictated by Babita Xiong MD @ 05/05/2025 10:58:07 AM (Electronically Signed)
--- NOTE | 2025-05-05 10:29 | CRLHL7_ITS ---
For Patients: As a result of the Cures Act, medical imaging exams and procedure reports are released immediately into your electronic medical record. You may view this report before your referring provider. If you have questions, please contact your health care provider. INDICATION: Syncope. TECHNIQUE: Chest PA and lateral. COMPARISON: 02/15/2025. FINDINGS: The cardiomediastinal silhouette, lung parenchyma, pulmonary vasculature and pleural surfaces are all normal in appearance. The bony thorax appears intact. IMPRESSION: Negative study. Dictated by Tommy Arrieta MD @ 05/05/2025 10:56:28 AM (Electronically Signed)
--- NOTE | 2025-05-05 10:30 | ED_ITS ---
HPI - Syncope General Chief Complaint: Syncope/Fainted Stated Complaint: chest pains and fainted twice this a.m. Time Seen by Provider: 05/05/25 10:23 History of Present Illness HPI narrative: Patient is a 65-year-old gentleman who passed out twice this morning approximately 5 hours ago. He got up this morning was making coffee when he passed out. He did not his head. He did fall to the floor but had no seizure activity. No incontinence. He has had no fevers no chills no night sweats. Patient went in the chair and had another 20 seconds of syncope. Patient states he has been having difficulties for the past month that is had greater than 10 total episodes. He has not had any while driving or using any machinery is otherwise been in his usual state of health. EKG done upon arrival shows normal sinus rhythm upon my review. Related Data Home Medications ?Medication ?Instructions ?Recorded ?Confirmed amlodipine 10 mg tablet 10 mg PO DAILY 06/29/2206/21 budesonide-formoterol HFA 160 2 puff inhalation Q12H 1 05/05/25 mcg-4.5 mcg/actuation aerosol inhaler (Symbicort) ipratropium 0.5 mg-albuterol 3 mg 3 ml inhalation Q6H PRN 06/29/22 05/05/25 (2.5 mg base)/3 mL nebulization soln lorazepam 1 mg tablet 1 mg PO DAILY 06/29/2205/05 metformin 1,000 mg tablet 1,000 mg PO BID 06/29/2206/21 omeprazole 40 mg capsule,delayed 40 mg PO DAILY 05/05/25 release tiotropium bromide 18 mcg capsule 1 cap inhalation YANELIS LY 06/29/22 05/05/25 with inhalation device (Spiriva with HandiHaler) atorvastatin 20 mg tablet 20 mg PO HS 07/20/22 5 albuterol sulfate 90 mcg/actuation 2 puff inhalation Q 4H PRN 10/03/22 05/05/25 aerosol inhaler (Ventolin HFA) meloxicam 15 mg tablet 15 mg PO DAILY 10/03/2206/21 Previous Rx's ?Medication ?Instructions ?Recorded benzonatate 100 mg capsule 200 mg (2 x 100 mg) PO TID #20 caps 10/06/22 doxycycline hyclate 100 mg tablet 100 mg PO BID #14 ta bs 12/18/24 prednisone 20 mg tablet 20 mg PO BID #10 tabs azithromycin 250 mg tablet See Rx Instructions PO .COM PLEX #6 02/15/25 tabs oxycodone 5 mg capsule 5 mg PO Q8H PRN pain #10 cap s 02/15/25 prednisone 20 mg tablet 40 mg (2 x 20 mg) PO DAILY # 10 tabs 02/15/25 Allergies Allergy/AdvReac Type Severity Reaction Status Date / Time No Known Drug Allergies Allergy Verified 05/05/25 10:21 Review of Systems Status of ROS: Reports: 10 or more systems reviewed and unremarkable except as noted in History and below [facility] Medical History Chest pain ?R07.9 - Chest pain, unspecified (ICD-10) Right lower lobe lung mass ?R91.8 - Other nonspecific abnormal finding of lung field (ICD-10) Chronic low back pain with sciatica ?M54.40 - Lumbago with sciatica, unspecified side (ICD-10) ?G89.29 - Other chronic pain (ICD-10) Diabetic acidosis, type II ?E11.10 - Type 2 diabetes mellitus with ketoacidosis without coma (ICD-10) Radiculitis ?M54.10 - Radiculopathy, site unspecified (ICD-10) Internal derangement of right knee ?M23.91 - Unspecified internal derangement of right knee (ICD-10) Essential hypertension ?I10 - Essential (primary) hypertension (ICD-10) Erectile dysfunction ?N52.9 - Male erectile dysfunction, unspecified (ICD-10) Adenomatous polyp of colon ?D12.6 - Benign neoplasm of colon, unspecified (ICD-10) COPD (chronic obstructive pulmonary disease) ?J44.9 - Chronic obstructive pulmonary disease, unspecified (ICD-10) Fay's esophagus with esophagitis ?K22.70 - Fay's esophagus without dysplasia (ICD-10) ?K20.90 - Esophagitis, unspecified without bleeding (ICD-10) Alcoholic fatty liver ?K70.0 - Alcoholic fatty liver (ICD-10) History of alcohol abuse ?F10.11 - Alcohol abuse, in remission (ICD-10) GERD (gastroesophageal reflux disease) ?K21.9 - Gastro-esophageal reflux disease without esophagitis (ICD-10) Depression with anxiety ?F41.8 - Other specified anxiety disorders (ICD-10) Nicotine dependence ?F17.200 - Nicotine dependence, unspecified, uncomplicated (ICD-10) Type 2 diabetes mellitus ?E11.9 - Type 2 diabetes mellitus without complications (ICD-10) Osteoarthritis of right knee ?M17.11 - Unilateral primary osteoarthritis, right knee (ICD-10) Osteoarthritis of left knee ?M17.12 - Unilateral primary osteoarthritis, left knee (ICD-10) Surgical History History of meniscectomy of right knee (~2015) ?Z98.890 - Other specified postprocedural states (ICD-10) H/O vasectomy ?Z98.52 - Vasectomy status (ICD-10) History of partial colectomy (~1999) ?Z90.49 - Acquired absence of other specified parts of digestive tract (ICD- 10) History of appendectomy ?Z90.49 - Acquired absence of other specified parts of digestive tract (ICD- 10) Hx laparoscopic cholecystectomy (10/15/17) ?Z90.49 - Acquired absence of other specified parts of digestive tract (ICD- 10) Family History Father Lung cancer Social History Narrative: Lives with partner Queenie. Three adult children from previous relationship. Queenie or daughter Savi would be medical decision maker if needed. Patient requests full code status. 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 Smokes 1 pack per day, > 20 pack-year history. No alcohol use. Highest level of school completed/degree received: GED or equivalent Smoking Status: Current every day smoker What tobacco products do you use: cigarettes Smoking packs per day: 0.5 Smoking cigarettes per day: 10.0 Years smoked: 40 Smoking pack-years: 20.00 Do you use any of these nicotine containing products: None Second hand tobacco smoke exposure: Yes How often do you have a drink containing alcohol: never How often do you have six or more drinks on one occasion: Never AUDIT-C Alcohol total score: 0 Non-prescribed substance use: denies use Caffeine: Yes (2 cups coffee in the morning) service: Yes Exam Narrative: Exam Narrative: EXAM GENERAL: Patient appears comfortable and well. EYES: No scleral icterus. LYMPH: No supraclavicular or cervical lymphadenopathy. SKIN: Visible skin seen during exam normal or with benign process only. EXT: No dependent lower extremity pedal edema. HEART: Regular rate and rhythm with no murmurs, rubs, or gallops. LUNGS: Clear to auscultation bilaterally with no crackles or wheezes. ABD: Soft, non tender, non distended. PSYCH: Good eye contact, speech is not pressured. Const: Vital Signs, click to edit/add: Vital Signs - 24 hr 05/05/25 10:13 Temperature 97.5 F L Pulse Rate [Right Pulse Oximeter] 104 H Respiratory Rate 22 Blood Pressure [Ri ght Upper Arm] 134/68 Pulse Oximetry 96 Oxygen Delivery Me thod Room Air Course Course ED Course: Patient seen and examined. CT of the head D-dimer chest x-ray EKG comprehensive metabolic panel CBC troponin all pending. Vital Signs Vital signs: Initial Vital Signs Temperature 97.5 F L 05/05/25 10:13 Temperature Source Temporal Artery Scan 05/05/25 10:13 Pulse Rate 104 H 05/05/25 10:13 Pulse Rhythm Regular 05/05/25 10:13 Pulse Strength 3+ Normal 05/05/25 10:13 Respiratory Rate 22 05/05/25 10:13 Blood Pressure 134/68 05/05/25 10:13 Blood Pressure Mean 90 05/05/25 10:13 Blood Pressure Position Sitting 05/05/25 10:13 Pulse Oximetry 96 05/05/25 10:13 Oxygen Delivery Method Room Air 05/05/25 10:13 Vital Signs Temperature 97.5 F L 05/05/25 10:13 Pulse Rate 104 H 05/05/25 10:13 Respiratory Rate 22 05/05/25 10:13 Blood Pressure 134/68 05/05/25 10:13 Pulse Oximetry 96 05/05/25 10:13 Oxygen Delivery Method Room Air 05/05/25 10:13 Temperature 97.5 F L 05/05/25 10:13 Pulse Rate 104 H 05/05/25 10:13 Respiratory Rate 22 05/05/25 10:13 Blood Pressure 134/68 05/05/25 10:13 Pulse Oximetry 96 05/05/25 10:13 Oxygen Delivery Method Room Air 05/05/25 10:13 MDM - Syncope MDM Narrative Medical decision making narrative: Patient is a 65-year-old gentleman who has recurrent syncope. We did do a thorough evaluation in the ER including head CT chest x-ray EKG troponin D-dimer comprehensive metabolic panel electrolytes. He does a bit of alcohol drinking in is going to cut down. It this time he does not need a 2nd troponin is a symptoms have been present for 5 hours prior coming in. We did send him home with a 7 day Zio patch which we will follow-up on. He will follow-up with primary physician this week Lab Data Labs: Lab Results 05/05/25 Range/Units 10:49 WBC 7.00 (4.50-11.00) K/uL RBC 5.32 (4.30-5.90) m/uL Hgb 14.6 (13.5-17.5) gm/dL Hct 43.8 (37.0-53.0) % MCV 82 (80-100) fL MCH 27 (26-34) pg MCHC 33 (32-36) gm/dL RDW Coeff of Jeovanny 13.2 (11.5-15.5) % Plt Count 197 (140-440) K/uL Neut % (Auto) 71.3 (42.0-72.0) % Lymph % (Auto) 17.1 L (20-44) % [place] % (Auto) 7.6 (0.0-11.0) % Eos % (Auto) 3.4 (0.0-7.0) % Baso % (Auto) 0.3 (0.0-3.0) % Neut # (Auto) 4.99 (1.7-7.0) K/uL Lymph # (Auto) 1.20 (0.90-2.90) K/uL [place] # (Auto) 0.50 (0.00-0.90) K/UL Eos # (Auto) 0.24 (0.00-0.50) K/uL Baso # (Auto) 0.02 (0.00-0.30) K/uL Abs Immat Gran (auto) 0.02 (0.00-0.30) K/uL Imm/Tot Granulo (auto) 0.3 % D-Dimer Quant (PE/DVT) 0.39 (0.00-0.50) ug/ml Sodium 132 L (135-149) mmol/L Potassium 5.1 (3.6-5.1) mmol/L Chloride 97 (96-114) mmol/L Carbon Dioxide 25 (20-32) mmol/L Anion Gap 10 (7-15) mEq/L BUN 19 (7-30) mg/dL Creatinine 0.9 (0.5-1.5) mg/dL Estimated Creat Clear 75.61 Estimated GFR 96 ml/min Glucose 123 H (60-115) mg/dL Calcium 10.0 (8.4-10.6) mg/dL Total Bilirubin 0.7 (0.1-1.5) mg/dL AST 38 H (12-35) U/L ALT 32 (4-50) U/L Alkaline Phosphatase 77 (40-150) U/L Troponin I < 0.01 (0.01-0.04) ng/mL Total Protein 7.9 (6.0-8.3) g/dL Albumin 4.6 (3.3-5.0) g/dL Discharge Plan Discharge Clinical Impression: Syncope Patient Disposition: Home, Self-Care Condition: Stable Instructions: Syncope (ED) Additional Instructions: Zio patch as directed Advanced activity as tolerated Follow-up with your doctor this week Activity Level: No Restrictions Discharge Diet: Regular Prescriptions: No Action atorvastatin 20 mg tablet 20 mg PO HS oxycodone 5 mg capsule 5 mg PO Q8H PRN (Reason: pain) Qty: 10 0RF azithromycin 250 mg tablet See Rx Instructions .ROUTE .COMPLEX Qty: 6 0RF Rx Instructions: For 250 mg dose pack: take 500 mg today (day 1), then 250 mg for 4 days (days 2-5) prednisone 20 mg tablet 40 mg PO DAILY Qty: 10 0RF amlodipine 10 mg tablet 10 mg PO DAILY Patient Comments: TAKE ONE TABLET BY MOUTH EVERY EVENING lorazepam 1 mg tablet 1 mg PO DAILY Patient Comments: TAKE 1 TABLET BY MOUTH ONCE DAILY IF NEEDED FOR ANXIETY. metformin 1,000 mg tablet 1,000 mg PO BID Patient Comments: TAKE 1 TABLET BY MOUTH 2 TIMES DAILY WITH MEALS. omeprazole 40 mg capsule,delayed release(DR/EC) 40 mg PO DAILY Patient Comments: TAKE 1 CAPSULE BY MOUTH ONCE DAILY BEFORE A MEAL. tiotropium bromide [Spiriva with HandiHaler] 18 mcg capsule, w/inhalation device 1 cap INHALATION DAILY Patient Comments: INHALE CONTENTS OF 1 CAPSULE WITH HANDIHALER DEVICE ONCE DAILY ipratropium-albuterol 0.5 mg-3 mg(2.5 mg base)/3 mL solution for nebulization 3 ml INHALATION Q6H PRN Patient Comments: INHALE ONE VIAL VIA A NEBULIZER 4 TIMES DAILY NEEDED budesonide-formoterol [Symbicort] 160-4.5 mcg/actuation HFA aerosol inhaler 2 puff INHALATION Q12H Patient Comments: INHALE 2 PUFFS BY MOUTH 2 TIMES DAILY. albuterol sulfate [Ventolin HFA] 90 mcg/actuation HFA aerosol inhaler 2 puff INHALATION Q4H PRN meloxicam 15 mg tablet 15 mg PO DAILY Patient Comments: TAKE ONE TABLET BY MOUTH EVERY DAY benzonatate 100 mg Capsule 200 mg PO TID Qty: 20 0RF prednisone 20 mg tablet 20 mg PO BID Qty: 10 0RF doxycycline hyclate 100 mg tablet 100 mg PO BID Qty: 14 0RF Follow Up/Referrals: Italia Pugh MD [Primary Care Provider, Family Practice] Stand Alone Forms: [facility] Info Instructions
[2025-05-05 10:57] LABS: Hematocrit 43.8 % (37.0-53.0); Hemoglobin* 14.6 gm/dL (13.5-17.5); Immature Granulocytes Abs Auto 0.02 K/uL (0.00-0.30); Immature Granulocytes Pct Auto 0.3 %; Lymphocytes Absolute Auto 1.20 K/uL (0.90-2.90); Mean Corpuscular HGB Conc 33 gm/dL (32-36); Mean Corpuscular Hemoglobin 27 pg (26-34); Mean Corpuscular Volume 82 fL (80-100); RDW Coefficient of Variation % 13.2 % (11.5-15.5); Red Blood Count 5.32 m/uL (4.30-5.90); White Blood Count* 7.00 K/uL (4.50-11.00)
[2025-05-05 10:59] LABS: Slide Review Reflex No
[2025-05-05 11:10] LABS: Albumin* 4.6 g/dL (3.3-5.0); Chloride* 97 mmol/L (96-114); Potassium* 5.1 mmol/L (3.6-5.1); Sodium* 132 mmol/L (135-149)
--- OUTSIDE RECORDS SUMMARY | 2025-05-05 11:11 | XMS_ITS | CCD ---
Author Organization Unknown Care Team Providers Care Strike Out Machine Operator Name Role Phone Preservative Filler Machine Operator, [place] Primary Care Provider Unava ilable Unavailable Chronic Care Management Unavaila ble Summary Purpose DataExchange Insurance Providers Payer name Policy type / Coverage type Covered alliance party ID Effective Begin Date Effective End Date [facility] Commercial Insurance [id number] Unknown Unkn own Family History Family History data not found Medication Administered No Medication Administered data Reason For Visit No Reason For Visit data
--- OUTSIDE RECORDS SUMMARY | 2025-05-05 11:11 | XMS_ITS | CCD ---
Author Organization Unknown Care Team Providers Care Corncob Pipe Supervisor Name Role Phone Water Pump Operator, [place] Primary Care Provider Unava ilable Unavailable Chronic Care Management Unavaila ble Summary Purpose DataExchange Insurance Providers Payer name Policy type / Coverage type Covered democrat ID Effective Begin Date Effective End Date [facility] Commercial Insurance [id number] Unknown Unkn own Family History Family History data not found Medication Administered No Medication Administered data Reason For Visit No Reason For Visit data
[2025-05-05 11:13] LABS: Alanine Aminotransferase* 32 U/L (4-50); Alkaline Phosphatase* 77 U/L (40-150); Anion Gap 10 mEq/L (7-15); Aspartate Amino Transferase* 38 U/L (12-35); Bilirubin Total* 0.7 mg/dL (0.1-1.5); Blood Urea Nitrogen* 19 mg/dL (7-30); Calcium* 10.0 mg/dL (8.4-10.6); Carbon Dioxide* 25 mmol/L (20-32); Creatinine* 0.9 mg/dL (0.5-1.5); Est. Creatinine Clearance* 75.61; Estimated Glomerular Filt Rate 96 ml/min; Glucose* 123 mg/dL (60-115); Total Protein* 7.9 g/dL (6.0-8.3)
[2025-05-05 11:22] LABS: D Dimer Quantitative* 0.39 ug/ml (0.00-0.50)
--- OUTSIDE RECORDS SUMMARY | 2025-05-05 11:38 | XMS_ITS | CCD ---
Author Organization Unknown Care Team Providers Care Realty Loan Specialist Name Role Phone Dietary Director, [place] Primary Care Provider Unava ilable Unavailable Chronic Care Management Unavaila ble Summary Purpose DataExchange Insurance Providers Payer name Policy type / Coverage type Covered green party ID Effective Begin Date Effective End Date [facility] Commercial Insurance [id number] Unknown Unkn own Family History Family History data not found Medication Administered No Medication Administered data Reason For Visit No Reason For Visit data
--- OUTSIDE RECORDS SUMMARY | 2025-05-05 11:38 | XMS_ITS | CCD ---
Author Organization Unknown Care Team Providers Care Stove Bottom Worker Name Role Phone Library Clerk, [place] Primary Care Provider Unava ilable Unavailable Chronic Care Management Unavaila ble Summary Purpose DataExchange Insurance Providers Payer name Policy type / Coverage type Covered democrat ID Effective Begin Date Effective End Date [facility] Commercial Insurance [id number] Unknown Unkn own Family History Family History data not found Medication Administered No Medication Administered data Reason For Visit No Reason For Visit data
[2025-05-05 11:50] VITALS: BP 129/88; PULSE 84; RESP 18; O2SAT 96
== END 2025-05-05 11:55 | disposition home or self-care (01) ==
PROVIDERS: Emergency Provider Internal Medicine; PCP Family Medicine
DX: R55 Syncope and collapse (principal)
CPT/HCPCS: 36415; 70450; 71046; 80053; 84484; 85025; 85379; 93005; 99283; 99285

== ENCOUNTER 2025-05-10 09:08 | Emergency (ER) | payer MEDICAID, SELFPAY ==
[2025-05-10] VITALS (29 sets, daily range): BP systolic 116–151; BP diastolic 56–85; PULSE 76–96; RESP 14–32; TEMP 36.9; O2SAT 88–94; BMI 27.4
--- NOTE | 2025-05-10 | CRLHL7_ITS ---
For Patients: As a result of the Century Cures Act, medical imaging exams and procedure reports are released immediately into your electronic medical record. You may view this report before your referring provider. If you have questions, please contact your health care provider. INDICATION: Pulmonary embolism suspected, high probability. TECHNIQUE: CT chest PE was acquired with 95 cc Omnipaque 350 IV contrast. Coronal and MIP reconstructions were performed. COMPARISON: 10/03/2022. FINDINGS: No pulmonary embolism is seen. Aorta is normal caliber. Moderate emphysema is present. There is increased moderate subpleural ground-glass and reticulation within the right. This likely represents a combination atelectasis and fibrosis. A more linear bandlike area of ground-glass on the prior is no longer seen current mild dependent ground-glass is noted elsewhere within the lungs likely represents atelectasis or scarring. No consolidation. No pulmonary edema is seen. No pleural effusion or pneumothorax. Subcentimeter mediastinal lymph nodes are noted. Prominent right hilar lymph nodes are redemonstrated not definitively changed compared to the prior and likely reactive. For reference is a 1.3 centimeter right hilar lymph node (114). Heart is normal in size. Coronary calcification is present. A small pericardial effusion is seen. No axillary lymphadenopathy. Gynecomastia is present. Bone windows demonstrate no acute fracture. IMPRESSION: 1. Increase moderate right basilar ground-glass and reticulation compared to 2022. This is favored to represent a combination of scarring/atelectasis. Evidence of mild peripheral scarring noted elsewhere within the lungs. Short-term chest CT is recommended in 3 months. 2. Grossly stable right hilar lymphadenopathy compared to 2022. Recommend close attention on follow-up. 3. No pulmonary embolism is seen. Please note that all CT scans at this facility use dose modulation, iterative reconstruction, and/or weight-based dosing when appropriate to reduce radiation dose to as low as reasonably achievable. Dictated by Kaushik Martinez MD @ 05/10/2025 11:13:11 AM (Electronically Signed)
--- OUTSIDE RECORDS SUMMARY | 2025-05-10 09:11 | XMS_ITS | Encounter Summary ---
Author Organization [facility] Address [address] [place] [address]. [place] [address] Care Team Providers Care Gas Derrick Operator Name Role Phone Jono Espinal MD Primary Care Provider [phone]- [phone] [facility] [place] Primary Care Provide r Italia Pugh MD Primary Care Provider + Josue Vetnura MD Primary Care Provider Italia Pugh MD Primary Care Provider + Encounter Details Date Type Department Care Team (Late st Contact Info) Description 02/25/[address] [id number] Haroldo Nielsen MD [address] [place] [id number] [facility] Social History Tobacco Use Types Packs/Day Years Used Date Smoking Tobacco: Every Day Cigarettes Smokeless Tobacco: Never Alcohol Use Standard Drinks/Week Comments No 0 (1 standard drink = 0.6 oz pur e alcohol) Sex and Gender Information Value Date Recorded Sex Assigned at Not on file Legal Sex Male 3:04 AM 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 HELPER Gender Identity Not on file Sexual Orientation Not on file documented as of this encounter Plan of Treatment Not on file documented as of this encounter Visit Diagnoses Not on filedocumented in this encounter Additional Health Concerns Infection Onset Date Last Indicated Resolved Time Rule Out COVID-19 10/06/2020 10/06/2020 10/06/2020 1:58 PM 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 HELPER Rule Out COVID-19 09/29/2021 09/29/2021 09/29/2021 5:59 PM 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 HELPER documented as of this encounter Care Teams Gas Derrick Operator Relationship Specialty Start Date End Date Jono Espinal MD [address] [place] [address] PCP - General 10/29/04 07/25/11 [facility] [address] [place] [address] PCP - General 07/26/11 05/21/13 Italia Pugh MD [facility] [id number] [place] [address] PCP - General Family Practice 05/22/13 10/21/18 Josue Ventura MD [facility] [address] [place] [address] PCP - General Emergency Medicine 10/22/18 03/25/19 Italia Pugh MD [facility] [id number] [place] [address] PCP - General Family Practice 03/26/19 documented as of this encounter
--- OUTSIDE RECORDS SUMMARY | 2025-05-10 09:12 | XMS_ITS | Clinical Summary ---
Author Organization [facility] Address [address] [place] [address] Care Team Providers Care Cops Name Role Phone Italia Pugh MD Primary [...] need: 99 Months. 1 Device 019 Active Symbicort 160-4.5 mcg/actuation (160-4.5 mcg each [...] HOURS NEEDED 18 g 11 025 Active escitalopram oxalate (LEXAPRO) 20 mg tabletIndications :Anxiety state,Mild episode of recurrent major depressive disorder TAKE 1 TABLET (20 MG) BY MOUTH ONCE DAILY. 90 Tablet 1 025 Active escitalopram oxalate (LEXAPRO) 20 mg tabletIndications :Anxiety state,Mild episode of recurrent major depressive disorder Take 1 Tablet (20 mg) by mouth once daily. 90 Tablet 3 024 2024 Discontinued HYDROcodone-aceta minophen (5-325 mg/tablet)Indicat ions:Right [...] Eligibility Review Date: 07/19/19 Upcoming Visit Location: [facility] Age: 59 y.o. Insurance: [employer] Etiology: ? NYHA: ? Last HF Admit: [...] in the RUL. Patient was referred to [facility] lung nodule clinic. Fay's esophagus without [...] ECT treatment. Last one in 1999 at [facility] Fatty liver, alcoholic Overview (09/14/2017): No [...] Encounters Date Type Department Care Team Description 05/07/[address] [address] Italia Pugh MD Refill Request (Escitalopram Oxalate) 05/05/2025 Orders Only [facility] Scanner 1 scan: (1-Ord) MAGNOLIA, HEAD/BRAIN WO CON, 05/05/2025 05/05/2025 Orders Only [facility] Scanner 1 scan: (1-Ord) MAGNOLIA, XR CHEST 2V, 05/05/2025 05/03/[address] [address] Italia Pugh MD Questions (diabetes pill ) 04/26/2025 Telephone [facility] [address] [place] [address] Braulio Sanchze MD Screening 04/24/[address] [address] Italia Pugh MD Refill Request (Ventolin Hfa) 04/20/2025 9:15 AM CDT Office Visit [address] [address] Italia Pugh MD Diabetes (Not fasting) 04/20/[address] [address] Italia Pugh MD Results 04/20/2025 Travel 04/04/[address] [address] Italia Pugh MD Refill Request (Meloxicam, Omeprazole) 03/05/2025 Telephone [facility] [id number] [place] [address] Italia Pugh MD Results (CT of chest) 03/02/2025 10:30 AM CDT Ancillary Procedure [facility] [address] [place] [address] 03/02/2025 Travel 02/28/[address] [address] Italia Pugh MD Order (Annual CT scan) 02/15/2025 Orders Only [facility] Scanner 1 scan: (1-Ord) [facility], CHEST 2V, 02/15/2025 02/15/2025 Nurse Triage [facility] [id number] [place] [address] Italia Pugh MD Chest Pain/problem from Last [...] on file Legal Sex Male 5:43 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 [address] [place] [address] Braulio Sanchez MD [address] [place] [address] Health Maintenance Due Date Last Done Comments [...] 06/14/20 24, 07/14/2023, 03/09/2023, Additional history exists Zoster (shingles) series for age 50+ Completed 08/07/2024, 05/18/2024 RSV vaccine for adults or Completed 08/11/2024 Medical Devices Implanted Type Area Stove Bottom Worker Device Identifier Shelf Expiration Date Model / Serial / Lot Mesh Ventral [id number] Progrip Lapsc Slf Fixating - [id number] Implanted:Qty: 1 on 12/07/2018 by Cindy Munoz DO at [facility] Left: Inguinal [employer] 01/25/2020 [id number] / / [id number] Mesh Ventral 6x8in Ventralightst W/Echo Ps - [id number] Implanted:Qty: 1 on 12/07/2018 by Cindy Munoz DO at [facility] N/A: Abdomen [employer] 07/24/2019 [id number] / / [id number] Explanted Type Area Stove Bottom Worker Device Identifier Shelf Expiration Date Model / Serial / Lot Mesh Inguinal Lt 3x5in 3-D Max - [id number] Implanted:Qty: 1 Explanted:Qty: 1 on 12/07/2018 at [facility] Left: Inguinal [employer] 01/22/2023 [id number] / / [id number] Procedures Procedure Name Priority Date/Time Associated Diagnosis Comments SCAN-CT INTERPRETATION 12:00 AM CDT SCAN-RADIOLOGY REPORT 05/05/2025 12:00 AM CDT URINE ALBUMIN TO CREATININE RATIO, RANDOM Routine [...] REFLEX MEASURED LDL Routine 11/27/2024 9:40 AM NEURODIAGNOSTIC TECHNICIAN Hypertriglyceridem ia COLONOSCOPY 06/22/2023 12:20 PM CDT ANTI HCV Routine 11/17/2013 12:29 PM NEURODIAGNOSTIC TECHNICIAN Screening for viral disease from Last 3 Months or Most Recently Relevant to Health Maintenance Results * SCAN-RADIOLOGY REPORT (05/05/2025 12:00 AM CDT) Only the most recent of2 resultswithin the time period is included. Anatomical Region Laterality Modality Other us Scanner OTHER Final Result * SCAN-CT INTERPRETATION (05/05/2025 12:00 AM CDT) Anatomical Region Laterality Modality Other us Scanner OTHER Final Result * URINE ALBUMIN TO CREATININE RATIO, RANDOM (04/20/2025 10:57 AM CDT) ALB RAND URINE <12.0 mg/L 04/20/2025 2:11 PM CDT [facility] CREATININE,URINE 1.42 g/L 04/20/20 2:11 PM CDT [facility] ALBUMIN TO CREATININE RATIO,RAND UR 04/20/2025 2:11 PM CDT [facility] Comment:Urine Albumin below measurement range, unable to calculate. Urine URINE SPECIMEN / Unknown [facility] / Unknown 04/20/2025 10:57 AM CDT 04/20/2025 10:57 AM CDT Narrative [facility] - 04/20/2025 2:11 PM CDT If Albumin to Creatinine Ratio is elevated, consider the following: Elevations seen with incipient nephropathy associated with diabetes mellitus or hypertension. Stress, exercise,hematuria, and urinary tract infection may also produce elevated results. If clinically indicated, confirm with 24 Hour Albumin to Creatinine Ratio. Italia Pugh MD URINE Final Re sult [facility] [address] [place] [address], * (ABNORMAL) POCT Hemoglobin A1C Monitoring (04/20/2025 9:18 AM CDT) POC HEMOGLOBIN A1C 6.9(H) <6.0 % OF TOTAL HGB 04/20/2025 10:27 AM CDT [facility] Comment: Any point of care results exhibiting inconsistency with the patient's clinical status should be repeated using a different testing method. Blood BLOOD SPECIMEN / Unknown [facility] / Unknown 04/20/2025 9:18 AM CDT 04/20/2025 9:18 AM CDT us Italia Pugh MD CHEMISTRY Final Re sult [facility] [address] [address], [facility] [address] [place] [address] * (ABNORMAL) BASIC METABOLIC PANEL [94405.0] (04/20/2025 9:18 AM CDT) SODIUM 131(L) 135 - 146 mmol/L 04/21/2025 4:10 AM CDT [facility] POTASSIUM 5.3 3.5 - 5.3 mmol/L 04/21/2025 4:10 AM CDT [facility] CARBON DIOXIDE 26 20 - 32 mmol/L 04/21/2025 4:10 AM CDT [facility] GLUCOSE 171(H) 65 - 99 mg/dL 04/21/2025 4:10 AM CDT [facility] Comment: Fasting reference interval For someone without known diabetes, a glucose value >125 mg/dL indicates that they may have diabetes and this should be confirmed with a follow-up test. CALCIUM 9.3 8.6 - 10.3 mg/dL 04/21/2025 4:10 AM CDT [facility] CREATININE 0.90 0.70 - 1.35 mg/dL 04/21/2025 4:10 AM CDT [facility] BUN/CREATININE RATIO SEE NOTE: 6 - 22 (calc) 04/21/2025 4:10 AM CDT [facility] Comment: Not Reported: BUN and Creatinine are within reference range. EGFR 96 > OR = 60 mL/min/1. 73m2 04/21/2025 4:10 AM CDT [facility] UREA NITROGEN (BUN) 12 7 - [...] MD CHEMISTRY Final Re sult [facility] [address] [place] [address], * CT CHEST WO (03/02/2025 10:24 AM CDT) Anatomical Region Laterality Modality CHEST, THORAX, HEART Computed To mography 03/02/2025 7:0 6 PM CDT Narrative 03/02/2025 7:06 PM CDT [...] W REFLEX MEASURED LDL (11/27/2024 9:40 AM NEURODIAGNOSTIC TECHNICIAN) CHOLESTEROL, TOTAL 100 <200 mg/dL [facility] [...] LDL-C. Braulio SS et al. NATE. 2013;310(19): 7344-5161 (http://education.[employer] [place]/faq/VKS248) CHOL/HDLC RATIO 2.9 <5.0 (calc) [facility] NON HDL CHOLESTEROL 66 <130 mg/dL (calc) [facility] Comment: For patients with diabetes plus 1 major ASCVD risk factor, treating to a non-HDL-C goal of <100 mg/dL (LDL-C of <70 mg/dL) is considered a therapeutic option. Blood BLOOD SPECIMEN / Unknown 11/27/2024 9:40 AM NEURODIAGNOSTIC TECHNICIAN 11/27/2024 9:42 AM NEURODIAGNOSTIC TECHNICIAN Narrative [facility] - 11/28/2024 3:51 AM NEURODIAGNOSTIC TECHNICIAN FASTING:NO FASTING: NO Italia Pugh MD CHEMISTRY Final Re sult [facility] [address] [place] [address], [facility] [address] [place] [address] * COLONOSCOPY (06/22/2023 12:20 PM CDT) 06/22/2023 [...] adequate candidate for conscious sedation. The endoscope [id number] was passed through the and advancedto. The [...] Result * ANTI HCV (11/17/2013 12:29 PM NEURODIAGNOSTIC TECHNICIAN) ANTI HCV Non-reacti ve [facility] Blood specimen (specimen) BLOOD SPECIMEN / Unknown 11/17/2013 12:29 PM NEURODIAGNOSTIC TECHNICIAN 11/17/2013 12:24 PM NEURODIAGNOSTIC TECHNICIAN us Italia Pugh MD SEND OUTS Final Re sult [facility] [place]NAL ZIP [id number] [place] [phone] from Last 3 Months or Most Recently Relevant to Health Maintenance Insurance [facility] Advance Directives * Full Code [...] 10:25 PM 04/10/2009 1:55 PM Care Teams Cops Relationship Specialty [place] [address] [place] [address] PCP - General Family Practice 09/23/17 [facility] [address] [place] [address] Ophthalmology Student Life Coordinator 06/16/21
--- OUTSIDE RECORDS SUMMARY | 2025-05-10 09:12 | XMS_ITS | Clinical Summary ---
Author Organization [facility] Address [address] [place] [address]. 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 Gender Identity Not on file Sexual Orientation [...] 175.3 cm (5' 9) 09/30/2021 8:31 AM CAMPER ASSEMBLER Body Mass Index 28.91 09/30/2021 8:31 AM CAMPER ASSEMBLER Plan of Treatment Health Maintenance Due Date [...] and gender (Antony et al., NEJM, DOI: 10.1056/[id number]) Blood STRUCTURE OF LEFT UPPER LIMB / Unknown Venipuncture / Unknown 06/16/2022 4:34 PM CDT 06/16/2022 4:37 PM CDT us Joe Jade MD LAB - BLOOD ORDERABLES F inal Result LABORATORY [facility] [address] Lab (1st floor, no room number) [place] [address], [place] [phone] from Last 3 Months or Most Recently Relevant to Health Maintenance Insurance [facility] [employer] Address: [address] [place] [id number] Advance Directives For more information, please contact: [phone] * Full Code (Latest Code Status on [...] with patie nt/legal decision maker Care Teams Awning Craftsman Relationship Specialty Start Date End Date Italia Pugh MD [facility] [id number] [place] [phone] PCP - General Family Practice 03/26/19
--- NOTE | 2025-05-10 09:48 | CRLHL7_ITS ---
For Patients: As a result of the Century Cures Act, medical imaging exams and procedure reports are released immediately into your electronic medical record. You may view this report before your referring provider. If you have questions, please contact your health care provider. INDICATION: Injury COMPARISON: May 05, 2025 TECHNIQUE: CT examination of the head was performed as axial sections without intravenous contrast. Images were obtained from the vertex of the skull through the skull base. Please note that all CT scans at this facility use dose modulation, iterative reconstruction, and/or weight-based dosing when appropriate to reduce radiation dose to as low as reasonably achievable. FINDINGS: The brain shows no sign of mass lesion, mass effect, hemorrhage, or edema. There are involutional changes. There is moderate cortical atrophy and there is moderate white matter disease. There is no hydrocephalus. The visualized portions of the orbits are normal in appearance. The osseous structures are normal in appearance with no sign of abnormality in the skull base or calvarium. IMPRESSION: Involutional changes. No acute intracranial posttraumatic findings. Please note that all CT scans at this facility use dose modulation, iterative reconstruction, and/or weight-based dosing when appropriate to reduce radiation dose to as low as reasonably achievable. Dictated by Vlad Lynn MD @ 05/10/2025 11:09:23 AM (Electronically Signed)
--- NOTE | 2025-05-10 09:59 | ED.GENADULT ---
HPI - General Adult General Date Seen: 05/10/25 Chief complaint: Fall/Minor Trauma Stated complaint: Thinks he fell- feels confused since Wednesday Time Seen by Provider: 05/10/25 09:58 History of Present Illness HPI narrative: 65-year-old male with past medical history of COPD, right lower lobe lung mass, type 2 diabetes, GERD, hypertension, history of alcohol abuse and alcoholic fatty liver disease, smoking, arthritis, chronic low back pain. He presents to the ER today with his . He does have a chronic cough because of COPD and continues to smoke. He has been having coughing spells lately and when he coughs he often times will black out. He says he thinks he has coughed and made himself black out about 8 times this month. His works overnight and was not with him overnight. He came to his this morning saying that he thinks he fell and felt confused and needed to come to the ER. notes that his cough is chronic but not necessarily worse than normal. Patient denies any new chest pain. No fever. Cough is not productive of sputum He is not sure what happened. He is having pain in his left knee, a flare of pain in his low back. He also has a left retro-orbital headache. His says he seems more confused than normal and is not acting like himself. Patient denies any chest pain. No rib pain. He does have a ?floating rib? that hurts sometimes but is not hurting now. No abdominal pain. He has pain in the midline of his low back. No radicular pain down his legs. He has a small bruise on his left knee and pain there. He is status post left knee replacement. No swelling in his legs. Related Data Home Medications ?Medication ?Instructions ?Recorded ?Confirmed amlodipine 10 mg tablet 10 mg PO DAILY 06/29/22 05/10/25 budesonide-formoterol HFA 160 2 puff inhalation Q12H 06/29/22 05/10/25 mcg-4.5 mcg/actuation aerosol inhaler (Symbicort) ipratropium 0.5 mg-albuterol 3 mg 3 ml inhalation Q6H PRN 06/29/22 05/10/25 (2.5 mg base)/3 mL nebulization soln lorazepam 1 mg tablet 1 mg PO DAILY 06/29/22 05/10/25 metformin 1,000 mg tablet 1,000 mg PO BID 06/29/22 05/10/25 omeprazole 40 mg capsule,delayed 40 mg PO DAILY 06/29/22 05/10/25 release tiotropium bromide 18 mcg capsule 1 cap inhalation DAILY 06/29/22 05/10/25 with inhalation device (Spiriva with HandiHaler) atorvastatin 20 mg tablet 20 mg PO HS 07/20/22 05/10/25 albuterol sulfate 90 mcg/actuation 2 puff inhalation Q4H PRN 10/03/22 05/10/25 aerosol inhaler (Ventolin HFA) meloxicam 15 mg tablet 15 mg PO DAILY 10/03/22 05/10/25 escitalopram oxalate 20 mg tablet 20 mg PO DAILY 05/10/25 05/10/25 tamsulosin 0.4 mg capsule 0.8 mg PO DAILY 05/10/25 05/10/25 Previous Rx's ?Medication ?Instructions ?Recorded benzonatate 100 mg capsule 200 mg (2 x 100 mg) PO TID #20 caps 10/06/22 prednisone 20 mg tablet 20 mg PO BID #10 tabs 12/18/24 oxycodone 5 mg capsule 5 mg PO Q8H PRN pain #10 caps 02/15/25 prednisone 20 mg tablet 40 mg (2 x 20 mg) PO DAILY #10 tabs 02/15/25 azithromycin 250 mg tablet See Rx Instructions PO .COMPLEX #6 05/10/25 tabs prednisone 20 mg tablet 40 mg (2 x 20 mg) PO DAILY #8 tabs 05/10/25 Allergies Allergy/AdvReac Type Severity Reaction Status Date / Time No Known Drug Allergies Allergy Verified 05/10/25 09:44 [facility] Medical History Chest pain ?R07.9 - Chest pain, unspecified (ICD-10) Right lower lobe lung mass ?R91.8 - Other nonspecific abnormal finding of lung field (ICD-10) Chronic low back pain with sciatica ?M54.40 - Lumbago with sciatica, unspecified side (ICD-10) ?G89.29 - Other chronic pain (ICD-10) Diabetic acidosis, type II ?E11.10 - Type 2 diabetes mellitus with ketoacidosis without coma (ICD-10) Radiculitis ?M54.10 - Radiculopathy, site unspecified (ICD-10) Internal derangement of right knee ?M23.91 - Unspecified internal derangement of right knee (ICD-10) Essential hypertension ?I10 - Essential (primary) hypertension (ICD-10) Erectile dysfunction ?N52.9 - Male erectile dysfunction, unspecified (ICD-10) Adenomatous polyp of colon ?D12.6 - Benign neoplasm of colon, unspecified (ICD-10) COPD (chronic obstructive pulmonary disease) ?J44.9 - Chronic obstructive pulmonary disease, unspecified (ICD-10) Fay's esophagus with esophagitis ?K22.70 - Fay's esophagus without dysplasia (ICD-10) ?K20.90 - Esophagitis, unspecified without bleeding (ICD-10) Alcoholic fatty liver ?K70.0 - Alcoholic fatty liver (ICD-10) History of alcohol abuse ?F10.11 - Alcohol abuse, in remission (ICD-10) GERD (gastroesophageal reflux disease) ?K21.9 - Gastro-esophageal reflux disease without esophagitis (ICD-10) Depression with anxiety ?F41.8 - Other specified anxiety disorders (ICD-10) Nicotine dependence ?F17.200 - Nicotine dependence, unspecified, uncomplicated (ICD-10) Type 2 diabetes mellitus ?E11.9 - Type 2 diabetes mellitus without complications (ICD-10) Osteoarthritis of right knee ?M17.11 - Unilateral primary osteoarthritis, right knee (ICD-10) Osteoarthritis of left knee ?M17.12 - Unilateral primary osteoarthritis, left knee (ICD-10) Surgical History History of meniscectomy of right knee (~2015) ?Z98.890 - Other specified postprocedural states (ICD-10) H/O vasectomy ?Z98.52 - Vasectomy status (ICD-10) History of partial colectomy (~1999) ?Z90.49 - Acquired absence of other specified parts of digestive tract (ICD-10) History of appendectomy ?Z90.49 - Acquired absence of other specified parts of digestive tract (ICD-10) Hx laparoscopic cholecystectomy (10/15/17) ?Z90.49 - Acquired absence of other specified parts of digestive tract (ICD-10) Family History Father Lung cancer Social History Narrative: Lives with partner Queenie. Three adult children from previous relationship. Queenie or daughter Savi would be medical decision maker if needed. Patient requests full code status. 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 Smokes 1 pack per day, > 20 pack-year history. No alcohol use. Highest level of school completed/degree received: GED or equivalent Smoking Status: Current every day smoker What tobacco products do you use: cigarettes Smoking packs per day: 0.5 Smoking cigarettes per day: 10.0 Years smoked: 40 Smoking pack-years: 20.00 Do you use any of these nicotine containing products: None Second hand tobacco smoke exposure: Yes How often do you have a drink containing alcohol: never How often do you have six or more drinks on one occasion: Never AUDIT-C Alcohol total score: 0 Non-prescribed substance use: denies use Caffeine: Yes (2 cups coffee in the morning) service: Yes Exam Narrative: Exam Narrative: Constitutional: Appears well-developed and well-nourished. Alert. Conversant but cannot answer all questions of history. Just can not remember what happened to this morning. notes that he seems confused. Non toxic. HENT: Head: Complains of left frontal headache, but no bruising. No signs of injury. No depressed skull fracture, Raccoon Eyes, Gómez's sign, or hemotympanum. Face normal. TMs normal Nose: Nose normal. Mouth/Throat: Oral mucosa is clear and moist. no trismus. Pharynx normal. Tonsils symmetric. No tonsillar enlargement, erythema, or exudate. Eyes: Conjunctivae normal. EOM normal. Pupils equal, round, and reactive to light. No scleral icterus. Neck: Normal range of motion. Neck supple. No tracheal deviation present. Cardiovascular: Normal rate, regular rhythm. No gallop. No friction rub. No murmur heard. Symmetric radial artery pulses Pulmonary/Chest: As this is significant coughing spell that makes him lean forward almost fall out of bed. He does have significant wheezing in all lung palomo with diminished aeration. Abdominal: Soft. Bowel sounds normal. No distension. No mass. No tenderness. No rebound. No guarding. Musculoskeletal: RUE: Normal range of motion. No tenderness. No deformity LUE: Normal range of motion. No tenderness. No deformity RLE: Normal range of motion. No edema. No tenderness. No deformity LLE: Normal range of motion. No edema. Mild tenderness over the anterior knee and anterolateral distal femur. Able to go from full extension to about 90? of flexion. No definite bony crepitus. No deformity. No deformity hip, femur, tibia/fibula, ankle, foot are nontender. Neurological: Alert and oriented to person, place, and date but is not a good historian. Says he feels confused. Normal strength. CN II-VII intact. No sensory deficit. GCS eye subscore is 4. GCS verbal subscore is 5. GCS motor subscore is 6. Normal coordination Skin: Skin is warm and dry. No rash noted. No pallor. Normal capillary refill. Psychiatric: Normal mood. Normal affect. Const: Vital Signs, click to edit/add: Vital Signs - 24 hr 05/10/25 09:32 05/10/25 10:25 05/10/25 10:26 Temperature 98.4 F Pulse Rate Pulse Rate [Pulse Oximeter] 96 Respiratory Rate 18 32 H 19 Blood Pressure 140/82 H Blood Pressure [Ri ght Upper Arm] 150/83 H Pulse Oximetry 93 Oxygen Delivery Me od Room Air 05/10/25 10:34 05/10/25 10:46 05/10/25 10:55 Temperature Pulse Rate Pulse Rate [Pulse Oximeter] Respiratory Rate 26 H 14 Blood Pressure 139/84 Blood Pressure [Ri ght Upper Arm] Pulse Oximetry 94 Oxygen Delivery Me od Room Air 05/10/25 10:57 05/10/25 11:00 05/10/25 11:05 Temperature Pulse Rate 85 82 82 Pulse Rate [Pulse Oximeter] Respiratory Rate 19 25 H 19 Blood Pressure 151/85 H 130/80 Blood Pressure [Ri ght Upper Arm] Pulse Oximetry 91 91 90 Oxygen Delivery Ks thod 05/10/25 11:15 05/10/25 11:25 05/10/25 11:28 Temperature Pulse Rate 83 93 94 Pulse Rate [Pulse Oximeter] Respiratory Rate 20 Blood Pressure 126/83 Blood Pressure [Ri ght Upper Arm] Pulse Oximetry 89 92 Oxygen Delivery Me thod 05/10/25 11:30 05/10/25 11:41 05/10/25 11:42 Temperature Pulse Rate 89 80 82 Pulse Rate [Pulse Oximeter] Respiratory Rate Blood Pressure 133/79 Blood Pressure [Ri ght Upper Arm] Pulse Oximetry 91 88 89 Oxygen Delivery Me thod 05/10/25 11:45 05/10/25 12:00 05/10/25 12:02 Temperature Pulse Rate 85 81 79 Pulse Rate [Pulse Oximeter] Respiratory Rate Blood Pressure 137/80 Blood Pressure [Ri ght Upper Arm] Pulse Oximetry 92 91 91 Oxygen Delivery Me thod 05/10/25 12:03 05/10/25 12:15 05/10/25 12:22 Temperature Pulse Rate 76 77 79 Pulse Rate [Pulse Oximeter] Respiratory Rate 16 Blood Pressure 126/56 L Blood Pressure [Ri ght Upper Arm] Pulse Oximetry 90 89 90 Oxygen Delivery Me thod 05/10/25 12:23 05/10/25 12:41 05/10/25 12:42 Temperature Pulse Rate 79 86 85 Pulse Rate [Pulse Oximeter] Respiratory Rate 16 Blood Pressure 140/84 H Blood Pressure [Ri ght Upper Arm] Pulse Oximetry 90 89 90 Oxygen Delivery Me thod 05/10/25 12:45 05/10/25 13:00 05/10/25 13:01 Temperature Pulse Rate 79 85 87 Pulse Rate [Pulse Oximeter] Respiratory Rate Blood Pressure 116/65 Blood Pressure [Ri ght Upper Arm] Pulse Oximetry 90 90 90 Oxygen Delivery Me thod 05/10/25 13:15 05/10/25 13:22 Temperature Pulse Rate 89 88 Pulse Rate [Pulse Oximeter] Respiratory Rate 16 Blood Pressure 131/77 Blood Pressure [Ri ght Upper Arm] Pulse Oximetry 89 88 Oxygen Delivery Me thod Course Vital Signs Vital signs: Initial Vital Signs Temperature 98.4 F 05/10/25 09:32 Temperature Source Temporal Artery Scan 05/10/25 09:32 Pulse Rate 96 05/10/25 09:32 Respiratory Rate 18 05/10/25 09:32 Blood Pressure 150/83 H 05/10/25 09:32 Blood Pressure Mean 105 05/10/25 09:32 Blood Pressure Position Sitting 05/10/25 09:32 Pulse Oximetry 93 05/10/25 09:32 Oxygen Delivery Method Room Air 05/10/25 09:32 Vital Signs Temperature 98.4 F 05/10/25 09:32 Pulse Rate 96 05/10/25 09:32 Respiratory Rate 18 05/10/25 09:32 Blood Pressure 150/83 H 05/10/25 09:32 Pulse Oximetry 93 05/10/25 09:32 Oxygen Delivery Method Room Air 05/10/25 09:32 Temperature 98.4 F 05/10/25 09:32 Pulse Rate 88 05/10/25 13:22 Respiratory Rate 16 05/10/25 13:22 Blood Pressure 131/77 05/10/25 13:22 Pulse Oximetry 88 05/10/25 13:22 Oxygen Delivery Method Room Air 05/10/25 10:34 Medications Administered Medications: Generic Name Dose Route Start Last Admin Trade Name Freq PRN Reason Stop Dose Admin Nicotine 1 patch 05/10/25 12:00 05/10/25 13:06 Nicotine 21 Mg Patch TRANSDERMA 1 patch Q24H FATOU Administration Discontinued Medications Generic Name Dose Route Start Last Admin Trade Name Freq PRN Reason Stop Dose Admin Albuterol/Ipratropium 1 neb 05/10/25 10:56 05/10/25 11:02 Iprat-Albut 0.5-2.5 Mg/3 Ml Neb 05/10/25 10:57 1 neb ONCE ONE Administration Albuterol/Ipratropium 1 neb 05/10/25 12:28 05/10/25 12:45 Iprat-Albut 0.5-2.5 Mg/3 Ml [facility] 05/10/25 12:29 1 neb ONCE ONE Administration Lorazepam 1 mg 05/10/25 11:52 05/10/25 11:57 Lorazepam 1 Mg Tablet PO 05/10/25 11:53 1 mg ONCE ONE Administration Methylprednisolone Sodium Succinate 125 mg 05/10/25 10:01 05/10/25 11:05 Methylprednisolone Sod Succ 62.5 Mg/Ml (125) IVP 05/10/25 10:02 125 mg ONCE ONE Administration Morphine Sulfate 4 mg 05/10/25 11:52 05/10/25 11:57 Morphine 4 Mg/Ml Inj IVP 05/10/25 11:53 4 mg ONCE ONE Administration Medical Decision Making MDM Narrative Medical decision making narrative: 65-year-old gentleman with a complex presentation. He came to his this morning with concern that he felt confused and might have fallen and hit his head. However he is not sure if he fell and hit his head. 1. Neuro: No objective external signs for head injury but with potential for fall and confusion we did obtain head CT which is normal. Has no focal neurologic deficits to suggest spinal cord injury or stroke. With his confusion and potential for fall we did obtain C-spine CT and it is normal. He also complains of an acute exacerbation of chronic low back pain. Morphine administered. CT scan including his lumbar spine shows moderate L4-5 degenerative disc disease with a disc bulge and a trace L4-5 retrolisthesis. No acute fractures. No new symptoms of lumbar radiculopathy or spinal cord injury. Consider alternative causes for confusion. Alcohol level undetectable. Sodium is mildly low at 131 which is similar last week. Other electrolytes and kidney function are normal. Blood sugar normal. LFTs normal. Ammonia level is pending at the time of this dictation but I anticipate it will be normal given the absence of other acute hepatic failure, and improvement in his overall mental status while here in the ER. Overall the patient had fairly rapid improvement in his confusion and at multiple rechecks he was alert, oriented, and conversant. 2. Pulmonary. Patient is a smoker and has known COPD. Does report chronic cough that is not really worse than normal but has been so bad lately that he has had about 8 times in the past month where he has coughed to the point where he passes out. He does have significant wheezing and coughing here in the ER. He did having a coughing spell during my initial exam during which he fell forward and almost blacked out. I was able to system back in the bed. For his wheezing he we did administer IV steroids and DuoNebs. Oxygen sat is in the low 90s on room air. Overall although he is wheezy work of breathing is not elevated. At this point he does not require BiPAP. VBG shows a pH of 7.4 with a pCO2 of 38. He did receive serial DuoNebs here in the ER and on each lung re-examination he still wheezy but less wheezy and he is able to breathe better without coughing as much. He is also not having coughing spells to the point of having syncope. Despite that oxygen saturation ranges about 89% with a maximum 95%. Average is about 90%. He says this is his typical baseline. Overall respirations are unlabored at this point he is not needing BiPAP. Discussed with the patient about disposition. I think we could make criteria for admission since he is having COPD bad enough for him to cough and syncopized. However he wants to go home. Will have him increase his frequency of DuoNebs up to every 4-6 hours and put him on a short burst of oral steroids. Also oral antibiotics for COPD exacerbation. COVID/influenza PCR negative. Chest CT is negative for PE or any signs of an acute infection or pneumonia. There is an abnormality in the right lower lobe which is favored to resent ground-glass opacities from scarring atelectasis. Also some adenopathy in the right lung which is nonspecific and for which the radiologist recommends follow-up imaging. No definite malignancy. 3. Cardiac. Patient had does report several episodes of syncope at home lately including possibly 1 this morning. It sounds like these are related to a pulmonary cause and coughing. EKG is obtained and shows sinus rhythm, low-voltage QRS but no definite ischemia. Troponin is negative. I do not hear any murmur to suggest critical aortic stenosis. 4. Incidentally he is scheduled to have an outpatient endoscopy tomorrow. He is wonders if he should do that. I indicated that she would follow up with his doctors tomorrow for recheck prior to the endoscopy and if his anesthesiologist feels that he is safe for sedation they should be able go through the procedure. However if he still having bad COPD exacerbation, the procedure might need to be rescheduled. Lab Data Labs: Lab Results 05/10/25 Range/Units 10:25 WBC 7.75 (4.50-11.00) K/uL RBC 5.50 (4.30-5.90) m/uL Hgb 14.9 (13.5-17.5) gm/dL Hct 45.1 (37.0-53.0) % MCV 82 (80-100) fL MCH 27 (26-34) pg MCHC 33 (32-36) gm/dL RDW Coeff of Jeovanny 13.2 (11.5-15.5) % Plt Count 185 (140-440) K/uL Neut % (Auto) 73.4 H (42.0-72.0) % Lymph % (Auto) 16.6 L (20-44) % [place] % (Auto) 7.1 (0.0-11.0) % Eos % (Auto) 2.5 (0.0-7.0) % Baso % (Auto) 0.3 (0.0-3.0) % Neut # (Auto) 5.70 (1.7-7.0) K/uL Lymph # (Auto) 1.30 (0.90-2.90) K/uL [place] # (Auto) 0.60 (0.00-0.90) K/UL Eos # (Auto) 0.19 (0.00-0.50) K/uL Baso # (Auto) 0.02 (0.00-0.30) K/uL Abs Immat Gran (auto) 0.01 (0.00-0.30) K/uL Imm/Tot Granulo (auto) 0.1 % VBG pH 7.423 (7.32-7.43) VBG pCO2 38 L (40-50) mmHG VBG pO2 44.1 (25-47) mmHG VBG HCO3 25 (21-28) mmol/L Sodium 131 L (135-149) mmol/L Potassium 4.8 (3.6-5.1) mmol/L Chloride 98 (96-114) mmol/L Carbon Dioxide 24 (20-32) mmol/L Anion Gap 9 (7-15) mEq/L BUN 18 (7-30) mg/dL Creatinine 1.0 (0.5-1.5) mg/dL Estimated Creat Clear 73.15 Estimated GFR 85 ml/min Glucose 101 (60-115) mg/dL Lactate 1.8 (0.5-1.9) mmol/L Calcium 10.0 (8.4-10.6) mg/dL Magnesium 1.7 (1.5-2.6) mg/dL Total Bilirubin 0.9 (0.1-1.5) mg/dL AST 30 (12-35) U/L ALT 28 (4-50) U/L Alkaline Phosphatase 88 (40-150) U/L Ammonia Cancelled Troponin I < 0.01 (0.01-0.04) ng/mL Total Protein 7.9 (6.0-8.3) g/dL Albumin 4.6 (3.3-5.0) g/dL Ethyl Alcohol < 0.01 (0.01-0.03) % SARS-CoV-2 (PCR) Negative SARS-CoV-2 (Negative) Influenza Type A (PCR) Negative PCR FLU A (Negative) Influenza Type B (PCR) Negative PCR FLU B (Negative) RSV (PCR) Negative PCR RSV (Negative) Imaging Data CT scan - head: Attestation: I have reviewed the pertinent imaging results. Radiologist's impression: IMPRESSION: Involutional changes. No acute intracranial posttraumatic findings. CT C spine: Attestation: I have reviewed the pertinent imaging results. Radiologist's impression: IMPRESSION: No acute fracture, dislocation or destructive process. Straightening. Degenerative changes. CT scan - abdomen: Attestation: I have reviewed the pertinent imaging results. Radiologist's impression: IMPRESSION: 1. No gross acute finding within the abdomen or pelvis. CT scan - chest: Attestation: I have reviewed the pertinent imaging results. Radiologist's impression: IMPRESSION: 1. Increase moderate right basilar ground-glass and reticulation compared to 202. This is favored to represent a combination of scarring/atelectasis. Evidence of mild peripheral scarring noted elsewhere within the lungs. Short-term chest CT is recommended in 3 months. 2. Grossly stable right hilar lymphadenopathy compared to 202. Recommend close attention on follow-up. 3. No pulmonary embolism is seen. XR knee: Attestation: I have reviewed the pertinent imaging results. Radiologist's impression: Impression: 1. There has been a medial hemiarthroplasty. No abnormal lucency associated with the implants. 2. Degenerative changes of the lateral compartment. 3. No acute fracture, dislocation or destructive process. 4. No joint effusion. 5. Atherosclerotic vascular calcifications. ECG Data Attestation: I personally reviewed and interpreted this ECG as follows: Interpretation: Normal sinus rhythm Rate 84 Normal QRS axis. Low voltage QRS No ST segment elevation or depression QTC 430, QT interval 360 Discharge Plan Discharge Clinical Impression: Acute exacerbation of chronic obstructive pulmonary disease, Acute pain of left knee, Low back pain, Acute alteration in mental status Patient Disposition: Home, Self-Care Condition: Stable Instructions: COPD (Chronic Obstructive Pulmonary Disease) (DC), Knee Pain (ED) Additional Instructions: As we discussed, return to the ER right away if you have any worsening symptoms such as confusion, weakness, worsening cough, trouble breathing, chest pain, or more fainting spells. Please recheck with your doctors tomorrow. To treat your COPD, increase your DuoNeb usage up to every 4-6 hours. Take your next dose of steroids tomorrow. Start on the antibiotic. If you have worsening cough or trouble breathing, return to the ER. Prescriptions: New azithromycin 250 mg tablet See Rx Instructions .ROUTE .COMPLEX Qty: 6 0RF Rx Instructions: For 250 mg dose pack: take 500 mg today (day 1), then 250 mg for 4 days (days 2-5) prednisone 20 mg tablet 40 mg PO DAILY Qty: 8 0RF No Action atorvastatin 20 mg tablet 20 mg PO HS oxycodone 5 mg capsule 5 mg PO Q8H PRN (Reason: pain) Qty: 10 0RF prednisone 20 mg tablet 40 mg PO DAILY Qty: 10 0RF tamsulosin 0.4 mg capsule 0.8 mg PO DAILY escitalopram oxalate 20 mg tablet 20 mg PO DAILY amlodipine 10 mg tablet 10 mg PO DAILY Patient Comments: TAKE ONE TABLET BY MOUTH EVERY EVENING lorazepam 1 mg tablet 1 mg PO DAILY Patient Comments: TAKE 1 TABLET BY MOUTH ONCE DAILY IF NEEDED FOR ANXIETY. metformin 1,000 mg tablet 1,000 mg PO BID Patient Comments: TAKE 1 TABLET BY MOUTH 2 TIMES DAILY WITH MEALS. omeprazole 40 mg capsule,delayed release(DR/EC) 40 mg PO DAILY Patient Comments: TAKE 1 CAPSULE BY MOUTH ONCE DAILY BEFORE A MEAL. tiotropium bromide [Spiriva with HandiHaler] 18 mcg capsule, w/inhalation device 1 cap INHALATION DAILY Patient Comments: INHALE CONTENTS OF 1 CAPSULE WITH HANDIHALER DEVICE ONCE DAILY ipratropium-albuterol 0.5 mg-3 mg(2.5 mg base)/3 mL solution for nebulization 3 ml INHALATION Q6H PRN Patient Comments: INHALE ONE VIAL VIA A NEBULIZER 4 TIMES DAILY NEEDED budesonide-formoterol [Symbicort] 160-4.5 mcg/actuation HFA aerosol inhaler 2 puff INHALATION Q12H Patient Comments: INHALE 2 PUFFS BY MOUTH 2 TIMES DAILY. albuterol sulfate [Ventolin HFA] 90 mcg/actuation HFA aerosol inhaler 2 puff INHALATION Q4H PRN meloxicam 15 mg tablet 15 mg PO DAILY Patient Comments: TAKE ONE TABLET BY MOUTH EVERY DAY benzonatate 100 mg Capsule 200 mg PO TID Qty: 20 0RF prednisone 20 mg tablet 20 mg PO BID Qty: 10 0RF Follow Up/Referrals: Italia Pugh MD [Primary Care Provider, [facility]] [facility] Info Instructions Procedures ABG Interpretation ABG Results: 05/10/25 10:25 VBG pH 7.423 VBG pCO2 38 L VBG pO2 44.1 VBG HCO3 25
--- NOTE | 2025-05-10 10:01 | CRLHL7_ITS ---
For Patients: As a result of the Century Cures Act, medical imaging exams and procedure reports are released immediately into your electronic medical record. You may view this report before your referring provider. If you have questions, please contact your health care provider. INDICATION: Back pain and shortness of breath. TECHNIQUE: CT abdomen and pelvis acquired with 95 cc Omnipaque 350 IV contrast. COMPARISON: 08/23/2024 FINDINGS: The liver is normal in size. There may be hepatic steatosis. No definite liver lesion is seen. Gallbladder is absent. No gross biliary ductal dilatation. Spleen is normal in size. Pancreas is unremarkable. The adrenal glands are unremarkable. Prominent right collecting system without hydronephrosis. This is similar compared prior. Urinary bladder is distended without substantial thickening or stranding. Sigmoid diverticulosis without CT evidence of acute diverticulitis. Stool throughout the remainder of the colon which appears nondilated. The appendix is not seen. The small bowel is unremarkable. The stomach is partially distended. No free air. No ascites. Laxity indeterminate wall with likely prior hernia repair. Small fat containing right inguinal hernia. No lymphadenopathy. Prostate calcifications. Extensive atherosclerosis is noted within a nondilated aorta. No acute fracture. Moderate L4-5 degenerative disc disease with small disc bulge. Trace L4-5 retrolisthesis. IMPRESSION: 1. No gross acute finding within the abdomen or pelvis. Please note that all CT scans at this facility use dose modulation, iterative reconstruction, and/or weight-based dosing when appropriate to reduce radiation dose to as low as reasonably achievable. Dictated by Kaushik Martinez MD @ 05/10/2025 11:19:22 AM (Electronically Signed)
--- NOTE | 2025-05-10 10:01 | CRLHL7_ITS ---
For Patients: As a result of the Cures Act, medical imaging exams and procedure reports are released immediately into your electronic medical record. You may view this report before your referring provider. If you have questions, please contact your health care provider. INDICATION: Injury. COMPARISON: None TECHNIQUE: CT examination of the cervical spine is performed without contrast using spiral technique. Thin axial, sagittal and coronal reconstructions were made. Please note that all CT scans at this facility use dose modulation, iterative reconstruction, and/or weight-based dosing when appropriate to reduce radiation dose to as low as reasonably achievable. FINDINGS: : There is straightening which is probably due to muscle spasm or positioning. No mariola malalignment. No acute fracture, dislocation or destructive process. Moderate degenerative changes mainly at the mid and lower cervical spine. Atherosclerotic vascular calcifications. Incidental ossification of the stylohyoid ligament. IMPRESSION: No acute fracture, dislocation or destructive process. Straightening. Degenerative changes. Please note that all CT scans at this facility use dose modulation, iterative reconstruction, and/or weight-based dosing when appropriate to reduce radiation dose to as low as reasonably achievable. Dictated by Vlad Lynn MD @ 05/10/2025 11:12:36 AM (Electronically Signed)
--- NOTE | 2025-05-10 10:01 | CRLHL7_ITS ---
For Patients: As a result of the Cures Act, medical imaging exams and procedure reports are released immediately into your electronic medical record. You may view this report before your referring provider. If you have questions, please contact your health care provider. Indication: Injury Technique: Three views of the left knee were acquired Comparison: None Findings: As described below Impression: 1. There has been a medial hemiarthroplasty. No abnormal lucency associated with the implants. 2. Degenerative changes of the lateral compartment. 3. No acute fracture, dislocation or destructive process. 4. No joint effusion. 5. Atherosclerotic vascular calcifications. Dictated by Vlad Lynn MD @ 05/10/2025 11:14:31 AM (Electronically Signed)
--- OUTSIDE RECORDS SUMMARY | 2025-05-10 10:11 | XMS_ITS | CCD ---
Author Organization Unknown Care Team Providers Care Combination Machine Tender Name Role Phone Table Assembler, [place] Primary Care Provider Unava ilable Unavailable Chronic Care Management Unavaila ble Summary Purpose DataExchange Insurance Providers Payer name Policy type / Coverage type Covered constitution party ID Effective Begin Date Effective End Date [facility] Commercial Insurance [id number] Unknown Unkn own Family History Family History data not found Medication Administered No Medication Administered data Reason For Visit No Reason For Visit data
--- OUTSIDE RECORDS SUMMARY | 2025-05-10 10:11 | XMS_ITS | CCD ---
Author Organization Unknown Care Team Providers Care Lab Intern Name Role Phone Smelter Operator, [place] Primary Care Provider Unava ilable Unavailable Chronic Care Management Unavaila ble Summary Purpose DataExchange Insurance Providers Payer name Policy type / Coverage type Covered alliance party ID Effective Begin Date Effective End Date [facility] Commercial Insurance [id number] Unknown Unkn own Family History Family History data not found Medication Administered No Medication Administered data Reason For Visit No Reason For Visit data
--- NOTE | 2025-05-10 10:39 | RESP.RT ---
Patient seen in ED with labored breathing and inspiratory/expiratory wheezing. Patient did 2 Puff with MDI Albuterol in waiting area, puffs were one immediately after the other without a spacer. Explained to patient and waiting at least a minute for the MDI to reload the medication into the chamber for use. Discussed use of a spacer in using and MDI, gave a spacer to patient. Pre-treatment, BBS with Inspiratory/Expiratory high pitched musical wheezing all palomo, coughing, with RLL end expiratory grunt. DuoNeb given to patient with small volume nebulizer and Oxygen flow meter at 6 Lpm. Patient tolerated well, post treatment, wheezing diminished all palomo, grunt still noticed RRL, not as predominant, patient able to take larger breath and cough is more forceful.
[2025-05-10 10:40] LABS: HCO3 VBG 25 mmol/L (21-28); Lactate* 1.8 mmol/L (0.5-1.9); PCO2 VBG 38 mmHG (40-50); PO2 VBG 44.1 mmHG (25-47); pH VBG 7.423 (7.32-7.43)
[2025-05-10 10:44] LABS: Hematocrit 45.1 % (37.0-53.0); Hemoglobin* 14.9 gm/dL (13.5-17.5); Immature Granulocytes Abs Auto 0.01 K/uL (0.00-0.30); Immature Granulocytes Pct Auto 0.1 %; Mean Corpuscular HGB Conc 33 gm/dL (32-36); Mean Corpuscular Hemoglobin 27 pg (26-34); Mean Corpuscular Volume 82 fL (80-100); RDW Coefficient of Variation % 13.2 % (11.5-15.5); Red Blood Count 5.50 m/uL (4.30-5.90); White Blood Count* 7.75 K/uL (4.50-11.00)
[2025-05-10 10:49] LABS: Lymphocytes Absolute Auto 1.30 K/uL (0.90-2.90); Slide Review Reflex No
[2025-05-10 10:58] LABS: Chloride* 98 mmol/L (96-114)
[2025-05-10 10:59] LABS: Albumin* 4.6 g/dL (3.3-5.0); Potassium* 4.8 mmol/L (3.6-5.1); Sodium* 131 mmol/L (135-149)
[2025-05-10 11:01] LABS: Blood Urea Nitrogen* 18 mg/dL (7-30); Creatinine* 1.0 mg/dL (0.5-1.5); Est. Creatinine Clearance* 73.15; Estimated Glomerular Filt Rate 85 ml/min
[2025-05-10 11:02] LABS: Alanine Aminotransferase* 28 U/L (4-50); Alkaline Phosphatase* 88 U/L (40-150); Anion Gap 9 mEq/L (7-15); Aspartate Amino Transferase* 30 U/L (12-35); Bilirubin Total* 0.9 mg/dL (0.1-1.5); Calcium* 10.0 mg/dL (8.4-10.6); Carbon Dioxide* 24 mmol/L (20-32); Glucose* 101 mg/dL (60-115); Total Protein* 7.9 g/dL (6.0-8.3)
[2025-05-10] MEDS: IPRAT-ALBUT 0.5-2.5 MG/3 ML NEB 1 NEB IH ×2 (11:02→12:45)
[2025-05-10 11:04] LABS: Ethanol* < 0.01 % (0.01-0.03)
[2025-05-10] MEDS: METHYLPREDNISOLONE SOD SUCC 62.5 MG/ML (125) 125 MG IVP (11:05)
--- OUTSIDE RECORDS SUMMARY | 2025-05-10 11:12 | XMS_ITS | CCD ---
Author Organization Unknown Care Team Providers Care Maintenance Assistant Name Role Phone Mentally Impaired Teacher, [place] Primary Care Provider Unava ilable Unavailable Chronic Care Management Unavaila ble Summary Purpose DataExchange Insurance Providers Payer name Policy type / Coverage type Covered republican ID Effective Begin Date Effective End Date [facility] Commercial Insurance [id number] Unknown Unkn own Family History Family History data not found Medication Administered No Medication Administered data Reason For Visit No Reason For Visit data
[2025-05-10 11:22] LABS: PCR FLU A Negative PCR FLU A (Negative); PCR FLU B Negative PCR FLU B (Negative); PCR RSV Negative PCR RSV (Negative); SARS PCR* Negative SARS-CoV-2 (Negative)
[2025-05-10] MEDS: MORPHINE 4 MG/ML INJ IVP (11:57)
[2025-05-10] MEDS: NICOTINE 21 MG PATCH 1 PATCH TRANSDERMA (13:06)
== END 2025-05-10 14:03 | disposition home or self-care (01) ==
PROVIDERS: Emergency Provider Emergency Medicine; PCP Family Medicine
DX: J44.1 Chronic obstructive pulmonary disease with (acute) exacerbation (principal); R41.82 Altered mental status, unspecified; M25.562 Pain in left knee; F17.210 Nicotine dependence, cigarettes, uncomplicated; R91.8 Other nonspecific abnormal finding of lung field; E11.9 Type 2 diabetes mellitus without complications; K21.9 Gastro-esophageal reflux disease without esophagitis; I10 Essential (primary) hypertension; M54.50 Low back pain, unspecified; G89.29 Other chronic pain; Z79.84 Long term (current) use of oral hypoglycemic drugs
CPT/HCPCS: 36415; 70450; 71275; 72125; 73562; 74177; 80053; 82077; 82140; 82803; 83605; 83735; 84484; 85025; 87040; 87631; 93005; 94640; 94761; 96374; 99284; 99285; A9270; J2270; J2919; Q9967; S4990

== ENCOUNTER 2025-05-11 11:38 | Emergency (ER) | payer MEDICAID, SELFPAY ==
--- OUTSIDE RECORDS SUMMARY | 2025-05-11 11:42 | XMS_ITS | Clinical Summary ---
Author Organization [facility] Address [address] [place] [address]. 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 Gender Identity Not on file Sexual Orientation [...] 175.3 cm (5' 9) 09/30/2021 8:31 AM REAL ESTATE OFFICE SUPERVISOR Body Mass Index 28.91 09/30/2021 8:31 AM REAL ESTATE OFFICE SUPERVISOR Plan of Treatment Health Maintenance Due Date [...] and gender (Antony et al., NEJM, DOI: 10.1056/[id number]) Blood STRUCTURE OF LEFT UPPER LIMB / Unknown Venipuncture / Unknown 06/16/2022 4:34 PM CDT 06/16/2022 4:37 PM CDT us Joe Jade MD LAB - BLOOD ORDERABLES F inal Result LABORATORY [facility] [address] Lab (1st floor, no room number) [place] [address], [place] [phone] from Last 3 Months or Most Recently Relevant to Health Maintenance Insurance [facility] Advance Directives For more information, please contact: [phone] * Full Code (Latest Code Status on [...] with patie nt/legal decision maker Care Teams School Crossing Guard Relationship Specialty Start Date End Date Italia Pugh MD [facility] [id number] [place] [id number] PCP - General Family Practice 03/26/19
--- OUTSIDE RECORDS SUMMARY | 2025-05-11 11:42 | XMS_ITS | Clinical Summary ---
Author Organization [employer] [facility] [employer] Address [address] [place] [address] Care Team Providers Care Angle Dozer Operator Name Role Phone Italia Pugh MD Primary [...] Eligibility Review Date: 07/19/19 Upcoming Visit Location: [facility] Age: 59 y.o. Insurance: [employer] Etiology: ? NYHA: ? Last HF Admit: [...] in the RUL. Patient was referred to [facility] lung nodule clinic. Fay's esophagus without dysplasia [...] ECT treatment. Last one in 1999 at [facility] Fatty liver, alcoholic Overview (09/14/2017): No [...] Encounters Date Type Department Care Team Description 05/11/2025 Travel 05/10/2025 Orders Only [facility] Scanner 1 scan: (1-Ord) [facility], ABD PELVIS W CON, 05/10/2025 05/10/2025 Orders Only [facility] Scanner 1 scan: (1-Ord) [facility], KNEE, LT 3V, 05/10/2025 05/07/[address] [address] Italia Pugh MD Refill Request (Escitalopram Oxalate) 05/05/2025 Orders Only [facility] Scanner 1 scan: (1-Ord) [place], HEAD/BRAIN WO CON, 05/05/2025 05/05/2025 Orders Only [facility] Scanner 1 scan: (1-Ord) [place], XR CHEST 2V, 05/05/2025 05/03/[address] [address] Italia Pugh MD Questions (diabetes pill ) 04/26/2025 Telephone [facility] [address] [place] [address] Braulio Sanchez MD Screening 04/24/[address] [address] Italia Pugh MD Refill Request (Ventolin Hfa) 04/20/2025 9:15 AM CDT Office Visit [address] [address] Italia Pugh MD Diabetes (Not fasting) 04/20/[address] [address] Italia Pugh MD Results 04/20/2025 Travel 04/04/[address] [address] Italia Pugh MD Refill Request (Meloxicam, Omeprazole) 03/05/[address] [address] Italia Pugh MD Results (CT of chest) 03/02/2025 10:30 AM CDT Ancillary Procedure [facility] [address] [place] [address] 03/02/2025 Travel 02/28/[address] [address] Italia Pugh MD Order (Annual CT scan) 02/15/2025 Orders Only [facility] Scanner 1 scan: (1-Ord) [facility], CHEST 2V, 02/15/2025 02/15/2025 Nurse Triage [address] [address] Italia Pugh MD Chest Pain/problem from Last [...] on file Legal Sex Male 5:43 AM CHECK PILOT Gender Identity Not on file Sexual Orientation [...] Body Mass Index 28.34 11/30/2024 10:25 AM CHECK PILOT Plan of Treatment Upcoming Encounters Date Type Department Care Team (Late st Contact Info) Description 05/22/2025 10:30 AM CDT Office Visit [facility] [address] [place] [address] [place] [address] [place] [address] Health Maintenance Due Date Last Done Comments [...] Completed 08/11/2024 Medical Devices Implanted Type Area Circuit Designer Device Identifier Shelf Expiration Date Model / Serial / Lot Mesh Ventral [id number] Progrip Lapsc Slf Fixating - [id number] Implanted:Qty: 1 on 12/07/2018 by Cindy Munoz DO at [facility] Left: Inguinal [employer] 01/25/2020 [id number] / / [id number] Mesh Ventral 6x8in Ventralightst W/Echo Ps - [id number] Implanted:Qty: 1 on 12/07/2018 by Cindy Munoz DO at [facility] N/A: Abdomen [employer] 07/24/2019 [id number] / / [id number] Explanted Type Area Circuit Designer Device Identifier Shelf Expiration Date Model / Serial / Lot Mesh Inguinal Lt 3x5in 3-D Max - [id number] Implanted:Qty: 1 Explanted:Qty: 1 on 12/07/2018 at [facility] Left: Inguinal [employer] 01/22/2023 [id number] / / [id number] Procedures Procedure Name Priority Date/Time Associated Diagnosis Comments ESOPHAGOGASTRODUODENOSCOPY Routine 05/11 6:49 AM CDT Fay's esophagus without dysplasia SCAN-CT INTERPRETATION 12:00 AM CDT SCAN-RADIOLOGY REPORT 05/10/2025 12:00 AM CDT SCAN-CT INTERPRETATION 12:00 AM CDT SCAN-RADIOLOGY REPORT [...] 12:00 AM CDT LIPID PANEL W REFLEX MEASURE D LDL Routine 11/27/2024 9:40 AM CHECK PILOT Hypertriglyceri demia COLONOSCOPY 06/22/2023 12:20 PM CDT ANTI HCV Routine 11/17/2013 12:29 PM CHECK PILOT Screening for viral disease from Last 3 Months or Most Recently Relevant to Health Maintenance Results * SCAN-RADIOLOGY REPORT (05/10/2025 12:00 AM CDT) Only the most recent of3 resultswithin the time period is included. Anatomical Region Laterality Modality Other us Scanner OTHER Final Result * SCAN-CT INTERPRETATION (05/10/2025 12:00 AM CDT) Only the most recent of2 resultswithin the time period is included. Anatomical Region Laterality Modality Other us Scanner OTHER Final Result * URINE ALBUMIN TO CREATININE RATIO, RANDOM (04/20/2025 10:57 AM CDT) ALB RAND URINE <12.0 mg/L 04/20/2025 2:11 PM CDT [facility] CREATININE,URINE 1.42 g/L 04/20/20 2:11 PM CDT [facility] ALBUMIN TO CREATININE RATIO,RAND UR 04/20/2025 2:11 PM CDT [facility] Comment:Urine Albumin below measurement range, unable to calculate. Urine URINE SPECIMEN / Unknown [facility] / Unknown 04/20/2025 10:57 AM CDT 04/20/2025 10:57 AM CDT Narrative [facility] - 04/20/2025 2:11 PM CDT If Albumin to Creatinine Ratio is elevated, consider the following: Elevations seen with incipient nephropathy associated with diabetes mellitus or hypertension. Stress, exercise,hematuria, and urinary tract infection may also produce elevated results. If clinically indicated, confirm with 24 Hour Albumin to Creatinine Ratio. Italia Pugh MD URINE Final Re sult [facility] [address] [place] [address], * (ABNORMAL) POCT Hemoglobin A1C Monitoring (04/20/2025 9:18 AM CDT) Pathologist [facility] POC HEMOGLOBIN A1C 6.9(H) <6.0 % OF TOTAL HGB 04/20/2025 10:27 AM CDT [facility] Comment: Any point of care results exhibiting inconsistency with the patient's clinical status should be repeated using a different testing method. Blood BLOOD SPECIMEN / Unknown [facility] / Unknown 04/20/2025 9:18 AM CDT 04/20/2025 9:18 AM CDT Italia Pugh MD CHEMISTRY Final Re sult [facility] [address] [place] [address], [facility] [address] [place] [address] * (ABNORMAL) BASIC METABOLIC PANEL [02546.0] (04/20/2025 9:18 AM CDT) SODIUM 131(L) 135 [...] Italia Pugh MD CHEMISTRY Final Re sult [facility] [address] [place] [address], * CT CHEST WO (03/02/2025 10:24 AM [...] MD @ 03/02/2025 7:06:57 PM (Electronically Signed) us Italia Pugh MD CT Final Re sult * (ABNORMAL) LIPID PANEL W REFLEX MEASURED LDL (11/27/2024 9:40 AM CHECK PILOT) CHOLESTEROL, TOTAL 100 <200 mg/dL [facility] [...] LDL-C. Braulio MONTOYA et al. NATE. 2013;310(19): 6993-9554 (http://education.[employer].Fancy/faq/QEO356) CHOL/HDLC RATIO 2.9 <5.0 (calc) [facility] NON HDL CHOLESTEROL 66 <130 mg/dL (calc) [facility] Comment: For patients with diabetes plus 1 major ASCVD risk factor, treating to a non-HDL-C goal of <100 mg/dL (LDL-C of <70 mg/dL) is considered a therapeutic option. Blood BLOOD SPECIMEN / Unknown 11/27/2024 9:40 AM CHECK PILOT 11/27/2024 9:42 AM CHECK PILOT Narrative [facility] - 11/28/2024 3:51 AM CHECK PILOT FASTING:NO FASTING: NO Italia Pugh MD CHEMISTRY Final Re sult [employer] [facility] [address] [place] [address], [facility] [address] [place] [address] * COLONOSCOPY (06/22/2023 12:20 PM CDT) 06/22/2023 [...] adequate candidate for conscious sedation. The endoscope [id number] was passed through the and advancedto. The [...] Result * ANTI HCV (11/17/2013 12:29 PM CHECK PILOT) ANTI HCV Non-reacti ve [facility] Blood specimen (specimen) BLOOD SPECIMEN / Unknown 11/17/2013 12:29 PM CHECK PILOT 11/17/2013 12:24 PM CHECK PILOT us Italia Pugh MD SEND OUTS Final Re sult [facility] INTERNAL ZIP [phone] [place] [address] from Last 3 Months or Most Recently Relevant to Health Maintenance Insurance [facility] Advance Directives * Full [...] 10:25 PM 04/10/2009 1:55 PM Care Teams Angle Dozer Operator Relationship Specialty [place] [address] [place] [address] PCP - General Family Practice 09/23/17 [facility] [address] [place] [address] Ophthalmology Manager Operational 06/16/21
--- OUTSIDE RECORDS SUMMARY | 2025-05-11 11:42 | XMS_ITS | Encounter Summary ---
Author Organization [facility] Address [address] [place] [address]. [place] [address] Care Team Providers Care Industry Analyst Name Role Phone Jono Espinal MD Primary Care Provider [phone] [facility] Radha Dec[place] Primary Care Provide r Italia Pugh MD Primary Care Provider + Josue Ventura MD Primary Care Provider Italia Pugh MD Primary Care Provider + Encounter Details Date Type Department Care Team (Late st Contact Info) Description 02/25/[address] [address] Haroldo Nielsen MD [address] [place] [phone] [id number] [facility] Social History Tobacco Use Types Packs/Day Years Used Date Smoking Tobacco: Every Day Cigarettes Smokeless Tobacco: Never Alcohol Use Standard Drinks/Week Comments No 0 (1 standard drink = 0.6 oz pur e alcohol) Sex and Gender Information Value Date Recorded Sex Assigned at Not on file 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 Gender Identity Not on file Sexual Orientation Not on file documented as of this encounter Plan of Treatment Not on file documented as of this encounter Visit Diagnoses Not on filedocumented in this encounter Additional Health Concerns Infection Onset Date Last Indicated Resolved Time Rule Out COVID-19 10/06/2020 10/06/2020 10/06/2020 1:58 PM BOAT DESIGNER Rule Out COVID-19 09/29/2021 09/29/2021 09/29/2021 5:59 PM BOAT DESIGNER documented as of this encounter Care Teams Industry Analyst Relationship Specialty Start Date End Date Jono Espinal MD [address] [place] [address] PCP - General 10/29/04 07/25/11 [facility] [address] [place] [address] PCP - General 07/26/11 05/21/13 Italia Pugh MD [facility] [id number] [place] [address] PCP - General Family Practice 05/22/13 10/21/18 Josue Ventura MD [facility] [address] [place] [address] PCP - General Emergency Medicine 10/22/18 03/25/19 Italia Pugh MD [facility] [id number] [place] [address] PCP - General Family Practice 03/26/19 documented as of this encounter
[2025-05-11 11:57] VITALS: BP 151/72; PULSE 96; RESP 24; TEMP 36.6; O2SAT 95
--- OUTSIDE RECORDS SUMMARY | 2025-05-11 12:41 | XMS_ITS | CCD ---
Author Organization Unknown Care Team Providers Care Manager Of Customer Billing Name Role Phone Flex O Writer Operator, [place] Primary Care Provider Unava ilable Unavailable Chronic Care Management Unavaila ble Summary Purpose DataExchange Insurance Providers Payer name Policy type / Coverage type Covered constitution party ID Effective Begin Date Effective End Date [facility] Commercial Insurance [id number] Unknown Unkn own Family History Family History data not found Medication Administered No Medication Administered data Reason For Visit No Reason For Visit data
--- OUTSIDE RECORDS SUMMARY | 2025-05-11 12:42 | XMS_ITS | CCD ---
Author Organization Unknown Care Team Providers Care Structural Engineering Project Manager Name Role Phone Employee Benefits Administrator, [place] Primary Care Provider Unava ilable Unavailable Chronic Care Management Unavaila ble Summary Purpose DataExchange Insurance Providers Payer name Policy type / Coverage type Covered green party ID Effective Begin Date Effective End Date [facility] Commercial Insurance [id number] Unknown Unkn own Family History Family History data not found Medication Administered No Medication Administered data Reason For Visit No Reason For Visit data
[2025-05-11 13:00] LABS: Hematocrit 41.2 % (37.0-53.0); Hemoglobin* 13.8 gm/dL (13.5-17.5); Immature Granulocytes Pct Auto 0.2 %; Mean Corpuscular HGB Conc 34 gm/dL (32-36); Mean Corpuscular Hemoglobin 28 pg (26-34); Mean Corpuscular Volume 82 fL (80-100); RDW Coefficient of Variation % 13.2 % (11.5-15.5); Red Blood Count 5.02 m/uL (4.30-5.90); White Blood Count* 13.34 K/uL (4.50-11.00)
[2025-05-11 13:01] LABS: Chloride* 97 mmol/L (96-114); Immature Granulocytes Abs Auto 0.00 K/uL (0.00-0.30); Lymphocytes Absolute Auto 0.40 K/uL (0.90-2.90)
[2025-05-11 13:02] LABS: Potassium* 5.0 mmol/L (3.6-5.1); Slide Review Reflex No; Sodium* 129 mmol/L (135-149)
[2025-05-11 13:05] LABS: Anion Gap 11 mEq/L (7-15); Blood Urea Nitrogen* 22 mg/dL (7-30); Calcium* 9.9 mg/dL (8.4-10.6); Carbon Dioxide* 21 mmol/L (20-32); Creatinine* 1.0 mg/dL (0.5-1.5); Estimated Glomerular Filt Rate 85 ml/min; Glucose* 256 mg/dL (60-115)
--- NOTE | 2025-05-11 13:11 | ED.GENADULT ---
HPI - General Adult General Chief complaint: Extremity Pain/Injury, Lower Stated complaint: L knee pain, confusion, lethargy Time Seen by Provider: 05/11/25 12:02 Source: patient and family Mode of arrival: ambulatory Limitations: no limitations History of Present Illness HPI narrative: 65-year-old male coming in today saying that he does not feel well. Patient states that he feels shaky, he has left knee pain, he feels more tired than usual and he feels sometimes confused. He states that he was taking his inhaler this morning and thinks he fell asleep which he states is very unusual. He then states that he sometimes forgets if he is taking his daily medications. He feels like the symptoms are getting worse over time. Patient was seen yesterday had a very thorough workup which included a head and cervical spine CT, abdomen and pelvis CT and the knee x-ray. He had another head CT 1 week ago on 05/05/2025. He was discharged home yesterday with steroids and DuoNebs as well as an antibiotic for COPD exacerbation. He states that he still feels short of breath. He does admit to continued smoking. He denies fevers or vomiting. He states that he has coughing spells that cause syncope he has. The he has not had 1 of these spells since his last ER visit. Related Data Home Medications ?Medication ?Instructions ?Recorded ?Confirmed amlodipine 10 mg tablet 10 mg PO DAILY 06/29/22 05/10/25 budesonide-formoterol HFA 160 2 puff inhalation Q12H 06/29/22 05/10/25 mcg-4.5 mcg/actuation aerosol inhaler (Symbicort) ipratropium 0.5 mg-albuterol 3 mg 3 ml inhalation Q6H PRN 06/29/22 05/10/25 (2.5 mg base)/3 mL nebulization soln lorazepam 1 mg tablet 1 mg PO DAILY 06/29/22 05/10/25 metformin 1,000 mg tablet 1,000 mg PO BID 06/29/22 05/10/25 omeprazole 40 mg capsule,delayed 40 mg PO DAILY 06/29/22 05/10/25 release tiotropium bromide 18 mcg capsule 1 cap inhalation DAILY 06/29/22 05/10/25 with inhalation device (Spiriva with HandiHaler) atorvastatin 20 mg tablet 20 mg PO HS 07/20/22 05/10/25 albuterol sulfate 90 mcg/actuation 2 puff inhalation Q4H PRN 10/03/22 05/10/25 aerosol inhaler (Ventolin HFA) meloxicam 15 mg tablet 15 mg PO DAILY 10/03/22 05/10/25 escitalopram oxalate 20 mg tablet 20 mg PO DAILY 05/10/25 05/10/25 tamsulosin 0.4 mg capsule 0.8 mg PO DAILY 05/10/25 05/10/25 Previous Rx's ?Medication ?Instructions ?Recorded benzonatate 100 mg capsule 200 mg (2 x 100 mg) PO TID #20 caps 10/06/22 prednisone 20 mg tablet 20 mg PO BID #10 tabs 12/18/24 oxycodone 5 mg capsule 5 mg PO Q8H PRN pain #10 caps 02/15/25 prednisone 20 mg tablet 40 mg (2 x 20 mg) PO DAILY #10 tabs 02/15/25 azithromycin 250 mg tablet See Rx Instructions PO .COMPLEX #6 05/10/25 tabs prednisone 20 mg tablet 40 mg (2 x 20 mg) PO DAILY #8 tabs 05/10/25 Allergies Allergy/AdvReac Type Severity Reaction Status Date / Time No Known Drug Allergies Allergy Verified 05/11/25 11:57 Review of Systems Status of ROS: Reports: 10 or more systems reviewed and unremarkable except as noted in History and below [facility] Medical History Chest pain ?R07.9 - Chest pain, unspecified (ICD-10) Right lower lobe lung mass ?R91.8 - Other nonspecific abnormal finding of lung field (ICD-10) Chronic low back pain with sciatica ?M54.40 - Lumbago with sciatica, unspecified side (ICD-10) ?G89.29 - Other chronic pain (ICD-10) Diabetic acidosis, type II ?E11.10 - Type 2 diabetes mellitus with ketoacidosis without coma (ICD-10) Radiculitis ?M54.10 - Radiculopathy, site unspecified (ICD-10) Internal derangement of right knee ?M23.91 - Unspecified internal derangement of right knee (ICD-10) Essential hypertension ?I10 - Essential (primary) hypertension (ICD-10) Erectile dysfunction ?N52.9 - Male erectile dysfunction, unspecified (ICD-10) Adenomatous polyp of colon ?D12.6 - Benign neoplasm of colon, unspecified (ICD-10) COPD (chronic obstructive pulmonary disease) ?J44.9 - Chronic obstructive pulmonary disease, unspecified (ICD-10) Fay's esophagus with esophagitis ?K22.70 - Fay's esophagus without dysplasia (ICD-10) ?K20.90 - Esophagitis, unspecified without bleeding (ICD-10) Alcoholic fatty liver ?K70.0 - Alcoholic fatty liver (ICD-10) History of alcohol abuse ?F10.11 - Alcohol abuse, in remission (ICD-10) GERD (gastroesophageal reflux disease) ?K21.9 - Gastro-esophageal reflux disease without esophagitis (ICD-10) Depression with anxiety ?F41.8 - Other specified anxiety disorders (ICD-10) Nicotine dependence ?F17.200 - Nicotine dependence, unspecified, uncomplicated (ICD-10) Type 2 diabetes mellitus ?E11.9 - Type 2 diabetes mellitus without complications (ICD-10) Osteoarthritis of right knee ?M17.11 - Unilateral primary osteoarthritis, right knee (ICD-10) Osteoarthritis of left knee ?M17.12 - Unilateral primary osteoarthritis, left knee (ICD-10) Surgical History History of meniscectomy of right knee (~2015) ?Z98.890 - Other specified postprocedural states (ICD-10) H/O vasectomy ?Z98.52 - Vasectomy status (ICD-10) History of partial colectomy (~1999) ?Z90.49 - Acquired absence of other specified parts of digestive tract (ICD-10) History of appendectomy ?Z90.49 - Acquired absence of other specified parts of digestive tract (ICD-10) Hx laparoscopic cholecystectomy (10/15/17) ?Z90.49 - Acquired absence of other specified parts of digestive tract (ICD-10) Family History Father Lung cancer Social History Narrative: Lives with partner Queenie. Three adult children from previous relationship. Queenie or daughter Savi would be medical decision maker if needed. Patient requests full code status. 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 Smokes 1 pack per day, > 20 pack-year history. No alcohol use. Highest level of school completed/degree received: GED or equivalent Smoking Status: Current every day smoker What tobacco products do you use: cigarettes Smoking packs per day: 0.5 Smoking cigarettes per day: 10.0 Years smoked: 40 Smoking pack-years: 20.00 Do you use any of these nicotine containing products: None Second hand tobacco smoke exposure: Yes How often do you have a drink containing alcohol: never How often do you have six or more drinks on one occasion: Never AUDIT-C Alcohol total score: 0 Non-prescribed substance use: denies use Caffeine: Yes (2 cups coffee in the morning) service: Yes Exam Narrative: Exam Narrative: Well-nourished well-developed patient, tearful. Alert and oriented x3. Answers questions appropriately. Patient speaks in full sentences without needing to catch his breath. He is not in any respiratory distress. HEENT: Normocephalic atraumatic. Pupils are equally round reactive to light. Extraocular muscles are intact. Conjunctivae are moist without any icterus noted. Moist mucous membranes. Neck is supple. Cardiovascular: Heart is regular rate and rhythm. Lungs: Clear to auscultation bilaterally no wheezes rhonchi or rales are appreciated. Extremities: Bilateral lower extremities are without edema. Knee exam on the left reveals no swelling, erythema or ecchymosis. There is no joint effusion present. He has no pain with compression of the patella. Has full range of motion with flexion extension with some discomfort. Skin: Well perfused. Const: Vital Signs, click to edit/add: Vital Signs - 24 hr 05/11/25 11:57 Temperature 98 F Pulse Rate [Pulse Oximeter] 96 Respiratory Rate 24 Blood Pressure [Ri ght Upper Arm] 151/72 H Pulse Oximetry 95 Oxygen Delivery Me thod Room Air Course Course ED Course: We discussed that patient's symptoms are not necessarily acute and will require longer workup in a clinical setting. We reviewed his workup from yesterday. Patient would like repeat blood work to make sure nothing is changing. And he is also requesting a dose of Ativan and pain medication for his knee. He states that he has not been on his meloxicam secondary to procedure he had done so he did have a dose of Toradol IM in the ED today and a dose of oral Ativan. This made him feel significantly better, he was no longer tearful. Did repeat his CBC and chemistries-CBC did show elevation in his white count consistent with starting steroids. His sodium dropped from 131-129. We discussed this and patient will like to have some replacement in the ED. We did go ahead and do 1 L of normal saline. Vital Signs Vital signs: Initial Vital Signs Temperature 98 F 05/11/25 11:57 Temperature Source Temporal Artery Scan 05/11/25 11:57 Pulse Rate 96 05/11/25 11:57 Respiratory Rate 24 05/11/25 11:57 Blood Pressure 151/72 H 05/11/25 11:57 Blood Pressure Mean 98 05/11/25 11:57 Blood Pressure Position Sitting 05/11/25 11:57 Pulse Oximetry 95 05/11/25 11:57 Oxygen Delivery Method Room Air 05/11/25 11:57 Vital Signs Temperature 98 F 05/11/25 11:57 Pulse Rate 96 05/11/25 11:57 Respiratory Rate 24 05/11/25 11:57 Blood Pressure 151/72 H 05/11/25 11:57 Pulse Oximetry 95 05/11/25 11:57 Oxygen Delivery Method Room Air 05/11/25 11:57 Temperature 98 F 05/11/25 11:57 Pulse Rate 96 05/11/25 11:57 Respiratory Rate 24 05/11/25 11:57 Blood Pressure 151/72 H 05/11/25 11:57 Pulse Oximetry 95 05/11/25 11:57 Oxygen Delivery Method Room Air 05/11/25 11:57 Medications Administered Medications: Generic Name Dose Route Start Last Admin Trade Name Freq PRN Reason Stop Dose Admin Sodium Chloride 1,000 mls @ 1,000 mls/hr 05/11/25 13:15 05/11/25 13:31 0.9 % Sodium Chloride 1000 Ml IV 05/11/25 14:14 1,000 mls/hr .Q1H FATOU Administration Discontinued Medications Generic Name Dose Route Start Last Admin Trade Name Freq PRN Reason Stop Dose Admin Ketorolac Tromethamine 30 mg 05/11/25 12:21 05/11/25 12:44 Ketorolac 30 Mg/Ml Inj IM 05/11/25 12:22 30 mg ONCE ONE Administration Lorazepam 0.5 mg 05/11/25 12:21 05/11/25 12:44 Lorazepam 0.5 Mg Tablet PO 05/11/25 12:22 0.5 mg ONCE ONE Administration Medical Decision Making MDM Narrative Medical decision making narrative: 65-year-old male with multiple chronic issues. I reviewed his chart from yesterday is lung sounds significantly better than what was described yesterday. He is not hypoxic or tachypneic. He describes worsening mentation over time. I recommend he follow-up with a neurologist. Also concerned about depression in polypharmacy with this patient. He requested another prescription for Ativan today. It appears he got 90 tablets 3 weeks ago. We discussed this and that he needs to get refills from his primary prescriber and not in the emergency department and he stated that he understood. I am also reluctant to give him any oxycodone, which she also requested, as we do not have a diagnosis for why he has knee pain and we discussed that mixing narcotics with benzodiazepines was not recommended. Lab Data Lab results reviewed: Yes I reviewed the patient's lab results Labs: Lab Results 05/11/25 Range/Units 12:23 WBC 13.34 H (4.50-11.00) K/uL RBC 5.02 (4.30-5.90) m/uL Hgb 13.8 (13.5-17.5) gm/dL Hct 41.2 (37.0-53.0) % MCV 82 (80-100) fL MCH 28 (26-34) pg MCHC 34 (32-36) gm/dL RDW Coeff of Jeovanny 13.2 (11.5-15.5) % Plt Count 217 (140-440) K/uL Neut % (Auto) 94.9 H (42.0-72.0) % Lymph % (Auto) 2.8 L (20-44) % Weakley % (Auto) 2.0 (0.0-11.0) % Eos % (Auto) 0.0 (0.0-7.0) % Baso % (Auto) 0.1 (0.0-3.0) % Neut # (Auto) 12.70 H (1.7-7.0) K/uL Lymph # (Auto) 0.40 L (0.90-2.90) K/uL Weakley # (Auto) 0.30 (0.00-0.90) K/UL Eos # (Auto) 0.00 (0.00-0.50) K/uL Baso # (Auto) 0.00 (0.00-0.30) K/uL Abs Immat Gran (auto) 0.00 (0.00-0.30) K/uL Imm/Tot Granulo (auto) 0.2 % Sodium 129 L (135-149) mmol/L Potassium 5.0 (3.6-5.1) mmol/L Chloride 97 (96-114) mmol/L Carbon Dioxide 21 (20-32) mmol/L Anion Gap 11 (7-15) mEq/L BUN 22 (7-30) mg/dL Creatinine 1.0 (0.5-1.5) mg/dL Estimated GFR 85 ml/min Glucose 256 H (60-115) mg/dL Calcium 9.9 (8.4-10.6) mg/dL Discharge Plan Discharge Clinical Impression: Acute knee pain, Confusion, COPD (chronic obstructive pulmonary disease) Patient Disposition: Home, Self-Care Condition: Stable Additional Instructions: Recommend follow-up with primary care provider this next week to discuss her symptoms and consider following up with a neurologist. Prescriptions: No Action atorvastatin 20 mg tablet 20 mg PO HS oxycodone 5 mg capsule 5 mg PO Q8H PRN (Reason: pain) Qty: 10 0RF prednisone 20 mg tablet 40 mg PO DAILY Qty: 10 0RF tamsulosin 0.4 mg capsule 0.8 mg PO DAILY escitalopram oxalate 20 mg tablet 20 mg PO DAILY azithromycin 250 mg tablet See Rx Instructions .ROUTE .COMPLEX Qty: 6 0RF Rx Instructions: For 250 mg dose pack: take 500 mg today (day 1), then 250 mg for 4 days (days 2-5) prednisone 20 mg tablet 40 mg PO DAILY Qty: 8 0RF amlodipine 10 mg tablet 10 mg PO DAILY Patient Comments: TAKE ONE TABLET BY MOUTH EVERY EVENING lorazepam 1 mg tablet 1 mg PO DAILY Patient Comments: TAKE 1 TABLET BY MOUTH ONCE DAILY IF NEEDED FOR ANXIETY. metformin 1,000 mg tablet 1,000 mg PO BID Patient Comments: TAKE 1 TABLET BY MOUTH 2 TIMES DAILY WITH MEALS. omeprazole 40 mg capsule,delayed release(DR/EC) 40 mg PO DAILY Patient Comments: TAKE 1 CAPSULE BY MOUTH ONCE DAILY BEFORE A MEAL. tiotropium bromide [Spiriva with HandiHaler] 18 mcg capsule, w/inhalation device 1 cap INHALATION DAILY Patient Comments: INHALE CONTENTS OF 1 CAPSULE WITH HANDIHALER DEVICE ONCE DAILY ipratropium-albuterol 0.5 mg-3 mg(2.5 mg base)/3 mL solution for nebulization 3 ml INHALATION Q6H PRN Patient Comments: INHALE ONE VIAL VIA A NEBULIZER 4 TIMES DAILY NEEDED budesonide-formoterol [Symbicort] 160-4.5 mcg/actuation HFA aerosol inhaler 2 puff INHALATION Q12H Patient Comments: INHALE 2 PUFFS BY MOUTH 2 TIMES DAILY. albuterol sulfate [Ventolin HFA] 90 mcg/actuation HFA aerosol inhaler 2 puff INHALATION Q4H PRN meloxicam 15 mg tablet 15 mg PO DAILY Patient Comments: TAKE ONE TABLET BY MOUTH EVERY DAY benzonatate 100 mg Capsule 200 mg PO TID Qty: 20 0RF prednisone 20 mg tablet 20 mg PO BID Qty: 10 0RF Follow Up/Referrals: Italia Pugh MD [Primary Care Provider, Family Practice] Stand Alone Forms: Vox[employer] Info Instructions
== END 2025-05-11 14:40 | disposition home or self-care (01) ==
PROVIDERS: Emergency Provider Family Medicine; PCP Family Medicine
DX: M25.562 Pain in left knee (principal); R41.0 Disorientation, unspecified; J44.9 Chronic obstructive pulmonary disease, unspecified
CPT/HCPCS: 36415; 80048; 85025; 96372; 99284; A9270; J1885; J7030

== ENCOUNTER 2025-05-14 10:51 | Emergency (ER) | payer MEDICAID, SELFPAY ==
--- OUTSIDE RECORDS SUMMARY | 2025-05-14 10:54 | XMS_ITS | Encounter Summary ---
Author Organization [facility] Address [address] [place] [address]. [place] [address] Care Team Providers Care Angledozer Operator Name Role Phone Jono Espinal MD Primary Care Provider [phone] [facility] Radha Orlando Primary Care Provide r Italia Pugh MD Primary Care Provider + Josue Ventura MD Primary Care Provider Italia Pugh MD Primary Care Provider + Encounter Details Date Type Department Care Team (Late st Contact Info) Description 02/25/[address] [id number] Haroldo Nielsen MD [address] [place] [id number] [facility] Social History Tobacco Use Types Packs/Day Years Used Date Smoking Tobacco: Every Day Cigarettes Smokeless Tobacco: Never Alcohol Use Standard Drinks/Week Comments No 0 (1 standard drink = 0.6 oz pur e alcohol) Sex and Gender Information Value Date Recorded Sex Assigned at Not on file 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 Gender Identity Not on file Sexual Orientation Not on file documented as of this encounter Plan of Treatment Not on file documented as of this encounter Visit Diagnoses Not on filedocumented in this encounter Additional Health Concerns Infection Onset Date Last Indicated Resolved Time Rule Out COVID-19 10/06/2020 10/06/2020 10/06/2020 1:58 PM ANTHROPOLOGY PROFESSOR Rule Out COVID-19 09/29/2021 09/29/2021 09/29/2021 5:59 PM ANTHROPOLOGY PROFESSOR documented as of this encounter Care Teams Angledozer Operator Relationship Specialty Start Date End Date Jono Espinal MD [address] [place] [address] PCP - General 10/29/04 07/25/11 Formerly Named [facility] [address] [place] [address] PCP - General 07/26/11 05/21/13 Italia Pugh MD [facility] [id number] [place] [id number] PCP - General Family Practice 05/22/13 10/21/18 Josue Ventura MD [facility] [address] [place] [address] PCP - General Emergency Medicine 10/22/18 03/25/19 Italia Pugh MD [facility] [id number] [place] [id number] PCP - General Family Practice 03/26/19 documented as of this encounter
--- OUTSIDE RECORDS SUMMARY | 2025-05-14 10:55 | XMS_ITS | Clinical Summary ---
Author Organization [facility] Address [address] [place] [address]. 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 Gender Identity Not on file Sexual Orientation [...] 175.3 cm (5' 9) 09/30/2021 8:31 AM COTTON FEEDER Body Mass Index 28.91 09/30/2021 8:31 AM COTTON FEEDER Plan of Treatment Health Maintenance Due Date [...] and gender (Antony et al., NEJM, DOI: 10.1056/OCSCsb9795219) Blood STRUCTURE OF LEFT UPPER LIMB / Unknown Venipuncture / Unknown 06/16/2022 4:34 PM CDT 06/16/2022 4:37 PM CDT us Joe Jade MD LAB - BLOOD ORDERABLES F inal Result LABORATORY [facility] [address] Lab (1st floor, no room number) [place] [address], [place] [phone] from Last 3 Months or Most Recently Relevant to Health Maintenance [facility] Advance Directives For more information, please contact: [phone] * Full Code (Latest Code Status on [...] with patie nt/legal decision maker Care Teams Mgmt Consultant Relationship Specialty Start Date End Date Italia Pugh MD [facility] [id number] [place] [id number] PCP - General Family Practice 03/26/19
--- OUTSIDE RECORDS SUMMARY | 2025-05-14 10:55 | XMS_ITS | Clinical Summary ---
Author Organization [facility] Address [address] [place] [id number] Care Team Providers Care Certified Medication Aide Name Role Phone Italia Pugh MD Primary [...] ONCE DAILY. 90 Tablet 1 025 Active HYDROcodone-aceta minophen (5-325 mg/tablet)Indicat ions:Chronic midline low back pain without sciatica Take 1 Tablet by mouth every 6 hours if needed for Pain. Max acetaminophen dose: 4000 mg in 24 hrs. 20 Tablet 025 Active escitalopram oxalate (LEXAPRO) 20 mg [...] [facility] Age: 59 y.o. Insurance: BCBS Etiology: [...] in the RUL. Patient was referred to [facility] lung nodule clinic. Fay's esophagus without [...] ECT treatment. Last one in 1999 at [facility] Fatty liver, alcoholic Overview (09/14/2017): [...] Encounters Date Type Department Care Team Description 05/14/[address] [address] Italia Pugh MD Refill Request (Albuterol-ipratrop ium, Lorazepam) 05/13/[address] [address] Italia Pugh MD Follow Up (personal) 05/11/[address] [address] Italia Pugh MD Refill Request 05/11/2025 Travel 05/10/2025 Orders Only [facility] Scanner 1 scan: (1-Ord) [facility], ABD PELVIS W CON, 05/10/2025 05/10/2025 Orders Only [facility] Scanner 1 scan: (1-Ord) [facility], KNEE, LT 3V, 05/10/2025 05/07/[address] [address] Italia Pugh MD Refill Request (Escitalopram Oxalate) 05/05/2025 Orders Only [facility] Scanner 1 scan: (1-Ord) [place], HEAD/BRAIN WO CON, 05/05/2025 05/05/2025 Orders Only [facility] Scanner 1 scan: (1-Ord) [place], CHEST 2V, 05/05/2025 05/03/[address] [address] Italia Pugh MD Questions (diabetes pill ) 04/26/2025 Telephone [address] [place] [address] Braulio Sanchez MD Screening 04/24/[address] [address] Italia Pugh MD Refill Request (Ventolin Hfa) 04/20/2025 9:15 AM CDT Office Visit [address] [address] Italia Pugh MD Diabetes (Not fasting) 04/20/[address] [address] Italia Pugh MD Results 04/20/2025 Travel 04/04/[address] [address] Italia Pugh MD Refill Request (Meloxicam, Omeprazole) 03/05/[address] [address] Italia Pugh MD Results (CT of chest) 03/02/2025 10:30 AM CDT Ancillary Procedure [address] [place] [address] 03/02/2025 Travel 02/28/[address] [address] Italia Pugh MD Order (Annual CT scan) 02/15/2025 Orders Only [facility] Scanner 1 scan: (1-Ord) 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 Plan of Treatment Upcoming Encounters Date Type Department Care Team (Late st Contact Info) Description 05/22/2025 10:30 AM CDT Office Visit [address] [place] [address] [place] [address] [place] [address] Health Maintenance Due Date Last Done Comments [...] Completed 08/11/2024 Medical Devices Implanted Type Area Test Cell Technician Device Identifier Shelf Expiration Date Model / Serial / Lot Mesh Ventral [id number] Progrip Lapsc Slf Fixating - [id number] Implanted:Qty: 1 on 12/07/2018 by Cindy Munoz DO at [facility] Left: Inguinal [employer] 01/25/2020 [id number] / / [id number] Mesh Ventral 6x8in Ventralightst W/Echo Ps - [id number] Implanted:Qty: 1 on 12/07/2018 by Cindy Munoz DO at [facility] N/A: Abdomen [employer] 07/24/2019 [id number] / / [id number] Explanted Type Area Test Cell Technician Device Identifier Shelf Expiration Date Model / Serial / Lot Mesh Inguinal Lt 3x5in 3-D Max - [id number] Implanted:Qty: 1 Explanted:Qty: 1 on 12/07/2018 at [facility] Left: Inguinal [employer] 01/22/2023 [id number] / / [id number] Procedures Procedure Name Priority Date/Time Associated Diagnosis Comments ESOPHAGOGASTRODUODENOSCOPY Routine 05/11 6:49 AM CDT Fay's esophagus without dysplasia SCAN-CT INTERPRETATION 5 12:00 AM CDT SCAN-RADIOLOGY REPORT 05/10/2025 12:00 AM CDT SCAN-CT INTERPRETATION 5 12:00 AM CDT SCAN-RADIOLOGY REPORT 05/05/2025 12:00 [...] MEASURE D LDL Routine 11/27/2024 9:40 AM 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 Urine URINE SPECIMEN / Unknown [facility] / Unknown 04/20/2025 10:57 AM CDT 04/20/2025 10:57 AM CDT Narrative [facility] - 04/20/2025 2:11 PM CDT If Albumin to Creatinine Ratio is elevated, consider the following: Elevations seen with incipient nephropathy associated with diabetes mellitus or hypertension. Stress, exercise,hematuria, and urinary tract infection may also produce elevated results. If clinically indicated, confirm with 24 Hour Albumin to Creatinine Ratio. us Italia Pugh MD URINE Final Re sult [facility] [address] [place] [address], * (ABNORMAL) POCT Hemoglobin A1C Monitoring (04/20/2025 9:18 AM CDT) Pathologist [facility] POC HEMOGLOBIN A1C 6.9(H) <6.0 % OF TOTAL HGB 04/20/2025 10:27 AM CDT [facility] Comment: Any point of care results exhibiting inconsistency with the patient's clinical status should be repeated using a different testing method. Blood BLOOD SPECIMEN / Unknown [facility] / Unknown 04/20/2025 9:18 AM CDT 04/20/2025 9:18 AM CDT Italia Pugh MD CHEMISTRY Final Re sult Performing Organization Address [facility]/ZIP Co de Phone Number [facility] [address] [phone], [facility] [id number] [place] [address] * (ABNORMAL) BASIC METABOLIC PANEL [04041.0] (04/20/2025 9:18 AM CDT) Pathologist [facility] SODIUM 131(L) 135 - 146 mmol/L 04/21/2025 [...] MD CHEMISTRY Final Re sult [facility] [address] [place] [address], * CT CHEST WO (03/02/2025 10:24 AM [...] W REFLEX MEASURED LDL (11/27/2024 9:40 AM 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 LDL-C is now calculated using the Yamilet calculation, which is a validated novel method providing better accuracy than the Friedewald equation in the estimation of LDL-C. Braulio SS et al. NATE. 2013;310(19): 0823-2745 (http://education.hotelsmap.com/faq/JOF153) CHOL/HDLC RATIO 2.9 <5.0 (calc) [facility] NON HDL CHOLESTEROL 66 <130 mg/dL (calc) [facility] Comment: For patients with diabetes plus 1 major ASCVD risk factor, treating to a non-HDL-C goal of <100 mg/dL (LDL-C of <70 mg/dL) is considered a therapeutic option. 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 The endoscope [id number] was passed through the and advancedto. 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 us Italia Pugh MD SEND OUTS Final Re sult [facility] INTERNAL ZIP [id number] [place] [address] from Last 3 Months or Most Recently Relevant to Health Maintenance Insurance [facility] Advance Directives * Full Code [...] 10:25 PM 04/10/2009 1:55 PM Care Teams Certified Medication Aide Relationship Specialty [place] [address] [place] [address] PCP - General Family Practice 09/23/17 [facility] [address] [place] [phone] Ophthalmology [facility] 06/16/21
--- NOTE | 2025-05-14 11:01 | ED.GENADULT ---
HPI - General Adult General Date Seen: 05/14/25 Chief complaint: Anxiety Stated complaint: confusion and memory lost Time Seen by Provider: 05/14/25 11:00 History of Present Illness HPI narrative: 65-year-old male with a history of COPD, GERD, Fay's esophagus, history of alcohol abuse and alcoholic fatty liver disease, nicotine dependence, right lower lobe lung mass known for about 5 years, arthritis, chronic low back pain with radiculopathy. I saw him here in the ER 4 days ago because he had confusion in the morning. Also worsening cough leading to coughing spells causing syncope. Ultimately most of his workup is reassuring. Are white count 7.7, 14, platelets 185. VBG showed normal pH. Sodium 131. BUN 18, creatinine 0.0. Alcohol undetectable. COVID negative. Troponin undetectable. He already had an outpatient Zio patch in place, ordered by his PCP as part of workup for his fainting spells, however I suspected was fainting is probably triggered by bad coughing spells and COPD. In the ER, he had significant wheezing and was treated for COPD with improvement in his breathing and his confusion. No evidence for hypercarbia though. Given a 5 day course of steroids, Azithromycin Z-Nando, and was instructed to use his nebulizer every 4-6 hours. He was seen here in the ER 3 days ago on 05/11. Sounds like he had had fatigue, confusion, shakiness, left knee pain. He was afebrile. Oxygen was 95% air. Treated with Toradol for left knee pain and for anxiety. White blood cell count was 13.3, hemoglobin 13.8, platelet count 217. Sodium 129, potassium 5, chloride 97, bicarb 21, BUN 22, creatinine 1.0. He returns to the ER today with multiple concerns. Says he is feeling frustrated and like his doctors are giving up on him. He had been scheduled for an endoscopy which was to have been done last Wednesday but his doctors canceled that procedure because his lungs were still flaring up and he was having COPD. He has also been trying to get in with his primary care provider, and sent her multiple messages over the weekend but has not received this response yet. He is also having ongoing left knee pain and does not have an appointment with the orthopedic clinic until May 22 (next Wednesday). He also is feeling worried because he is going to be alone today. His girlfriend has been caring for him to when he has been coughing and having his fainting spells. She has used multiple 6 days for work and does have to go to work today at 3:00 p.m.. He is feeling very block and low energy. He is feeling hopeless. He is also very anxious and worried. He reports that he has a long history of anxiety and had been on Ativan for years. His doctor used prescribed but he feels like it no longer works for him any wants a different medication. He also says that his left knee has been hurting him a lot. It has not been swelling or red. He thinks it is partly hurting because of arthritis and partly hurting because when he gets a bad coughing spell he often lowers directly onto his knees so that he does not faint. He thinks banging against it is making her more lately. He came to the ER today because he was not able to get a message back from his primary care provider. Ultimately he would like some medicine for anxiety and he would like some pain medicine for his knee. He has been taking his steroids, antibiotics, using his inhaler nebulizer notes that his breathing is better today than it was last week. He continues to smoke and when we discussed that he says he does not know fill ever quit. Related Data Home Medications ?Medication ?Instructions ?Recorded ?Confirmed amlodipine 10 mg tablet 10 mg PO DAILY 06/29/22 05/14/25 budesonide-formoterol HFA 160 2 puff inhalation Q12H 06/29/22 05/14/25 mcg-4.5 mcg/actuation aerosol inhaler (Symbicort) ipratropium 0.5 mg-albuterol 3 mg 3 ml inhalation Q6H PRN 06/29/22 05/14/25 (2.5 mg base)/3 mL nebulization soln lorazepam 1 mg tablet 1 mg PO DAILY 06/29/22 05/14/25 metformin 1,000 mg tablet 1,000 mg PO BID 06/29/22 05/14/25 omeprazole 40 mg capsule,delayed 40 mg PO DAILY 06/29/22 05/14/25 release tiotropium bromide 18 mcg capsule 1 cap inhalation DAILY 06/29/22 05/14/25 with inhalation device (Spiriva with HandiHaler) atorvastatin 20 mg tablet 20 mg PO HS 07/20/22 05/14/25 albuterol sulfate 90 mcg/actuation 2 puff inhalation Q4H PRN 10/03/22 05/14/25 aerosol inhaler (Ventolin HFA) meloxicam 15 mg tablet 15 mg PO DAILY 10/03/22 05/14/25 escitalopram oxalate 20 mg tablet 20 mg PO DAILY 05/10/25 05/14/25 tamsulosin 0.4 mg capsule 0.8 mg PO DAILY 05/10/25 05/14/25 Previous Rx's ?Medication ?Instructions ?Recorded benzonatate 100 mg capsule 200 mg (2 x 100 mg) PO TID #20 caps 10/06/22 prednisone 20 mg tablet 20 mg PO BID #10 tabs 12/18/24 oxycodone 5 mg capsule 5 mg PO Q8H PRN pain #10 caps 02/15/25 prednisone 20 mg tablet 40 mg (2 x 20 mg) PO DAILY #10 tabs 02/15/25 azithromycin 250 mg tablet See Rx Instructions PO .COMPLEX #6 05/10/25 tabs prednisone 20 mg tablet 40 mg (2 x 20 mg) PO DAILY #8 tabs 05/10/25 hydroxyzine HCl 25 mg tablet 25 mg PO TID PRN #14 tabs 05/14/25 Allergies Allergy/AdvReac Type Severity Reaction Status Date / Time No Known Drug Allergies Allergy Verified 05/14/25 11:31 [facility] Medical History Chest pain ?R07.9 - Chest pain, unspecified (ICD-10) Right lower lobe lung mass ?R91.8 - Other nonspecific abnormal finding of lung field (ICD-10) Chronic low back pain with sciatica ?M54.40 - Lumbago with sciatica, unspecified side (ICD-10) ?G89.29 - Other chronic pain (ICD-10) Diabetic acidosis, type II ?E11.10 - Type 2 diabetes mellitus with ketoacidosis without coma (ICD-10) Radiculitis ?M54.10 - Radiculopathy, site unspecified (ICD-10) Internal derangement of right knee ?M23.91 - Unspecified internal derangement of right knee (ICD-10) Essential hypertension ?I10 - Essential (primary) hypertension (ICD-10) Erectile dysfunction ?N52.9 - Male erectile dysfunction, unspecified (ICD-10) Adenomatous polyp of colon ?D12.6 - Benign neoplasm of colon, unspecified (ICD-10) COPD (chronic obstructive pulmonary disease) ?J44.9 - Chronic obstructive pulmonary disease, unspecified (ICD-10) Fay's esophagus with esophagitis ?K22.70 - Fay's esophagus without dysplasia (ICD-10) ?K20.90 - Esophagitis, unspecified without bleeding (ICD-10) Alcoholic fatty liver ?K70.0 - Alcoholic fatty liver (ICD-10) History of alcohol abuse ?F10.11 - Alcohol abuse, in remission (ICD-10) GERD (gastroesophageal reflux disease) ?K21.9 - Gastro-esophageal reflux disease without esophagitis (ICD-10) Depression with anxiety ?F41.8 - Other specified anxiety disorders (ICD-10) Nicotine dependence ?F17.200 - Nicotine dependence, unspecified, uncomplicated (ICD-10) Type 2 diabetes mellitus ?E11.9 - Type 2 diabetes mellitus without complications (ICD-10) Osteoarthritis of right knee ?M17.11 - Unilateral primary osteoarthritis, right knee (ICD-10) Osteoarthritis of left knee ?M17.12 - Unilateral primary osteoarthritis, left knee (ICD-10) Surgical History History of meniscectomy of right knee (~2015) ?Z98.890 - Other specified postprocedural states (ICD-10) H/O vasectomy ?Z98.52 - Vasectomy status (ICD-10) History of partial colectomy (~1999) ?Z90.49 - Acquired absence of other specified parts of digestive tract (ICD-10) History of appendectomy ?Z90.49 - Acquired absence of other specified parts of digestive tract (ICD-10) Hx laparoscopic cholecystectomy (10/15/17) ?Z90.49 - Acquired absence of other specified parts of digestive tract (ICD-10) Family History Father Lung cancer Social History Narrative: Lives with partner Queenie. Three adult children from previous relationship. Queenie or daughter Savi would be medical decision maker if needed. Patient requests full code status. 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 Smokes 1 pack per day, > 20 pack-year history. No alcohol use. Highest level of school completed/degree received: GED or equivalent Smoking Status: Current every day smoker What tobacco products do you use: cigarettes Smoking packs per day: 0.5 Smoking cigarettes per day: 10.0 Years smoked: 40 Smoking pack-years: 20.00 Do you use any of these nicotine containing products: None Second hand tobacco smoke exposure: Yes How often do you have a drink containing alcohol: never How often do you have six or more drinks on one occasion: Never AUDIT-C Alcohol total score: 0 Non-prescribed substance use: denies use Caffeine: Yes (2 cups coffee in the morning) service: Yes Exam Narrative: Exam Narrative: Constitutional: Appears well-developed and well-nourished. Alert. Conversant. Non toxic. HENT: Head: Atraumatic. Nose: Nose normal. Mouth/Throat: Oral mucosa is clear and moist. no trismus. Pharynx normal. Tonsils symmetric. No tonsillar enlargement, erythema, or exudate. Eyes: Conjunctivae normal. EOM normal. Pupils equal, round, and reactive to light. No scleral icterus. Neck: Normal range of motion. Neck supple. No tracheal deviation present. Cardiovascular: Normal rate, regular rhythm. No gallop. No friction rub. No murmur heard. Pulmonary/Chest: Effort normal. No stridor. No respiratory distress. He does have bilateral wheezes on lung auscultation . . No rales. No rhonchi Musculoskeletal: RUE: Normal range of motion. No tenderness. No deformity LUE: Normal range of motion. No tenderness. No deformity RLE: Normal range of motion. No edema. No tenderness. No deformity LLE: Normal range of motion. No edema. Mild left knee anterolateral tenderness. No redness or warmth. No joint effusion. Normal range of motion. No deformit Neurological: Alert and oriented to person, place, and time. Normal strength. CN II-VII intact. No sensory deficit. GCS eye subscore is 4. GCS verbal subscore is 5. GCS motor subscore is 6. Normal coordination Skin: Skin is warm and dry. No rash noted. No pallor. Normal capillary refill. Psychiatric: Anxious and a little bit shaky. Polite. Remembers me from last week. Endorses hopelessness. Does not have a lot of insight into the fact that he seems depressed, but does recognize he is feeling anxious. When we discussed depression he is initially resistant and says that he has been on antidepressants years ago and they did not help his depression but did make him feel, ?like a zombie. ? He is not suicidal. He would like some anxiety medication to use at home.. Const: Vital Signs, click to edit/add: Vital Signs - 24 hr 05/14/25 11:24 Temperature 98.3 F Pulse Rate [Right Pulse Oximeter] 101 H Respiratory Rate 18 Blood Pressure [Ri ght Upper Arm] 138/87 Pulse Oximetry 94 Oxygen Delivery Me thod Room Air Course Vital Signs Vital signs: Initial Vital Signs Temperature 98.3 F 05/14/25 11:24 Temperature Source Temporal Artery Scan 05/14/25 11:24 Pulse Rate 101 H 05/14/25 11:24 Pulse Rhythm Regular 05/14/25 11:24 Pulse Strength 3+ Normal 05/14/25 11:24 Respiratory Rate 18 05/14/25 11:24 Blood Pressure 138/87 05/14/25 11:24 Blood Pressure Mean 104 05/14/25 11:24 Blood Pressure Position Sitting 05/14/25 11:24 Pulse Oximetry 94 05/14/25 11:24 Oxygen Delivery Method Room Air 05/14/25 11:24 Vital Signs Temperature 98.3 F 05/14/25 11:24 Pulse Rate 101 H 05/14/25 11:24 Respiratory Rate 18 05/14/25 11:24 Blood Pressure 138/87 05/14/25 11:24 Pulse Oximetry 94 05/14/25 11:24 Oxygen Delivery Method Room Air 05/14/25 11:24 Temperature 98.3 F 05/14/25 11:24 Pulse Rate 101 H 05/14/25 11:24 Respiratory Rate 18 05/14/25 11:24 Blood Pressure 138/87 05/14/25 11:24 Pulse Oximetry 94 05/14/25 11:24 Oxygen Delivery Method Room Air 05/14/25 11:24 Medical Decision Making MDM Narrative Medical decision making narrative: 64-year-old gentleman with multiple medical problems including COPD, left knee pain. He also has a history of depression anxiety. He presents to the ER today because he is worried about being home alone this evening and he is feeling hopeless. He says he feels like all of his doctors are ?giving up on him?. He feels this way because he is endoscopy on Wednesday was canceled and he has got a message back from his PCP after having sent her office multiple messages over the past several days. Patient does have COPD. He is encouraged to quit smoking but says he is not sure he can. He is already on steroids and antibiotics. He has inhaler and nebulizer. Although his lungs are mildly wheezy today they are clearly much better than when I saw him last week. Encouraged him to continue on his medications. Does not need chest x-ray, more nebs here in the ER or admission. He also has left knee pain. Sounds like he has a history of arthritis and has been injuring his knee lately when he drops to his knees during coughing spells. Encouraged him to call Orthopedics. He would like to try to see them to get a cortisone injection in his knee. He request a prescription for some pain killers. He notes that the morphine I gave him in the ER last week worked better than the Toradol that the next ER doctor gave him. At this point I advised him that we should hold off on any opiate prescriptions because of the risk for addiction and the risk of compounding drowsiness with other medications. He is disappointed but verbalizes understanding. He also has significant anxiety. He has been on benzos for years but feels like they are not effective anymore. Will try switching to hydroxyzine. Prescription for hydroxyzine provided. Discharge Plan Discharge Clinical Impression: Anxiety, Knee pain, left Patient Disposition: Home, Self-Care Condition: Stable Instructions: Anxiety (ED) Additional Instructions: As we discussed, please call your doctor's office today to arrange an ER follow-up appointment. Also, please call the [facility] at [phone] to move up your appointment for your left knee. For anxiety you can try the medication hydroxyzine-25 mg by mouth every 8 hours as needed. Be careful because hydroxyzine can cause dizziness and drowsiness. Please continue on your nebulizers and inhaler and your other medications. As we discussed, come back to the ER if you have any worsening symptoms or trouble breathing or any other problems. Prescriptions: New hydroxyzine HCl 25 mg tablet 25 mg PO TID PRNQty: 14 0RF No Action atorvastatin 20 mg tablet 20 mg PO HS oxycodone 5 mg capsule 5 mg PO Q8H PRN (Reason: pain) Qty: 10 0RF prednisone 20 mg tablet 40 mg PO DAILY Qty: 10 0RF tamsulosin 0.4 mg capsule 0.8 mg PO DAILY escitalopram oxalate 20 mg tablet 20 mg PO DAILY azithromycin 250 mg tablet See Rx Instructions .ROUTE .COMPLEX Qty: 6 0RF Rx Instructions: For 250 mg dose pack: take 500 mg today (day 1), then 250 mg for 4 days (days 2-5) prednisone 20 mg tablet 40 mg PO DAILY Qty: 8 0RF amlodipine 10 mg tablet 10 mg PO DAILY Patient Comments: TAKE ONE TABLET BY MOUTH EVERY EVENING lorazepam 1 mg tablet 1 mg PO DAILY Patient Comments: TAKE 1 TABLET BY MOUTH ONCE DAILY IF NEEDED FOR ANXIETY. metformin 1,000 mg tablet 1,000 mg PO BID Patient Comments: TAKE 1 TABLET BY MOUTH 2 TIMES DAILY WITH MEALS. omeprazole 40 mg capsule,delayed release(DR/EC) 40 mg PO DAILY Patient Comments: TAKE 1 CAPSULE BY MOUTH ONCE DAILY BEFORE A MEAL. tiotropium bromide [Spiriva with HandiHaler] 18 mcg capsule, w/inhalation device 1 cap INHALATION DAILY Patient Comments: INHALE CONTENTS OF 1 CAPSULE WITH HANDIHALER DEVICE ONCE DAILY ipratropium-albuterol 0.5 mg-3 mg(2.5 mg base)/3 mL solution for nebulization 3 ml INHALATION Q6H PRN Patient Comments: INHALE ONE VIAL VIA A NEBULIZER 4 TIMES DAILY NEEDED budesonide-formoterol [Symbicort] 160-4.5 mcg/actuation HFA aerosol inhaler 2 puff INHALATION Q12H Patient Comments: INHALE 2 PUFFS BY MOUTH 2 TIMES DAILY. albuterol sulfate [Ventolin HFA] 90 mcg/actuation HFA aerosol inhaler 2 puff INHALATION Q4H PRN meloxicam 15 mg tablet 15 mg PO DAILY Patient Comments: TAKE ONE TABLET BY MOUTH EVERY DAY benzonatate 100 mg Capsule 200 mg PO TID Qty: 20 0RF prednisone 20 mg tablet 20 mg PO BID Qty: 10 0RF Follow Up/Referrals: Italia Pugh MD [Primary Care Provider, Family Practice] Stand Alone Forms: AdverseEventsth Info Instructions
[2025-05-14 11:24] VITALS: BP 138/87; PULSE 101; RESP 18; TEMP 36.8; O2SAT 94; BMI 24.3
--- OUTSIDE RECORDS SUMMARY | 2025-05-14 11:54 | XMS_ITS | CCD ---
Author Organization Unknown Care Team Providers Care Manager Rn Name Role Phone Sql Consultant, [place] Primary Care Provider Unava ilable Unavailable Chronic Care Management Unavaila ble Summary Purpose DataExchange Insurance Providers Payer name Policy type / Coverage type Covered libertarian ID Effective Begin Date Effective End Date [facility] Commercial Insurance [id number] Unknown Unkn own Family History Family History data not found Medication Administered No Medication Administered data Reason For Visit No Reason For Visit data
--- OUTSIDE RECORDS SUMMARY | 2025-05-14 11:55 | XMS_ITS | CCD ---
Author Organization Unknown Care Team Providers Care Cashier Ticket Selling Name Role Phone Crop Supervisor, [place] Primary Care Provider Unava ilable Unavailable Chronic Care Management Unavaila ble Summary Purpose DataExchange Insurance Providers Payer name Policy type / Coverage type Covered libertarian ID Effective Begin Date Effective End Date [facility] Commercial Insurance [id number] Unknown Unkn own Family History Family History data not found Medication Administered No Medication Administered data Reason For Visit No Reason For Visit data
--- OUTSIDE RECORDS SUMMARY | 2025-05-14 13:12 | XMS_ITS | CCD ---
Author Organization Unknown Care Team Providers Care Commercial Drone Software Developer Name Role Phone Diesel Motor Mechanic, [place] Primary Care Provider Unava ilable Unavailable Chronic Care Management Unavaila ble Summary Purpose DataExchange Insurance Providers Payer name Policy type / Coverage type Covered alliance party ID Effective Begin Date Effective End Date [facility] Commercial Insurance [id number] Unknown Unkn own Family History Family History data not found Medication Administered No Medication Administered data Reason For Visit No Reason For Visit data
--- OUTSIDE RECORDS SUMMARY | 2025-05-14 13:12 | XMS_ITS | CCD ---
Author Organization Unknown Care Team Providers Care Clinical Dental Technician Name Role Phone Water Service Supervisor, [place] Primary Care Provider Unava ilable Unavailable Chronic Care Management Unavaila ble Summary Purpose DataExchange Insurance Providers Payer name Policy type / Coverage type Covered republican ID Effective Begin Date Effective End Date [facility] Commercial Insurance [id number] Unknown Unkn own Family History Family History data not found Medication Administered No Medication Administered data Reason For Visit No Reason For Visit data
== END 2025-05-14 12:23 | disposition home or self-care (01) ==
LOC: ED 12:11
PROVIDERS: Emergency Provider Emergency Medicine; PCP Family Medicine
DX: F32.A Depression, unspecified (principal); F41.8 Other specified anxiety disorders; J44.9 Chronic obstructive pulmonary disease, unspecified; M25.562 Pain in left knee; F17.210 Nicotine dependence, cigarettes, uncomplicated; Z79.51 Long term (current) use of inhaled steroids
CPT/HCPCS: 99282; 99283; 99284

== ENCOUNTER 2025-06-17 11:00 | Emergency (ER) | payer MEDICAID, SELFPAY ==
--- OUTSIDE RECORDS SUMMARY | 2017-10-05 11:58 | XMS_ITS | Continuity of Care Document ---
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 [address] [facility], [place], [place], [id number], [place]. tel:[phone] Init Inpt Cons New/est Mod-hi [facility], [address] [address], [place], [place], [id number], [place] tel:[phone] [facility] No Information 8 No Information Referring Provider: [place] R, [address] [place], [address]. tel:[phone] Family History Family Member Type Diagnosis Age At Onset No Information Payers Payer name Insurance type Covered republican ID Authoriza tion(s) No Information Social History Type Description Quantity Date Captured Comments Sex Male Smoking Status No Information Chief Complaint And Reason For Visit No Information Reason For Referral Reason For Referral No Information History Of Present Illness Encounter Date Complaint History Of Prese nt Illness No Information Functional Status Date Functional Assessmen t No Information Instructions Date Instruction Additional Infor mation No Information Assessments Type Assessment Date No Information Patient Care Teams Name Effective Dates (start - stop) Status Members No Information
--- OUTSIDE RECORDS SUMMARY | 2017-10-05 11:58 | XMS_ITS | Continuity of Care Document ---
Author Organization 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, [address] [address], [place], [place], [id number], [place] tel:[phone] [facility] No Information 8 Robby Faulkner. [address] [facility] [facility] [address], [place], [place], [id number], [place]. tel:[phone] Init Inpt Cons New/est Mod-hi [facility], [address] [address], [place], [place], [id number], [place] tel:[phone] [facility] No Information 8 No Information Referring Provider: Italia Pugh [place] [address], [address] [place], [address]. tel:[phone] Family History Family Member Type Diagnosis Age At Onset No Information Payers Payer name Insurance type Covered libertarian ID Authoriza tion(s) No Information Social History [...]
--- OUTSIDE RECORDS SUMMARY | 2025-06-17 11:02 | XMS_ITS | Clinical Summary ---
Author Organization [employer] [facility] Address [address] [place] [address] Care Team Providers Care Information Security Specialist Name Role Phone Italia Pugh MD Primary [...] need: 99 Months. 1 Device 019 Active NebulizerIndicati ons:COPD mixed type (HC) Nebulizer, disposable neb kit x 4, reuseable neb kit x 1, mask x 1, filters x 1. Frequency of use: daily; Medication: duoneb Length of need: 99 months 1 Each 025 Active atorvastatin (LIPITOR) 20 mg tabletIndications [...] EVERY EVENING 90 Tablet 3 025 Active meloxicam 15 mg tabletIndications :Chronic [...] with meals. 10 Tablet 5 025 Active Additional Information Patient not taking.Reported on 06/08/2025 Ventolin HFA 90 mcg/actuation inhalerIndication s:COPD mixed type (HC),SOB (shortness of breath) INHALE 1 TO 2 PUFFS BY MOUTH INTO THE LUNGS EVERY 4 HOURS NEEDED 18 g 11 025 Active escitalopram oxalate (LEXAPRO) 20 mg tabletIndications :Anxiety state,Mild episode of recurrent major depressive disorder TAKE 1 TABLET (20 MG) BY MOUTH ONCE DAILY. 90 Tablet 1 025 Active albuterol-ipratro pium (DUONEB) (2.5-0.5 mg) in 3 mL NEBULIZATION solutionIndicatio ns:COPD mixed type (HC) INHALE 3 ML(1 VIAL) VIA NEBULIZER EVERY 6 HOURS IF NEEDED FOR SHORTNESS OF BREATH. 180 mL 2 025 Active hydrOXYzine HCL (ATARAX) 25 mg tabletIndications :Anxiety state Take 1 Tablet (25 mg) by mouth every 8 hours if needed for Anxiety. 90 Tablet 3 Active metFORMIN (GLUCOPHAGE) 1,000 mg tabletIndications :Type 2 diabetes mellitus without complication, without long-term current use of insulin (HC) TAKE 1 TABLET BY MOUTH 2 TIMES DAILY WITH MEALS. 60 Tablet 025 Active spiriva 18 mcg inhalation capsuleIndication s:COPD mixed type (HC) INHALE CONTENTS OF 1 CAPSULE WITH HANDIHALER DEVICE ONCE DAILY 90 Capsule 025 Active Symbicort 160-4.5 mcg/actuation (160-4.5 mcg each actuation) inhalerIndication s:SOB (shortness of breath) INHALE 2 PUFFS BY MOUTH 2 TIMES DAILY. 10.2 g 11 025 Active ipratropium-albut Génesis (COMBIVENT RESPIMAT) (20-100 mcg each actuation) mist inhalerIndication s:COPD mixed type (HC) Inhale 1 Puff by mouth four times daily. 4 g 11 025 Active fluticasone fur-umeclidinium- vilanterol (TRELEGY ELLIPTA) 100-62.5-25 mcg inhalerIndication s:COPD mixed type (HC) Inhale 1 Puff by mouth once daily. Rinse mouth after use 180 Each 3 025 Active QUEtiapine (SEROQUEL) 25 mg tabletIndications :Anxiety state Take 1 Tablet (25 mg) by mouth two times daily. 180 Tablet 3 025 Active oxyCODONE (ROXICODONE) 5 mg immediate release tabletIndications :COPD mixed type (HC),Primary osteoarthritis of right knee Take 1 Tablet (5 mg) by mouth every 6 hours if needed for Pain. 90 Tablet 025 Active predniSONE (DELTASONE) 10 mg tabletIndications :COPD mixed type (HC) 20 mg po daily x1 week. 10 mg po daily x1 week. 5 mg po daily x1 week. 25 Tablet 025 Active Walker - 4 wheelsIndications :Cough syncope,COPD mixed type (HC) With a seat. For home use. Length of need: 99 1 Each 025 Active oxygen-air delivery systems (HOME OXYGEN)Indication s:COPD mixed type (HC),Idiopathic sleep related nonobstructive alveolar hypoventilation Inogen Portable Oxygen Unit. Liters per minute: one per nasal cannula. Frequency of use: Continuous with portability. Length of need: 99 Months. 1 Each 025 Active Symbicort 160-4.5 mcg/actuation (160-4.5 mcg each actuation) inhalerIndication s:SOB (shortness of breath) INHALE 2 PUFFS BY MOUTH 2 TIMES DAILY. 10.2 g 11 024 2024 Discontinued metFORMIN (GLUCOPHAGE) 1,000 mg tabletIndications :Type 2 diabetes mellitus without complication, without long-term current use of insulin (HC) TAKE 1 TABLET BY MOUTH 2 TIMES DAILY WITH MEALS. 180 Tablet 1 025 2024 Discontinued spiriva 18 mcg inhalation capsuleIndication s:COPD mixed type (HC) INHALE CONTENTS OF 1 CAPSULE WITH HANDIHALER DEVICE ONCE DAILY 90 Capsule 1 025 2024 Discontinued HYDROcodone-aceta minophen (5-325 mg/tablet)Indicat ions:Chronic midline low back pain without sciatica Take 1 Tablet by mouth every 6 hours if needed for Pain. Max acetaminophen dose: 4000 mg in 24 hrs. 20 Tablet 025 2024 Discontinued(R eorder (E-cancel not sent)) HYDROcodone-aceta minophen (5-325 mg/tablet)Indicat ions:Chronic midline low back pain without sciatica Take 1 Tablet by mouth every 6 hours if needed for Pain. Max acetaminophen dose: 4000 mg in 24 hrs. 20 Tablet 025 2024 Discontinued(R eorder (E-cancel not sent)) HYDROcodone-aceta minophen (5-325 mg/tablet)Indicat ions:Chronic midline low back pain without sciatica Take 1 Tablet by mouth every 6 hours if needed for Pain. Max acetaminophen dose: 4000 mg in 24 hrs. 20 Tablet 025 2024 Discontinued(R eorder (E-cancel not sent)) HYDROcodone-aceta minophen (5-325 mg/tablet)Indicat ions:Chronic midline low back pain without sciatica Take 1 Tablet by mouth every 6 hours if needed for Pain. Max acetaminophen dose: 4000 mg in 24 hrs. 20 Tablet 025 2024 Discontinued(R eorder (E-cancel not sent)) HYDROcodone-aceta minophen (5-325 mg/tablet)Indicat ions:Chronic midline low back pain without sciatica Take 1 Tablet by mouth every 6 hours if needed for Pain. Max acetaminophen dose: 4000 mg in 24 hrs. 20 Tablet 025 2024 Discontinued(* Med ineffective) Pulse OximeterIndicatio ns:COPD mixed type (HC) For home use. 1 Each 025 2024 predniSONE (DELTASONE) 10 mg tabletIndications :COPD mixed type (HC) 20 mg x1 week. 10 mg x1 week. 5 mg x1 week. 21 Tablet 025 2024 Discontinued(R eorder (E-cancel not sent)) predniSONE (DELTASONE) 10 mg tabletIndications :COPD mixed type (HC) 20 mg po daily x1 week. 10 mg po daily x1 week. 5 mg po daily x1 week. 21 Tablet 025 2024 Discontinued(* Error/certified alcohol and drug counselor error) Active Problems Patient Care Coordination No te Formatting of this note migh t be different from the original. HF/Structural Research Eligibility Review Date: 07/19/19 Upcoming Visit Location: [facility] Age: 59 y.o. Insurance: FAMOCO Etiology: ? NYHA: ? Last HF Admit: [...] in the RUL. Patient was referred to [facility] lung nodule clinic. Fay's esophagus without dysplasia [...] ECT treatment. Last one in 1999 at [facility] Fatty liver, alcoholic Overview (09/14/2017): No alcohol [...] Encounters Date Type Department Care Team Description 06/13/[address] [address] Italia Pugh MD Fax Number 06/13/[address] [address] Italia Pugh MD Error-please disregard 06/11/[address] [address] Italia Pugh MD Results 06/11/[address] [address] Italia Pugh MD Prior Authorization (fluticasone kwb-anhzxcqlgvjc-qntw nterol (TRELEGY ELLIPTA) 100-62.5-25 mcg inhaler (DENIED)) 06/11/2025 E-Consult [facility] [address] [facility] [address] [place] [address] Jayjay Lincoln MD 06/08/2025 11:00 AM CDT Office Visit [address] [address] Italia Pugh MD Pain (Bilat knee, right forearm, left hip); Breathing Problem; Anxiety 06/08/[address] [address] Italia Pugh MD Refill Request (predniSONE (DELTASONE) 10 mg tablet.) 06/08/2025 Travel 06/04/[address] [address] Italia Pugh MD Refill Request (HYDROcodone-acetamin ophen) 06/01/[address] [address] Italia Pugh MD Refill Request (Metformin, Spiriva, Symbicort) 05/30/[address] [address] Italia Pugh MD Refill Request (Hydrocodone-acetamin ophen) 05/29/2025 1:15 PM CDT Phone Office Visit [facility] [address] [facility] [address] [place] [address] Lasha Billings, 05/29/2025 Travel 05/24/[address] [address] Italia Pugh MD Medication Management (hydrOXYzine HCL (ATARAX) 25 mg tablet) 05/24/[address] [address] Italia Pugh MD Refill Request (HYDROcodone-acetamin ophen (5-325 mg/tablet)) 05/22/2025 11:15 AM CDT Ancillary Procedure [facility] [address] [place] [address] 05/22/2025 10:30 AM CDT Office Visit [facility] [address] [place] [address] Lasha Billings, Knee Pain/problem (Left knee) 05/22/2025 Travel 05/21/[address] [address] Italia Pugh MD Screening (TB/Cough) 05/21/[address] [address] Italia Pugh MD Refill Request (HydrOXYzine HCL (ATARAX)/) 05/20/[address] [address] Italia Pugh MD Refill Request (HYDROcodone-acetamin ophen (5-325 mg/tablet); LORazepam 1 mg tablet with different medication/) 05/20/[address] [address] Italia Pugh MD Error-please disregard 05/18/2025 Orders Only [facility] [address] [place] [address] Crystal Palacios 1 scan: (1-Ord) ZIO 05/18/[address] [address] Italia Pugh MD Abstract (RETURN CALL REQUESTED) 05/14/[address] [address] Italia Pugh MD Refill Request (Albuterol-ipratropiu m, Lorazepam) 05/13/[address] [address] Italia Pugh MD Follow Up (personal) 05/11/[address] [address] Italia Pugh MD Refill Request 05/11/2025 Travel 05/10/2025 Orders Only [facility] Scanner 1 scan: (1-Ord) [facility], ANGIO CHEST PE PROTOCOL, 05/10/2025 05/10/2025 Orders Only [facility] Scanner 1 scan: (1-Ord) [facility], HEAD/BRAIN WO CON, 05/10/2025 05/10/2025 Orders Only [facility] Scanner 1 scan: (1-Ord) [facility], ABD PELVIS W CON, 05/10/2025 05/10/2025 Orders Only [facility] Scanner 1 scan: (1-Ord) [facility], KNEE, LT 3V, 05/10/2025 05/07/[address] [place] [address] Italia Pugh MD Refill Request (Escitalopram Oxalate) 05/05/2025 Orders Only [facility] Scanner 1 scan: (1-Ord) [facility], HEAD/BRAIN WO CON, 05/05/2025 05/05/2025 Orders Only [facility] Scanner 1 scan: (1-Ord) [facility], XR CHEST 2V, 05/05/2025 05/03/[address] [address] Italia Pugh MD Questions (diabetes pill ) 04/26/[address] [facility] [address] [place] [address] Braulio Sanchez MD Screening 04/24/[address] [address] Italia Pugh MD Refill Request (Ventolin Hfa) 04/20/2025 9:15 AM CDT Office Visit [address] [address] Italia Pugh MD Diabetes (Not fasting) 04/20/[address] [address] Italia Pugh MD Results 04/20/2025 Travel 04/04/[address] [address] Italia Pugh MD Refill Request (Meloxicam, Omeprazole) from Last 3 Months Immunizations Immunization Administration [...] Date Smoking Tobacco: Every Day Cigarettes 1 48.7 Started: 1974 Smokeless Tobacco: Never Tobacco Cessation:Ready [...] isolated from those around you? 0 04/20/2025 Alcohol Use Answer Date Recorded How often do you have a drink containing alcohol ? 0 06/08/2025 Average Number of Drinks Not on file 025 How often do you have five or more drinks on one occasion? 0 06/08/2025 Financial Resource Strain Answer Date R ecorded [...] on file Legal Sex Male 5:43 AM PSYCHOLOGIST Gender Identity Not on file Sexual Orientation Not on file Obstetrics History Last Filed Vital Signs Vital Sign Reading Time Taken Comments Blood Pressure 128/70 06/08/2025 11:04 AM CDT Pulse 104 06/08/2025 11:04 AM CDT Temperature 36.7 C (98 F) 12/29/2024 10:48 AM CDT Respiratory Rate 18 12/29/2024 10:48 AM CDT Oxygen Saturation 94% 06/08/2025 11:15 AM CDT Inhaled Oxygen Concentration - - Weight 82.3 kg (181 lb 8 oz) 06/08/2025 11:04 AM CDT Height 172.7 cm (5' 8) 06/08/2025 11:04 AM CDT Body Mass Index 27.6 06/08/2025 11:04 AM CDT Plan of Treatment Health Maintenance Due Date Last Done Comments HIV for age 15-65 1977 Hepatitis B series for 19+ ( 2 of 3 - 19+ 3-dose series) 03/29/2009 03/01/2009 Influenza Vaccine (#1) 2025 , 07/14/2023, 07/17/2021, Additional history exists Depression screening for age 12+ 11/30/2025 11/30/2024, 11/28/2024, 11/28/2024, Additional history exists Low Dose CT (for lung CA) ag e 50-80 03/02/2026 03/02/2025, 12/07/2024, 12/14/2022, Additional history exists BMI (ht and wt on same day) for age 18+ 06/08/2026 06/08/2025, 11/30/2024, 05/10/2024, Additional history exists Colonoscopy through age 75 06/22/202806/22, 10/04/2017, 11/26/1999 Lipids for age 45-75 11/27/2029 11/27/2024, 07/14/2023, 07/06/2022, Additional history exists Tetanus booster 07/14/2033 07/14/2023, 09/26/2012 Hepatitis C screening for ag e 18-79 Completed 11/17/2013 Pneumococcal series for age 50+ Completed , 07/17/2021 COVID-19 vaccine series Completed 06/14/20 24, 07/14/2023, 03/09/2023, Additional history exists Zoster (shingles) series for age 50+ Completed 08/07/2024, 05/18/2024 RSV vaccine for adults or Completed 08/11/2024 Medical Devices Implanted Type Area Environmental Compliance Technician Device Identifier Shelf Expiration Date Model / Serial / Lot Mesh Ventral 01n85ep Progrip Lapsc Slf Fixating - [id number] Implanted:Qty: 1 on 12/07/2018 by Cindy Munoz DO at [facility] Left: Inguinal [employer] 01/25/2020 [id number] / / [id number] Mesh Ventral 6x8in Ventralightst W/Echo Ps - [id number] Implanted:Qty: 1 on 12/07/2018 by Cindy Munoz DO at [facility] N/A: Abdomen [employer] 07/24/2019 [id number] / / [id number] Explanted Type Area Environmental Compliance Technician Device Identifier Shelf Expiration Date Model / Serial / Lot Mesh Inguinal Lt 3x5in 3-D Max - [id number] Implanted:Qty: 1 Explanted:Qty: 1 on 12/07/2018 at [facility] Left: Inguinal [employer] 01/22/2023 [id number] / / [id number] Procedures Procedure Name Priority Date/Time Associated Diagnosis Comments SODIUM Routine 06/08/2025 12:39 PM CDT Hyponatremia QUANTIFERON -TB GOLD PLUS 1 TUBE ([facility]) Routine 06/08/2025 12:39 PM CDT Chronic cough C-REACTIVE PROTEIN Routine 05/22/2025 11:57 AM CDT Chronic pain of left knee SEDIMENTATION RATE Routine 05/22/2025 11:57 AM CDT Chronic pain of left knee D-DIMER,QUANTITATIVE Routine 05/22/2025 11:57 AM CDT Chronic pain of left knee XR KNEE 1 VIEW BILATERAL Routine 025 11:21 AM CDT Chronic pain of left knee ESOPHAGOGASTRODUODENOSCOPY Routine 05/11 6:49 AM CDT Fay's esophagus without dysplasia SCAN-CT INTERPRETATION 5 12:00 AM CDT SCAN-CT INTERPRETATION 5 12:00 AM CDT SCAN-CT INTERPRETATION 5 12:00 AM CDT SCAN-RADIOLOGY REPORT 05/10/2025 12:00 AM CDT EXTENDED HOLTER Routine 05/05/2025 Cough syncope SCAN-CT INTERPRETATION 5 12:00 AM CDT SCAN-RADIOLOGY [...] AM CDT Right upper lobe pulmonary nodule LIPID PANEL W REFLEX MEASURE D LDL Routine 11/27/2024 9:40 AM PSYCHOLOGIST Hypertriglyceri demia COLONOSCOPY 06/22/2023 12:20 PM CDT ANTI HCV Routine 11/17/2013 12:29 PM PSYCHOLOGIST Screening for viral disease from Last 3 Months or Most Recently Relevant to Health Maintenance Results * QUANTIFERON??-TB GOLD PLUS 1 TUBE ([facility]) (06/08/2025 12:39 PM CDT) NIL 0.03 IU/mL 06/10/2025 2:06 PM CDT [facility] TB1-NIL 0.00 IU/mL 06/10/2025 2:06 PM CDT [facility] TB2-NIL 0.00 IU/mL 06/10/2025 2:06 PM CDT [facility] Comment: The Nil tube value reflects the background interferon gamma immune response of the patient's blood sample. This value has been subtracted from the patient's displayed TB and Mitogen results. Lower than expected results with the Mitogen tube prevent false-negative Quantiferon readings by detecting a patient with a potential immune suppressive condition and/or suboptimal pre-analytical specimen handling. The TB1 Antigen tube is coated with the M. tuberculosis-specific antigens designed to elicit responses from TB antigen primed CD4+ helper T-lymphocytes. The TB2 Antigen tube is coated with the M. tuberculosis-specific antigens designed to elicit responses from TB antigen primed CD4+ helper and CD8+ cytotoxic T-lymphocytes. For additional information, please refer to https://education.[employer].Pascal Metrics/faq/IVP874 (This link is being provided for informational/ educational purposes only.) MITOGEN-NIL 9.17 IU/mL 06/10/2025 2:06 PM CDT [facility] QUANTIFERON(R)-T B GOLD PLUS, 1 TUBE NEGATIVE NEGATIVE 06/10/2025 2:06 PM CDT [facility] Comment: Negative test result. M. tuberculosis complex infection unlikely. Blood BLOOD SPECIMEN / Unknown [facility] / Unknown 06/08/2025 12:39 PM CDT 06/08/2025 12:39 PM CDT us Italia Pugh MD SEND OUTS Final Re sult Performing Organization Address [facility] Co de Phone Number [employer] [facility] [address] [place] [id number], [place] [phone] * (ABNORMAL) SODIUM (06/08/2025 12:39 PM CDT) SODIUM 130(L) 135 - 146 mmol/L 06/09/2025 3:37 AM CDT [facility] Blood BLOOD SPECIMEN / Unknown [facility] / Unknown 06/08/2025 12:39 PM CDT 06/08/2025 12:39 PM CDT us Italia Pugh MD CHEMISTRY Final Re sult Performing Organization Address [facility] Co de Phone Number [facility] [address] [address], [place] [phone] * SEDIMENTATION RATE (05/22/2025 11:57 AM CDT) Pathologist [facility] SED RATE BY MODIFIED CASSIDYERGREN 9 < OR = 20 mm/h 05/23/2025 3:26 AM CDT [facility] Blood BLOOD SPECIMEN / Unknown [facility] / Unknown 05/22/2025 11:57 AM CDT 05/22/2025 11:57 AM CDT us Lasha Billings DO HEMATOLOGY Final Resu lt Performing Organization Address [facility] Co de Phone Number [facility] [employer] [address] [address], * (ABNORMAL) C-REACTIVE PROTEIN (05/22/2025 11:57 AM CDT) C-REACTIVE PROTEIN (MG/L) 8.1(H) <8.0 mg/L 05/23/2025 12:30 PM CDT [facility] Blood BLOOD SPECIMEN / Unknown [facility] / Unknown 05/22/2025 11:57 AM CDT 05/22/2025 11:57 AM CDT Lasha Zac Billings DO CHEMISTRY Final Resu lt Performing Organization Address [facility] de Phone Number [employer] [address] [phone], * (ABNORMAL) D-DIMER,QUANTITATIVE (05/22/2025 11:57 AM CDT) Pathologist [facility] D-DIMER, QUANTITATIVE 0.70(H) <0.50 mcg/mL FEU 05/23/2025 11:51 AM CDT [facility] Comment: Elevated D-dimer levels are associated with DIC, malignancies, inflammation, sepsis, surgery, trauma, and . A D-dimer result less than 0.5 mcg/mL FEU, in conjunction with a non-high clinical pre-test probability assessment model, excludes deep vein thrombosis and pulmonary embolism. However, since D-dimer values increase with age, the [place] [employer] recommends an age-adjusted cut-off value in patients older than 50. The calculation for an age adjusted cut-off value is age (years) x 0.01 mcg/mL FEU. For example, the cut-off for a 70-year-old patient would be 70 x 0.01 mcg/mL FEU. For additional information, please refer to http://education.My [employer]%/faq/DSM555 (This link is being provided for informational/educational purposes only.) Blood BLOOD SPECIMEN / Unknown [facility] / Unknown 05/22/2025 11:57 AM CDT 05/22/2025 11:57 AM CDT Lasha Billings DO HEMATOLOGY Final Resu lt Performing Organization Address [facility] Co de Phone Number [employer] [address] [phone], * XR KNEE 1 VIEW BILATERAL (05/22/2025 11:21 AM CDT) Anatomical Region Laterality Modality KNEES, KNEE L, KNEE R Computed R adiography 05/22/2025 1:17 PM CDT Impressions 05/22/2025 1:17 PM CDT Left medial compartment replacement hardware intact. Medial compartment narrowing right knee. Vascular calcifications. Dictated by Larry Dutton MD @ 05/22/2025 1:17:48 PM (Electronically Signed) Narrative 05/22/2025 1:17 PM CDT For Patients: As a result of the Cures Act, medical imaging exams and procedure reports are released immediately into your electronic medical record. You may view this report before your referring provider. If you have questions, please contact your health care provider. Indication: Chronic pain of left knee Technique: One view of both knees standing Comparison: 2023 Procedure Note Larry Dutton MD - 05/22/2025 For Patients: As a result of the Cures Act, medical imagingexams and procedure reports are released immediately into your electronicmedical record. You may view this report before your referring provider.If you have questions, please contact your health care provider. Indication: Chronic pain of left knee Technique: One view of both knees standing Comparison: 2023 IMPRESSION: Left medial compartment replacement hardware intact. Medial compartmentnarrowing right knee. Vascular calcifications. Dictated by Larry Dutton MD @ 05/22/2025 1:17:48 PM (Electronically Signed) us Lasha Billings DO GENERAL IMAGING Final Resu lt * SCAN-RADIOLOGY REPORT (05/10/2025 12:00 AM CDT) Only the most recent of2 resultswithin the time period is included. Anatomical Region Laterality Modality Other us Scanner OTHER Final Result * SCAN-CT INTERPRETATION (05/10/2025 12:00 AM CDT) Only the most recent of4 resultswithin the time period is included. Anatomical Region Laterality Modality Other Scanner OTHER Final Result * EXTENDED HOLTER (05/05/2025) Josue Ventura MD CARDIAC SERVICES ORD Final R esult * URINE ALBUMIN TO CREATININE RATIO, RANDOM (04/20/2025 10:57 AM CDT) ALB RAND URINE <12.0 mg/L 04/20/2025 2:11 PM CDT [facility] CREATININE,URINE 1.42 g/L 04/20/20 2:11 PM CDT [facility] ALBUMIN TO CREATININE RATIO,RAND UR 04/20/2025 2:11 PM CDT [facility] Comment:Urine Albumin below measurement range, unable to calculate. Urine URINE SPECIMEN / Unknown [facility] / Unknown 04/20/2025 10:57 AM CDT 04/20/2025 10:57 AM CDT Narrative [facility] - 04/20/2025 2:11 PM CDT If Albumin to Creatinine Ratio is elevated, consider the following: Elevations seen with incipient nephropathy associated with diabetes mellitus or hypertension. Stress, exercise,hematuria, and urinary tract infection may also produce elevated results. If clinically indicated, confirm with 24 Hour Albumin to Creatinine Ratio. Italia Pugh MD URINE Final Re sult [facility] [address] [place] [address], * (ABNORMAL) POCT Hemoglobin A1C Monitoring (04/20/2025 9:18 AM CDT) POC HEMOGLOBIN A1C 6.9(H) <6.0 % OF TOTAL HGB 04/20/2025 10:27 AM CDT [facility] Comment: Any point of care results exhibiting inconsistency with the patient's clinical status should be repeated using a different testing method. Blood BLOOD SPECIMEN / Unknown [facility] / Unknown 04/20/2025 9:18 AM CDT 04/20/2025 9:18 AM CDT Italia Pugh MD CHEMISTRY Final Re sult [facility] [address] [place] [address], [facility] [address] [place] [address] * (ABNORMAL) BASIC METABOLIC PANEL [77553.0] (04/20/2025 9:18 AM CDT) SODIUM 131(L) 135 - 146 mmol/L 04/21/2025 4:10 AM CDT [facility] POTASSIUM 5.3 3.5 - 5.3 mmol/L 04/21/2025 4:10 AM CDT [facility] CARBON DIOXIDE 26 20 - 32 mmol/L 04/21/2025 4:10 AM CDT [facility] GLUCOSE 171(H) 65 - 99 mg/dL 04/21/2025 4:10 AM CDT [facility] Comment: Fasting reference interval For someone without known diabetes, a glucose value >125 mg/dL indicates that they may have diabetes and this should be confirmed with a follow-up test. CALCIUM 9.3 8.6 - 10.3 mg/dL 04/21/2025 4:10 AM CDT [facility] CREATININE 0.90 0.70 - 1.35 mg/dL 04/21/2025 4:10 AM CDT [facility] BUN/CREATININE RATIO SEE NOTE: 6 - 22 (calc) 04/21/2025 4:10 AM CDT [facility] Comment: Not Reported: BUN and Creatinine are within reference range. EGFR 96 > OR = 60 mL/min/1. 73m2 04/21/2025 4:10 AM CDT [facility] UREA NITROGEN (BUN) 12 7 - 25 mg/dL 04/21/2025 4:10 AM CDT [facility] [facility] ELECTROLYTE BALANCE 7 7 - 17 mmol/L (calc) 04/21/2025 4:10 AM CDT [facility] CHLORIDE 98 98 - 110 mmol/L 04/21/2025 4:10 AM CDT [facility] Blood BLOOD SPECIMEN / Unknown [facility] / Unknown 04/20/2025 9:18 AM CDT 04/20/2025 9:18 AM CDT us Italia Pugh MD CHEMISTRY Final Re sult [facility] [address] [place] [address], * CT CHEST WO (03/02/2025 10:24 AM [...] For Patients: As a result of the 21st Century Cures Act, medical imagingexams and procedure [...] W REFLEX MEASURED LDL (11/27/2024 9:40 AM PSYCHOLOGIST) CHOLESTEROL, TOTAL 100 <200 mg/dL [facility] [...] LDL-C. Braulio SS et al. NATE. 2013;310(19): 3506-9682 (http://education.Innovate/Protect.Pascal Metrics/faq/NYX047) CHOL/HDLC RATIO 2.9 <5.0 (calc) [facility] NON HDL CHOLESTEROL 66 <130 mg/dL (calc) [facility] Comment: For patients with diabetes plus 1 major ASCVD risk factor, treating to a non-HDL-C goal of <100 mg/dL (LDL-C of <70 mg/dL) is considered a therapeutic option. Blood BLOOD SPECIMEN / Unknown 11/27/2024 9:40 AM PSYCHOLOGIST 11/27/2024 9:42 AM PSYCHOLOGIST Narrative [facility] - 11/28/2024 3:51 AM PSYCHOLOGIST FASTING:NO FASTING: NO Italia Pugh MD CHEMISTRY Final Re sult [facility] [address] [place] [address], [address] [address] * COLONOSCOPY (06/22/2023 12:20 PM CDT) 06/22/2023 [...] adequate candidate for conscious sedation. The endoscope [id number] was passed through the and advancedto. The [...] Result * ANTI HCV (11/17/2013 12:29 PM PSYCHOLOGIST) ANTI HCV Non-reacti ve [facility] Blood specimen (specimen) BLOOD SPECIMEN / Unknown 11/17/2013 12:29 PM PSYCHOLOGIST 11/17/2013 12:24 PM PSYCHOLOGIST us Italia Pugh MD SEND OUTS Final Re sult [facility] [place] [address]IP [address] [address] [place] [address] from Last 3 Months or Most Recently Relevant to Health Maintenance Insurance [facility] Advance Directives * Full Code (Latest [...] 10:25 PM 04/10/2009 1:55 PM Care Teams Information Security Specialist Relationship Specialty [place] [address] [place] [address] PCP - General Family Practice 09/23/17 [facility] [address] [place] [id number] Ophthalmology Telemetry Nurse 06/16/21
--- OUTSIDE RECORDS SUMMARY | 2025-06-17 11:02 | XMS_ITS | Encounter Summary ---
Author Organization [facility] Address [address] [place] [address]. [place] [address] Care Team Providers Care Bus Dispatcher [employer] Name Role Phone Jono Espinal MD Primary Care Provider [phone] [facility] Radha Blauvelt Primary Care Provide r Italia Pugh MD Primary Care Provider + Josue Ventura MD Primary Care Provider Italia Pugh MD Primary Care Provider + Encounter Details Date Type Department Care Team (Late st Contact Info) Description 02/25/[address] [address] Haroldo Nielsen MD [address] [place] [id number] [id number] [facility] Social History Tobacco Use Types Packs/Day Years Used Date Smoking Tobacco: Every Day Cigarettes Smokeless Tobacco: Never Alcohol Use Standard Drinks/Week Comments No 0 (1 standard drink = 0.6 oz pur e alcohol) Sex and Gender Information Value Date Recorded Sex Assigned at Not on file 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 Gender Identity Not on file Sexual Orientation Not on file documented as of this encounter Plan of Treatment Not on file documented as of this encounter Visit Diagnoses Not on filedocumented in this encounter Additional Health Concerns Infection Onset Date Last Indicated Resolved Time Rule Out COVID-19 10/06/2020 10/06/2020 10/06/2020 1:58 PM TIE UP WORKER Rule Out COVID-19 09/29/2021 09/29/2021 09/29/2021 5:59 PM TIE UP WORKER documented as of this encounter Care Teams Bus Dispatcher [employer] Relationship Specialty Start Date End Date Jono Espinal MD [address] [place] [address] PCP - General 10/29/04 07/25/11 [facility] [address] [place] [address] PCP - General 07/26/11 05/21/13 Italia Pugh MD [facility] [id number] [place] [address] PCP - General Family Practice 05/22/13 10/21/18 Josue Ventura MD [facility] [address] [place] [address] PCP - General Emergency Medicine 10/22/18 03/25/19 Italia Pugh MD [facility] [id number] [place] [address] PCP - General Family Practice 03/26/19 documented as of this encounter
--- OUTSIDE RECORDS SUMMARY | 2025-06-17 11:02 | XMS_ITS | Clinical Summary ---
Author Organization [facility] Address [address] [place] [address]. 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 Gender Identity Not on file Sexual Orientation [...] 175.3 cm (5' 9) 09/30/2021 8:31 AM FORMS EXAMINER Body Mass Index 28.91 09/30/2021 8:31 AM FORMS EXAMINER Plan of Treatment Health Maintenance Due Date [...] (2 - Td or Tdap) 09/26/2022 09/26/2012 PHQ-2 (once per calendar year) 2024 COVID-19 VACCINE ( - season) 2025 07/17/2021, 01/14/2021, 12/17/2020 INFLUENZA VACCINE (#1) 2025 , 07/31/2020, 09/26/2012 [...] and gender (Antony et al., NEJM, DOI: 10.1056/[id number]) Blood STRUCTURE OF LEFT UPPER LIMB / Unknown Venipuncture / Unknown 06/16/2022 4:34 PM CDT 06/16/2022 4:37 PM CDT us Joe Jade MD LAB - BLOOD ORDERABLES F inal Result LABORATORY [facility] [address] Lab (1st floor, no room number) [place] [address], [place] [phone] from Last 3 Months or Most Recently Relevant to Health Maintenance Insurance [facility] Advance Directives For more information, please contact: [phone] * Full Code (Latest Code Status on [...] with patie nt/legal decision maker Care Teams Bobbin Disker Relationship Specialty Start Date End Date Italia Pugh MD [facility] [id number] [place] [address] PCP - General Family Practice 03/26/19
[2025-06-17 11:14] VITALS: BP 132/78; PULSE 102; RESP 18; TEMP 37.4; O2SAT 93; BMI 26.9
--- NOTE | 2025-06-17 11:24 | ED.GENADULT ---
HPI - General Adult General Date Seen: 06/17/25 Chief complaint: Fall/Minor Trauma Stated complaint: right toe injury Time Seen by Provider: 06/17/25 11:23 History of Present Illness HPI narrative: 65-year-old male with a history of COPD, right lung mass, type 2 diabetes, GERD, hypertension, tobacco use, history of alcohol use, chronic low back pain presenting to the ER today with concern for an injury to his right great toe. He has episodes of frequently blacking out at home. He ?passed out again? and fell and injured his toe. He also has pain in his right knee, right wrist. Patient notes that he has ongoing trouble with his lungs and ongoing episodes of fainting at home. He has been having workup through his primary care provider and they feel that this is probably syncope related to coughing spells and not a cardiac cause of syncope. They are working hard to try to control his COPD. Unfortunately continues to smoke. He is already on inhalers and nebulizers, and is on a tapering dose of prednisone that w as started by his PCP last week. He was on 40 mg per day and is planning to taper down to 20 mg this week and then 10 mg per day the following week. He had tested his PCP office last week that were negative for COVID, influenza, and tuberculosis. His doctor is working to get him set up with Pulmonary but they do not have any appointments available. His doctor is working to get him set up with home oxygen machine. Despite that he still has ongoing cough. He had an episode where he was coughing and fainted on his couch a couple of nights ago. Last night he woke up with shortness of breath and then set up at the edge of his bed. He thinks he had another coughing spell and fainted there. He fell to the floor and did smash his head against his closet door and broke the door. He does have a right frontal temporal headache. No bruising or laceration on his head. He is not having any neck pain. He also thinks he might have broken his right big toe because it is painful, purple, and swollen. He also has a little bit of a scrape that he thinks is a carpet burn on his right anterior knee. He he does not sure but he doubts that his knees broken. He also has some pain in his right wrist. He was able to get up this morning and take a shower and do a lot of his morning routine but since his injuries were painful, he came here to the ER to be checked He has not been nauseous or vomiting. No blurry vision. No neck pain. No numbness or weakness in his arms or legs. He does have ongoing coughing spells that are unchanged from his baseline. He does not have a fever at home. No vomiting.. Related Data Home Medications ?Medication ?Instructions ?Recorded ?Confirmed amlodipine 10 mg tablet 10 mg PO DAILY 06/29/22 06/17/25 budesonide-formoterol HFA 160 2 puff inhalation Q12H 06/29/22 06/17/25 mcg-4.5 mcg/actuation aerosol inhaler (Symbicort) ipratropium 0.5 mg-albuterol 3 mg 3 ml inhalation Q6H PRN 06/29/22 06/17/25 (2.5 mg base)/3 mL nebulization soln metformin 1,000 mg tablet 1,000 mg PO BID 06/29/22 06/17/25 omeprazole 40 mg capsule,delayed 40 mg PO DAILY 06/29/22 06/17/25 release tiotropium bromide 18 mcg capsule 1 cap inhalation DAILY 06/29/22 06/17/25 with inhalation device (Spiriva with HandiHaler) atorvastatin 20 mg tablet 20 mg PO HS 07/20/22 06/17/25 albuterol sulfate 90 mcg/actuation 2 puff inhalation Q4H PRN 10/03/22 06/17/25 aerosol inhaler (Ventolin HFA) meloxicam 15 mg tablet 15 mg PO DAILY 10/03/22 06/17/25 escitalopram oxalate 20 mg tablet 20 mg PO DAILY 05/10/25 06/17/25 tamsulosin 0.4 mg capsule 0.8 mg PO DAILY 05/10/25 06/17/25 hydrocodone 5 mg-acetaminophen 325 1 tab PO Q6H PRN 06/06/25 06/17/25 mg tablet Previous Rx's ?Medication ?Instructions ?Recorded benzonatate 100 mg capsule 200 mg (2 x 100 mg) PO TID #20 caps 10/06/22 prednisone 20 mg tablet 20 mg PO BID #10 tabs 12/18/24 hydroxyzine HCl 25 mg tablet 25 mg PO TID PRN #14 tabs 05/14/25 Allergies Allergy/AdvReac Type Severity Reaction Status Date / Time No Known Drug Allergies Allergy Verified 06/17/25 11:20 [facility] Medical History (Updated 06/17/25 @ 13:15 by Sven Haines MD) Ventricular tachycardia ?I47.20 - Ventricular tachycardia, unspecified (ICD-10) Chest pain ?R07.9 - Chest pain, unspecified (ICD-10) Right lower lobe lung mass ?R91.8 - Other nonspecific abnormal finding of lung field (ICD-10) Chronic low back pain with sciatica ?M54.40 - Lumbago with sciatica, unspecified side (ICD-10) ?G89.29 - Other chronic pain (ICD-10) Diabetic acidosis, type II ?E11.10 - Type 2 diabetes mellitus with ketoacidosis without coma (ICD-10) Radiculitis ?M54.10 - Radiculopathy, site unspecified (ICD-10) Internal derangement of right knee ?M23.91 - Unspecified internal derangement of right knee (ICD-10) Essential hypertension ?I10 - Essential (primary) hypertension (ICD-10) Erectile dysfunction ?N52.9 - Male erectile dysfunction, unspecified (ICD-10) Adenomatous polyp of colon ?D12.6 - Benign neoplasm of colon, unspecified (ICD-10) COPD (chronic obstructive pulmonary disease) ?J44.9 - Chronic obstructive pulmonary disease, unspecified (ICD-10) Fay's esophagus with esophagitis ?K22.70 - Fay's esophagus without dysplasia (ICD-10) ?K20.90 - Esophagitis, unspecified without bleeding (ICD-10) Alcoholic fatty liver ?K70.0 - Alcoholic fatty liver (ICD-10) History of alcohol abuse ?F10.11 - Alcohol abuse, in remission (ICD-10) GERD (gastroesophageal reflux disease) ?K21.9 - Gastro-esophageal reflux disease without esophagitis (ICD-10) Depression with anxiety ?F41.8 - Other specified anxiety disorders (ICD-10) Nicotine dependence ?F17.200 - Nicotine dependence, unspecified, uncomplicated (ICD-10) Type 2 diabetes mellitus ?E11.9 - Type 2 diabetes mellitus without complications (ICD-10) Osteoarthritis of right knee ?M17.11 - Unilateral primary osteoarthritis, right knee (ICD-10) Osteoarthritis of left knee ?M17.12 - Unilateral primary osteoarthritis, left knee (ICD-10) Surgical History History of meniscectomy of right knee (~2015) ?Z98.890 - Other specified postprocedural states (ICD-10) H/O vasectomy ?Z98.52 - Vasectomy status (ICD-10) History of partial colectomy (~1999) ?Z90.49 - Acquired absence of other specified parts of digestive tract (ICD-10) History of appendectomy ?Z90.49 - Acquired absence of other specified parts of digestive tract (ICD-10) Hx laparoscopic cholecystectomy (10/15/17) ?Z90.49 - Acquired absence of other specified parts of digestive tract (ICD-10) Family History Father Lung cancer Social History Narrative: Lives with partner Queenie. Three adult children from previous relationship. Queenie or daughter Savi would be medical decision maker if needed. Patient requests full code status. 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 Smokes 1 pack per day, > 20 pack-year history. No alcohol use. Highest level of school completed/degree received: GED or equivalent Smoking Status: Current every day smoker What tobacco products do you use: cigarettes Smoking packs per day: 0.5 Smoking cigarettes per day: 10.0 Years smoked: 40 Smoking pack-years: 20.00 Do you use any of these nicotine containing products: None Second hand tobacco smoke exposure: Yes How often do you have a drink containing alcohol: never How often do you have six or more drinks on one occasion: Never AUDIT-C Alcohol total score: 0 Non-prescribed substance use: denies use Caffeine: Yes (2 cups coffee in the morning) service: Yes Exam Narrative: Exam Narrative: Primary Survey: A- patent. Speaking clearly. Phonation normal. No stridor. B- breathing easily. Lung sounds clear and equal. Oxygen saturation normal on room air C- no active bleeding. Blood pressure stable. Symmetric pulses and cap refill in 4 extremities. D- alert and oriented x3. GCS 15. No focal deficits. Constitutional: Appears well-developed and well-nourished. Alert. Conversant and speaking full sentences. Non toxic. HENT: Head: Atraumatic. Complains of right frontal temporal headache, but No depressed skull fracture, Raccoon Eyes, Gómez's sign, or hemotympanum. Face normal. TMs normal Nose: Nose normal. Mouth/Throat: Oral mucosa is clear and moist. no trismus. Pharynx normal. Tonsils symmetric. No tonsillar enlargement, erythema, or exudate. Eyes: Conjunctivae normal. EOM normal. Pupils equal, round, and reactive to light. No scleral icterus. Neck: No posterior midline tenderness. Normal range of motion. Neck supple. No tracheal deviation present. Cardiovascular: Normal rate, regular rhythm. No gallop. No friction rub. No murmur heard. Symmetric radial and PT artery pulses Pulmonary/Chest: Effort normal. No stridor. No respiratory distress. No wheezes. Scares left basilar rales. No rhonchi . No tenderness. Abdominal: Soft. No distension. No mass. No tenderness. No rebound. No guarding. Musculoskeletal: No T or L-spine tenderness. Pelvis stable. RUE: Normal range of motion. No deformity or swelling but he is tender over the right wrist/distal radius. No tenderness over the snuffbox. He has pain but is able to pronate and supinate and has intact flexion and extension of the wrist. No tenderness of the proximal forearm or elbow. No tenderness of the hand or thumb. Upper arm, shoulder, clavicle nontender. No deformity LUE: Normal range of motion. No tenderness. No deformity RLE: Normal range of motion. No edema. He has a 2 cm diameter abrasion on the anterior right knee just inferior to the patella. He has pain there but no obvious bony deformity or crepitus. No bruising. Range of motion is from full extension to about 90? of flexion, limited by pain. Femoral shaft, tibia/fibula are nontender. Ankle nontender. Hindfoot and midfoot are nontender. He has ecchymosis, tenderness, and swelling of the great toe but does have intact flexion and extension there. Intact distal sensory function. LLE: Normal range of motion. No edema. No tenderness. No deformity Neurological: Alert and oriented to person, place, and time. Normal strength. CN II-VII intact. No sensory deficit. GCS eye subscore is 4. GCS verbal subscore is 5. GCS motor subscore is 6. Normal coordination Skin: Skin is warm and dry. No rash noted. No pallor. Normal capillary refill. Psychiatric: Normal mood. Normal affect. Const: Vital Signs, click to edit/add: Vital Signs - 24 hr 06/17/25 11:14 Temperature 99.4 F Pulse Rate [Right Pulse Oximeter] 102 H Respiratory Rate 18 Blood Pressure [Ri ght Upper Arm] 132/78 Pulse Oximetry 93 Oxygen Delivery Me thod Room Air Course Vital Signs Vital signs: Initial Vital Signs Temperature 99.4 F 06/17/25 11:14 Temperature Source Temporal Artery Scan 06/17/25 11:14 Pulse Rate 102 H 06/17/25 11:14 Pulse Rhythm Regular 06/17/25 11:14 Pulse Strength 3+ Normal 06/17/25 11:14 Respiratory Rate 18 06/17/25 11:14 Blood Pressure 132/78 06/17/25 11:14 Blood Pressure Mean 96 06/17/25 11:14 Blood Pressure Position Sitting 06/17/25 11:14 Pulse Oximetry 93 06/17/25 11:14 Oxygen Delivery Method Room Air 06/17/25 11:14 Vital Signs Temperature 99.4 F 06/17/25 11:14 Pulse Rate 102 H 06/17/25 11:14 Respiratory Rate 18 06/17/25 11:14 Blood Pressure 132/78 06/17/25 11:14 Pulse Oximetry 93 06/17/25 11:14 Oxygen Delivery Method Room Air 06/17/25 11:14 Temperature 99.4 F 06/17/25 11:14 Pulse Rate 102 H 06/17/25 11:14 Respiratory Rate 18 06/17/25 11:14 Blood Pressure 132/78 06/17/25 11:14 Pulse Oximetry 93 06/17/25 11:14 Oxygen Delivery Method Room Air 06/17/25 11:14 Medications Administered Medications: Discontinued Medications Generic Name Dose Route Start Last Admin Trade Name Freq PRN Reason Stop Dose Admin Oxycodone/Acetaminophen 1 tab 06/17/25 11:43 06/17/25 12:04 Oxycodone/Apap 5-325 Tablet PO 06/17/25 11:44 1 tab ONCE ONE Administration Medical Decision Making MDM Narrative Medical decision making narrative: 65-year-old gentleman with a complex past medical history. He presents to the ER today after he fainted while getting up out of bed last night and has multiple sites of injuries. In terms of his the knee has a known history of syncope related to coughing and COPD. He reports similar pattern leading to his fainting spell last night. He has already had workup here in the ER and additional workup through his PCP with no known cardiac cause of syncope. He has no history of seizures. In discussion with the patient we decided not to do further workup for syncope here today. He does have a recently increased worsening cough and shortness of breath worse than his baseline. He has already had testing done through his PCP including negative COVID test, negative tuberculosis test, and has been put on a 5 day course of antibiotics (probably Azithromycin per patient report) and a 3 week tapering dose of prednisone. He has already used his morning meds and inhalers and as result is oxygenating well here in the ER does not have any significant wheezing. At this point not requiring nebs, BiPAP, or admission for COPD exacerbation. He does have rales in left base. Chest x-ray is obtained and does show either atelectasis or possibly an infiltrate there. I think we will put him on doxycycline 100 b.i.d. for 7 days to cover for potential community-acquired pneumonia. He will continue his this prednisone and other meds. He already has an appointment scheduled follow-up with his PCP. Consult to return to the ER for worsening coughing, trouble breathing, or other concerns. In terms of injury from the fall last night we did obtain radiographic imaging. He thinks he did hit his head and does have a headache. Fortunately head CT is negative. He also has some pain in his right wrist. Wrist x-rays are fortunately negative. Exam consistent with a wrist sprain. He is not having any tenderness in the snuffbox to raise concern for scaphoid fracture. He also has pain with an abrasion on the anterior right knee. X-rays of the knee are negative for any acute fracture. Clinical exam there consistent with abrasion/contusion. He does have significant ecchymosis and discomfort in the right great toe. X-rays are read to be negative for fracture by Radiology. By my view I am concerned there may be a subtle hairline fracture involving the distal articular surface of the proximal phalanges. This would be nondisplaced, if it were true. Will place the patient into an ortho shoe for immobilization. Discussed with him that so far read on x-ray is negative but there is possibility for a nondisplaced fracture. He needs to stay immobilized for the toe and follow-up with PCP or ortho within 5-7 days for repeat imaging if pain and bruising persist. Instymeds prescriptions for doxycycline 100 mg p.o. b.i.d. for 7 days and [place] 1-2 acute 4-6 hours p.r.n.-10 tablets. Opiate precautions reviewed. 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 Imaging Data CT scan - head: Attestation: I have reviewed the pertinent imaging results. Radiologist's impression: IMPRESSION: 1. No radiographic evidence of acute intracranial abnormalities. XR right knee: Attestation: I have reviewed the pertinent imaging results. Radiologist's impression: IMPRESSION: Normal right knee radiographs. XR right wrist: Attestation: I have reviewed the pertinent imaging results. Radiologist's impression: Impression: No sign of acute injury in the right wrist. XR great toe, right: Attestation: I have reviewed the pertinent imaging results. Radiologist's impression: IMPRESSION: No acute or traumatic findings of the right toes. Chest x-ray: Attestation: I have reviewed the pertinent imaging results. Radiologist's impression: IMPRESSION: Increased left basal linear/patchy opacity may reflect atelectasis. Discharge Plan Discharge Clinical Impression: Pneumonia, Syncope, Injury of toe on right foot, Abrasion of knee, right, Sprain of wrist, right, Head injury Patient Disposition: Home, Self-Care Condition: Stable Instructions: Sprain (ED), Head Injury (ED), Pneumonia (ED), Wrist Sprain (ED) Additional Instructions: As we discussed, your x-rays look good today. No evidence for any broken bones, even though your toe looks bruised and swollen. Please wear the walking shoe to mobilize your toe and try to rest her toe as much as possible for the next few days. If your toes just bruised and sprained the bruising and pain will gradually heal over the next days. However if there is a subtle hairline fracture there, your pain will likely persist. If her not making significant improvements within 5-7 days, please recheck with your doctor or come back to the ER for repeat toe x-rays. The x-rays of your knee, wrist are normal. Head CT scan is normal. Your chest x-ray shows a subtle faint smudge in your left lower lobe that could be pneumonia. Were going to put you on [id number] treat this pneumonia. Continue your nebs, prednisone, and other lung treatments. Please return to the ER if your have worsening cough, trouble breathing, chest pain, or any other concerns. Prescriptions: No Action hydrocodone-acetaminophen 5-325 mg tablet 1 tab PO Q6H PRN atorvastatin 20 mg tablet 20 mg PO HS tamsulosin 0.4 mg capsule 0.8 mg PO DAILY escitalopram oxalate 20 mg tablet 20 mg PO DAILY amlodipine 10 mg tablet 10 mg PO DAILY Patient Comments: TAKE ONE TABLET BY MOUTH EVERY EVENING metformin 1,000 mg tablet 1,000 mg PO BID Patient Comments: TAKE 1 TABLET BY MOUTH 2 TIMES DAILY WITH MEALS. omeprazole 40 mg capsule,delayed release(DR/EC) 40 mg PO DAILY Patient Comments: TAKE 1 CAPSULE BY MOUTH ONCE DAILY BEFORE A MEAL. tiotropium bromide [Spiriva with HandiHaler] 18 mcg capsule, w/inhalation device 1 cap INHALATION DAILY Patient Comments: INHALE CONTENTS OF 1 CAPSULE WITH HANDIHALER DEVICE ONCE DAILY ipratropium-albuterol 0.5 mg-3 mg(2.5 mg base)/3 mL solution for nebulization 3 ml INHALATION Q6H PRN Patient Comments: INHALE ONE VIAL VIA A NEBULIZER 4 TIMES DAILY NEEDED budesonide-formoterol [Symbicort] 160-4.5 mcg/actuation HFA aerosol inhaler 2 puff INHALATION Q12H Patient Comments: INHALE 2 PUFFS BY MOUTH 2 TIMES DAILY. albuterol sulfate [Ventolin HFA] 90 mcg/actuation HFA aerosol inhaler 2 puff INHALATION Q4H PRN meloxicam 15 mg tablet 15 mg PO DAILY Patient Comments: TAKE ONE TABLET BY MOUTH EVERY DAY benzonatate 100 mg Capsule 200 mg PO TID Qty: 20 0RF prednisone 20 mg tablet 20 mg PO BID Qty: 10 0RF hydroxyzine HCl 25 mg tablet 25 mg PO TID PRNQty: 14 0RF Follow Up/Referrals: Italia Pugh MD [Primary Care Provider, Family Practice] Stand Alone Forms: MyHealth Info Instructions
--- NOTE | 2025-06-17 11:43 | CRLHL7_ITS ---
For Patients: As a result of the Century Cures Act, medical imaging exams and procedure reports are released immediately into your electronic medical record. You may view this report before your referring provider. If you have questions, please contact your health care provider. INDICATION: Headache. Trauma. TECHNIQUE: Non-contrast CT of the head is submitted. Compared with prior study from May 10, 2025 FINDINGS: The ventricles, sulci and gyri are of normal size, shape and contour. Midline structures are centrally located. No convincing evidence of intra- or extra-axial fluid collections. IMPRESSION: 1. No radiographic evidence of acute intracranial abnormalities. Please note that all CT scans at this facility use dose modulation, iterative reconstruction, and/or weight-based dosing when appropriate to reduce radiation dose to as low as reasonably achievable. Dictated by Himanshu Perera MD @ 06/17/2025 12:06:57 PM (Electronically Signed)
--- NOTE | 2025-06-17 11:43 | CRLHL7_ITS ---
For Patients: As a result of the Cures Act, medical imaging exams and procedure reports are released immediately into your electronic medical record. You may view this report before your referring provider. If you have questions, please contact your health care provider. INDICATION: Fall, pain COMPARISON: None. TECHNIQUE: Three views right knee, nonweightbearing. FINDINGS: No acute or healing fracture. Normal joint alignment. Joint spaces are normal. No focal bone lesions. Normal bone mineralization. No joint effusion. Atherosclerosis. No foreign body. IMPRESSION: Normal right knee radiographs. Dictated by Sharmila Cabrera MD @ 06/17/2025 12:22:47 PM (Electronically Signed)
--- NOTE | 2025-06-17 11:43 | CRLHL7_ITS ---
For Patients: As a result of the Century Cures Act, medical imaging exams and procedure reports are released immediately into your electronic medical record. You may view this report before your referring provider. If you have questions, please contact your health care provider. INDICATION: Cough, syncope TECHNIQUE: Chest 2 views. COMPARISON: Chest radiograph 05/05/2025, chest CT 05/10/2025 FINDINGS: Cardiovascular and mediastinum: Heart size is normal. Unremarkable mediastinum. Lungs and pleural spaces: Similar scattered bibasal predominant reticulonodular opacities. Increased left basal linear/patchy opacity. No consolidative or interstitial opacity. No pleural effusion. No pneumothorax. Bones and soft tissues: No significant findings. IMPRESSION: Increased left basal linear/patchy opacity may reflect atelectasis. Similar scattered bibasal predominant reticulonodular opacities may reflect a combination scarring and fibrosis Dictated by Kaity Shields MD @ 06/17/2025 12:26:00 PM (Electronically Signed)
--- NOTE | 2025-06-17 11:43 | CRLHL7_ITS ---
For Patients: As a result of the Cures Act, medical imaging exams and procedure reports are released immediately into your electronic medical record. You may view this report before your referring provider. If you have questions, please contact your health care provider. Indication: Syncope, right wrist pain Technique: Right wrist 3 view Comparison: None Findings: Bones: Alignment is normal. No fractures or bone lesions. Joint spaces: Unremarkable. Soft tissues: Unremarkable. Impression: No sign of acute injury in the right wrist. Dictated by Kaity Shields MD @ 06/17/2025 12:21:58 PM (Electronically Signed)
--- NOTE | 2025-06-17 11:43 | CRLHL7_ITS ---
For Patients: As a result of the Cures Act, medical imaging exams and procedure reports are released immediately into your electronic medical record. You may view this report before your referring provider. If you have questions, please contact your health care provider. INDICATION: Syncope, fall, right great toe pain and ecchymosis COMPARISON: None. TECHNIQUE: Three views right toes. FINDINGS: No acute or healing fracture. No dislocation. [id number] osteoarthritis. No focal bone lesions. Normal bone mineralization. Soft tissues are normal. No foreign body. IMPRESSION: No acute or traumatic findings of the right toes. Dictated by Sharmila Cabrera MD @ 06/17/2025 12:23:39 PM (Electronically Signed)
--- OUTSIDE RECORDS SUMMARY | 2025-06-17 12:02 | XMS_ITS | CCD ---
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
[2025-06-17] MEDS: OxyCODONE/APAP 5-325 TABLET 1 TAB PO (12:04)
--- OUTSIDE RECORDS SUMMARY | 2025-06-17 13:03 | XMS_ITS | CCD ---
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
--- OUTSIDE RECORDS SUMMARY | 2025-06-17 13:03 | XMS_ITS | CCD ---
Author Organization Unknown Care Team Providers Care Market Superintendent Name Role Phone [employer], [place] Primary Care Provider Unava ilable Unavailable Chronic Care Management Unavaila ble Summary Purpose DataExchange Insurance Providers Payer name Policy type / Coverage type Covered libertarian ID Effective Begin Date Effective End Date [facility] Commercial Insurance [id number] Unknown Unkn own Family History Family History data not found Medication Administered No Medication Administered data Reason For Visit No Reason For Visit data
[2025-06-17 13:27] VITALS: BP 129/75; PULSE 89; RESP 20
== END 2025-06-17 13:28 | disposition home or self-care (01) ==
PROVIDERS: Emergency Provider Emergency Medicine; PCP Family Medicine
DX: J18.9 Pneumonia, unspecified organism (principal); S99.921A Unspecified injury of right foot, initial encounter; R55 Syncope and collapse; S80.211A Abrasion, right knee, initial encounter; S63.501A Unspecified sprain of right wrist, initial encounter
CPT/HCPCS: 70450; 71046; 73110; 73562; 73660; 99283; 99284; A9270

== ENCOUNTER 2025-08-31 12:59 | Emergency (ER) | payer MEDICAID, SELFPAY ==
[2025-08-31] VITALS (16 sets, daily range): BP systolic 117–169; BP diastolic 69–101; PULSE 76–104; RESP 17–29; TEMP 36.6; O2SAT 90–95; BMI 28.4
--- NOTE | 2025-08-31 13:09 | ED.CHESTPAIN ---
HPI - Chest Pain General Date Seen: 08/31/25 Chief Complaint: Chest Pain Stated Complaint: Chest pain Time Seen by Provider: 08/31/25 13:08 Source: patient, RN notes reviewed and old records reviewed Mode of arrival: ambulatory Limitations: no limitations History of Present Illness HPI narrative: 65-year-old male with a history of COPD, GERD, Fay's esophagus, history of alcohol abuse and alcoholic fatty liver disease, nicotine dependence, right lower lobe lung mass known for about 5 years, arthritis, chronic low back pain with radiculopathy and frequent episodes of syncope after coughing who comes to the emergency room with chest pain that he describes as a 10/10 and increased sputum production that is dark colored over the past couple weeks. Patient states to me ?I think I need 4 mg of IV morphine. ?. I do ask him to speak with me about other symptoms. He notes no previous heart problems but describes months of sputum production worsening over the past couple weeks now with difficulty breathing in spite of nebulizer use. He is coughing quite a bit. He is very concerned because he did pass out this morning. He unfortunately has had multiple workups with his primary clinic for this. They do not know why he passes out. He does demonstrate coughing to us and it is with significant bronchospasm. He states his girlfriend will see him cough and then his face will turn red and then he will pass out momentarily. Denies any injury this morning. The chest pain is further evaluated and he states that is when he takes a deep breath or when he coughs. No abdominal pain but did have nausea earlier. Denies a fever or chills. Does not know of anyone who has been sick around him. Does agree that he has had to use steroids in the past. Unfortunately in spite of COPD patient continues to smoke 1 pack of cigarettes daily. He does state he could barely smoke any cigarettes today. Patient also tells me that he has had episodes of low sodium. Patient noted to wear oxygen at night 1.5 L. Related Data Home Medications ?Medication ?Instructions ?Recorded ?Confirmed amlodipine 10 mg tablet 10 mg PO DAILY 06/29/22 06/17/25 budesonide-formoterol HFA 160 2 puff inhalation Q12H 06/29/22 06/17/25 mcg-4.5 mcg/actuation aerosol inhaler (Symbicort) ipratropium 0.5 mg-albuterol 3 mg 3 ml inhalation Q6H PRN 06/29/22 06/17/25 (2.5 mg base)/3 mL nebulization soln metformin 1,000 mg tablet 1,000 mg PO BID 06/29/22 06/17/25 omeprazole 40 mg capsule,delayed 40 mg PO DAILY 06/29/22 06/17/25 release tiotropium bromide 18 mcg capsule 1 cap inhalation DAILY 06/29/22 06/17/25 with inhalation device (Spiriva with HandiHaler) atorvastatin 20 mg tablet 20 mg PO HS 07/20/22 06/17/25 albuterol sulfate 90 mcg/actuation 2 puff inhalation Q4H PRN 10/03/22 06/17/25 aerosol inhaler (Ventolin HFA) meloxicam 15 mg tablet 15 mg PO DAILY 10/03/22 06/17/25 escitalopram oxalate 20 mg tablet 20 mg PO DAILY 05/10/25 06/17/25 tamsulosin 0.4 mg capsule 0.8 mg PO DAILY 05/10/25 06/17/25 hydrocodone 5 mg-acetaminophen 325 1 tab PO Q6H PRN 06/06/25 06/17/25 mg tablet Previous Rx's ?Medication ?Instructions ?Recorded benzonatate 100 mg capsule 200 mg (2 x 100 mg) PO TID #20 caps 10/06/22 prednisone 20 mg tablet 20 mg PO BID #10 tabs 12/18/24 hydroxyzine HCl 25 mg tablet 25 mg PO TID PRN #14 tabs 05/14/25 Allergies Allergy/AdvReac Type Severity Reaction Status Date / Time No Known Drug Allergies Allergy Verified 06/17/25 11:20 Review of Systems Status of ROS Reports: 10 or more systems reviewed and unremarkable except as noted in History and below Const Reports: fatigue; Denies: fever or chills Eyes Denies: change in vision ENMT Reports: nasal congestion; Denies: throat pain or neck pain Cardio Reports: chest pain (With coughing and inspiration), lightheadedness and shortness of breath with exertion; Denies: swelling of feet/ankles Resp Reports: shortness of breath, cough, wheezing, pain on inspiration, change in phlegm color and chest congestion; Denies: coughing up blood GI Reports: nausea; Denies: abdominal pain or vomiting Denies: painful urination or urinary frequency Musculo Denies: back pain, neck pain or extremity pain Neuro Denies: headache Endo Reports: fatigue Allergy/Immuno Reports: wheezing [facility] Medical History (Updated 08/31/25 @ 15:14 by Cordelia Wilkins MD) Ventricular tachycardia ?I47.20 - Ventricular tachycardia, unspecified (ICD-10) Chest pain ?R07.9 - Chest pain, unspecified (ICD-10) Right lower lobe lung mass ?R91.8 - Other nonspecific abnormal finding of lung field (ICD-10) Chronic low back pain with sciatica ?M54.40 - Lumbago with sciatica, unspecified side (ICD-10) ?G89.29 - Other chronic pain (ICD-10) Diabetic acidosis, type II ?E11.10 - Type 2 diabetes mellitus with ketoacidosis without coma (ICD-10) Radiculitis ?M54.10 - Radiculopathy, site unspecified (ICD-10) Internal derangement of right knee ?M23.91 - Unspecified internal derangement of right knee (ICD-10) Essential hypertension ?I10 - Essential (primary) hypertension (ICD-10) Erectile dysfunction ?N52.9 - Male erectile dysfunction, unspecified (ICD-10) Adenomatous polyp of colon ?D12.6 - Benign neoplasm of colon, unspecified (ICD-10) COPD (chronic obstructive pulmonary disease) ?J44.9 - Chronic obstructive pulmonary disease, unspecified (ICD-10) Fay's esophagus with esophagitis ?K22.70 - Fay's esophagus without dysplasia (ICD-10) ?K20.90 - Esophagitis, unspecified without bleeding (ICD-10) Alcoholic fatty liver ?K70.0 - Alcoholic fatty liver (ICD-10) History of alcohol abuse ?F10.11 - Alcohol abuse, in remission (ICD-10) GERD (gastroesophageal reflux disease) ?K21.9 - Gastro-esophageal reflux disease without esophagitis (ICD-10) Depression with anxiety ?F41.8 - Other specified anxiety disorders (ICD-10) Nicotine dependence ?F17.200 - Nicotine dependence, unspecified, uncomplicated (ICD-10) Type 2 diabetes mellitus ?E11.9 - Type 2 diabetes mellitus without complications (ICD-10) Osteoarthritis of right knee ?M17.11 - Unilateral primary osteoarthritis, right knee (ICD-10) Osteoarthritis of left knee ?M17.12 - Unilateral primary osteoarthritis, left knee (ICD-10) Surgical History History of meniscectomy of right knee (~2015) ?Z98.890 - Other specified postprocedural states (ICD-10) H/O vasectomy ?Z98.52 - Vasectomy status (ICD-10) History of partial colectomy (~1999) ?Z90.49 - Acquired absence of other specified parts of digestive tract (ICD-10) History of appendectomy ?Z90.49 - Acquired absence of other specified parts of digestive tract (ICD-10) Hx laparoscopic cholecystectomy (10/15/17) ?Z90.49 - Acquired absence of other specified parts of digestive tract (ICD-10) Family History Father Lung cancer Social History Narrative: Lives with partner Queenie. Three adult children from previous relationship. Queenie or daughter Savi would be medical decision maker if needed. Patient requests full code status. 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 Smokes 1 pack per day, > 20 pack-year history. No alcohol use. Highest level of school completed/degree received: GED or equivalent Smoking Status: Current every day smoker What tobacco products do you use: cigarettes Smoking packs per day: 0.5 Smoking cigarettes per day: 10.0 Years smoked: 40 Smoking pack-years: 20.00 Do you use any of these nicotine containing products: None Second hand tobacco smoke exposure: Yes How often do you have a drink containing alcohol: never How often do you have six or more drinks on one occasion: Never AUDIT-C Alcohol total score: 0 Non-prescribed substance use: denies use Caffeine: Yes (2 cups coffee in the morning) service: Yes Exam Narrative Exam Narrative: Cresencio is alert and oriented. Does hop from previous problem to present problem and it is somewhat challenging to obtain initial history. His speech and mentation are intact. He does smell of tobacco. Face symmetrical EOM is full. Oral cavity with tacky mucous membranes and lips are dry. His heart is with a tachycardic rate but normal rhythm. Lung sounds show wheezes bilaterally. Abdomen is protruberant but it is soft and nontender. Lower extremities without edema. No calf tenderness. Is able to move all extremities. Patient does demonstrate a cough which is with significant bronchospasm. He does not pass out here. Const Vital Signs, click to edit/add: Vital Signs - 24 hr 08/31/25 13:05 08/31/25 13:18 08/31/25 13:19 Temperature 97.9 F Pulse Rate 101 H 92 Pulse Rate [Right Pulse Oximeter] 104 H Respiratory Rate 24 29 H 29 H Blood Pressure 169/101 H Blood Pressure [Right Upper Arm] 157/69 H Pulse Oximetry 93 94 94 Oxygen Delivery Method Room Air 08/31/25 13:30 08/31/25 13:32 08/31/25 13:45 Temperature Pulse Rate 87 82 83 Pulse Rate [Right Pulse Oximeter] Respiratory Rate 17 20 21 Blood Pressure 129/84 Blood Pressure [Right Upper Arm] Pulse Oximetry 92 93 91 Oxygen Delivery Method 08/31/25 13:47 08/31/25 14:00 08/31/25 14:02 Temperature Pulse Rate 80 79 83 Pulse Rate [Right Pulse Oximeter] Respiratory Rate 24 26 H 22 Blood Pressure 148/93 H 138/84 Blood Pressure [Right Upper Arm] Pulse Oximetry 90 91 91 Oxygen Delivery Method 08/31/25 14:15 08/31/25 14:17 08/31/25 14:30 Temperature Pulse Rate 83 83 86 Pulse Rate [Right Pulse Oximeter] Respiratory Rate 24 20 25 H Blood Pressure 117/79 Blood Pressure [Right Upper Arm] Pulse Oximetry 92 92 95 Oxygen Delivery Method 08/31/25 14:32 08/31/25 14:33 08/31/25 14:45 Temperature Pulse Rate 79 76 78 Pulse Rate [Right Pulse Oximeter] Respiratory Rate 24 23 19 Blood Pressure 129/75 Blood Pressure [Right Upper Arm] Pulse Oximetry 92 93 91 Oxygen Delivery Method 08/31/25 14:47 Temperature Pulse Rate 85 Pulse Rate [Right Pulse Oximeter] Respiratory Rate 20 Blood Pressure 136/86 Blood Pressure [Right Upper Arm] Pulse Oximetry 93 Oxygen Delivery Method Documenting provider has reviewed patient's vital signs: yes Course Course ED Course: Differential diagnosis includes but is not limited to COPD exacerbation, pneumonia, acute coronary event, PE, anxiety. At this time will place IV place patient on potline monitor and oximetry. At this time I declined his request for morphine as with further discussion the seems to be more of a COPD type of event. When will instead use Toradol 15 mg IV. Labs will include a CBC, comprehensive, CRP, troponin, COVID influenza RSV. Will also include a chest x-ray and EKG. Patient is in agreement with our plan. Reevaluation(s) Reevaluation #1: Troponin is negative and thus will proceed with DuoNeb. Patient will also receive dexamethasone 10 mg. Reevaluation #2: Post nebulizer patient has improvement in lung sounds. O2 sats 94-96%. Patient does note his baseline O2 sats at home are 92-93%. Vital Signs Vital signs: Initial Vital Signs Temperature 97.9 F 08/31/25 13:05 Temperature Source Temporal Artery Scan 08/31/25 13:05 Pulse Rate 104 H 08/31/25 13:05 Respiratory Rate 24 08/31/25 13:05 Blood Pressure 157/69 H 08/31/25 13:05 Blood Pressure Mean 98 08/31/25 13:05 Blood Pressure Position Sitting 08/31/25 13:05 Pulse Oximetry 93 08/31/25 13:05 Oxygen Delivery Method Room Air 08/31/25 13:05 Vital Signs Temperature 97.9 F 08/31/25 13:05 Pulse Rate 104 H 08/31/25 13:05 Respiratory Rate 24 08/31/25 13:05 Blood Pressure 157/69 H 08/31/25 13:05 Pulse Oximetry 93 08/31/25 13:05 Oxygen Delivery Method Room Air 08/31/25 13:05 Temperature 97.9 F 08/31/25 13:05 Pulse Rate 85 08/31/25 14:47 Respiratory Rate 20 08/31/25 14:47 Blood Pressure 136/86 08/31/25 14:47 Pulse Oximetry 93 08/31/25 14:47 Oxygen Delivery Method Room Air 08/31/25 13:05 Medications Administered Medications: Discontinued Medications Generic Name Dose Route Start Last Admin Trade Name Freq PRN Reason Stop Dose Admin Albuterol/Ipratropium 1 neb 08/31/25 13:51 08/31/25 14:11 Iprat-Albut 0.5-2.5 Mg/3 Ml Neb IH 08/31/25 13:52 1 neb ONCE ONE Administration Dexamethasone 10 mg 08/31/25 14:00 08/31/25 14:11 Dexamethasone 10 Mg/Ml Pf IVP 08/31/25 14:01 10 mg ONCE ONE Administration Sodium Chloride 500 mls @ 500 mls/hr 08/31/25 13:21 08/31/25 13:43 0.9 % Sodium Chloride 500 Ml IV 08/31/25 14:20 500 mls/hr .Q1H FATOU Administration Ketorolac Tromethamine 15 mg 08/31/25 13:20 08/31/25 13:43 Ketorolac 15 Mg/Ml Inj IVP 08/31/25 13:21 15 mg ONCE ONE Administration MDM - Chest Pain MDM Narrative Medical decision making narrative: 1. COPD exacerbation-patient noted to have recurrent exacerbations of COPD. States this is the 5th time that he has needed attention this year. O2 sats upon arrival 92%. Post DuoNeb 94%. Patient was given dexamethasone 10 mg IV. Chest x-ray without evidence of pneumonia. Patient will also be started on Zithromax 500 mg today followed by 250 mg daily for 4 days. Prednisone to be continued tomorrow morning 09/01/2025 at 20 mg p.o. b.i.d. for 5 days. Strong suggestion discussed with patient for smoking cessation. He is smoking a pack a day usually. We discussed the importance of discontinuing this habit as this will greatly improve his symptoms. Discussed the need for 5 alternative means of stress release that he will need to have in place if he decides to quit smoking. He plans on following up with his primary MD next week. He is advised to return to the ER for dropping O2 sats at home under 90, did encourage use of his oxygen that he has at night, and he should also return for any fever or vomiting. 2. Chest pain -patient noted to be complaining of 10/10 chest pain upon arrival. His EKG is unchanged from previous and his high sensitivity point of care troponin was within normal limits. Because he had been experiencing discomfort over the last 2 days I did not feel I needed to repeat this test. Toradol 15 mg IV is given for pain. I declined his request for morphine as his description of pain and reassuring cardiac tests make this most likely musculoskeletal. During his stay here I do think he has a significant amount of anxiety when he is feeling this way. I do think with our discussion he seemed much more calm which seemed to also improve respiratory rate. Vital signs improved with patient heart rate decreasing to 85. No tachypnea and patient remained afebrile while here. 3. Recurrent syncopal episodes -this has been worked up by his primary MD with cardiology consult. I do think it is likely of vagal response after witnessing his coughs. He had no such occurrences here. I have advised him to limit coughing to a sitting or lying down position as standing up with certainly place him at risk for falling. EKG reassuring and troponin was negative. 4. Hyponatremia-sodium 128 today have encouraged him to salt his foods. Previous values have been 129-131. Will need this rechecked with his primary MD next week. 5. Disposition-home. I did ask Garrett consider staying here for the next couple our so that the steroids would have a chance to work as well as prompt giving him an additional neb. He however would like to go home. He is doing much better at this time. I have asked him to return for fever, difficulty breathing, worsening symptoms. I have asked him to monitor his oxygen levels and to ensure that he is using his oxygen at night. He assures me that he has steroid inhalers at home as well as nebulizer. He lives nearby in town and assures me that he will return for worsening symptoms. Medical Records Data Attestation: I reviewed the patient's medical records. Lab Data Attestation: I reviewed the patient's lab results. Labs: Lab Results 08/31/25 Range/Units 13:20 WBC 7.26 (4.50-11.00) K/uL RBC 5.23 (4.30-5.90) m/uL Hgb 14.0 (13.5-17.5) gm/dL Hct 43.1 (37.0-53.0) % MCV 82 (80-100) fL MCH 27 (26-34) pg MCHC 33 (32-36) gm/dL RDW Coeff of Jeovanny 13.9 (11.5-15.5) % Plt Count 202 (140-440) K/uL Neut % (Auto) 74.7 H (42.0-72.0) % Lymph % (Auto) 15.6 L (20-44) % Smyth % (Auto) 7.2 (0.0-11.0) % Eos % (Auto) 1.8 (0.0-7.0) % Baso % (Auto) 0.4 (0.0-3.0) % Neut # (Auto) 5.40 (1.7-7.0) K/uL Lymph # (Auto) 1.10 (0.90-2.90) K/uL Smyth # (Auto) 0.50 (0.00-0.90) K/UL Eos # (Auto) 0.13 (0.00-0.50) K/uL Baso # (Auto) 0.03 (0.00-0.30) K/uL Abs Immat Gran (auto) 0.02 (0.00-0.30) K/uL Imm/Tot Granulo (auto) 0.3 % Sodium 128 L (135-149) mmol/L Potassium 4.7 (3.6-5.1) mmol/L Chloride 92 L (96-114) mmol/L Carbon Dioxide 24 (20-32) mmol/L Anion Gap 12 (7-15) mEq/L BUN 11 (7-30) mg/dL Creatinine 0.9 (0.5-1.5) mg/dL Estimated Creat Clear 73.15 Estimated GFR 96 ml/min Glucose 103 (60-115) mg/dL Calcium 9.3 (8.4-10.6) mg/dL Total Bilirubin 0.9 (0.1-1.5) mg/dL AST 39 H (12-35) U/L ALT 51 H (4-50) U/L Alkaline Phosphatase 81 (40-150) U/L POC Troponin I High Sensi 3 (2.9-28.0) pg/mL C-Reactive Protein < 0.5 L (0.5-1.0) mg/dL NT-Pro-B Natriuret Pep 66 (See Note) pg/mL Total Protein 7.8 (6.0-8.3) g/dL Albumin 4.6 (3.3-5.0) g/dL SARS-CoV-2 (PCR) Negative SARS-CoV-2 (Negative) Influenza Type A (PCR) Negative PCR FLU A (Negative) Influenza Type B (PCR) Negative PCR FLU B (Negative) RSV (PCR) Negative PCR RSV (Negative) Imaging Data Chest x-ray: Attestation: I have reviewed the pertinent imaging results. My impression: I do not note any acute infiltrates. Increased lung markings are noted throughout the chest. Radiologist's impression: Cardiovascular and mediastinum: Heart size and vasculature are normal in caliber and appearance. Lungs and pleural space: No pleural effusion or pneumothorax. Linear atelectasis left lung base. Faint reticular interstitial prominence bilaterally, likely fibrosis. Bones and soft tissues: No acute findings. ECG Data Attestation: I personally reviewed and interpreted this ECG as follows: ECG interpretation date: 08/31/25 Interpretation: EKG by my read shows sinus rhythm at a rate of 91. EKG by my read does not show any acute ST or T-wave changes. WI and QT intervals within normal limits. Compared to previous not changed or maybe even somewhat improved. nurse monitoring-without evidence of arrhythmia Discharge Plan Discharge Clinical Impression: Acute exacerbation of chronic obstructive pulmonary disease, Atypical chest pain, Chronic hyponatremia Patient Disposition: Home, Self-Care Condition: Improved Additional Instructions: 1. Please start the antibiotic called Zithromax today. This will be available in our [employer] machine 2. Continue steroids called prednisone-1st dose tomorrow morning. You should note that the IV dose of steroids should start working this afternoon. 3. Follow-up as scheduled with pulmonology in September. 4. Return to the emergency room for worsening symptoms and as needed. 5. To the best of your ability please consider smoking cessation or decreasing the amount of tobacco that you use. It would go a long way to making you feel better. 6. Sodium today was 128. Your primary care provider will want to recheck that next week. Recommend salting your food. Prescriptions: No Action hydrocodone-acetaminophen 5-325 mg tablet 1 tab PO Q6H PRN atorvastatin 20 mg tablet 20 mg PO HS tamsulosin 0.4 mg capsule 0.8 mg PO DAILY escitalopram oxalate 20 mg tablet 20 mg PO DAILY amlodipine 10 mg tablet 10 mg PO DAILY Patient Comments: TAKE ONE TABLET BY MOUTH EVERY EVENING metformin 1,000 mg tablet 1,000 mg PO BID Patient Comments: TAKE 1 TABLET BY MOUTH 2 TIMES DAILY WITH MEALS. omeprazole 40 mg capsule,delayed release(DR/EC) 40 mg PO DAILY Patient Comments: TAKE 1 CAPSULE BY MOUTH ONCE DAILY BEFORE A MEAL. tiotropium bromide [Spiriva with HandiHaler] 18 mcg capsule, w/inhalation device 1 cap INHALATION DAILY Patient Comments: INHALE CONTENTS OF 1 CAPSULE WITH HANDIHALER DEVICE ONCE DAILY ipratropium-albuterol 0.5 mg-3 mg(2.5 mg base)/3 mL solution for nebulization 3 ml INHALATION Q6H PRN Patient Comments: INHALE ONE VIAL VIA A NEBULIZER 4 TIMES DAILY NEEDED budesonide-formoterol [Symbicort] 160-4.5 mcg/actuation HFA aerosol inhaler 2 puff INHALATION Q12H Patient Comments: INHALE 2 PUFFS BY MOUTH 2 TIMES DAILY. albuterol sulfate [Ventolin HFA] 90 mcg/actuation HFA aerosol inhaler 2 puff INHALATION Q4H PRN meloxicam 15 mg tablet 15 mg PO DAILY Patient Comments: TAKE ONE TABLET BY MOUTH EVERY DAY benzonatate 100 mg Capsule 200 mg PO TID Qty: 20 0RF prednisone 20 mg tablet 20 mg PO BID Qty: 10 0RF hydroxyzine HCl 25 mg tablet 25 mg PO TID PRNQty: 14 0RF Follow Up/Referrals: Italia Pugh MD [Primary Care Provider, Family Practice] Stand Alone Forms: [employer] [facility] Info Instructions
--- NOTE | 2025-08-31 13:20 | CRLHL7_ITS ---
For Patients: As a result of the Century Cures Act, medical imaging exams and procedure reports are released immediately into your electronic medical record. You may view this report before your referring provider. If you have questions, please contact your health care provider. Indication: Difficult breathing Technique: Chest 1 view Comparison: Chest x-ray 06/17/2025 Findings/Impression: Cardiovascular and mediastinum: Heart size and vasculature are normal in caliber and appearance. Lungs and pleural space: No pleural effusion or pneumothorax. Linear atelectasis left lung base. Faint reticular interstitial prominence bilaterally, likely fibrosis. Bones and soft tissues: No acute findings. Dictated by Darvin Burnham MD @ 08/31/2025 1:49:14 PM (Electronically Signed)
[2025-08-31] MEDS: 0.9 % SODIUM CHLORIDE 500 ML 500 ML IV (13:43)
[2025-08-31 13:51] LABS: Albumin* 4.6 g/dL (3.3-5.0); Chloride* 92 mmol/L (96-114); Hematocrit* 43.1 % (37.0-53.0); Hemoglobin* 14.0 gm/dL (13.5-17.5); Immature Granulocytes Abs Auto 0.02 K/uL (0.00-0.30); Immature Granulocytes Pct Auto 0.3 %; Mean Corpuscular HGB Conc 33 gm/dL (32-36); Mean Corpuscular Hemoglobin 27 pg (26-34); Mean Corpuscular Volume 82 fL (80-100); Potassium* 4.7 mmol/L (3.6-5.1); RDW Coefficient of Variation % 13.9 % (11.5-15.5); Red Blood Count* 5.23 m/uL (4.30-5.90); Sodium* 128 mmol/L (135-149); White Blood Count* 7.26 K/uL (4.50-11.00)
[2025-08-31 13:52] LABS: Lymphocytes Absolute Auto 1.10 K/uL (0.90-2.90); Slide Review Reflex No
[2025-08-31 13:53] LABS: Blood Urea Nitrogen* 11 mg/dL (7-30); Creatinine* 0.9 mg/dL (0.5-1.5); Est. Creatinine Clearance* 73.15; Estimated Glomerular Filt Rate 96 ml/min
[2025-08-31 13:54] LABS: Alanine Aminotransferase* 51 U/L (4-50); Alkaline Phosphatase* 81 U/L (40-150); Anion Gap 12 mEq/L (7-15); Aspartate Amino Transferase* 39 U/L (12-35); Bilirubin Total* 0.9 mg/dL (0.1-1.5); Calcium* 9.3 mg/dL (8.4-10.6); Carbon Dioxide* 24 mmol/L (20-32); Glucose* 103 mg/dL (60-115); Total Protein* 7.8 g/dL (6.0-8.3)
[2025-08-31] MEDS: DEXAMETHASONE 10 MG/ML PF IVP (14:11)
[2025-08-31] MEDS: IPRAT-ALBUT 0.5-2.5 MG/3 ML NEB 1 NEB IH (14:11)
[2025-08-31 14:12] LABS: NT Pro B Type NatriureticPept* 66 pg/mL (See Note)
[2025-08-31 14:18] LABS: PCR FLU A Negative PCR FLU A (Negative); PCR FLU B Negative PCR FLU B (Negative); PCR RSV Negative PCR RSV (Negative); SARS PCR* Negative SARS-CoV-2 (Negative)
== END 2025-08-31 15:20 | disposition home or self-care (01) ==
PROVIDERS: Emergency Provider Family Medicine; PCP Family Medicine
DX: J44.1 Chronic obstructive pulmonary disease with (acute) exacerbation (principal); E87.1 Hypo-osmolality and hyponatremia; R07.9 Chest pain, unspecified
CPT/HCPCS: 36415; 71045; 80053; 83880; 84484; 85025; 86140; 87631; 94640; 96374; 96375; 99284; J1100; J1885; J7030